=== PATIENT | female | born 1980 | race Caucasian/White ===

== ENCOUNTER 2017-08-28 19:51 | Inpatient (IN) | payer BC, OTHER ==
[~2017-08-28] VITALS: Ht 160 cm; Wt 122.5 kg
--- OUTSIDE RECORDS SUMMARY | 2017-08-28 19:59 | XMS REPORT ---
Author Author BRUNA PHAM Organization [facility] Address [address] [place] [address] Care Team Providers Care Wire Coater Name Role Phone BRUNA PHAM Unavailable PROBLEMS Type Condition ICD9-CM Code REV28-RL Code Onset Dates Condition Status SNOMED Code Problem Overweight E66.3 Active 166066569 Problem Pain in left shoulder M25.512 Active 64768407 Problem Essential hypertension I10 Active 70743091 Problem Mixed hyperlipidemia E78.2 Active 329539393 Problem Seasonal allergic rhinitis due to pollen J30.1 Active 94721607 Problem Type 2 diabetes mellitus without complication, without long-term current use of insulin E11.9 Active [id number] ALLERGIES No Known Allergies SOCIAL HISTORY Never Assessed PLAN OF CARE Activity Details Follow Up prn Reason: VITAL SIGNS Height 63 in 2016-10-01 Weight 266.8 lbs 2016-10-01 Temperature 98.6 degrees Fahrenheit 2016-10-01 Heart Rate 84 bpm 2016-10-01 Respiratory Rate 18 2016-10-01 BMI 47.26 kg/m2 2016-10-01 Blood pressure systolic 96 mmHg 2016-10-01 Blood pressure diastolic 62 mmHg 2016-10-01 MEDICATIONS Medication Instructions Dosage Frequency Start Date End Date Duration Status MetFORMIN HCl ER 500 MG Orally twice a day MUST KEEP APPT ON 06/22/16 FOR REFILL 1 tablet with meals Active Lisinopril-Hydrochlorothiazide 20-25 MG Orally Once a day 1 tablet 24h 30 day(s) Active Toprol XL 25 MG Orally Once a day 1 tablet 24h 30 day(s) Active Actos 30 MG Orally Once a day take 1 tablet by oral route once daily 24h 30 days Active RESULTS No Results PROCEDURES No Known procedures IMMUNIZATIONS No Known Immunizations MEDICAL (GENERAL) HISTORY Type Description Date Medical History type II diabetes 2014 Medical History hypertension Medical History hyperlipidemia Medical History seasonal allergies Medical History syncopal events as a child (resolved) Medical History Tobacco Abuse went to non smoking class Surgical History hymenectomy 1991-
--- OUTSIDE RECORDS SUMMARY | 2017-08-28 19:59 | XMS REPORT ---
Author RAMIREZ Carr [facility] eClinicalWorks Address Unknown Phone Unavailable Care Team Providers Care Prototype Machine Operator Name Role Phone RAMIREZ BARRERA CP Unavailable Allergies, Adverse Reactions, Alerts Substance Reaction Event Type N.K.D.A. Info Not Available Non Drug Allergy Problems Problem Type Condition Code Onset Dates Condition Status Problem Mixed hyperlipidemia E78.2 Active Problem Essential hypertension I10 Active Problem Type 2 diabetes mellitus without complication E11.9 Active Assessment Fluid level behind tympanic membrane of both ears H65.93 Active Assessment Cough R05 Active Medications Medication Code System Code Instructions Start Date End Date Status Dosage Actos [facility] [address]-64 30 MG Orally Once a day take 1 tablet (15 mg) by oral route once daily Flonase [facility] [address]-79 50 MCG/ACT Nasally Once a day Mar 26, 2016 1 spray in each nostril PredniSONE [facility] [address]-15 20 MG Orally 2 tablets x 2 days then 1 tablet x 2 days Apr 02, 2016 Apr 06, 2016 1 tablet GlyBURIDE [facility] [address]-29 5 mg Orally Once a day 1 tablet by Oral route 1 time per day Lisinopril-Hydrochlorothiazide [facility] [address]-47 20-25 MG Orally Once a day 1 tablet Zyrtec Allergy [facility] [address]-03 10 MG Orally Once a day Mar 26, 2016 Apr 25, 2016 1 tablet metformin [facility] 0 500 mg oral 2 times a day Apr 27, 2016 1 tablet ProAir HFA [facility] [address]-11 108 (90 Base) MCG/ACT Inhalation every 4 hrs Apr 02, 2016 2 puffs as needed Toprol XL [facility] [address]-62 25 MG Orally Once a day 1 tablet Procedures Procedure Coding System Code Date Office Visit, Est Pt., Level 3 CPT-4 25886 Apr 02, 2016 Vital Signs Date/Time: Apr 02, 2016 Cardiac Monitoring Heart Rate 102 bpm Weight 264.6 lbs Height 63 in BMI 46.87 Index Blood Pressure Diastolic 70 mmHg Blood Pressure Systolic 118 mmHg Results No Known Results Summary Purpose eClinicalWorks Submission
--- OUTSIDE RECORDS SUMMARY | 2017-08-28 19:59 | XMS REPORT ---
Author Author ISAIAH BATISTA [facility] eClinicalWorks Address Unknown Phone Unavailable Care Team Providers Care Boat Dispatcher Name Role Phone ISAIAH BATISTA CP Unavailable Allergies, Adverse Reactions, Alerts Substance Reaction Event Type N.K.D.A. Info Not Available Non Drug Allergy Problems Problem Type Condition Code Onset Dates Condition Status Problem Mixed hyperlipidemia E78.2 Active Problem Essential hypertension I10 Active Problem Type 2 diabetes mellitus without complication E11.9 Active Assessment Dental examination Z01.20 Active Medications Medication Code System Code Instructions Start Date End Date Status Dosage Lisinopril-Hydrochlorothiazide [facility] [address]-85 20-25 MG Orally Once a day Mar 19, 2015 1 tablet GlyBURIDE [facility] [address]-98 5 MG Orally Once a day 1 tablet by Oral route 1 time per day metformin [place] 0 500 mg oral 2 times a day January 18, 2016 take 1 tablet (500 mg) by oral route once daily with the evening meal Toprol XL [facility] [address]-36 25 MG Orally Once a day Jul 22, 2015 1 tablet Actos [facility] [address]-72 15 MG Orally Once a day take 1 tablet (15 mg) by oral route once daily Procedures Procedure Coding System Code Date RESIN COMPOS - 1 SURFACE POSTERIOR CPT-4 D2391 Jul 31, 2015 PERIODIC ORAL EXAMINATION CPT-4 D0120 Jul 31, 2015 Results No Known Results Summary Purpose eClinicalWorks Submission
--- OUTSIDE RECORDS SUMMARY | 2017-08-28 19:59 | XMS REPORT ---
Author Author LIONEL BRISCOE [facility] eClinicalWorks Address Unknown Phone Unavailable Care Team Providers Care Parquetry Floor Layer Name Role Phone LIONEL BRISCOE Unavailable Allergies No Known Allergies Problems Problem Type Condition ICD-9 Code Onset Dates Condition Status Assessment Tuberculosis screening V74.1 Active Assessment Screening for substance abuse V82.9 Active Problem Hyperlipidemia 272.4 Active Problem Diabetes mellitus without mention of complication, type II or unspecified type, uncontrolled 250.02 Active Problem Hypertension 401.9 Active Problem Proteinuria 791.0 Active Assessment Physical examination of employee V70.5 Active Problem Pure hyperglyceridemia 272.1 Active Problem Dermatophytosis of nail 110.1 Active Medications No Known Medications Procedures Procedure Coding System Code Date DRUG SCREEN NON TLC DEVICES CPT-4 81574 Mar 25, 2015 TB INTRADERMAL TEST CPT-4 77011 Mar 25, 2015 Office Visit, Est Pt., Level 2 CPT-4 38837 Mar 25, 2015 Vital Signs Date/Time: Mar 25, 2015 Cardiac Monitoring Heart Rate 122 bpm Temperature 98.4 F Height 63 in Blood Pressure Diastolic 84 mmHg Blood Pressure Systolic 138 mmHg Results Name Result Date Reference Range Unit Abnormality Flag URINE DRUG SCREEN (IN HOUSE) Summary Purpose eClinicalWorks Submission
--- OUTSIDE RECORDS SUMMARY | 2017-08-28 19:59 | XMS REPORT ---
Author Author DANG BLACKMAN Organization eClinicalWorks Address Unknown Phone Unavailable Care Team Providers Care Nuclear Technologist Name Role Phone DANG BLACKMAN CP Unavailable Allergies No Known Allergies Problems Problem Type Condition Code Onset Dates Condition Status Problem Mixed hyperlipidemia E78.2 Active Problem Essential hypertension I10 Active Problem Type 2 diabetes mellitus without complication E11.9 Active Medications Medication Code System Code Instructions Start Date End Date Status Dosage GlyBURIDE [facility] [address]-15 5 mg Orally Once a day MUST KEEP APPT ON FOR REFILL 1 tablet MetFORMIN HCl ER [facility] 81292858145 500 MG Orally twice a day MUST KEEP APPT ON 06/22/16 FOR REFILL 1 tablet with meals Actos [facility] [address]-54 30 MG Orally Once a day MUST KEEP APPT ON 06/22/16 FOR REFILL take 1 tablet (15 mg) by oral route once daily Results No Known Results Summary Purpose eClinicalWorks Submission
--- OUTSIDE RECORDS SUMMARY | 2017-08-28 19:59 | XMS REPORT ---
Author Author DANG BLACKMAN [facility] eClinicalWorks Address Unknown Phone Unavailable Care Team Providers Care Tank Inspector Name Role Phone DANG BLACKMAN CP Unavailable Allergies, Adverse Reactions, Alerts Substance Reaction Event Type N.K.D.A. Info Not Available Non Drug Allergy Problems Problem Type Condition Code Onset Dates Condition Status Problem Mixed hyperlipidemia E78.2 Active Problem Essential hypertension I10 Active Problem Type 2 diabetes mellitus without complication E11.9 Active Assessment Type 2 diabetes mellitus without complication E11.9 Active Assessment Essential hypertension I10 Active Assessment Mixed hyperlipidemia E78.2 Active Medications Medication Code System Code Instructions Start Date End Date Status Dosage Actos [facility] [address]-06 15 MG Orally Once a day take 1 tablet (15 mg) by oral route once daily Toprol XL [facility] [address]-38 25 MG Orally Once a day Jul 22, 2015 1 tablet metformin [facility] 0 500 mg oral 2 times a day January 18, 2016 take 1 tablet (500 mg) by oral route once daily with the evening meal Lisinopril-Hydrochlorothiazide [facility] [address]-32 20-25 MG Orally Once a day Mar 19, 2015 1 tablet GlyBURIDE [facility] [address]-21 5 MG Orally Once a day 1 tablet by Oral route 1 time per day Procedures Procedure Coding System Code Date LIPID PANEL CPT-4 04316 Jul 22, 2015 COMPREHEN METABOLIC PANEL CPT-4 11170 Jul 22, 2015 GLYCATED HEMOGLOBIN TEST CPT-4 94840 Jul 22, 2015 Office Visit, Est Pt., Level 4 CPT-4 70851 Jul 22, 2015 VENIPUNCT, ROUTINE* CPT-4 84236 Jul 22, 2015 Vital Signs Date/Time: Jul 22, 2015 Temperature 97.0 F Weight 257.0 lbs Height 63 in BMI 45.52 Index Blood Pressure Diastolic 92 mmHg Blood Pressure Systolic 138 mmHg Cardiac Monitoring Heart Rate 116 bpm Results Name Result Date Reference Range Unit Abnormality Flag A1C (IN HOUSE) ----A1C IN HOUSE 8.5% [id number] 4.30 - 5.6 % ----Previous A1c 9.6% [id number] ----Lot # [id number] ----Exp date [id number] ROUTINE VENIPUNCTURE Summary Purpose eClinicalWorks Submission
--- OUTSIDE RECORDS SUMMARY | 2017-08-28 19:59 | XMS REPORT ---
Author Author BETY ALEJANDRE [facility] eClinicalWorks Address Unknown Phone Unavailable Care Team Providers Care After School Driver Name Role Phone BETY ALEJANDRE CP Unavailable Allergies, Adverse Reactions, Alerts Substance Reaction Event Type N.K.D.A. Info Not Available Non Drug Allergy Problems Problem Type Condition Code Onset Dates Condition Status Problem Mixed hyperlipidemia E78.2 Active Problem Essential hypertension I10 Active Problem Type 2 diabetes mellitus without complication E11.9 Active Assessment Encounter for dental examination Z01.20 Active Medications No Known Medications Procedures Procedure Coding System Code Date INTRAORL-PERIAPICAL EA ADD FILM CPT-4 D0230 Jul 31, 2015 INTRAORL-PERIAPICAL EA ADD FILM CPT-4 D0230 Jul 31, 2015 INTRAORL-PERIAPICAL 1 FILM 68517 CPT-4 D0220 Jul 31, 2015 Periodontal maint procedures CPT-4 D4910 Jul 31, 2015 BITEWINGS - FOUR FILMS CPT-4 D0274 Jul 31, 2015 Vital Signs Date/Time: Jul 31, 2015 Blood Pressure Diastolic 75 mmHg Blood Pressure Systolic 110 mmHg Results No Known Results Summary Purpose eClinicalWorks Submission
--- OUTSIDE RECORDS SUMMARY | 2017-08-28 19:59 | XMS REPORT ---
Author Author DANG BLACKMAN Organization eClinicalWorks Address Unknown Phone Unavailable Care Team Providers Care Substitute Crossing Guard Name Role Phone DANG BLACKMAN CP Unavailable Allergies No Known Allergies Problems Problem Type Condition Code Onset Dates Condition Status Problem Mixed hyperlipidemia E78.2 Active Problem Essential hypertension I10 Active Problem Type 2 diabetes mellitus without complication E11.9 Active Medications No Known Medications Vital Signs Date/Time: Sep 04, 2015 Blood Pressure Systolic 130 mmHg Cardiac Monitoring Heart Rate 88 bpm Height 63 in Blood Pressure Diastolic 70 mmHg Results No Known Results Summary Purpose eClinicalWorks Submission
--- OUTSIDE RECORDS SUMMARY | 2017-08-28 19:59 | XMS REPORT ---
Author Author DANG BLACKMAN Organization eClinicalWorks Address Unknown Phone Unavailable Care Team Providers Care Welding Machine Operator Electron Beam Name Role Phone DANG BLACKMAN CP Unavailable Allergies No Known Allergies Problems Problem Type Condition Code Onset Dates Condition Status Problem Type 2 diabetes mellitus without complication E11.9 Active Problem Mixed hyperlipidemia E78.2 Active Problem Diabetes mellitus without mention of complication, type II or unspecified type, not stated as uncontrolled 250.00 Active Problem Essential hypertension I10 Active Medications Medication Code System Code Instructions Start Date End Date Status Dosage Actos [facility]NOTE 2] [address]-69 30 MG Orally Once a day take 1 tablet by oral route once daily Results No Known Results Summary Purpose eClinicalWorks Submission
--- OUTSIDE RECORDS SUMMARY | 2017-08-28 19:59 | XMS REPORT ---
Author Author DANG BLACKMAN [facility] eClinicalWorks Address Unknown Phone Unavailable Care Team Providers Care Mortgage Branch Manager Name Role Phone DANG BLACKMAN CP Unavailable Allergies, Adverse Reactions, Alerts Substance Reaction Event Type N.K.D.A. Info Not Available Non Drug Allergy Problems Problem Type Condition Code Onset Dates Condition Status Problem Type 2 diabetes mellitus without complication E11.9 Active Problem Mixed hyperlipidemia E78.2 Active Problem Diabetes mellitus without mention of complication, type II or unspecified type, not stated as uncontrolled 250.00 Active Assessment Type 2 diabetes mellitus without complication E11.9 Active Assessment Mixed hyperlipidemia E78.2 Active Problem Essential hypertension I10 Active Assessment Essential hypertension I10 Active Medications Medication Code System Code Instructions Start Date End Date Status Dosage Actos [facility] [address]-68 30 MG Orally Once a day take 1 tablet by oral route once daily MetFORMIN HCl ER [facility] 46434901245 500 MG Orally twice a day MUST KEEP APPT ON 06/22/16 FOR REFILL 1 tablet with meals Lisinopril-Hydrochlorothiazide [facility] [address]-67 20-25 MG Orally Once a day 1 tablet Toprol XL [facility] [address]-61 25 MG Orally Once a day 1 tablet Procedures Procedure Coding System Code Date COMPREHEN METABOLIC PANEL CPT-4 45965 Jun 22, 2016 Office Visit, Est Pt., Level 3 CPT-4 61744 Jun 22, 2016 GLYCATED HEMOGLOBIN TEST CPT-4 12663 Jun 22, 2016 VENIPUNCT, ROUTINE* CPT-4 41184 Jun 22, 2016 Vital Signs Date/Time: Jun 22, 2016 Cardiac Monitoring Heart Rate 90 bpm Weight 262 lbs Height 63 in BMI 46.41 Index Blood Pressure Diastolic 80 mmHg Blood Pressure Systolic 110 mmHg Results Name Result Date Reference Range Unit Abnormality Flag A1C (IN HOUSE) ----A1C IN HOUSE 7.8 [id number] 4.3 - 5.6 % ----Previous A1c 9.6 [id number] ----Lot [id number] ----Exp date 05/02 [id number] ROUTINE VENIPUNCTURE Summary Purpose eClinicalWorks Submission
--- OUTSIDE RECORDS SUMMARY | 2017-08-28 19:59 | XMS REPORT ---
Author VALERIE Michaels [facility] eClinicalWorks Address Unknown Phone Unavailable Care Team Providers Care Behavioral Health Consultant Name Role Phone VALERIE WILLS CP Unavailable Allergies, Adverse Reactions, Alerts Substance Reaction Event Type N.K.D.A. Info Not Available Non Drug Allergy Problems Problem Type Condition Code Onset Dates Condition Status Assessment Cough R05 Active Problem Hyperlipidemia 272.4 Active Problem Diabetes mellitus without mention of complication, type II or unspecified type, uncontrolled 250.02 Active Problem Hypertension 401.9 Active Problem Proteinuria 791.0 Active Assessment Sinusitis J32.9 Active Problem Pure hyperglyceridemia 272.1 Active Problem Dermatophytosis of nail 110.1 Active Medications Medication Code System Code Instructions Start Date End Date Status Dosage GlyBURIDE [facility] [address]-92 5 MG Orally Once a day 1 tablet by Oral route 1 time per day Diflucan [facility] [address]-07 150 MG Orally Once a day; may repeat in 4-5 days prn vaginal itching Jul 03, 2015 1 tablet Actos [facility] [address]-09 15 MG Orally Once a day take 1 tablet (15 mg) by oral route once daily Lisinopril-Hydrochlorothiazide [facility] [address]-76 20-25 MG Orally Once a day Mar 19, 2015 1 tablet metformin [facility] 0 500 mg oral Once a day Sep 15, 2015 take 1 tablet ( 500 mg) by oral route once daily with the evening meal Augmentin [facility] [address]-79 875-125 MG Orally every 12 hrs Jul 03, 2015 Jul 13, 2015 1 tablet Procedures Procedure Coding System Code Date Office Visit, Est Pt., Level 3 CPT-4 09842 Jul 03, 2015 MEASURE BLOOD OXYGEN LEVEL CPT-4 14257 Jul 03, 2015 Vital Signs Date/Time: Jul 03, 2015 Temperature 98.8 F Weight 257 lbs Height 63 in Oximetry 98 % Blood Pressure Diastolic 82 mmHg Blood Pressure Systolic 102 mmHg Cardiac Monitoring Heart Rate 117 bpm BMI 45.52 Index Results No Known Results Summary Purpose eClinicalWorks Submission
--- OUTSIDE RECORDS SUMMARY | 2017-08-28 20:00 | XMS REPORT | Continuity of Care Document ---
Author Author Formerly [facility] Address Unknown Phone Unavailable Allergies Active Description Code Type Severity Reaction Onset Reported/Identified Relationship to Patient Clinical Status Yes metformin 1,000 mg tablet,ER ina.retention 24 hr Drug Allergy N/A N/A Medications There is no data. Problems Date Dx Coded Attending Type Code Diagnosis Diagnosed By 12/30/2009 305.1 NICOTINE DEPENDENCE 12/30/2009 626.2 EXCESSIVE OR FREQUENT MENSTRUATION 12/30/2009 796.2 Elevated Blood Pressure Reading Without Diagnosis Of Hypertension 12/30/2009 KESHIA GONZALES DO K 305.1 NICOTINE DEPENDENCE 12/30/2009 KESHIA GONZALES DO K 626.2 EXCESSIVE OR FREQUENT MENSTRUATION 12/30/2009 RACHID GONZALES DOA K 796.2 Elevated Blood Pressure Reading Without Diagnosis Of Hypertension 12/30/2009 RACHID GONZALES DOA K 305.1 NICOTINE DEPENDENCE 12/30/2009 RACHID GONZALES DOA K 626.2 EXCESSIVE OR FREQUENT MENSTRUATION 12/30/2009 RACHID GONZALES DOA K 796.2 Elevated Blood Pressure Reading Without Diagnosis Of Hypertension 12/30/2009 RACHID GONZALES DOA K 305.1 NICOTINE DEPENDENCE 12/30/2009 RACHID GONZALES DOA K 626.2 EXCESSIVE OR FREQUENT MENSTRUATION 12/30/2009 RACHID GONZALES DOA K 796.2 Elevated Blood Pressure Reading Without Diagnosis Of Hypertension 12/30/2009 RACHID GONZALES DOA K 305.1 NICOTINE DEPENDENCE 12/30/2009 RACHID GONZALES DOA K 626.2 EXCESSIVE OR FREQUENT MENSTRUATION 12/30/2009 RACHID GONZALES DOA K 796.2 Elevated Blood Pressure Reading Without Diagnosis Of Hypertension 12/30/2009 RACHID GONZALES DOA K 305.1 NICOTINE DEPENDENCE 12/30/2009 RACHID GONZALES DOA K 626.2 EXCESSIVE OR FREQUENT MENSTRUATION 12/30/2009 RACHID GONZALES DOA K 796.2 Elevated Blood Pressure Reading Without Diagnosis Of Hypertension 12/30/2009 RACHID GONZALES DOA K 305.1 NICOTINE DEPENDENCE 12/30/2009 GONZALES DO, KESHIA K 626.2 EXCESSIVE OR FREQUENT MENSTRUATION 12/30/2009 GONZALES DO, KESHIA K 796.2 Elevated Blood Pressure Reading Without Diagnosis Of Hypertension 12/30/2009 MADL .NET PROGRAMMERLEANNDANG L 305.1 NICOTINE DEPENDENCE 12/30/2009 MADL .NET PROGRAMMER, DANG L 626.2 EXCESSIVE OR FREQUENT MENSTRUATION 12/30/2009 MADL .NET PROGRAMMER, DANG L 796.2 Elevated Blood Pressure Reading Without Diagnosis Of Hypertension 12/30/2009 GONZALES DO, KESHIA K 305.1 NICOTINE DEPENDENCE 12/30/2009 GONZALES DO, KESHIA K 626.2 EXCESSIVE OR FREQUENT MENSTRUATION 12/30/2009 GONZALES DO, KESHIA K 796.2 Elevated Blood Pressure Reading Without Diagnosis Of Hypertension 01/09/2010 382.9 Otitis Media 01/09/2010 GONZALES DO, KESHIA K 382.9 Otitis Media 01/09/2010 GONZALES DO, KESHIA K 382.9 Otitis Media 01/09/2010 GONZALES DO, KESHIA K 382.9 Otitis Media 01/09/2010 GONZALES DO, KESHIA K 382.9 Otitis Media 01/09/2010 GONZALES DO, KESHIA K 382.9 Otitis Media 01/09/2010 GONZALES DO, KESHIA K 382.9 Otitis Media 01/09/2010 MADL .NET PROGRAMMER, DANG L 382.9 Otitis Media 01/09/2010 GONZALES DO, KESHIA K 382.9 Otitis Media 01/20/2010 278.00 OBESITY 01/20/2010 401.1 ESSENTIAL HYPERTENSION BENIGN 01/20/2010 626.4 IRREGULAR MENSTRUAL CYCLE 01/20/2010 GONZALES DO, KESHIA K 278.00 OBESITY 01/20/2010 GONZALES DO, KESHIA K 401.1 ESSENTIAL HYPERTENSION BENIGN 01/20/2010 GONZALES DO, KESHIA K 626.4 IRREGULAR MENSTRUAL CYCLE 01/20/2010 GONZALES DO, KESHIA K 278.00 OBESITY 01/20/2010 GONZALES DO, KESHIA K 401.1 ESSENTIAL HYPERTENSION BENIGN 01/20/2010 GONZALES DO, KESHIA K 626.4 IRREGULAR MENSTRUAL CYCLE 01/20/2010 GONZALES DO, KESHIA K 278.00 OBESITY 01/20/2010 GONZALES DO, KESHIA K 401.1 ESSENTIAL HYPERTENSION BENIGN 01/20/2010 GONZALES DO, KESHIA K 626.4 IRREGULAR MENSTRUAL CYCLE 01/20/2010 GONZALES DO, KESHIA K 278.00 OBESITY 01/20/2010 GONZALES DO, KESHIA K 401.1 ESSENTIAL HYPERTENSION BENIGN 01/20/2010 GONZALES DO, KESHIA K 626.4 IRREGULAR MENSTRUAL CYCLE 01/20/2010 GONZALES DO, KESHIA K 278.00 OBESITY 01/20/2010 GONZALES DO, KESHIA K 401.1 ESSENTIAL HYPERTENSION BENIGN 01/20/2010 GONZALES DO, KESHIA K 626.4 IRREGULAR MENSTRUAL CYCLE 01/20/2010 GONZALES DO, KESHIA K 278.00 OBESITY 01/20/2010 GONZALES DO, KESHIA K 401.1 ESSENTIAL HYPERTENSION BENIGN 01/20/2010 GONZALES DO, KESHIA K 626.4 IRREGULAR MENSTRUAL CYCLE 01/20/2010 MADL .NET PROGRAMMER, DANG L 278.00 OBESITY 01/20/2010 MADL .NET PROGRAMMER, DANG L 401.1 ESSENTIAL HYPERTENSION BENIGN 01/20/2010 MADL .NET PROGRAMMER, DANG L 626.4 IRREGULAR MENSTRUAL CYCLE 01/20/2010 GONZALES DO, KESHIA K 278.00 OBESITY 01/20/2010 GONZALES DO, KESHIA K 401.1 ESSENTIAL HYPERTENSION BENIGN 01/20/2010 GONZALES DO, KESHIA K 626.4 IRREGULAR MENSTRUAL CYCLE 08/10/2010 466.0 BRONCHITIS, ACUTE 08/10/2010 GONZALES DO, KESHIA K 466.0 Bronchitis, Acute 08/10/2010 GONZALES DO, KESHIA K 466.0 Bronchitis, Acute 08/10/2010 GONZALES DO, KESHIA K 466.0 Bronchitis, Acute 08/10/2010 GONZALES DO, KESHIA K 466.0 Bronchitis, Acute 08/10/2010 GONZALES DO, KESHIA K 466.0 Bronchitis, Acute 08/10/2010 GONZALES DO, KESHIA K 466.0 Bronchitis, Acute 08/10/2010 MADL .NET PROGRAMMER, DANG L 466.0 Bronchitis, Acute 08/10/2010 GONZALES DO, KESHIA K 466.0 Bronchitis, Acute 08/25/2010 381.81 EUSTACHIAN TUBE DYSFUNCTION 08/25/2010 786.2 COUGH 08/25/2010 GONZALES DO, KESHIA K 381.81 Eustachian Tube Dysfunction 08/25/2010 GONZALES DO, KESHIA K 786.2 Cough 08/25/2010 GONZALES DO, KESHIA K 381.81 Eustachian Tube Dysfunction 08/25/2010 GONZALES DO, KESHIA K 786.2 Cough 08/25/2010 GONZALES DO, KESHIA K 381.81 Eustachian Tube Dysfunction 08/25/2010 GONZALES DO, KESHIA K 786.2 Cough 08/25/2010 GONZALES DO, KESHIA K 381.81 Eustachian Tube Dysfunction 08/25/2010 GONZALES DO, KESHIA K 786.2 Cough 08/25/2010 GONZALES DO, KESHIA K 381.81 Eustachian Tube Dysfunction 08/25/2010 GONZALES DO, KESHIA K 786.2 Cough 08/25/2010 GONZALES DO, KESHIA K 381.81 Eustachian Tube Dysfunction 08/25/2010 GONZALES DO, KESHIA K 786.2 Cough 08/25/2010 MADL .NET PROGRAMMER, DANG L 381.81 Eustachian Tube Dysfunction 08/25/2010 MADL .NET PROGRAMMER, DANG L 786.2 Cough 08/25/2010 GONZALES DO, KESHIA K 381.81 Eustachian Tube Dysfunction 08/25/2010 GONZALES DO, KESHIA K 786.2 Cough 01/20/2011 380.10 OTITIS EXTERNA 01/20/2011 388.70 OTALGIA 01/20/2011 GONZALES DO, KESHIA K 380.10 Otitis Externa 01/20/2011 GONZALES DO, KESHIA K 388.70 Otalgia 01/20/2011 GONZALES DO, KESHIA K 380.10 Otitis Externa 01/20/2011 GONZALES DO, KESHIA K 388.70 Otalgia 01/20/2011 GONZALES DO, KESHIA K 380.10 Otitis Externa 01/20/2011 GONZALES DO, KESHIA K 388.70 Otalgia 01/20/2011 GONZALES DO, KESHIA K 380.10 Otitis Externa 01/20/2011 GONZALES DO, KESHIA K 388.70 Otalgia 01/20/2011 GONZALES DO, KESHIA K 380.10 Otitis Externa 01/20/2011 GONZALES DO, KESHIA K 388.70 Otalgia 01/20/2011 GONZALES DO, KESHIA K 380.10 Otitis Externa 01/20/2011 GONZALES DO, KESHIA K 388.70 Otalgia 01/20/2011 MADL .NET PROGRAMMER, DANG L 380.10 Otitis Externa 01/20/2011 MADL .NET PROGRAMMER, DANG L 388.70 Otalgia 01/20/2011 GONZALES DO, KESHIA K 380.10 Otitis Externa 01/20/2011 GONZALES DO, KESHIA K 388.70 Otalgia 08/09/2011 719.46 PAIN IN JOINT INVOLVING LOWER LEG 08/09/2011 GONZALES DO, KESHIA K 719.46 Pain In Joint Involving Lower Leg 08/09/2011 GONZALES DO, KESHIA K 719.46 Pain In Joint Involving Lower Leg 08/09/2011 GONZALES DO, KESHIA K 719.46 Pain In Joint Involving Lower Leg 08/09/2011 GONZALES DO, KESHIA K 719.46 Pain In Joint Involving Lower Leg 08/09/2011 GONZALES DO, KESHIA K 719.46 Pain In Joint Involving Lower Leg 08/09/2011 GONZALES DO, KESHIA K 719.46 Pain In Joint Involving Lower Leg 08/09/2011 MARKL .NET PROGRAMMERLEANNDANG L 719.46 Pain In Joint Involving Lower Leg 08/09/2011 GONZALES DO KESHIA K 719.46 Pain In Joint Involving Lower Leg 02/10/2012 V65.42 COUNSELING - SMOKING CESSATION 02/10/2012 V70.0 ROUTINE GENERAL MEDICAL EXAMINATION AT A HEALTH CARE FACILITY 02/10/2012 CHRISTIAN DO KESHIA K V65.42 Patient Education - Alcohol 02/10/2012 GONZALES DO KESHIA K V70.0 Routine General Medical Examination At A Health Care Facility 02/10/2012 GONZALES DO KESHIA K V65.42 Patient Education - Alcohol 02/10/2012 GONZALES DO KESHIA K V70.0 Routine General Medical Examination At A Health Care Facility 02/10/2012 GONZALES DO KESHIA K V65.42 Patient Education - Alcohol 02/10/2012 GONZALES DO KESHIA K V70.0 Routine General Medical Examination At A Health Care Facility 02/10/2012 GONZALES DO KESHIA K V65.42 Patient Education - Alcohol 02/10/2012 GONZALES DO KESHIA K V70.0 Routine General Medical Examination At A Health Care Facility 02/10/2012 GONZALES DO KESHIA K V65.42 Patient Education - Alcohol 02/10/2012 GONZALES DO KESHIA K V70.0 Routine General Medical Examination At A Health Care Facility 02/10/2012 GONZALES DO KESHIA K V65.42 Patient Education - Alcohol 02/10/2012 GONZALES DO KESHIA K V70.0 Routine General Medical Examination At A Health Care Facility 02/10/2012 YEHUDA .NET PROGRAMMER, DANG L V65.42 Patient Education - Alcohol 02/10/2012 MARKL .NET PROGRAMMER, DANG L V70.0 Routine General Medical Examination At A Health Care Facility 02/10/2012 GONZALES DO, KESHIA K V65.42 Patient Education - Alcohol 02/10/2012 GONZALES DO, KESHIA K V70.0 Routine General Medical Examination At A Health Care Facility 02/22/2012 250.02 DIABETES II UNCONTROLLED (UNCOMPLICATED) 02/22/2012 GONZALES DO, KESHIA K 250.02 DIABETES MELLITUS TYPE 2 - UNCOMPLICATED, UNCONTROLLED 02/22/2012 GONZALES DO, KESHIA K 250.02 DIABETES MELLITUS TYPE 2 - UNCOMPLICATED, UNCONTROLLED 02/22/2012 GONZALES DO, KESHIA K 250.02 DIABETES MELLITUS TYPE 2 - UNCOMPLICATED, UNCONTROLLED 02/22/2012 GONZALES DO, KESHIA K 250.02 DIABETES MELLITUS TYPE 2 - UNCOMPLICATED, UNCONTROLLED 02/22/2012 GONZALES DO, KESHIA K 250.02 DIABETES MELLITUS TYPE 2 - UNCOMPLICATED, UNCONTROLLED 02/22/2012 GONZALES DO, KESHIA K 250.02 DIABETES MELLITUS TYPE 2 - UNCOMPLICATED, UNCONTROLLED 02/22/2012 YEHUDA GIORDANONMAYIA L 250.02 DIABETES MELLITUS TYPE 2 - UNCOMPLICATED, UNCONTROLLED 02/22/2012 GONZALES DO, KESHIA K 250.02 DIABETES MELLITUS TYPE 2 - UNCOMPLICATED, UNCONTROLLED 02/23/2012 272.1 HYPERTRIGLYCERIDEMIA 02/23/2012 GONZALES DO, KESHIA K 272.1 HYPERTRIGLYCERIDEMIA 02/23/2012 GONZALES DO, KESHIA K 272.1 HYPERTRIGLYCERIDEMIA 02/23/2012 GONZALES DO, KESHIA K 272.1 HYPERTRIGLYCERIDEMIA 02/23/2012 GONZALES DO, KESHIA K 272.1 HYPERTRIGLYCERIDEMIA 02/23/2012 GONZALES DO, KESHIA K 272.1 HYPERTRIGLYCERIDEMIA 02/23/2012 GONZALES DO, KESHIA K 272.1 HYPERTRIGLYCERIDEMIA 02/23/2012 MADL .NET PROGRAMMER, DANG L 272.1 HYPERTRIGLYCERIDEMIA 02/23/2012 GONZALES DO, KESHIA K 272.1 HYPERTRIGLYCERIDEMIA 09/25/2012 465.9 UPPER RESPIRATORY INFECTION 09/25/2012 GONZALES DO, KESHIA K 465.9 Upper Respiratory Infection 09/25/2012 GONZALES DO, KESHIA K 465.9 Upper Respiratory Infection 09/25/2012 GONZALES DO, KESHIA K 465.9 Upper Respiratory Infection 09/25/2012 GONZALES DO, KESHIA K 465.9 Upper Respiratory Infection 09/25/2012 GONZALES DO, KESHIA K 465.9 Upper Respiratory Infection 09/25/2012 GONZALES DO, KESHAI K 465.9 Upper Respiratory Infection 09/25/2012 MADL .NET PROGRAMMER, DANG L 465.9 Upper Respiratory Infection 09/25/2012 GONZALES DO, KESHIA K 465.9 Upper Respiratory Infection 11/02/2012 GONZALES DO, KESHIA K 791.0 MICROALBUMINURIA 11/02/2012 GONZALES DO, KESHIA K 791.0 MICROALBUMINURIA 11/02/2012 GONZALES DO, KESHIA K 791.0 MICROALBUMINURIA 11/02/2012 GONZALES DO, KESHIA K 791.0 MICROALBUMINURIA 11/02/2012 GONZALES DO, KESHIA K 791.0 MICROALBUMINURIA 11/02/2012 GONZALES DO, KESHIA K 791.0 MICROALBUMINURIA 11/02/2012 MADL .NET PROGRAMMER, DANG L 791.0 MICROALBUMINURIA 11/02/2012 GONZALES DO, KESHIA K 791.0 MICROALBUMINURIA 11/22/2012 OGNZALES DO, KESHIA K 250.00 DIABETES MELLITUS TYPE 2 11/22/2012 GONZALES DO, KESHIA K 250.00 DIABETES MELLITUS TYPE 2 11/22/2012 GONZALES DO, KESHIA K 250.00 DIABETES MELLITUS TYPE 2 11/22/2012 GONZALES DO, KESHIA K 250.00 DIABETES MELLITUS TYPE 2 11/22/2012 GONZALES DO, KESHIA K 250.00 DIABETES MELLITUS TYPE 2 11/22/2012 GONZALES DO, KESHIA K 250.00 DIABETES MELLITUS TYPE 2 11/22/2012 MADL .NET PROGRAMMER, DANG L 250.00 DIABETES MELLITUS TYPE 2 11/22/2012 GONZALES DO, KESHIA K 250.00 DIABETES MELLITUS TYPE 2 08/31/2013 GONZALES DO, KESHIA K 110.1 DERMATOPHYTOSIS OF NAIL 08/31/2013 GONZALES DO, KESHIA K 110.1 DERMATOPHYTOSIS OF NAIL 08/31/2013 GONZALES DO, KESHIA K 110.1 DERMATOPHYTOSIS OF NAIL 08/31/2013 GONZALES DO, KESHIA K 110.1 DERMATOPHYTOSIS OF NAIL 08/31/2013 MADL .NET PROGRAMMER, DANG L 110.1 DERMATOPHYTOSIS OF NAIL 08/31/2013 GONZALES DO, KESHIA K 110.1 DERMATOPHYTOSIS OF NAIL 10/19/2013 GONZALES DO, KESHIA K 782.1 RASH 10/19/2013 GONZALES DO, KESHIA K V41.0 PROBLEMS WITH SIGHT 10/19/2013 GONZALES DO, KESHIA K 782.1 RASH 10/19/2013 GONZALES DO, KESHIA K V41.0 PROBLEMS WITH SIGHT 10/19/2013 GONZALES DO, KESHIA K 782.1 RASH 10/19/2013 GONZALES DO, KESHIA K V41.0 PROBLEMS WITH SIGHT 10/19/2013 MADL .NET PROGRAMMER, DANG L 782.1 RASH 10/19/2013 MADL .NET PROGRAMMER, DANG L V41.0 PROBLEMS WITH SIGHT 10/19/2013 GONZALES DO, KESHIA K 782.1 RASH 10/19/2013 GONZALES DO, KESHIA K V41.0 PROBLEMS WITH SIGHT 03/21/2014 MADL .NET PROGRAMMER, DANG L 461.9 SINUSITIS ACUTE 03/21/2014 MADL .NET PROGRAMMER, DANG L 477.9 ALLERGIC RHINITIS CAUSE UNSPECIFIED 03/21/2014 GONZALES DO, KESHIA K 461.9 SINUSITIS ACUTE 03/21/2014 GONZALES DO, KESHIA K 477.9 ALLERGIC RHINITIS CAUSE UNSPECIFIED Procedures Code Description [place] [address] ROUTINE VENIPUNCTURE 11/02/2012 99202 MICROALBUMIN 11/02/2012 71189 A1C (IN-HOUSE) 11/02/2012 06969 MICRO ALBUMIN-IN HOUSE 11/02/2012 70901 CMP 11/02/2012 19212 LIPID PANEL 11/02/2012 9715984 GFR CALC (RESULT ONLY) 11/02/20122027F FOOT EXAM PERFORMED 08/31/2013 67981 A1C (IN-HOUSE) 08/31/2013 LYNDSAY SINGH 10/19/2013 95743 ROUTINE VENIPUNCTURE 10/29/2013 07896 MICRO ALBUMIN-IN HOUSE 10/29/2013 [id number] GFR CALC (RESULT ONLY) 10/29/2013 53307 CMP 10/29/2013 37810 LIPID PANEL 10/29/2013 35848 EYE EXAM PERFORMED 01/11/2014 29633 A1C (IN-HOUSE) 01/11/2014 FOOT EXAM PERFORMED 01/11/2014 74991 ROUTINE VENIPUNCTURE 06/04/2014 74042 A1C (IN-HOUSE) 06/04/20142027F FOOT EXAM PERFORMED 06/04/20146647383 GFR CALC (RESULT ONLY) 06/04/2014 89910 CMP 06/04/2014 Results There is no data. Encounters ACCT No. Visit Date/Time Discharge Status Pt. Type Provider Facility Loc./Unit Complaint [id number] 06/04/2014 13:57:00 06/04/2014 23:59:59 CLS Outpatient KESHIA GONZALES DO [id number] 03/21/2014 09:36:00 03/21/2014 23:59:59 CLS Outpatient MARKL DANG PRESSLEY [id number] 01/11/2014 09:34:00 01/11/2014 23:59:59 CLS Outpatient KESHIA GONZALES DO [id number] 10/29/2013 08:57:00 10/29/2013 23:59:59 CLS Outpatient KESHIA GONZALES DO [id number] 10/19/2013 16:30:00 10/19/2013 23:59:59 CLS Outpatient KESHIA GONZALES DO [id number] 08/31/2013 15:10:00 08/31/2013 23:59:59 CLS Outpatient KESHIA GONZALES DO [id number] 06/20/2013 14:24:00 06/20/2013 23:59:59 CLS Outpatient KESHIA GONZALES DO [id number] 11/02/2012 08:55:00 11/02/2012 23:59:59 CLS Outpatient KESHIA GONZALES DO [id number] 09/25/2012 14:51:00 09/25/2012 23:59:59 CLS Outpatient
[2017-08-28] MEDS ORDERED: RT-ALBUTEROL/IPRATROPIUM 3 ML (DUONEB) VIAL INH ONE ×2 (21:30→23:15)
[2017-08-28 22:14] LABS: BILIRUBIN,URINE NEGATIVE (NEGATIVE); CLARITY,URINE SLIGHTLY CLOUDY; COLOR,URINE YELLOW; GLUCOSE, URINE (UA) 1+ (NEGATIVE); KETONES,URINE NEGATIVE (NEGATIVE); LEUKOCYTE ESTERASE ,URINE 3+ (NEGATIVE); NITRITE,URINE NEGATIVE (NEGATIVE); PH,URINE 6 (5-9); PROTEIN,URINE 2+ (NEGATIVE); UROBILINOGEN,URINE NORMAL (NORMAL)
[2017-08-28 22:49] LABS: BACTERIA,URINE TRACE /HPF; RBC,URINE RARE /HPF; SQUAMOUS EPITHELIAL CELL,UR >50 /HPF
[2017-08-28 22:50] LABS: TRICHOMONAS,URINE FEW /HPF
[2017-08-28 23:07] LABS: BASOPHILS % (AUTO) 0 % (0-10); EOSINOPHILS # (AUTO) 0.1 10^3/uL (0.0-0.3); EOSINOPHILS % (AUTO) 1 % (0-10); HEMATOCRIT 39 % (35-52); HEMOGLOBIN 12.5 G/DL (11.5-16.0); LYMPHOCYTES # (AUTO) 1.9 X 10^3 (1.0-4.0); LYMPHOCYTES % (AUTO) 16 % (12-44); MEAN CORPUSCULAR HEMOGLOBIN 27 PG (25-34); MEAN CORPUSCULAR HGB CONC 32 G/DL (32-36); MEAN CORPUSCULAR VOLUME 83 FL (80-99); MEAN PLATELET VOLUME 10.3 FL (7.4-10.4); MONOCYTES # (AUTO) 0.9 X 10^3 (0.0-1.0); MONOCYTES % (AUTO) 8 % (0-12); NEUTROPHILS # (AUTO) 9.1 X 10^3 (1.8-7.8); NEUTROPHILS % (AUTO) 76 % (42-75); PLATELET COUNT 331 10^3/uL (130-400); RED BLOOD COUNT 4.64 10^6/uL (4.35-5.85); RED CELL DISTRIBUTION WIDTH 15.9 % (10.0-14.5)
[2017-08-28 23:21] LABS: INR 1.1 (0.8-1.4); PROTHROMBIN TIME PATIENT 13.8 SEC (12.2-14.7)
--- NOTE | 2017-08-28 23:26 | ED General ---
General Chief Complaint: Chest Wall/Rib Pain Stated Complaint: FLU SYM W SOA Nursing Triage Note: STATES BEING TREATED FOR BRONCHITIS. PT STATES COUGHING WORSE. SHORTNESS OF BREATH ON EXERTION Nursing Sepsis Screen: No Definite Risk Source of Information: Patient Exam Limitations: No Limitations History of Present Illness Time Seen by Provider: 22:50 Initial Comments Here with report of shortness of breath and chest tightness is worsened significantly today. Has had recent treatments for bronchitis and these are not improving her symptoms. Normally not on oxygen but was noted to be hypoxic on arrival. Does have fevers, runny nose and sore throat. Denies nausea or vomiting. Timing/Duration: 2-3 Days, Getting Worse Severity: Moderate Associated Systoms: Cough, Fever/Chills, No Nausea/Vomiting, Shortness of Air Allergies and Home Medications Allergies Coded Allergies: No Known Drug Allergies (Unverified , 08/28/17) Constitutional: see HPI, chills, fever EENTM: nose congestion, throat pain Respiratory: cough, short of breath, wheezing Cardiovascular: chest pain (Chest tightness with shortness of breath), No edema Gastrointestinal: No abdominal pain, No nausea, No vomiting Genitourinary: no symptoms reported Musculoskeletal: no symptoms reported All Other Systems Reviewed Negative Unless Noted: Yes Past Nuehljd-Dmoblz-Oxhruv Hx Patient Social History Alcohol Use: Denies Use Recreational Drug Use: No Smoking Status: Current Everyday Smoker Recent Foreign Travel: No Contact w/Someone Who Travel: No Recent Infectious Disease Expo: No Surgeries History of Surgeries: No Respiratory History of Respiratory Disorde: Yes Respiratory Disorders: Chronic Bronchitis Cardiovascular History of Cardiac Disorders: Yes Cardiac Disorders: Hypertension Neurological History of Neurological Disord: No Genitourinary History of Genitourinary Disor: No Gastrointestinal History of Gastrointestinal Di: No Musculoskeletal History of Musculoskeletal Dis: No Endocrine History of Endocrine Disorders: Yes Endocrine Disorders: Diabetes, Non-Insulin dep Reviewed Nursing Assessment Reviewed/Agree w Nursing PMH: Yes Family Medical History Significant Family History: No Pertinent Family Hx Physical Exam-Suspected Sepsis Physical Exam Vital Signs Vital Sign - Last 12Hours 08/28/17 08/28/17 20:29 23:42 Temp 98.2 Pulse 121 Resp 20 B/P (MAP) 106/67 (80) Pulse Ox 90 O2 Delivery Room Air O2 Flow Rate 2.00 Capillary Refill : Less Than 3 Seconds Blood Pressure Mean: 80 General Appearance: No Apparent Distress, WD/WN, Obese HEENT: PERRL/EOMI, Pharyngeal Erythema, Other (Moderate bilateral nasal congestion with clear rhinorrhea and moderate erythema) Neck: Non Tender, Supple Respiratory: No Respiratory Distress, Decreased Breath Sounds, Expiration, Wheezing Cardiovascular: No Murmur, Tachycardia Gastrointestinal: Non Tender, Soft Back: Normal Inspection, No CVA Tenderness, No Vertebral Tenderness Extremity: Normal Inspection, Normal Range of Motion, Non Tender, No Calf Tenderness, No Pedal Edema Neurologic/Psychiatric: Alert, Oriented x3, No Motor/Sensory Deficits Skin: normal color, warm/dry Focused Exam Evaluation Lactate Level Laboratory Tests 08/28/17 22:48: Lactic Acid Level 2.55*H 08/29/17 00:50: Lactic Acid Level 2.74*H Lactic Acid Level Laboratory Tests Test 08/29/17 00:50 Lactic Acid Level 2.74 MMOL/L (0.50-2.00) *H Progress/Results/Core Measures Suspected Sepsis Recent Fever Within 48 Hours: No Infection Criteria Present: None New/Unexplained Altered Menta: No Sepsis Screen: No Definite Risk Sepsis Diagnosis: SIRS Temperature:98.2 Pulse: 121 Respiratory Rate: 20 Laboratory Tests 08/28/17 22:48: White Blood Count 12.0H Blood Pressure 106 /67 Mean: 80 Laboratory Tests 08/28/17 22:48: Lactic Acid Level 2.55*H 08/29/17 00:50: Lactic Acid Level 2.74*H Laboratory Tests 08/28/17 22:48: Creatinine 1.14, INR Comment 1.1, Platelet Count 331, Total Bilirubin 0.4 Results/Orders Lab Results Laboratory Tests Test 08/28/17 22:06 08/28/17 22:48 08/29/17 00:50 Range/Units Urine Color YELLOW Urine Clarity SLIGHTLY CLOUDY Urine pH 6 5-9 Urine Specific [place] 1.015 L 1.016-1.022 Urine Protein 2+ H NEGATIVE Urine Glucose (UA) 1+ H NEGATIVE Urine Ketones NEGATIVE NEGATIVE Urine Nitrite NEGATIVE NEGATIVE Urine Bilirubin NEGATIVE NEGATIVE Urine Urobilinogen NORMAL NORMAL MG/DL Urine Leukocyte Esterase 3+ H NEGATIVE Urine RBC (Auto) NEGATIVE NEGATIVE Urine RBC RARE /HPF Urine WBC 10-25 H /HPF Urine Squamous Epithelial Cells >50 H /HPF Urine Renal Epithelial Cells NONE /HPF Urine Crystals NONE /LPF Urine Bacteria TRACE /HPF Urine Casts PRESENT /LPF Urine Hyaline Casts 10-25 H /LPF Urine Mucus SMALL H /LPF Urine Trichomonas FEW H /HPF Urine Culture Indicated YES White Blood Count 12.0 H 4.3-11.0 10^3/uL Red Blood Count 4.64 4.35-5.85 10^6/uL Hemoglobin 12.5 11.5-16.0 G/DL Hematocrit 39 35-52 % Mean Corpuscular Volume 83 80-99 FL Mean Corpuscular Hemoglobin 27 25-34 PG Mean Corpuscular Hemoglobin Concent 32 32-36 G/DL Red Cell Distribution Width 15.9 H 10.0-14.5 % Platelet Count 331 130-400 10^3/uL Mean Platelet Volume 10.3 7.4-10.4 FL Neutrophils (%) (Auto) 76 H 42-75 % Lymphocytes (%) (Auto) 16 12-44 % Monocytes (%) (Auto) 8 0-12 % Eosinophils (%) (Auto) 1 0-10 % Basophils (%) (Auto) 0 0-10 % Neutrophils # (Auto) 9.1 H 1.8-7.8 X 10^3 Lymphocytes # (Auto) 1.9 1.0-4.0 X 10^3 Monocytes # (Auto) 0.9 0.0-1.0 X 10^3 Eosinophils # (Auto) 0.1 0.0-0.3 10^3/uL Basophils # (Auto) 0.0 0.0-0.1 10^3/uL Prothrombin Time 13.8 12.2-14.7 SEC INR Comment 1.1 0.8-1.4 Activated Partial Thromboplast Time 30 24-35 SEC Sodium Level 133 L 135-145 MMOL/L Potassium Level 3.9 3.6-5.0 MMOL/L Chloride Level 92 L 98-107 MMOL/L Carbon Dioxide Level 27 21-32 MMOL/L Anion Gap 14 5-14 MMOL/L Blood Urea Nitrogen 19 H 7-18 MG/DL Creatinine 1.14 0.60-1.30 MG/DL Estimat Glomerular Filtration Rate 53 BUN/Creatinine Ratio 17 Glucose Level 176 H 70-105 MG/DL Lactic Acid Level 2.55 *H 2.74 *H 0.50-2.00 MMOL/L Calcium Level 9.0 8.5-10.1 MG/DL Total Bilirubin 0.4 0.1-1.0 MG/DL Aspartate Amino Transf (AST/SGOT) 17 5-34 U/L Alanine Aminotransferase (ALT/SGPT) 23 0-55 U/L Alkaline Phosphatase 115 40-136 U/L Total Protein 7.3 6.4-8.2 GM/DL Albumin 3.7 3.2-4.5 GM/DL Micro Results Microbiology 08/28/17 Influenza Types A,B Antigen ([facility]) - Final, Complete My Orders Orders - LAILA PRYOR MD Albuterol/Ipra Inhalation Soln (Duoneb I (08/28/17 21:30) Svn Sm Volume Nebulizer Rt-Rfs (08/28/17 21:22) Influenza A And B Antigens (08/28/17 21:22) Cbc With Automated Diff (08/28/17 22:02) Comprehensive Metabolic Panel (08/28/17 22:02) Lactic Acid Analyzer (08/28/17 22:02) Blood Culture (08/28/17 22:02) Sputum Culture (08/28/17 22:02) Ua Culture If Indicated (08/28/17 22:02) Protime With Inr (08/28/17 22:02) Partial Thromboplastin Time (08/28/17 22:02) Chest 1 View, Ap/Pa Only (08/28/17 22:02) O2 (08/28/17 22:02) Saline Lock/Iv-Start (08/28/17 22:02) Vital Signs Adult Sepsis Patie Q1H (08/28/17 22:02) Remove Rings In Anticipation O (08/28/17 22:02) Urine Culture (08/28/17 22:06) Albuterol/Ipra Inhalation Soln (Duoneb I (08/28/17 23:15) Svn Sm Volume Nebulizer Rt-Rfs (08/28/17 23:05) Ns Iv 1000 Ml (Sodium Chloride 0.9%) (08/28/17 23:28) Ns Iv 1000 Ml (Sodium Chloride 0.9%) (08/29/17 01:13) Ct Angio Chest W (08/29/17 01:22) Methylprednisolone Sod Succ (Solu-Medrol (08/29/17 02:16) Methylprednisolone Sod Succ (Solu-Medrol (08/29/17 02:17) Ceftriaxone Injection (Rocephin Injectio (08/29/17 02:45) Ceftriaxone Injection (Rocephin Injectio (08/29/17 02:40) Ns (Ivpb) (Sodium Chloride 0.9% Ivpb Bag (08/29/17 02:40) Medications Given in ED Current Medications Medications Dose Ordered Sig/Afua Route Start Time Stop Time Status Last Admin Dose Admin Albuterol/ Ipratropium 3 ml ONCE ONCE INH 08/28/17 21:30 08/28/17 21:31 DC 08/28/17 21:38 3 ML Albuterol/ Ipratropium 6 ml ONCE ONCE INH 08/28/17 23:15 08/28/17 23:16 DC 08/28/17 23:41 6 ML Ceftriaxone Sodium 1000 mg/ Sodium Chloride 50 ml @ 100 mls/hr ONCE ONCE IV 08/29/17 02:45 08/29/17 03:14 08/29/17 02:55 100 MLS/HR Sodium Chloride 1,000 ml @ 0 mls/hr Q0M ONCE IV 08/28/17 23:28 08/28/17 23:29 DC 08/28/17 23:45 1,000 MLS/HR Vital Signs/I&O Vital Sign - Last 12Hours 08/28/17 08/28/17 08/28/17 20:29 21:38 23:42 Temp 98.2 Pulse 121 Resp 20 B/P (MAP) 106/67 (80) Pulse Ox 90 93 96 O2 Delivery Room Air Room Air Nasal Cannula O2 Flow Rate 2.00 Capillary Refill : Less Than 3 Seconds Blood Pressure Mean: 80 Progress Note : Progress Note Seen and evaluated. Patient is requiring oxygen on arrival. O2 via nasal cannula for O2 sat of 88 percent on room air. DuoNeb and albuterol 2. IV, labs, blood cultures, lactic acid, chest x-ray ordered. Monitor patient. Patient wants improved after oxygen and albuterol treatments. Heart rate remains elevated. CT angiogram of the chest ordered due to concerns for pulmonary embolism. 0211: I did discuss the case with Dr. Davis. Does appear to have bilateral infiltrates. We will initiate treatment for pneumonia. Rocephin [address] Gault accepts patient for admission, inpatient status. Patient agrees to plan. Diagnostic Imaging Diagonstic Imaging: Xray Plain Films/CT/US/NM/MRI: chest Comments No acute finding on one view chest Reviewed: Reviewed by Me Diagonstic Imaging: CT Plain Films/CT/US/NM/MRI: chest Comments Multilobar atypical infection. No central PE. Reviewed: Reviewed by Me Departure Communication (Admissions) Time/Spoke to Admitting Phy: 02:11 Impression Impression: Primary Impression: Bilateral pneumonia Qualified Codes: J18.9 - Pneumonia, unspecified organism Additional Impressions: Hypoxia COPD (chronic obstructive pulmonary disease) Qualified Codes: J44.0 - Chronic obstructive pulmonary disease with acute lower respiratory infection Disposition: ADMITTED INPATIENT Condition: Stable Admissions Decision to Admit Reason: Admit from ER (General) Decision to Admit/Date: Aug 29, 2017 Time/Decision to Admit Time: 02:11 Departure-Patient Inst. Referrals: [facility] (PCP) Primary Care Physician LAILA PRYOR MD Aug 28, 2017 23:26
[2017-08-28] MEDS ORDERED: NS IV 1000 ML 1,000 ML IV ONE (23:28)
[2017-08-28 23:32] LABS: ALBUMIN 3.7 GM/DL (3.2-4.5); BILIRUBIN,TOTAL 0.4 MG/DL (0.1-1.0); CREATININE SERUM 1.14 MG/DL (0.60-1.30); POTASSIUM 3.9 MMOL/L (3.6-5.0); TOTAL PROTEIN 7.3 GM/DL (6.4-8.2)
[2017-08-29] MEDS ORDERED: NS IV 1000 ML 1,000 ML IV ONE (01:13)
[2017-08-29] MEDS ORDERED: methylPREDNISolone 125 MG (Solu-MEDROL) VIAL IV STA (02:16)
[2017-08-29] MEDS ORDERED: methylPREDNISolone 125 MG (Solu-MEDROL) VIAL ONE (02:17)
[2017-08-29] MEDS ORDERED: NS (IVPB) 50 ML ONE (02:40)
[2017-08-29] MEDS ORDERED: cefTRIAXone 1 GM (ROCEPHIN) VIAL ONE (02:40)
[2017-08-29] MEDS ORDERED: cefTRIAXone INJECTION 1,000 MG in NS (IVPB) 50 ML IV ONE (02:45)
--- OUTSIDE RECORDS SUMMARY | 2017-08-29 03:36 | XMS REPORT | Continuity of Care Document ---
Author Author [facility] Address Unknown Phone Unavailable Allergies Active [...] Reading Without Diagnosis Of Hypertension 12/30/2009 MADL VALUERLEANNDANG L 305.1 NICOTINE DEPENDENCE 12/30/2009 MADL VALUER, DANG L 626.2 EXCESSIVE OR FREQUENT MENSTRUATION 12/30/2009 MADL VALUER, DANG L 796.2 Elevated Blood Pressure Reading [...] DO, KESHIA K 382.9 Otitis Media 01/09/2010 GONZLAES DO, KESHIA K 382.9 Otitis Media 01/09/2010 GONZALES DO, KESHIA K 382.9 Otitis Media 01/09/2010 MADL VALUER, DANG L 382.9 Otitis Media 01/09/2010 GONZALES [...] K 626.4 IRREGULAR MENSTRUAL CYCLE 01/20/2010 MADL VALUER, DANG L 278.00 OBESITY 01/20/2010 MADL VALUER, DANG L 401.1 ESSENTIAL HYPERTENSION BENIGN 01/20/2010 MADL VALUER, DANG L 626.4 IRREGULAR MENSTRUAL CYCLE 01/20/2010 [...] KESHIA K 466.0 Bronchitis, Acute 08/10/2010 MADL VALUER, DANG L 466.0 Bronchitis, Acute 08/10/2010 GONZALES [...] DO, KESHIA K 786.2 Cough 08/25/2010 MADL VALUER, DANG L 381.81 Eustachian Tube Dysfunction 08/25/2010 MADL VALUER, DANG L 786.2 Cough 08/25/2010 GONZALES DO, [...] DO, KESHIA K 388.70 Otalgia 01/20/2011 MADL VALUER, DANG L 380.10 Otitis Externa 01/20/2011 MADL VALUER, DANG L 388.70 Otalgia 01/20/2011 GONZALES DO, [...] In Joint Involving Lower Leg 08/09/2011 MARKL VALUERLEANNDANG L 719.46 Pain In Joint Involving Lower [...] At A Health Care Facility 02/10/2012 YEHUDA VALUER, DANG L V65.42 Patient Education - Alcohol 02/10/2012 MARKL VALUER, DANG L V70.0 Routine General Medical Examination [...] DO, KESHIA K 272.1 HYPERTRIGLYCERIDEMIA 02/23/2012 MADL VALUER, DANG L 272.1 HYPERTRIGLYCERIDEMIA 02/23/2012 GONZALES DO, [...] KESHIA K 465.9 Upper Respiratory Infection 09/25/2012 MADL VALUER, DANG L 465.9 Upper Respiratory Infection 09/25/2012 GONZALES DO, KESHIA K 465.9 Upper Respiratory Infection 11/02/2012 GONZALES DO, KESHIA K 791.0 MICROALBUMINURIA 11/02/2012 GONZALES DO, KESHIA K 791.0 MICROALBUMINURIA 11/02/2012 GONZALES DO, KESHIA K 791.0 MICROALBUMINURIA 11/02/2012 GONZALES DO, KESHIA K 791.0 MICROALBUMINURIA 11/02/2012 GONZALES DO, KESHIA K 791.0 MICROALBUMINURIA 11/02/2012 GONZALES DO, KESHIA K 791.0 MICROALBUMINURIA 11/02/2012 MADL VALUER, DANG L 791.0 MICROALBUMINURIA 11/02/2012 GONZALES DO, KESHIA K 791.0 MICROALBUMINURIA 11/22/2012 GONZALES DO, KESHIA K 250.00 DIABETES MELLITUS TYPE 2 11/22/2012 GONZALES DO, KESHIA K 250.00 DIABETES MELLITUS TYPE 2 11/22/2012 GONZALES DO, KESHIA K 250.00 DIABETES MELLITUS TYPE 2 11/22/2012 GONZALES DO, KESHIA K 250.00 DIABETES MELLITUS TYPE 2 11/22/2012 GONZALES DO, KESHIA K 250.00 DIABETES MELLITUS TYPE 2 11/22/2012 GONZALES DO, KESHIA K 250.00 DIABETES MELLITUS TYPE 2 11/22/2012 MADL VALUER, DANG L 250.00 DIABETES MELLITUS TYPE 2 11/22/2012 GONZALES DO, KESHIA K 250.00 DIABETES MELLITUS TYPE 2 08/31/2013 GONZALES DO, KESHIA K 110.1 DERMATOPHYTOSIS OF NAIL 08/31/2013 GONZALES DO, KESHIA K 110.1 DERMATOPHYTOSIS OF NAIL 08/31/2013 GONZALES DO, KESIHA K 110.1 DERMATOPHYTOSIS OF NAIL 08/31/2013 GONZALES DO, KESHIA K 110.1 DERMATOPHYTOSIS OF NAIL 08/31/2013 MADL VALUER, DANG L 110.1 DERMATOPHYTOSIS OF NAIL 08/31/2013 [...] K V41.0 PROBLEMS WITH SIGHT 10/19/2013 MADL VALUER, DANG L 782.1 RASH 10/19/2013 MADL VALUER, DANG L V41.0 PROBLEMS WITH SIGHT 10/19/2013 GONZALES DO, KESHIA K 782.1 RASH 10/19/2013 GONZALES DO, KESHIA K V41.0 PROBLEMS WITH SIGHT 03/21/2014 MADL VALUER, DANG L 461.9 SINUSITIS ACUTE 03/21/2014 MADL VALUER, DANG L 477.9 ALLERGIC RHINITIS CAUSE UNSPECIFIED 03/21/2014 GONZALES DO, KESHIA K 461.9 SINUSITIS ACUTE 03/21/2014 GONZALES DO, KESHIA K 477.9 ALLERGIC RHINITIS CAUSE UNSPECIFIED Procedures Code [place] [address] ROUTINE VENIPUNCTURE 11/02/2012 26486 MICROALBUMIN 11/02/2012 29702 A1C (IN-HOUSE) 11/02/2012 86949 MICRO ALBUMIN-IN HOUSE 11/02/2012 87936 CMP 11/02/2012 42787 LIPID PANEL 11/02/2012 5065829 GFR CALC (RESULT ONLY) 11/02/20122027F FOOT EXAM PERFORMED 08/31/2013 16986 A1C (IN-HOUSE) 08/31/2013 LYNDSAY SINGH 10/19/2013 10646 ROUTINE VENIPUNCTURE 10/29/2013 57596 MICRO ALBUMIN-IN HOUSE 10/29/2013 [id number] GFR CALC (RESULT ONLY) 10/29/2013 81158 CMP 10/29/2013 10604 LIPID PANEL 10/29/2013 27881 EYE EXAM PERFORMED 01/11/2014 88284 A1C (IN-HOUSE) 01/11/2014 FOOT EXAM PERFORMED 01/11/2014 62640 ROUTINE VENIPUNCTURE 06/04/2014 02486 A1C (IN-HOUSE) 06/04/20142027F FOOT EXAM PERFORMED 06/04/20147291674 GFR CALC (RESULT ONLY) 06/04/2014 43831 CMP 06/04/2014 Results There is no data. Encounters ACCT No. Visit Date/Time Discharge Status Pt. Type Provider Facility Loc./Unit Complaint [id number] 06/04/2014 13:57:00 06/04/2014 23:59:59 CLS Outpatient KESHIA GONZALES DO [id number] 03/21/2014 09:36:00 03/21/2014 23:59:59 CLS Outpatient MARKL DANG PRESSLEY [id number] 01/11/2014 09:34:00 01/11/2014 23:59:59 CLS Outpatient KESHIA GONZALES DO [id number] 10/29/2013 08:57:00 10/29/2013 23:59:59 CLS Outpatient KESHIA GONZALES DO [id number] 10/19/2013 16:30:00 10/19/2013 23:59:59 CLS Outpatient KESHIA GONZALES DO [id number] 08/31/2013 15:10:00 08/31/2013 23:59:59 CLS Outpatient KESHIA GONZALES DO [id number] 06/20/2013 14:24:00 06/20/2013 23:59:59 CLS Outpatient KESHIA GONZALES DO [id number] 11/02/2012 08:55:00 11/02/2012 23:59:59 CLS Outpatient KESHIA GONZALES DO [id number] 09/25/2012 14:51:00 09/25/2012 23:59:59 CLS Outpatient
[2017-08-29] MEDS ORDERED: RT-ALBUTEROL/IPRATROPIUM 3 ML (DUONEB) VIAL INH PRN (04:45)
[2017-08-29 05:42] LABS: HEMATOCRIT 35 % (35-52); HEMOGLOBIN 11.3 G/DL (11.5-16.0); MEAN CORPUSCULAR HEMOGLOBIN 27 PG (25-34); MEAN CORPUSCULAR VOLUME 83 FL (80-99); RED BLOOD COUNT 4.18 10^6/uL (4.35-5.85); WHITE BLOOD COUNT 12.3 10^3/uL (4.3-11.0)
[2017-08-29 05:43] LABS: BASOPHILS % (AUTO) 0 % (0-10); EOSINOPHILS % (AUTO) 0 % (0-10); LYMPHOCYTES % (AUTO) 8 % (12-44); MEAN CORPUSCULAR HGB CONC 33 G/DL (32-36); MEAN PLATELET VOLUME 10.2 FL (7.4-10.4); MONOCYTES # (AUTO) 0.4 X 10^3 (0.0-1.0); MONOCYTES % (AUTO) 4 % (0-12); NEUTROPHILS # (AUTO) 10.8 X 10^3 (1.8-7.8); NEUTROPHILS % (AUTO) 88 % (42-75); PLATELET COUNT 287 10^3/uL (130-400)
[2017-08-29] MEDS ORDERED: ONDANSETRON 4 MG/2 ML (SDV) Z0FRAN IV PRN (05:45)
[2017-08-29] MEDS: NS IV 1000 ML 1,000 ML IV SCH ×3 (05:58→21:58)
[2017-08-29 06:01] LABS: ALBUMIN 3.3 GM/DL (3.2-4.5); BILIRUBIN,TOTAL 0.4 MG/DL (0.1-1.0); CREATININE SERUM 1.07 MG/DL (0.60-1.30); POTASSIUM 4.7 MMOL/L (3.6-5.0); TOTAL PROTEIN 6.6 GM/DL (6.4-8.2)
[2017-08-29] MEDS: inSUlin (REGULAR) HUMAN 1 UNIT/0.01 ML (CHARGE PER UNIT) SC SCH ×4 (06:23→21:59)
[2017-08-29] MEDS: RT-ALBUTEROL/IPRATROPIUM 3 ML (DUONEB) VIAL INH SCH ×5 (06:42→23:31)
--- NOTE | 2017-08-29 06:55 | Diagnostic Imaging Report ---
INDICATION: Cough. COMPARISON: None FINDINGS: Upright portable view of the chest is obtained. Heart size is normal. The pulmonary vessels appear unremarkable. There is no pneumothorax, mediastinal widening or pleural fluid. The lungs appear clear. IMPRESSION: No acute abnormalities demonstrated. Dictated by: Dictated on workstation # [id number]
--- NOTE | 2017-08-29 07:00 | Diagnostic Imaging Report ---
PROCEDURE: CT angiography of the chest with contrast. TECHNIQUE: Multiple contiguous axial images were obtained through the chest after uneventful bolus administration of intravenous contrast. Reconstructed CTA MIP acquisitions were also performed. INDICATION: Chest pain COMPARISON: None FINDINGS: Evaluation of pulmonary arteries is limited due to suboptimal contrast bolus. No large central emboli are demonstrated. No evidence of thoracic aortic aneurysm. There is prominent but nonenlarged mediastinal lymph nodes demonstrated. Prominent but nonenlarged hilar lymph nodes are also noted. There is no pneumothorax or pleural fluid. Heart size is normal. No pericardial effusion is demonstrated. There are diffuse patchy areas of nodular opacity and subtle groundglass opacity with moderate involvement of the left upper and left lower lobes and more patchy involvement of the right lung. There is mild thickening of the central airways and perhaps very minimal subtle bronchiectasis in the lower lobes bilaterally. The overall appearance is suggestive of a diffuse inflammatory or infectious process. No large area of focal consolidation is seen. No abnormalities in the visualized upper abdomen. IMPRESSION: 1. Evaluation is limited for pulmonary embolus due to suboptimal contrast bolus, however, no large central pulmonary emboli are seen. 2. Patchy multilobar nodular and groundglass opacities probably on the basis of an infectious or inflammatory process. Findings are most pronounced in the left upper and lower lobes. There may be some associated mild central airway soft tissue thickening and minimal bronchiectasis to the lower lobes. Agree with [facility] interpretation Dictated by: Dictated on workstation # [id number]
[2017-08-29] MEDS ORDERED: INFLUENZA TRIvalent 2017-2018 0.5 ML/45 MCG SYR IM ONE (07:30)
[2017-08-29 08:00] VITALS: BP 99/60
[2017-08-29] MEDS ORDERED: RT-ALBUINH INH (08:45)
[2017-08-29] MEDS ORDERED: GLYB5TAB6 PO (08:45)
[2017-08-29] MEDS ORDERED: LISI1TAB10 PO (08:45)
[2017-08-29] MEDS ORDERED: PIOG30TA26 PO (08:45)
[2017-08-29] MEDS ORDERED: METF500T8 PO (08:49)
[2017-08-29] MEDS ORDERED: METF-478 PO (08:49)
[2017-08-29] MEDS ORDERED: METO-387 PO (08:49)
[2017-08-29] MEDS ORDERED: DOXY100C2 PO (08:57)
[2017-08-29] MEDS ORDERED: AZITHROMYCIN INJECTION 500 MG in NS (IVPB) 250 ML IV SCH (09:00)
--- NOTE | 2017-08-29 11:18 | History & Physicial (CHS) ---
[facility] 1118: HPI History of Present Illness: 37yo female with PMH of COPD presents to ED on 08/28/17 for SOA and chest/rib pain. Pt states she went to PCP walk in clinic on Tuesday and was told she had bronchitis and was put on antibiotics and inhaler; pt states she did not feel better. Pt has had cough, SOA, sore throat and congestion for 2-3 days. Pt feels like she has a lot of mucous in her lungs and she can't get it out. Pt states she sometimes coughs up white mucous; denies blood in mucous. Pt states she has been feeling better since being hospitalized. She states she has never had to use oxygen. Pt has pain in her left side when she moves and coughs. 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 Pt denies chest pain, N/V/D/C, fever and chills. Source: patient Exam Limitations: no limitations Date seen by provider: Aug 29, 2017 Time Seen by Provider: 10:15 Attending Physician Edward Jacob MD PCP [place] [place] Consult Date of Admission Aug 29, 2017 at 02:55 Home Medications Home Medications Reviewed patient Home Medication Reconciliation Form Allergies Coded Allergies: No Known Drug Allergies (Unverified , 08/28/17) WFU-Yjljvi-Gueaca Hx Patient Social History Alcohol Use: Denies Use Recreational Drug Use: No Smoking Status: Current Everyday Smoker Type Used: Cigarettes Recent Foreign Travel: No Contact w/other who traveled: No Recent Hopitalizations: No Recent Infectious Disease Expo: No Physical Abuse Screen: No Sexual Abuse: No Past Medical History Diabetes Hypertension Family Medical History Significant Family History: No Pertinent Family Hx Review of Systems (CHC) Constitutional: no symptoms reported, No chills, No fever EENTM: no symptoms reported, No ear pain Respiratory: cough, phlegm, short of breath Cardiovascular: no symptoms reported, No chest pain, No edema, No palpitations Gastrointestinal: No RUQ, No LUQ, No RLQ, No LLQ, no symptoms reported, No abdominal pain, No constipation, No diarrhea, No loss of appetite, No nausea, No vomiting Genitourinary: no symptoms reported Musculoskeletal: no symptoms reported Skin: no symptoms reported, No lesions, No rash Psychiatric/Neurological: No Symptoms Reported, Denies Anxiety, Denies Depressed, Denies Headache, Denies Numbness, Denies Paresthesia, Denies Tingling Reviewed Test Results Reviewed Test Results Lab Laboratory Tests Test 08/28/17 22:06 08/28/17 22:48 08/29/17 00:50 08/29/17 05:35 Range/Units Urine Color YELLOW Urine Clarity SLIGHTLY CLOUDY Urine pH 6 5-9 Urine Specific [place] 1.015 L 1.016-1.022 Urine Protein 2+ H NEGATIVE Urine Glucose (UA) 1+ H NEGATIVE Urine Ketones NEGATIVE NEGATIVE Urine Nitrite NEGATIVE NEGATIVE Urine Bilirubin NEGATIVE NEGATIVE Urine Urobilinogen NORMAL NORMAL MG/DL Urine Leukocyte Esterase 3+ H NEGATIVE Urine RBC (Auto) NEGATIVE NEGATIVE Urine RBC RARE /HPF Urine WBC 10-25 H /HPF Urine Squamous Epithelial Cells >50 H /HPF Urine Renal Epithelial Cells NONE /HPF Urine Crystals NONE /LPF Urine Bacteria TRACE /HPF Urine Casts PRESENT /LPF Urine Hyaline Casts 10-25 H /LPF Urine Mucus SMALL H /LPF Urine Trichomonas FEW H /HPF Urine Culture Indicated YES White Blood Count 12.0 H 12.3 H 4.3-11.0 10^3/uL Red Blood Count 4.64 4.18 L 4.35-5.85 10^6/uL Hemoglobin 12.5 11.3 L 11.5-16.0 G/DL Hematocrit 39 35 35-52 % Mean Corpuscular Volume 83 83 80-99 FL Mean Corpuscular Hemoglobin 27 27 25-34 PG Mean Corpuscular Hemoglobin Concent 32 33 32-36 G/DL Red Cell Distribution Width 15.9 H 16.0 H 10.0-14.5 % Platelet Count 331 287 130-400 10^3/uL Mean Platelet Volume 10.3 10.2 7.4-10.4 FL Neutrophils (%) (Auto) 76 H 88 H 42-75 % Lymphocytes (%) (Auto) 16 8 L 12-44 % Monocytes (%) (Auto) 8 4 0-12 % Eosinophils (%) (Auto) 1 0 0-10 % Basophils (%) (Auto) 0 0 0-10 % Neutrophils # (Auto) 9.1 H 10.8 H 1.8-7.8 X 10^3 Lymphocytes # (Auto) 1.9 1.0 1.0-4.0 X 10^3 Monocytes # (Auto) 0.9 0.4 0.0-1.0 X 10^3 Eosinophils # (Auto) 0.1 0.0 0.0-0.3 10^3/uL Basophils # (Auto) 0.0 0.0 0.0-0.1 10^3/uL Prothrombin Time 13.8 12.2-14.7 SEC INR Comment 1.1 0.8-1.4 Activated Partial Thromboplast Time 30 24-35 SEC Sodium Level 133 L 132 L 135-145 MMOL/L Potassium Level 3.9 4.7 3.6-5.0 MMOL/L Chloride Level 92 L 97 L 98-107 MMOL/L Carbon Dioxide Level 27 22 21-32 MMOL/L Anion Gap 14 13 5-14 MMOL/L Blood Urea Nitrogen 19 H 20 H 7-18 MG/DL Creatinine 1.14 1.07 0.60-1.30 MG/DL Estimat Glomerular Filtration Rate 53 57 BUN/Creatinine Ratio 17 19 Glucose Level 176 H 341 H 70-105 MG/DL Lactic Acid Level 2.55 *H 2.74 *H 0.50-2.00 MMOL/L Calcium Level 9.0 8.0 L 8.5-10.1 MG/DL Total Bilirubin 0.4 0.4 0.1-1.0 MG/DL Aspartate Amino Transf (AST/SGOT) 17 18 5-34 U/L Alanine Aminotransferase (ALT/SGPT) 23 22 0-55 U/L Alkaline Phosphatase 115 103 40-136 U/L Total Protein 7.3 6.6 6.4-8.2 GM/DL Albumin 3.7 3.3 3.2-4.5 GM/DL Test 08/29/17 09:53 08/29/17 10:36 Range/Units Hemoglobin A1c 9.3 H 4.5-6.2 % Lactic Acid Level 2.85 *H 0.50-2.00 MMOL/L Glucometer 472 *H 70-110 MG/DL Radiology Date of Exam: 08/28/17 CHEST 1 VIEW, AP/PA ONLY INDICATION: Cough. COMPARISON: None FINDINGS: Upright portable view of the chest is obtained. Heart size is normal. The pulmonary vessels appear unremarkable. There is no pneumothorax, mediastinal widening or pleural fluid. The lungs appear clear. IMPRESSION: No acute abnormalities demonstrated. Date of Exam: 08/29/17 CT ANGIO CHEST W PROCEDURE: CT angiography of the chest with contrast. TECHNIQUE: Multiple contiguous axial images were obtained through the chest after uneventful bolus administration of intravenous contrast. Reconstructed CTA MIP acquisitions were also performed. INDICATION: Chest pain COMPARISON: None FINDINGS: Evaluation of pulmonary arteries is limited due to suboptimal contrast bolus. No large central emboli are demonstrated. No evidence of thoracic aortic aneurysm. There is prominent but nonenlarged mediastinal lymph nodes demonstrated. Prominent but nonenlarged hilar lymph nodes are also noted. There is no pneumothorax or pleural fluid. Heart size is normal. No pericardial effusion is demonstrated. There are diffuse patchy areas of nodular opacity and subtle groundglass opacity with moderate involvement of the left upper and left lower lobes and more patchy involvement of the right lung. There is mild thickening of the central airways and perhaps very minimal subtle bronchiectasis in the lower lobes bilaterally. The overall appearance is suggestive of a diffuse inflammatory or infectious process. No large area of focal consolidation is seen. No abnormalities in the visualized upper abdomen. IMPRESSION: 1. Evaluation is limited for pulmonary embolus due to suboptimal contrast bolus, however, no large central pulmonary emboli are seen. 2. Patchy multilobar nodular and groundglass opacities probably on the basis of an infectious or inflammatory process. Findings are most pronounced in the left upper and lower lobes. There may be some associated mild central airway soft tissue thickening and minimal bronchiectasis to the lower lobes. Physical Exam-(CHC) Physical Exam Vital Signs VS - Last 72 Hours, by Label 08/28/17 08/28/17 08/28/17 08/28/17 20:29 21:19 21:38 23:42 Temp 98.2 Pulse 121 Resp 20 B/P (MAP) 106/67 (80) Pulse Ox 90 95 93 96 O2 Delivery Room Air Nasal Cannula Room Air Nasal Cannula O2 Flow Rate 2.00 2.00 08/29/17 08/29/17 08/29/17 08/29/17 03:47 04:00 06:42 08:00 Pulse 112 Resp 20 Pulse Ox 93 93 92 93 O2 Delivery Nasal Cannula Nasal Cannula Nasal Cannula Nasal Cannula O2 Flow Rate 2.00 2.00 2.00 2.00 08/29/17 08/29/17 08:00 10:56 Temp 98.2 Pulse 113 Resp 22 B/P (MAP) 99/60 (73) Pulse Ox 93 91 O2 Delivery Nasal Cannula Nasal Cannula O2 Flow Rate 2.00 2.00 Capillary Refill : Less Than 3 Seconds General Appearance: WD/WN, no apparent distress HEENT: PERRL/EOMI, normal ENT inspection, TMs normal, pharynx normal Neck: non-tender, full range of motion, supple, normal inspection Respiratory: lungs clear (Tenderness to palpation on left side of ribs/chest), normal breath sounds, no respiratory distress, no accessory muscle use, No accessory muscle use, No crackles, No wheezing Cardiovascular: normal peripheral pulses, regular rate, rhythm, no edema, no murmur Gastrointestinal: normal bowel sounds, non tender, soft, no organomegaly, no pulsatile mass Extremities: normal range of motion, normal inspection, no pedal edema, no calf tenderness Neurologic/Psychiatric: wheel cleaner II-XII nml as tested, no motor/sensory deficits, alert, normal mood/affect, oriented x 3 Skin: normal color, warm/dry Lymphatic: no adenopathy Clinical Quality Measures DVT/VTE Risk/Contraindication: Risk Factor Score Per Nursin RFS Level Per Nursing on Admit: 4+=Very High Copy Copies To 1: Hallie YUEN Assessment/Plan Assessment/Plan Plan Sepsis likely 2/2 PNA -CXR: no acute abnormalities -CTA: likely infection or inflammatory process more pronounced in VIJAYA and LLL -WBC elevated 12.3; neutrophils elevated -Lactic acid: 2.74 ->2.85; continue to trend; repeat in 4-6 hours from last lab -Continue Azithromycin and Ceftriaxone -encourage pt to increase activity today UTI -UA: 3+ LE and elevated WBC -Continue Ceftriaxone -continue to monitor Dyspnea likely 2/2 PNA -continue oxygen as needed; wean when possible; pt currently on 2L with O2 sat 92% -Nebulizer use as needed -RT following -continue to monitor -encourage pt to increase activity today Non-insulin dependent diabetes -Blood glucose: 472 -HgbA1c: 9.3 -continue sliding scale insulin A -hold home medications -continue to monitor History of Hypertension -BP: 99/60 -hold home medications -continue to monitor EDWARD JACOB MD 08/29/17 1652: HPI History of Present Illness: Source: patient Exam Limitations: no limitations PCP Hallie Silver APRN Home Medications Allergies Coded Allergies: No Known Drug Allergies (Unverified , 08/28/17) PAG-Ofquoy-Bxllhu Hx Patient Social History Living Status: Lives home with Review of Systems ([facility]) Constitutional: no symptoms reported EENTM: nose congestion, throat pain Respiratory: cough, dyspnea on exertion, short of breath Cardiovascular: no symptoms reported Gastrointestinal: no symptoms reported Genitourinary: no symptoms reported, No dysuria, No frequency, No hematuria : No Musculoskeletal: no symptoms reported Skin: no symptoms reported Psychiatric/Neurological: No Symptoms Reported Physical Exam-([facility]) Physical Exam Vital Signs VS - Last 72 Hours, by Label 08/28/17 08/28/17 08/28/17 08/28/17 20:29 21:19 21:38 23:42 Temp 98.2 Pulse 121 Resp 20 B/P (MAP) 106/67 (80) Pulse Ox 90 95 93 96 O2 Delivery Room Air Nasal Cannula Room Air Nasal Cannula O2 Flow Rate 2.00 2.00 08/29/17 08/29/17 08/29/17 08/29/17 03:47 04:00 06:42 08:00 Pulse 112 Resp 20 Pulse Ox 93 93 92 93 O2 Delivery Nasal Cannula Nasal Cannula Nasal Cannula Nasal Cannula O2 Flow Rate 2.00 2.00 2.00 2.00 08/29/17 08/29/17 08/29/17 08/29/17 08:00 10:56 12:00 14:10 Temp 98.2 98.0 Pulse 113 113 Resp 22 20 B/P (MAP) 99/60 (73) 94/57 (69) Pulse Ox 93 91 93 92 O2 Delivery Nasal Cannula Nasal Cannula Nasal Cannula Nasal Cannula O2 Flow Rate 2.00 2.00 2.00 2.00 08/29/17 16:00 Temp 98.5 Pulse 116 Resp 20 B/P (MAP) 120/61 (80) Pulse Ox 98 O2 Delivery Nasal Cannula O2 Flow Rate 2.00 General Appearance: WD/WN, no apparent distress HEENT: PERRL/EOMI Neck: non-tender, full range of motion Respiratory: chest non-tender, lungs clear (Tenderness to palpation on left side of ribs/chest), normal breath sounds, no respiratory distress, no accessory muscle use Cardiovascular: normal peripheral pulses, regular rate, rhythm, no edema, no murmur Gastrointestinal: normal bowel sounds, non tender, soft, no organomegaly, no pulsatile mass Back: no CVA tenderness Extremities: normal range of motion, no pedal edema, no calf tenderness, normal capillary refill Neurologic/Psychiatric: wheel cleaner II-XII nml as tested, no motor/sensory deficits, alert, normal mood/affect, oriented x 3 Skin: normal color, warm/dry Lymphatic: no adenopathy Copy Copies To 1: Hallie YUEN Assessment/Plan Assessment/Plan Plan 37 yo F admitted with PNA and new oxygen requirement Sepsis 2/2 PNA vs UTI - Trending LA, Continue aggressive fluid resuscitation - Continue Rocephin and Azithromycin D2 Hypoxia - Titrate oxygen as tolerated, encourage ambulation - Will need outpatient PFT to look for Asthma vs COPD NIDDM II: Uncontrolled - A1c 9.2, start Levemir 10 unit qhs - SSI HTN: currently normotensive - Given Sepsis, holding blood pressure meds at this time Obesity Tobacco Use - Discussed the importance of cessation FEN: ADA diet DVT PPX: lovenox Dispo: Admit to Med/Surg for oxygen and IV antiboitics Seen and examined patient with Suzy Beard, MS4 [facility] Aug 29, 2017 11:18 EDWARD JACOB MD Aug 29, 2017 16:52
[2017-08-29 12:00] VITALS: BP 94/57
[2017-08-29] MEDS ORDERED: NS IV 1000 ML 1,000 ML IV SCH ×2 (12:45→16:45)
[2017-08-29] MEDS ORDERED: inSUlin DETERMIR 1 UNIT/0.01 ML (LEVEMIR) CHARGE PER UNIT SQ NR (14:15)
[2017-08-29 16:00] VITALS: BP 120/61
[2017-08-29] MEDS: ENOXAPARIN 40 MG/0.4 ML (LOVENOX) SYR SC SCH (17:17)
[2017-08-29 19:59] VITALS: BP 114/66
[2017-08-30] VITALS: BP 128/60
[2017-08-30] MEDS: cefTRIAXone INJECTION 1,000 MG in NS (IVPB) 50 ML IV SCH (01:33)
[2017-08-30 05:00] VITALS: BP 115/62
[2017-08-30] MEDS: NS IV 1000 ML 1,000 ML IV SCH (05:30)
[2017-08-30 06:09] LABS: BASOPHILS % (AUTO) 0 % (0-10); EOSINOPHILS % (AUTO) 0 % (0-10); HEMATOCRIT 36 % (35-52); HEMOGLOBIN 11.3 G/DL (11.5-16.0); LYMPHOCYTES # (AUTO) 2.8 X 10^3 (1.0-4.0); LYMPHOCYTES % (AUTO) 20 % (12-44); MEAN CORPUSCULAR HEMOGLOBIN 27 PG (25-34); MEAN CORPUSCULAR HGB CONC 32 G/DL (32-36); MEAN CORPUSCULAR VOLUME 86 FL (80-99); MEAN PLATELET VOLUME 10.1 FL (7.4-10.4); MONOCYTES # (AUTO) 0.9 X 10^3 (0.0-1.0); MONOCYTES % (AUTO) 7 % (0-12); NEUTROPHILS # (AUTO) 10.4 X 10^3 (1.8-7.8); NEUTROPHILS % (AUTO) 73 % (42-75); PLATELET COUNT 328 10^3/uL (130-400); RED BLOOD COUNT 4.19 10^6/uL (4.35-5.85); RED CELL DISTRIBUTION WIDTH 16.4 % (10.0-14.5); WHITE BLOOD COUNT 14.2 10^3/uL (4.3-11.0)
[2017-08-30 06:27] LABS: ALANINE AMINOTRANSFERASE 26 U/L (0-55); ALBUMIN 3.2 GM/DL (3.2-4.5); ALKALINE PHOSPHATASE 87 U/L (40-136); BILIRUBIN,TOTAL 0.2 MG/DL (0.1-1.0); BUN/CREATININE RATIO 23; CARBON DIOXIDE 25 MMOL/L (21-32); CHLORIDE 105 MMOL/L (98-107); CREATININE SERUM 0.71 MG/DL (0.60-1.30); GFR ESTIMATED > 60; GLUCOSE 216 MG/DL (70-105); POTASSIUM 4.2 MMOL/L (3.6-5.0); SODIUM 141 MMOL/L (135-145); TOTAL PROTEIN 6.4 GM/DL (6.4-8.2)
[2017-08-30] MEDS: RT-ALBUTEROL/IPRATROPIUM 3 ML (DUONEB) VIAL INH SCH ×5 (06:34→22:29)
[2017-08-30] MEDS: inSUlin (REGULAR) HUMAN 1 UNIT/0.01 ML (CHARGE PER UNIT) SC SCH ×4 (06:47→20:36)
[2017-08-30 08:00] VITALS: BP 117/72
[2017-08-30] MEDS: AZITHROMYCIN 250 MG TAB (ZITHROMAX) PO SCH (08:06)
--- NOTE | 2017-08-30 09:03 | Progress Note (SOAP) ---
[facility] 08/30/17 0903: Subjective Subjective/Events-last exam Pt states she is feeling worse this morning; more SOA. Pt states she feels like she is wheezing this morning. No mucous production. Pt still on 2L of O2; she felt like this helped yesterday. Pt slept well in chair overnight. Pt states she just had a breathing treatment and she is unsure if it helped. She stayed in bed/chair all yesterday; no activity. Pt states her last HgbA1c was 7.2 and she does not take her sugars at home. Pt denies urinary problems, dysuria, and changes in urine; pt has no hx of UTI. Review of Systems Date Seen by Provider: Aug 30, 2017 Time Seen by Provider: 10:00 General: No Chills, No Night Sweats, No Fatigue, No Malaise, No Appetite, No Other HEENT: No Head Aches, No Visual Changes, No Eye Pain, No Ear Pain, No Dysphasia , No Sinus Congestion, No Post Nasal Drip, No Sore Throat, No Other Pulmonary: Dyspnea, No Cough Cardiovascular: No: Chest Pain, Palpitations, Orthopnea, Paroxysmal Noc. Dyspnea, Edema, Lt Headedness, Other Gastrointestinal: No: Nausea, Vomiting, Abdominal Pain, Diarrhea, Constipation , Melena, Hematochezia, Other Genitourinary: No Dysuria, No Frequency, No Incontinence, No Hematuria, No Retention, No Other Musculoskeletal: No: other, neck pain, shoulder pain, arm pain, back pain, hand pain, leg pain, foot pain Neurological: No: Weakness, Numbness, Incoordination, Change in speech, Confusion, Seizures, Other Objective Exam Last Set of Vital Signs Vital Signs Date Time Temp Pulse Resp B/P (MAP) Pulse Ox O2 Delivery O2 Flow Rate FiO2 08/30/17 08:20 93 Nasal Cannula 2.00 08/30/17 08:00 98.3 113 24 117/72 (87) Capillary Refill : Less Than 3 Seconds I&O Intake and Output 08/30/17 00:00 Intake Total 9170 ml Output Total 4800 ml Balance 4370 ml Intake Oral 3870 ml IV Total 5300 ml Output Urine Total 4800 ml # Bowel Movements 1 Daily Weight Change No General: Alert, Oriented X3, Cooperative, No Acute Distress HEENT: Atraumatic, PERRLA, EOMI Neck: Supple Lungs: Normal Air Movement, Other (Wheezing present in bilateral lobes) Heart: Regular Rate, Normal S1, Normal S2, No Murmurs Abdomen: Normal Bowel Sounds, Soft, No Tenderness Extremities: No Edema Skin: No Rashes Neuro: Normal Gait, Normal Speech, Normal Tone, Sensation Intact, Cranial Nerves 3-12 NL Psych/Mental Status: Mental Status NL, Mood NL Results/Procedures Lab Laboratory Tests 08/29/17 09:53: Hemoglobin A1c 9.3H, Lactic Acid Level 2.85*H 08/29/17 10:36: Glucometer 472*H 08/29/17 12:02: Lactic Acid Level 3.14*H 08/29/17 13:44: Glucometer 448*H 08/29/17 16:10: Lactic Acid Level 3.57*H 08/29/17 18:10: Lactic Acid Level 2.48*H 08/29/17 20:30: Lactic Acid Level 2.11*H 08/29/17 21:06: Glucometer 347H 08/29/17 22:50: Lactic Acid Level 1.87 08/30/17 05:21: Glucometer 226H 08/30/17 05:55: White Blood Count 14.2H, Red Blood Count 4.19L, Hemoglobin 11.3L, Hematocrit 36 , Mean Corpuscular Volume 86, Mean Corpuscular Hemoglobin 27, Mean Corpuscular Hemoglobin Concent 32, Red Cell Distribution Width 16.4H, Platelet Count 328, Mean Platelet Volume 10.1, Neutrophils (%) (Auto) 73, Lymphocytes (%) (Auto) 20 , Monocytes (%) (Auto) 7, Eosinophils (%) (Auto) 0, Basophils (%) (Auto) 0, Neutrophils # (Auto) 10.4H, Lymphocytes # (Auto) 2.8, Monocytes # (Auto) 0.9, Eosinophils # (Auto) 0.0, Basophils # (Auto) 0.0, Sodium Level 141, Potassium Level 4.2, Chloride Level 105, Carbon Dioxide Level 25, Anion Gap 11, Blood Urea Nitrogen 16, Creatinine 0.71, Estimat Glomerular Filtration Rate > 60, BUN/ Creatinine Ratio 23, Glucose Level 216H, Calcium Level 8.0L, Total Bilirubin 0.2 , Aspartate Amino Transf (AST/SGOT) 22, Alanine Aminotransferase (ALT/SGPT) 26, Alkaline Phosphatase 87, Total Protein 6.4, Albumin 3.2 Microbiology 08/28/17 Blood Culture - Preliminary, Resulted No growth 08/28/17 Influenza Types A,B Antigen ([facility]) - Final, Complete 08/28/17 Urine Culture - Preliminary, Resulted Enterococcus Species Radiology Date of Exam: 08/28/17 CHEST 1 VIEW, AP/PA ONLY INDICATION: Cough. COMPARISON: None FINDINGS: Upright portable view of the chest is obtained. Heart size is normal. The pulmonary vessels appear unremarkable. There is no pneumothorax, mediastinal widening or pleural fluid. The lungs appear clear. IMPRESSION: No acute abnormalities demonstrated. Date of Exam: 08/29/17 CT ANGIO CHEST W PROCEDURE: CT angiography of the chest with contrast. TECHNIQUE: Multiple contiguous axial images were obtained through the chest after uneventful bolus administration of intravenous contrast. Reconstructed CTA MIP acquisitions were also performed. INDICATION: Chest pain COMPARISON: None FINDINGS: Evaluation of pulmonary arteries is limited due to suboptimal contrast bolus. No large central emboli are demonstrated. No evidence of thoracic aortic aneurysm. There is prominent but nonenlarged mediastinal lymph nodes demonstrated. Prominent but nonenlarged hilar lymph nodes are also noted. There is no pneumothorax or pleural fluid. Heart size is normal. No pericardial effusion is demonstrated. There are diffuse patchy areas of nodular opacity and subtle groundglass opacity with moderate involvement of the left upper and left lower lobes and more patchy involvement of the right lung. There is mild thickening of the central airways and perhaps very minimal subtle bronchiectasis in the lower lobes bilaterally. The overall appearance is suggestive of a diffuse inflammatory or infectious process. No large area of focal consolidation is seen. No abnormalities in the visualized upper abdomen. IMPRESSION: 1. Evaluation is limited for pulmonary embolus due to suboptimal contrast bolus, however, no large central pulmonary emboli are seen. 2. Patchy multilobar nodular and groundglass opacities probably on the basis of an infectious or inflammatory process. Findings are most pronounced in the left upper and lower lobes. There may be some associated mild central airway soft tissue thickening and minimal bronchiectasis to the lower lobes. Assessment/Plan Assessment/Plan Plan 37 yo F admitted with PNA and new oxygen requirement Sepsis 2/2 PNA vs UTI; unlikely UTI: sepsis resolved - LA trended down to 1.87: resolved - Continue Rocephin and Azithromycin D2 - Discontinue IV fluids today Hypoxia - Titrate oxygen as tolerated, encourage ambulation today - Will need outpatient PFT to look for Asthma vs COPD - Added Prednisone today NIDDM II: Uncontrolled - A1c 9.2, start Levemir 10 unit qhs - SSI - pt will need to follow up outpatient HTN: currently normotensive - Given Sepsis, holding blood pressure meds at this time Obesity Tobacco Use - Discussed the importance of cessation FEN: ADA diet DVT PPX: lovenox Dispo: Admit to Med/Surg for oxygen and IV antiboitics. Possible d/c tomorrow. Seen and examined patient with Suzy Cox MS4 Clinical Quality Measures DVT/VTE Risk/Contraindication: Risk Factor Score Per Nursin RFS Level Per Nursing on Admit: 4+=Very High EDWARD JACOB MD 08/30/172027: Subjective Subjective/Events-last exam States that she is feeling better. Has not been up ambulating around. Tolerating PO diet. Assessment/Plan Assessment/Plan Plan Agree with Above plan. - Continue to titrate oxygen as tolerated, Encourage OOB - Added Levemir, discussed A1c 9.2 with patient - Start PO prednisone SUZY [facility] STD[facility] Aug 30, 2017 09:03 EDWARD JACOB MD Aug 30, 2017 20:28
[2017-08-30] MEDS: predniSONE 20 MG TAB PO SCH (10:19)
[2017-08-30 12:00] VITALS: BP 116/58
[2017-08-30 16:23] VITALS: BP 119/69
[2017-08-30] MEDS: ENOXAPARIN 40 MG/0.4 ML (LOVENOX) SYR SC SCH (17:58)
[2017-08-30 19:40] VITALS: BP 121/65
[2017-08-30] MEDS ORDERED: inSUlin DETERMIR 1 UNIT/0.01 ML (LEVEMIR) CHARGE PER UNIT SQ SCH (21:00)
[2017-08-31 00:47] VITALS: BP 122/63
[2017-08-31] MEDS: RT-ALBUTEROL/IPRATROPIUM 3 ML (DUONEB) VIAL INH SCH ×6 (01:31→23:07)
[2017-08-31] MEDS: cefTRIAXone INJECTION 1,000 MG in NS (IVPB) 50 ML IV SCH (02:02)
[2017-08-31 04:15] VITALS: BP 138/61
[2017-08-31] MEDS: inSUlin (REGULAR) HUMAN 1 UNIT/0.01 ML (CHARGE PER UNIT) SC SCH ×4 (05:28→21:35)
[2017-08-31] MEDS: predniSONE 20 MG TAB PO SCH (06:22)
[2017-08-31 06:39] LABS: BASOPHILS % (AUTO) 0 % (0-10); EOSINOPHILS # (AUTO) 0.1 10^3/uL (0.0-0.3); EOSINOPHILS % (AUTO) 1 % (0-10); HEMATOCRIT 34 % (35-52); HEMOGLOBIN 10.8 G/DL (11.5-16.0); LYMPHOCYTES # (AUTO) 3.6 X 10^3 (1.0-4.0); LYMPHOCYTES % (AUTO) 26 % (12-44); MEAN CORPUSCULAR HEMOGLOBIN 27 PG (25-34); MEAN CORPUSCULAR HGB CONC 32 G/DL (32-36); MEAN CORPUSCULAR VOLUME 86 FL (80-99); MEAN PLATELET VOLUME 10.1 FL (7.4-10.4); MONOCYTES % (AUTO) 7 % (0-12); NEUTROPHILS # (AUTO) 9.4 X 10^3 (1.8-7.8); NEUTROPHILS % (AUTO) 66 % (42-75); PLATELET COUNT 308 10^3/uL (130-400); RED BLOOD COUNT 3.97 10^6/uL (4.35-5.85); RED CELL DISTRIBUTION WIDTH 16.3 % (10.0-14.5); WHITE BLOOD COUNT 14.1 10^3/uL (4.3-11.0)
[2017-08-31 06:56] LABS: BUN/CREATININE RATIO 21; CALCIUM 8.5 MG/DL (8.5-10.1); CARBON DIOXIDE 29 MMOL/L (21-32); CHLORIDE 102 MMOL/L (98-107); CREATININE SERUM 0.67 MG/DL (0.60-1.30); GFR ESTIMATED > 60; GLUCOSE 161 MG/DL (70-105); POTASSIUM 3.9 MMOL/L (3.6-5.0); SODIUM 142 MMOL/L (135-145)
[2017-08-31 07:41] VITALS: BP 114/62
[2017-08-31] MEDS: AZITHROMYCIN 250 MG TAB (ZITHROMAX) PO SCH (08:02)
--- NOTE | 2017-08-31 08:59 | Progress Note (SOAP) ---
[facility] 08/31/17 0858: Subjective Subjective/Events-last exam Pt states she feels better today. Pt states she has less SOA and wheezing. She is coughing more and producing more mucous. The mucous is white/yellow. Pt states she has some blood in her nose; they added humidifier to nasal canula yesterday. Pt slept well overnight. Pt states she has a mild headache this morning. Denies chest pain, abdominal pain, N/V/D/C, rashes. Review of Systems Date Seen by Provider: Aug 31, 2017 Time Seen by Provider: 09:15 General: No Chills, No Night Sweats, No Fatigue, No Malaise, No Appetite, No Other HEENT: No Head Aches, No Visual Changes, No Eye Pain, No Ear Pain, No Dysphasia , No Sinus Congestion, No Post Nasal Drip, No Sore Throat, No Other Pulmonary: Dyspnea, Cough Cardiovascular: No: Chest Pain, Palpitations, Orthopnea, Paroxysmal Noc. Dyspnea, Edema, Lt Headedness, Other Gastrointestinal: No: Nausea, Vomiting, Abdominal Pain, Diarrhea, Constipation , Melena, Hematochezia, Other Genitourinary: No Dysuria, No Frequency, No Incontinence, No Hematuria, No Retention, No Other Musculoskeletal: No: other, neck pain, shoulder pain, arm pain, back pain, hand pain, leg pain, foot pain Neurological: No: Weakness, Numbness, Incoordination, Change in speech, Confusion, Seizures, Other Objective Exam Last Set of Vital Signs Vital Signs Date Time Temp Pulse Resp B/P (MAP) Pulse Ox O2 Delivery O2 Flow Rate FiO2 08/31/17 07:41 97.0 111 20 114/62 (79) 91 Nasal Cannula 3.00 Capillary Refill : Less Than 3 Seconds I&O Intake and Output 08/31/17 00:00 Intake Total 4950 ml Output Total 7200 ml Balance -2250 ml Intake Oral 3300 ml IV Total 1650 ml Output Urine Total 7200 ml # Bowel Movements 1 General: Alert, Oriented X3, Cooperative, No Acute Distress HEENT: Atraumatic, PERRLA, EOMI Neck: Supple Lungs: Normal Air Movement, Other (Expiratory wheezes presents bilaterally; improving) Heart: Regular Rate, Normal S1, Normal S2, No Murmurs Abdomen: Normal Bowel Sounds, Soft, No Tenderness Extremities: No Edema, Normal Pulses Skin: No Rashes, No Significant Lesion Neuro: Normal Speech, Normal Tone, Sensation Intact, Cranial Nerves 3-12 NL Psych/Mental Status: Mental Status NL, Mood NL Results/Procedures Lab Laboratory Tests 08/30/17 10:08: Glucometer 283H 08/30/17 14:11: Glucometer 375H 08/30/17 19:35: Glucometer 380H 08/31/17 05:23: Glucometer 174H 08/31/17 06:25: White Blood Count 14.1H, Red Blood Count 3.97L, Hemoglobin 10.8L, Hematocrit 34L , Mean Corpuscular Volume 86, Mean Corpuscular Hemoglobin 27, Mean Corpuscular Hemoglobin Concent 32, Red Cell Distribution Width 16.3H, Platelet Count 308, Mean Platelet Volume 10.1, Neutrophils (%) (Auto) 66, Lymphocytes (%) (Auto) 26 , Monocytes (%) (Auto) 7, Eosinophils (%) (Auto) 1, Basophils (%) (Auto) 0, Neutrophils # (Auto) 9.4H, Lymphocytes # (Auto) 3.6, Monocytes # (Auto) 1.0, Eosinophils # (Auto) 0.1, Basophils # (Auto) 0.0, Sodium Level 142, Potassium Level 3.9, Chloride Level 102, Carbon Dioxide Level 29, Anion Gap 11, Blood Urea Nitrogen 14, Creatinine 0.67, Estimat Glomerular Filtration Rate > 60, BUN/ Creatinine Ratio 21, Glucose Level 161H, Calcium Level 8.5 Microbiology 08/28/17 Blood Culture - Preliminary, Resulted No growth 08/28/17 Influenza Types A,B Antigen ([facility]) - Final, Complete 08/28/17 Urine Culture - Final, Complete Enterococcus Faecalis Radiology Date of Exam: 08/28/17 CHEST 1 VIEW, AP/PA ONLY INDICATION: Cough. COMPARISON: None FINDINGS: Upright portable view of the chest is obtained. Heart size is normal. The pulmonary vessels appear unremarkable. There is no pneumothorax, mediastinal widening or pleural fluid. The lungs appear clear. IMPRESSION: No acute abnormalities demonstrated. Date of Exam: 08/29/17 CT ANGIO CHEST W PROCEDURE: CT angiography of the chest with contrast. TECHNIQUE: Multiple contiguous axial images were obtained through the chest after uneventful bolus administration of intravenous contrast. Reconstructed CTA MIP acquisitions were also performed. INDICATION: Chest pain COMPARISON: None FINDINGS: Evaluation of pulmonary arteries is limited due to suboptimal contrast bolus. No large central emboli are demonstrated. No evidence of thoracic aortic aneurysm. There is prominent but nonenlarged mediastinal lymph nodes demonstrated. Prominent but nonenlarged hilar lymph nodes are also noted. There is no pneumothorax or pleural fluid. Heart size is normal. No pericardial effusion is demonstrated. There are diffuse patchy areas of nodular opacity and subtle groundglass opacity with moderate involvement of the left upper and left lower lobes and more patchy involvement of the right lung. There is mild thickening of the central airways and perhaps very minimal subtle bronchiectasis in the lower lobes bilaterally. The overall appearance is suggestive of a diffuse inflammatory or infectious process. No large area of focal consolidation is seen. No abnormalities in the visualized upper abdomen. IMPRESSION: 1. Evaluation is limited for pulmonary embolus due to suboptimal contrast bolus, however, no large central pulmonary emboli are seen. 2. Patchy multilobar nodular and groundglass opacities probably on the basis of an infectious or inflammatory process. Findings are most pronounced in the left upper and lower lobes. There may be some associated mild central airway soft tissue thickening and minimal bronchiectasis to the lower lobes. Assessment/Plan Assessment/Plan Plan 37 yo F admitted with PNA and new oxygen requirement Sepsis 2/2 PNA vs UTI; unlikely UTI: sepsis resolved - LA wnl: resolved - Continue Rocephin and Azithromycin Hypoxia - Titrate oxygen as tolerated, encourage ambulation today - Will need outpatient PFT to look for Asthma vs COPD - Continue PO Prednisone today NIDDM II: Uncontrolled - A1c 9.2, continue Levemir 10 unit qhs - SSI - pt will need to follow up outpatient HTN: currently normotensive - holding blood pressure meds at this time Obesity Tobacco Use - Discussed the importance of cessation FEN: ADA diet DVT PPX: lovenox Dispo: Admit to Med/Surg for oxygen and antibiotics. Continue to wean O2 when possible. Possible d/c tomorrow. Seen and examined patient with Suzy Cox MS4 Clinical Quality Measures DVT/VTE Risk/Contraindication: Risk Factor Score Per Nursin RFS Level Per Nursing on Admit: 4+=Very High EDWARD JACOB MD 08/31/17 1058: Subjective Subjective/Events-last exam Patient states that she is feeling better. Still short of breath with ambulation. Objective Exam General: Alert, Oriented X3 Lungs: Other (Expiratory wheezes presents bilaterally; improving) Heart: Regular Rate, No Murmurs Assessment/Plan Assessment/Plan Plan Hypoxia likely 2/2 COPD - Continue daily steroids, increase ambulation - Patient may need to go home on oxygen during the acute healing process - Start Advair daily and continue breathing treatments Uncontrolled DM - Increase Levemir 15 units qhs, continue SSI, requirements will likely be increased due to steroids HTN: controlled Obesity Tobacco Use: Cessation Dispo: Possible home tomorrow if able to titrate oxygen further SUZY COX STDENT Aug 31, 2017 08:58 EDWARD JACOB MD Aug 31, 2017 10:58
[2017-08-31 12:00] VITALS: BP 108/65
[2017-08-31 15:32] VITALS: BP 133/74
[2017-08-31] MEDS: ENOXAPARIN 40 MG/0.4 ML (LOVENOX) SYR SC SCH (16:16)
[2017-08-31 20:00] VITALS: BP 110/71
[2017-08-31] MEDS ORDERED: metFORMIN XR 500 MG (GLUCOPHAGE XR) TAB PO SCH (21:00)
[2017-08-31] MEDS ORDERED: inSUlin DETERMIR 1 UNIT/0.01 ML (LEVEMIR) CHARGE PER UNIT SQ SCH (21:00)
[2017-08-31] MEDS ORDERED: NON-FORMULARY MEDICATION 1 EA EA (Metformin HCl (Metformin HCl ER) 1,000 MG) PO SCH (21:00)
[2017-09-01] VITALS: BP 120/64
[2017-09-01] MEDS: RT-ALBUTEROL/IPRATROPIUM 3 ML (DUONEB) VIAL INH SCH ×4 (02:26→14:25)
[2017-09-01] MEDS: cefTRIAXone INJECTION 1,000 MG in NS (IVPB) 50 ML IV SCH (02:29)
[2017-09-01 05:59] VITALS: BP 120/64
[2017-09-01] MEDS: inSUlin (REGULAR) HUMAN 1 UNIT/0.01 ML (CHARGE PER UNIT) SC SCH ×3 (06:35→14:39)
[2017-09-01] MEDS: predniSONE 20 MG TAB PO SCH (06:44)
[2017-09-01] MEDS ORDERED: metFORMIN XR 500 MG (GLUCOPHAGE XR) TAB PO SCH (07:00)
[2017-09-01] MEDS ORDERED: glyBURIDE 5 MG (MICRONASE) TAB PO SCH (07:00)
[2017-09-01] MEDS: AZITHROMYCIN 250 MG TAB (ZITHROMAX) PO SCH (07:58)
[2017-09-01 08:00] VITALS: BP 126/70
--- NOTE | 2017-09-01 14:37 | Discharge Summary ---
Diagnosis/Chief Complaint Date of Admission Aug 29, 2017 at 02:55 Date of Discharge Chief Complaint/HPI Chief Complaint/HPI Discharge Summary-Simple/Stand Consultations Discharge Physical Examination Allergies: Coded Allergies: No Known Drug Allergies (Unverified , 08/28/17) Vitals & I&Os Vital Sign - Last 12Hours Date Time Temp Pulse Resp B/P (MAP) Pulse Ox O2 Delivery O2 Flow Rate FiO2 09/01/17 14:27 97 Nasal Cannula 2.00 09/01/17 08:00 97.7 106 24 126/70 (88) 09/01/17 05:59 32 Intake and Output 09/01/17 00:00 Intake Total 2574 ml Output Total 2800 ml Balance -226 ml Hospital Course See final discharge diagnosis. Radiology Reviewed Date of Exam: 08/28/17 CHEST 1 VIEW, AP/PA ONLY INDICATION: Cough. COMPARISON: None FINDINGS: Upright portable view of the chest is obtained. Heart size is normal. The pulmonary vessels appear unremarkable. There is no pneumothorax, mediastinal widening or pleural fluid. The lungs appear clear. IMPRESSION: No acute abnormalities demonstrated. Date of Exam: 08/29/17 CT ANGIO CHEST W PROCEDURE: CT angiography of the chest with contrast. TECHNIQUE: Multiple contiguous axial images were obtained through the chest after uneventful bolus administration of intravenous contrast. Reconstructed CTA MIP acquisitions were also performed. INDICATION: Chest pain COMPARISON: None FINDINGS: Evaluation of pulmonary arteries is limited due to suboptimal contrast bolus. No large central emboli are demonstrated. No evidence of thoracic aortic aneurysm. There is prominent but nonenlarged mediastinal lymph nodes demonstrated. Prominent but nonenlarged hilar lymph nodes are also noted. There is no pneumothorax or pleural fluid. Heart size is normal. No pericardial effusion is demonstrated. There are diffuse patchy areas of nodular opacity and subtle groundglass opacity with moderate involvement of the left upper and left lower lobes and more patchy involvement of the right lung. There is mild thickening of the central airways and perhaps very minimal subtle bronchiectasis in the lower lobes bilaterally. The overall appearance is suggestive of a diffuse inflammatory or infectious process. No large area of focal consolidation is seen. No abnormalities in the visualized upper abdomen. IMPRESSION: 1. Evaluation is limited for pulmonary embolus due to suboptimal contrast bolus, however, no large central pulmonary emboli are seen. 2. Patchy multilobar nodular and groundglass opacities probably on the basis of an infectious or inflammatory process. Findings are most pronounced in the left upper and lower lobes. There may be some associated mild central airway soft tissue thickening and minimal bronchiectasis to the lower lobes. Discharge Instructions to patient/family Please see electronic discharge instructions given to patient. Discharge Medications Reviewed and agree with Discharge Medication list on patient's Discharge Instruction sheet Clinical Quality Measures DVT/VTE Risk/Contraindication: Risk Factor Score Per Nursin RFS Level Per Nursing on Admit: 4+=Very High EDWARD JACOB MD Sep 01, 2017 14:37
[2017-09-01] MEDS ORDERED: INSU100V5 SQ (14:41)
[2017-09-01] MEDS ORDERED: AZIT250T12 PO (14:41)
[2017-09-01] MEDS ORDERED: PRD20T PO (14:41)
--- NOTE | 2017-09-01 14:45 | Discharge Instructions ---
Discharge Inst-[facility] Discharge Medications New, Converted or Re-Newed RX: Call to Patients Pharmacy New Medications: Azithromycin (Azithromycin) 250 Mg Tablet 250 MG PO DAILY for 3 Days, #3 TAB Insulin Determir (Levemir) 1,000 Units/10 Ml Soln 15 UNIT SQ HS for 30 Days, EA Prednisone (Prednisone) 20 Mg Tab 40 MG PO DAILY@0700, #11 TAB 2 tabs x 3 days 1 tab x 3 days 1/2 tab x 4 days then Stop Continued Medications: Albuterol Sulfate (Proair Hfa) 1 Puff Puff 2 PUFF INH Q6H PRN for SHORTNESS OF BREATH, INHALER Glyburide (Glyburide) 5 Mg Tablet 5 MG PO DAILY, TAB Lisinopril/Hydrochlorothiazide (Lisinopril-Hctz 20-25 mg Tab) 1 Each Tablet 1 TAB PO DAILY, TAB Metformin HCl (Metformin HCl ER) 500 Mg Tab.er.24h 500 MG PO DAILY, TAB LAST FILLED 30 DAY SUPPLY 07-12-17 Metformin HCl (Metformin HCl ER) 500 Mg Tab.er.24 1000 MG PO HS, TAB FILLED 30 DAY SUPPLY 07-12-17 TAKES 2 (500MG) TABLETS Metoprolol Succinate (Metoprolol Succinate) 25 Mg Tab.er.24h 25 MG PO DAILY, TAB Pioglitazone HCl (Pioglitazone HCl) 30 Mg Tablet 30 MG PO DAILY, TAB Patient Instructions Goal/Follow Up Appt: You have a follow up appt with Hallie Silver on Sep 07 @ 2pm Patient Instructions: - Make sure you continue your breathing treatments - Stay active - Complete your steroids and antibiotics - Make sure you wear your oxygen all the time until cleared by PCP Return to The Hospital For: - Worsening shortness of breath - Chest pain Activity & Diet Discharge Diet: ADA Diet Activity as Tolerated: Yes Orders-Post D/C & Referrals Pneu Vac Indicated: Yes Copy [facility] MD Sep 01, 2017 14:45
[2017-09-01 15:59] VITALS: BP 133/68
[2017-09-01] MEDS ORDERED: [UNRECOGNIZED DRUG - CODE] MC (16:14)
[2017-09-01] MEDS ORDERED: IPRA3AMP IH (16:33)
[2017-09-01 18:00] VITALS: BP 132/78
== END 2017-09-01 18:00 | disposition home or self-care (01) | DRG 871 ==
LOC: EDUNIT# 19:51 → ER 19:55 → 4TH 08-29 02:55
PROVIDERS: ADMIT Family Medicine; ATTEND Family Medicine
DX: A41.9 Sepsis, unspecified organism (principal); J18.9 Pneumonia, unspecified organism; R09.02 Hypoxemia; E11.65 Type 2 diabetes mellitus with hyperglycemia; I10 Essential (primary) hypertension; E66.9 Obesity, unspecified; Z68.42 Body mass index [BMI] 45.0-49.9, adult; F17.210 Nicotine dependence, cigarettes, uncomplicated; Z79.84 Long term (current) use of oral hypoglycemic drugs
CPT/HCPCS: 36415; 71045; 71275; 80048; 80053; 81000; 82962; 83036; 83605; 85025; 85610; 85730; 87040; 87077; 87088; 87186; 87804; 94640; 94664; 94760; 94761; 96361; 96365; 96375

== ENCOUNTER 2017-11-22 19:00 | Outpatient (CLI) | payer BC ==
[~2017-11-22 19:00] MED LIST: AZIT250T12 PO; DOXY100C2 PO; GLYB5TAB6 PO; INSU100V5 SQ; IPRA3AMP IH; LISI1TAB10 PO; METF-478 PO; METF500T8 PO; METO-387 PO; PIOG30TA26 PO; PRD20T PO; RT-ALBUINH INH; [UNRECOGNIZED DRUG - CODE] MC
== END 2017-11-23 06:30 | disposition home or self-care (01) ==
LOC: SLEEP 19:00
PROVIDERS: ATTEND Nurse Practitioner Family
DX: G47.10 Hypersomnia, unspecified (principal); R06.83 Snoring
CPT/HCPCS: 95811

== ENCOUNTER 2020-01-25 08:29 | Day surgery (SDC) | payer BC ==
[~2020-01-25] VITALS: Ht 160 cm; Wt 122.3 kg
[2020-01-25] VITALS (19 sets, daily range): BP systolic 88–139; BP diastolic 43–90
[~2020-01-25 08:29] MED LIST changes: -ASPI-983 PO; -ATOR80TA76 PO; -LIRA0.6P SC; -LISI-556 PO; -METO-333 PO; -TICA90TA PO
[2020-01-25] MEDS ORDERED: ASPIRIN 81 MG CHEW (CHILDREN'S ASA) ONE (08:40)
[2020-01-25] MEDS ORDERED: NITROGLYCERIN 0.4 MG SL TABS BTL 25'S SL ONE (08:40)
[2020-01-25] MEDS ORDERED: TICAGRELOR 90 MG TABLET (BRILINTA) PO ONE (08:45)
[2020-01-25] MEDS ORDERED: HEParin 1000 UNIT/ML (10ML VIAL) FOR BOLUS ONE ×2 (08:45→09:33)
--- OUTSIDE RECORDS SUMMARY | 2020-01-25 08:46 | XMS REPORT ---
Author Author Ree Torres Doctor Organization [facility] Address Unknown Phone Unavailable Care Team Providers Care Physician Specialist Name Role Phone Migration, Doctor Unavailable Unavailable PROBLEMS Type Condition ICD9-CM Code BAE94-VC Code Onset Dates Condition S tatus SNOMED Code Problem EVANGELINA (obstructive sleep apnea) G47.33 Active 16332342 Problem shelter 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.4 Active 851787027 Problem Smoking F17.200 Active 44234773 Problem Essential hypertension I10 Active 78082045 Problem Mixed hyperlipidemia E78.2 Active 163332862 Problem Seasonal allergic rhinitis due to pollen J30.1 Active 52761688 Problem Type 2 diabetes mellitus with hyperglycemia E11.65 Active 86217403 ALLERGIES No Information ENCOUNTERS Encounter Location Date Diagnosis [place] [address] [address] December, [place] [address] [address] May, Encounter for immunization Z 23 [place] [address] [address] 14 Mar, 2019 Type 2 diabetes mellitus wit h hyperglycemia E11.65 [place] [address] [address] Mar, Type 2 diabetes mellitus wit h hyperglycemia E11.65 ; Morbid obesity E66.01 ; Essential hypertension I10 and Mixed hyperlipidemia E78.2 [place] [address] [address] Jan, [facility] [address] [address] 03 Jan, 2019 Viral upper respiratory trac t infection J06.9 ; Wheezing R06.2 and Morbid obesity E66.01 [place] [address] [address] December, Type 2 diabetes mellitus wit h hyperglycemia E11.65 ; Essential hypertension I10 ; Mixed hyperlipidemia E78.2 and Morbid obesity E66.01 [facility] [address] [facility] [id number] [address] [place] [address] Nov, [facility] [address] [place] [id number] [place] [address] Nov, Bronchitis J40 and Morbid ob esity E66.01 [place] [address] [place] [id number] [place] [address] Nov, [place] [address] [address] Sep, Essential hypertension I10 [facility] [address] [place] [id number] [place] [address] Sep, Acute non-recurrent maxillar y sinusitis J01.00 [place] [address] [address] Aug, Essential hypertension I10 [facility] [address] [address] Jun, BMI 45.0-49.9, adult Z68.42 and Acute sinusitis J01.90 [facility] [address] [address] Jun, Cough R05 ; Acute nasopharyn gitis J00 and BMI 45.0-49.9, adult Z68.42 [facility] [address] [place] [id number] [place] [address] May, [place] [address] [address] May, Encounter for immunization Z 23 [facility] [address] [place] [id number] [place] [address] May, Type 2 diabetes mellitus wit h hyperglycemia E11.65 [place] [id number] [address] 27 Apr, 2018 Type 2 diabetes mellitus wit h hyperglycemia E11.65 ; Essential hypertension I10 ; intermission coordinator 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.4 and BMI 50.0-59.9, adult Z68.43 [facility] [address] [address] Apr, [place] [address] [address] Nov, Sunburn of second degree L55 .1 and BMI 50.0-59.9, adult Z68.43 [facility] [address] [address] Nov, Sunburn of second degree L55 .1 and BMI 50.0-59.9, adult Z68.43 [place] [address] [address] Nov, [place] [address] [address] Oct, Smoking F17.200 ; Type 2 nellie betes mellitus with hyperglycemia E11.65 ; intermission coordinator 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.4 ; Motion sickness, initial encounter T75.3XXA ; Encounter for immunization Z23 and BMI 50.0-59.9, adult Z68.43 [place] [address] [address] 26 Sep, [address] [address] 15 Sep, 2017 Type 2 diabetes mellitus wit h hyperglycemia E11.[address] [address] 07 Sep, 2017 History of pneumonia Z87.01 ; Hypoxia R09.02 and BMI 50.0-59.9, adult Z68.43 [place] [address] [address] Aug, History of pneumonia Z87.01 ; Hypoxia R09.02 ; Daytime hypersomnia G47.19 ; BMI 50.0-59.9, adult Z68.43 ; Type 2 diabetes mellitus with hyperglycemia E11.65 ; intermission coordinator 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.4 and Nose irritation J34.89 [place] [address] [address] Aug, Right otitis media with effu cande H65.91 [place] [address] [address] Aug, History of pneumonia Z87.01 ; Nose irritation J34.89 ; Right otitis media with effusion H65.91 ; Hypoxia R09.02 ; Type 2 diabetes mellitus without complication, without long-term current use of insulin E11.9 and BMI 50.0-59.9, adult Z68.43 [facility] [address] [address] Aug, Cough R05 ; Bronchitis J40 a nd BMI 50.0-59.9, adult Z68.[address] [address] Jul, Impingement syndrome, should er, left M75.42 and Bankart lesion of left shoulder, subsequent encounter S43.492D [facility] [address] [address] Jul, Conjunctivitis, bacterial H1 0.9 [place] [address] [address] Jul, [facility] [address] [address] Jul, Acute non-recurrent maxillar y sinusitis J01.00 and BMI 45.0-49.9, adult Z68.42 [place] [address] [address] Jun, [place] [address] [address] May, Impingement syndrome, should er, left M75.42 and Degenerative tear of glenoid labrum of left shoulder M24.112 [facility] [address] [address] 05 Apr, 2017 Type 2 diabetes mellitus wit hout complication, without long-term current use of insulin E11.9 ; Essential hypertension I10 ; Mixed hyperlipidemia E78.2 ; Seasonal allergic rhinitis due to pollen J30.1 ; Pain in left shoulder M25.512 and Overweight E66.3 [place] [address] [address] Mar, Essential hypertension I10 a nd Mixed hyperlipidemia E78.2 [place] [address] [address] Feb, General medical examination Z00.00 and Screening for tuberculosis Z11.1 [place] [address] [address] Nov, Type 2 diabetes mellitus wit hout complication, without long-term current use of insulin E11.9 [place] [address] [address] Oct, Essential hypertension I10 ; Mixed hyperlipidemia E78.2 ; Type 2 diabetes mellitus without complication, without long-term current use of insulin E11.9 and Seasonal allergic rhinitis due to pollen J30.1 [facility] [address] [place] [id number] [place] [address] Sep, Other viral agents as the ca use of diseases classified elsewhere B97.89 and Acute upper respiratory infection, unspecified J06.9 [place] [address] [address] Jun, [place] [address] [address] Jun, Essential hypertension I10 ; Type 2 diabetes mellitus without complication E11.9 and Mixed hyperlipidemia E78.2 [facility] [address] [place] [id number] [place] [address] 14 May, 2016 [facility] [address] [address] Mar, Fluid level behind tympanic membrane of both ears H65.93 and Cough R05 [facility] [address] [address] Mar, Bronchitis J40 and Allergic rhinitis, unspecified allergic rhinitis trigger, unspecified rhinitis seasonality J30.9 [place] [address] [place] [id number] [place] [address] 15 Jan, 2016 Essential hypertension I10 ; Type 2 diabetes mellitus without complication E11.9 and Mixed hyperlipidemia E78.2 [place] [address] [address] Aug, [facility] [address] [id number] Jul, Dental examination Z01.20 [facility] [address] [id number] Jul, 2015 Encounter for dental examina tion Z01.20 [place] [address] [address] 08 Jul, 2015 Essential hypertension I10 ; Mixed hyperlipidemia E78.2 and Type 2 diabetes mellitus without complication E11.9 [facility] [address] [address] Jun, Sinusitis J32.9 and Cough R0 5 [place] [address] [address] 11 Mar, 2015 Physical examination of empl oyee V70.5 ; Tuberculosis screening V74.1 and Screening for substance abuse V82.9 [place] [address] [place] [id number] [place] [address] 05 Mar, 2015 Diabetes mellitus without me ntion of complication, type II or unspecified type, not stated as uncontrolled 250.00 ; Hypertension 401.9 and Hyperlipidemia 272.4 [facility] [address] [id number] [address] [place] [address] Feb, [facility] [address] [id number] [address] [place] [address] Jan, [facility] [address] [id number] [address] [place] [id number] December, Dental examination V72.2 [facility] [address] [id number] [address] [place] [id number] Nov, [facility] [address] [id number] [address] [place] [phone] Nov, [facility] [address] [id number] [address] [place] [address] Aug, [facility] [address] [id number] [address] [place] [address] Aug, [facility] [address] [id number] [address] [place] [phone] Jun, [facility] [address] [id number] [address] [place] [id number] Jun, [facility] [address] [id number] [address] [place] [phone] May, [facility] [address] [id number] [address] [place] [phone] May, [facility] [address] [id number] [address] [place] [phone] May, [facility] [address] [id number] [address] [place] [phone] May, [facility] [address] [id number] [address] [place] [phone] Mar, [facility] [address] [id number] [address] [place] [address] Mar, [facility] [address] [id number] [facility] [place] [address] Jan, [facility] [address] [id number] [address] [place] [address], [place] [address] Jan, [facility] [address] [id number] [address] [place] [address], [place] [address] December, [facility] [address] [id number] [address] [place] [address], [place] [address] December, [facility] [address] [id number] [address] [place] [address], [place] [address] Oct, [facility] [address] [id number] [address] [place] [address], [place] [address] Oct, [facility] [address] [id number] [address] [place] [address], [place] [address] Oct, [facility] [address] [id number] [address] [place] [address], [place] [address] Oct, [facility] [address] [id number] [address] [place] [address], [place] [address] Oct, [facility] [address] [id number] [address] [place] [address], [place] [address] Oct, [facility] [address] [id number] [address] [place] [address], [place] [address] Oct, [facility] [address] [id number] [address] [place] [address], [place] [address] Oct, [facility] [address] [id number] [address] [place] [address], [place] [address] Aug, [facility] [address] [id number] [address] [place] [address], [place] [address] Aug, [facility] [address] [id number] [address] [place] [address], [place] [address] Jun, [facility] [address] [id number] [address] [place] [address], [place] [address] Jun, [facility] [address] [id number] [address] [place] [address], [place] [address] Mar, [facility] [address] [id number] [address] [place] [address], [place] [address] Mar, [facility] [address] [id number] [address] [place] [address], [place] [address] Feb, [facility] [address] [id number] [address] [place] [address], [place] [address] Nov, [facility] [address] [id number] [address] [place] [address], [place] [address] Nov, [facility] [address] [id number] [address] [place] [address], [place] [address] Nov, [facility] [address] [id number] [address] [place] [address], [place] [address] Oct, [facility] [address] [id number] [address] [place] [address], [place] [address] Oct, [facility] [address] [id number] [address] [place] [address], [place] [address] Sep, [facility] [address] [id number] [address] [place] [address], [place] [address] Feb, [facility] [address] [id number] [address] [place] [address], [place] [address] Feb, [facility] [address] [id number] [address] [place] [address], [place] [address] Feb, [facility] [address] [id number] [address] [place] [address], [place] [address] Jan, [facility] [address] [id number] [address] [place] [address], [place] [address] Nov, [facility] [address] [id number] [address] [place] [address], [place] [address] Sep, [facility] [address] [facility] [id number] [address] [place] [phone] Jul, [facility] [address] [facility] [id number] [address] [place] [id number] Jul, [facility] [address] [facility] [id number] [address] [place] [address] Aug, [facility] [address] [facility] [id number] [address] [place] [address] Jul, [facility] [address] [facility] [id number] [address] [place] [address] December, IMMUNIZATIONS No Known Immunizations SOCIAL HISTORY Never Assessed REASON FOR VISIT PLAN OF CARE VITAL SIGNS MEDICATIONS Unknown Medications RESULTS No Results PROCEDURES No Known procedures INSTRUCTIONS MEDICATIONS ADMINISTERED No Known Medications MEDICAL (GENERAL) HISTORY Type Description Date Medical History type II diabetes 2013 Medical History hypertension Medical History hyperlipidemia Medical History seasonal allergies Medical History syncopal events as a child (resolved) Medical History Tobacco Abuse went to non smoking class Medical History Severe Sleep Apnea wi th [facility] 18cm H20 with heated humidity Medical History Sleep Apnea Medical History Hypoxia Medical History History of pneumonia Medical History Degenerative tear of glenoid labrum of l eft shoulder Surgical History hymenectomy 1991- Hospitalization History [facility]-Pneumonia 08/2017
--- OUTSIDE RECORDS SUMMARY | 2020-01-25 08:46 | XMS REPORT ---
Author Author Ree Torres Doctor Organization [facility] Address Unknown Phone Unavailable Care Team Providers Care Heel Sprayer Name Role Phone Migration, Doctor Unavailable Unavailable PROBLEMS Type Condition ICD9-CM Code LCR09-FG Code Onset Dates Condition S tatus SNOMED Code Problem EVANGELINA (obstructive sleep apnea) G47.33 Active 99884559 Problem jail 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.4 Active 755309310 Problem Smoking F17.200 Active 08006479 Problem Essential hypertension I10 Active 65422304 Problem Mixed hyperlipidemia E78.2 Active 225160886 Problem Seasonal allergic rhinitis due to pollen J30.1 Active 93003896 Problem Type 2 diabetes mellitus with hyperglycemia E11.65 Active 70531958 ALLERGIES No Information ENCOUNTERS Encounter Location Date Diagnosis [place] [address] [address] December, [place] [address] [address] May, Encounter for immunization Z 23 [place] [address] [address] 14 Mar, 2019 Type 2 diabetes mellitus wit h hyperglycemia E11.65 [place] [address] [address] Mar, Type 2 diabetes mellitus wit h hyperglycemia E11.65 ; Morbid obesity E66.01 ; Essential hypertension I10 and Mixed hyperlipidemia E78.2 [place] [address] [address] Jan, [facility] [address] [address] 03 Jan, 2019 Viral upper respiratory trac t infection J06.9 ; Wheezing R06.2 and Morbid obesity E66.01 [place] [address] [address] December, Type 2 diabetes mellitus wit h hyperglycemia E11.65 ; Essential hypertension I10 ; Mixed hyperlipidemia E78.2 and Morbid obesity E66.01 [facility] [address] [facility] [id number] [address] [place] [address] Nov, [facility] [address] [place] [id number] [place] [address] Nov, Bronchitis J40 and Morbid ob esity E66.01 [place] [address] [place] [id number] [place] [address] Nov, [place] [address] [address] Sep, Essential hypertension I10 [facility] [address] [place] [id number] [place] [address] Sep, Acute non-recurrent maxillar y sinusitis J01.00 [place] [address] [address] Aug, Essential hypertension I10 [facility] [address] [address] Jun, BMI 45.0-49.9, adult Z68.42 and Acute sinusitis J01.90 [facility] [address] [address] Jun, Cough R05 ; Acute nasopharyn gitis J00 and BMI 45.0-49.9, adult Z68.42 [facility] [address] [place] [id number] [address] [place] [address] May, [place] [address] [address] May, Encounter for immunization Z 23 [facility] [address] [place] [id number] [place] [address] May, Type 2 diabetes mellitus wit h hyperglycemia E11.65 [place] [address] [address] 27 Apr, 2018 Type 2 diabetes mellitus wit h hyperglycemia E11.65 ; Essential hypertension I10 ; 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 ; Motion sickness, initial encounter T75.3XXA ; Encounter for immunization Z23 and BMI 50.0-59.9, adult Z68.43 [place] [address] [address] 26 Sep, [address] [address] 15 Sep, 2017 Type 2 diabetes mellitus wit h hyperglycemia E11.[address] [address] 07 Sep, 2017 History of pneumonia Z87.01 ; Hypoxia R09.02 and BMI 50.0-59.9, adult Z68.43 [place] [address] [address] Aug, History of pneumonia Z87.01 ; Hypoxia R09.02 ; Daytime hypersomnia G47.19 ; BMI 50.0-59.9, adult Z68.43 ; Type 2 diabetes mellitus with hyperglycemia E11.65 ; 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 and Nose irritation J34.89 [place] [address] [address] Aug, Right otitis media with effu cande H65.91 [place] [address] [address] Aug, History of pneumonia Z87.01 ; Nose irritation J34.89 ; Right otitis media with effusion H65.91 ; Hypoxia R09.02 ; Type 2 diabetes mellitus without complication, without long-term current use of insulin E11.9 and BMI 50.0-59.9, adult Z68.43 [facility] [address] [address] Aug, Cough R05 ; Bronchitis J40 a nd BMI 50.0-59.9, adult Z68.[address] [address] Jul, Impingement syndrome, should er, left M75.42 and Bankart lesion of left shoulder, subsequent encounter S43.492D [facility] [address] [address] Jul, Conjunctivitis, bacterial H1 0.9 [place] [address] [address] Jul, [facility] [address] [address] Jul, Acute non-recurrent maxillar y sinusitis J01.00 and BMI 45.0-49.9, adult Z68.42 [place] [address] [address] Jun, [place] [address] [address] May, Impingement syndrome, should er, left M75.42 and Degenerative tear of glenoid labrum of left shoulder M24.112 [facility] [address] [address] 05 Apr, 2017 Type 2 diabetes mellitus wit hout complication, without long-term current use of insulin E11.9 ; Essential hypertension I10 ; Mixed hyperlipidemia E78.2 ; Seasonal allergic rhinitis due to pollen J30.1 ; Pain in left shoulder M25.512 and Overweight E66.3 [place] [address] [address] Mar, Essential hypertension I10 a nd Mixed hyperlipidemia E78.2 [place] [address] [address] Feb, General medical examination Z00.00 and Screening for tuberculosis Z11.1 [place] [address] [address] Nov, Type 2 diabetes mellitus wit hout complication, without long-term current use of insulin E11.9 [place] [address] [address] Oct, Essential hypertension I10 ; Mixed hyperlipidemia E78.2 ; Type 2 diabetes mellitus without complication, without long-term current use of insulin E11.9 and Seasonal allergic rhinitis due to pollen J30.1 [facility] [address] [place] [id number] [place] [address] Sep, Other viral agents as the ca use of diseases classified elsewhere B97.89 and Acute upper respiratory infection, unspecified J06.9 [place] [address] [address] Jun, [place] [address] [address] Jun, Essential hypertension I10 ; Type 2 diabetes mellitus without complication E11.9 and Mixed hyperlipidemia E78.2 [facility] [address] [place] [id number] [address] [place] [address] 14 May, 2016 [facility] [address] [address] Mar, Fluid level behind tympanic membrane of both ears H65.93 and Cough R05 [facility] [address] [address] Mar, Bronchitis J40 and Allergic rhinitis, unspecified allergic rhinitis trigger, unspecified rhinitis seasonality J30.9 [place] [address] [place] [id number] [place] [address] 15 Jan, 2016 Essential hypertension I10 ; Type 2 diabetes mellitus without complication E11.9 and Mixed hyperlipidemia E78.2 [place] [address] [address] Aug, [facility] [address] [id number] Jul, Dental examination Z01.20 [facility] [address] [id number] 17 Jul, 2015 Encounter for dental examina tion Z01.20 [place] [address] [address] 08 Jul, 2015 Essential hypertension I10 ; Mixed hyperlipidemia E78.2 and Type 2 diabetes mellitus without complication E11.9 [facility] [address] [address] Jun, Sinusitis J32.9 and Cough R0 5 [place] [address] [address] 11 Mar, 2015 Physical examination of empl oyee V70.5 ; Tuberculosis screening V74.1 and Screening for substance abuse V82.9 [place] [address] [address] [place] [id number] [place] [address] 05 Mar, 2015 Diabetes mellitus without me ntion of complication, type II or unspecified type, not stated as uncontrolled 250.00 ; Hypertension 401.9 and Hyperlipidemia 272.4 [facility] [address] [id number] [address] [place] [address] Feb, [facility] [address] [id number] [address] [place] [address] Jan, [facility] [address] [id number] [address] [place] [id number] December, Dental examination V72.2 [facility] [address] [id number] [address] [place] [address] Nov, [facility] [address] [id number] [address] [place] [address] Nov, [facility] [address] [id number] [address] [place] [address] Aug, [facility] [address] [id number] [address] [place] [address] Aug, [facility] [address] [id number] [address] [place] [address] Jun, [facility] [address] [id number] [address] [place] [address] Jun, [facility] [address] [id number] [address] [place] [address] May, [facility] [address] [id number] [address] [place] [address] May, [facility] [address] [id number] [address] [place] [address] May, [facility] [address] [id number] [address] [place] [address] May, [facility] [address] [id number] [address] [place] [address] Mar, [facility] [address] [id number] [address] [place] [address] Mar, [facility] [address] [id number] [facility] [place] [address] Jan, [facility] [address] [id number] [address] [place] [address], [place] [address] Jan, [facility] [address] [id number] [address] [place] [address], [place] [address] December, [facility] [address] [id number] [address] [place] [address], [place] [address] December, [facility] [address] [id number] [address] [place] [address], [place] [address] Oct, [facility] [address] [id number] [address] [place] [address], [place] [address] Oct, [facility] [address] [id number] [address] [place] [address], [place] [address] Oct, [facility] [address] [id number] [address] [place] [address], [place] [address] Oct, [facility] [address] [id number] [address] [place] [address], [place] [address] Oct, [facility] [address] [id number] [address] [place] [address], [place] [address] Oct, [facility] [address] [id number] [address] [place] [address], [place] [address] Oct, [facility] [address] [id number] [address] [place] [address], [place] [address] Oct, [facility] [address] [id number] [address] [place] [address], [place] [address] Aug, [facility] [address] [id number] [address] [place] [address], [place] [address] Aug, [facility] [address] [id number] [address] [place] [address], [place] [address] Jun, [facility] [address] [id number] [address] [place] [address], [place] [address] Jun, [facility] [address] [id number] [address] [place] [address], [place] [address] Mar, [facility] [address] [id number] [address] [place] [address], [place] [address] Mar, [facility] [address] [id number] [address] [place] [address], [place] [address] Feb, [facility] [address] [id number] [address] [place] [address], [place] [address] Nov, [facility] [address] [id number] [address] [place] [address], [place] [address] Nov, [facility] [address] [id number] [address] [place] [address], [place] [address] Nov, [facility] [address] [id number] [address] [place] [address], [place] [address] Oct, [facility] [address] [id number] [address] [place] [address], [place] [address] Oct, [facility] [address] [id number] [address] [place] [address], [place] [address] Sep, [facility] [address] [id number] [address] [place] [address], [place] [address] Feb, [facility] [address] [id number] [address] [place] [address], [place] [address] Feb, [facility] [address] [id number] [address] [place] [address], [place] [address] Feb, [facility] [address] [id number] [address] [place] [address], [place] [address] Jan, [facility] [address] [id number] [address] [place] [address], [place] [address] Nov, [facility] [address] [id number] [address] [place] [address], [place] [address] Sep, [facility] [address] [facility] [id number] [address] [place] [address] Jul, [facility] [address] [facility] [id number] [address] [place] [address] Jul, [facility] [address] [facility] [id number] [address] [place] [address] Aug, [facility] [address] [facility] [id number] [address] [place] [address] Jul, [facility] [address] [facility] [id number] [address] [place] [address] December, IMMUNIZATIONS No Known Immunizations SOCIAL HISTORY Never Assessed REASON FOR VISIT PLAN OF CARE VITAL SIGNS Height 63 in 2012-02-10 Weight 242.6 lbs 2012-02-10 Temperature 98.8 degrees Fahrenheit 2012-02-10 Heart Rate 98 bpm 2012-02-10 Respiratory Rate 18 2012-02-10 Blood pressure systolic 124 mmHg 2012-02-10 Blood pressure diastolic 80 mmHg 2012-02-10 MEDICATIONS Unknown Medications RESULTS No Results PROCEDURES Procedure Date Ordered Result Body Site COMPLETE CBC W/AUTO DIFF WBC February 10, 2012 ASSAY THYROID STIM HORMONE February 10, 2012 COMPREHEN METABOLIC PANEL February 10, 2012 VENIPUNCT, ROUTINE* February 10, 2012 INSTRUCTIONS MEDICATIONS ADMINISTERED No Known Medications MEDICAL [...] shoulder Surgical History hymenectomy 1991- Hospitalization History [facility]neumonia 08/2017
--- OUTSIDE RECORDS SUMMARY | 2020-01-25 08:46 | XMS REPORT ---
Author Author Ree Torres Doctor Organization [facility] Address Unknown Phone Unavailable Care Team Providers Care Printer Assistant Name Role Phone Migration, Doctor Unavailable Unavailable PROBLEMS Type Condition ICD9-CM Code YXR31-KR Code Onset Dates Condition S tatus SNOMED Code Problem EVANGELINA (obstructive sleep apnea) G47.33 Active 85776680 Problem nursing home 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.4 Active 713005628 Problem Smoking F17.200 Active 40271992 Problem Essential hypertension I10 Active 41344172 Problem Mixed hyperlipidemia E78.2 Active 016952525 Problem Seasonal allergic rhinitis due to pollen J30.1 Active 91540981 Problem Type 2 diabetes mellitus with hyperglycemia E11.65 Active 86034546 ALLERGIES No Information ENCOUNTERS Encounter Location Date Diagnosis [place] [address] [address] December, [place] [address] [address] May, Encounter for immunization Z 23 [place] [address] [address] 14 Mar, 2019 Type 2 diabetes mellitus wit h hyperglycemia E11.65 [place] [address] [address] Mar, Type 2 diabetes mellitus wit h hyperglycemia E11.65 ; Morbid obesity E66.01 ; Essential hypertension I10 and Mixed hyperlipidemia E78.2 [place] [address] [address] Jan, [facility] [address] [address] 03 Jan, 2019 Viral upper respiratory trac t infection J06.9 ; Wheezing R06.2 and Morbid obesity E66.01 [place] [address] [address] December, Type 2 diabetes mellitus wit h hyperglycemia E11.65 ; Essential hypertension I10 ; Mixed hyperlipidemia E78.2 and Morbid obesity E66.01 [facility] [address] [facility] [id number] [place] [address] Nov, [facility] [address] [place] [id number] [place] [address] Nov, Bronchitis J40 and Morbid ob esity E66.01 [place] [address] [place] [id number] [place] [address] Nov, [place] [address] [address] Sep, Essential hypertension I10 [facility] [address] [place] [id number] [place] [address] Sep, Acute non-recurrent maxillar y sinusitis J01.00 [place] [address] [address] Aug, Essential hypertension I10 [facility] [address] [address] Jun, BMI 45.0-49.9, adult Z68.42 and Acute sinusitis J01.90 [facility] [address] [address] Jun, Cough R05 ; Acute nasopharyn gitis J00 and BMI 45.0-49.9, adult Z68.42 [facility] [address] [place] [id number] [place] [phone] May, [place] [address] [address] May, Encounter for immunization Z 23 [facility] [address] [place] [id number] [place] [address] May, Type 2 diabetes mellitus wit h hyperglycemia E11.65 [place] [id number] [address] 27 Apr, 2018 Type 2 diabetes mellitus wit h hyperglycemia E11.65 ; Essential hypertension I10 ; 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 and BMI 50.0-59.9, adult Z68.43 [facility] [address] [address] Apr, [place] [address] [address] Nov, Sunburn of second degree L55 .1 and BMI 50.0-59.9, adult Z68.43 [facility] [address] [address] Nov, Sunburn of second degree L55 .1 and BMI 50.0-59.9, adult Z68.43 [place] [address] [address] Nov, [place] [address] [address] Oct, Smoking F17.200 ; Type 2 nellie betes mellitus with hyperglycemia E11.65 ; 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 ; Motion sickness, initial encounter T75.3XXA ; Encounter for immunization Z23 and BMI 50.0-59.9, adult Z68.43 [place] [address] [address] 26 Sep, [address] [address] 15 Sep, 2017 Type 2 diabetes mellitus wit h hyperglycemia E11.[address] [address] 07 Sep, 2017 History of pneumonia Z87.01 ; Hypoxia R09.02 and BMI 50.0-59.9, adult Z68.43 [place] [address] [address] Aug, History of pneumonia Z87.01 ; Hypoxia R09.02 ; Daytime hypersomnia G47.19 ; BMI 50.0-59.9, adult Z68.43 ; Type 2 diabetes mellitus with hyperglycemia E11.65 ; 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 and Nose irritation J34.89 [place] [address] [address] Aug, Right otitis media with effu cande H65.91 [place] [address] [address] Aug, History of pneumonia Z87.01 ; Nose irritation J34.89 ; Right otitis media with effusion H65.91 ; Hypoxia R09.02 ; Type 2 diabetes mellitus without complication, without long-term current use of insulin E11.9 and BMI 50.0-59.9, adult Z68.43 [facility] [address] [address] Aug, Cough R05 ; Bronchitis J40 a nd BMI 50.0-59.9, adult Z68.[address] [address] Jul, Impingement syndrome, should er, left M75.42 and Bankart lesion of left shoulder, subsequent encounter S43.492D [facility] [address] [address] Jul, Conjunctivitis, bacterial H1 0.9 [place] [address] [address] Jul, [facility] [address] [address] Jul, Acute non-recurrent maxillar y sinusitis J01.00 and BMI 45.0-49.9, adult Z68.42 [place] [address] [address] Jun, [place] [address] [address] May, Impingement syndrome, should er, left M75.42 and Degenerative tear of glenoid labrum of left shoulder M24.112 [facility] [address] [address] 05 Apr, 2017 Type 2 diabetes mellitus wit hout complication, without long-term current use of insulin E11.9 ; Essential hypertension I10 ; Mixed hyperlipidemia E78.2 ; Seasonal allergic rhinitis due to pollen J30.1 ; Pain in left shoulder M25.512 and Overweight E66.3 [place] [address] [address] Mar, Essential hypertension I10 a nd Mixed hyperlipidemia E78.2 [place] [address] [address] Feb, General medical examination Z00.00 and Screening for tuberculosis Z11.1 [place] [address] [address] Nov, Type 2 diabetes mellitus wit hout complication, without long-term current use of insulin E11.9 [place] [address] [address] Oct, Essential hypertension I10 ; Mixed hyperlipidemia E78.2 ; Type 2 diabetes mellitus without complication, without long-term current use of insulin E11.9 and Seasonal allergic rhinitis due to pollen J30.1 [facility] [address] [place] [id number] [place] [address] Sep, Other viral agents as the ca use of diseases classified elsewhere B97.89 and Acute upper respiratory infection, unspecified J06.9 [place] [address] [address] Jun, [place] [address] [address] Jun, Essential hypertension I10 ; Type 2 diabetes mellitus without complication E11.9 and Mixed hyperlipidemia E78.2 [facility] [address] [place] [id number] [place] [address] 14 May, 2016 [facility] [address] [address] Mar, Fluid level behind tympanic membrane of both ears H65.93 and Cough R05 [facility] [address] [address] Mar, Bronchitis J40 and Allergic rhinitis, unspecified allergic rhinitis trigger, unspecified rhinitis seasonality J30.9 [place] [address] [place] [id number] [place] [address] 15 Jan, 2016 Essential hypertension I10 ; Type 2 diabetes mellitus without complication E11.9 and Mixed hyperlipidemia E78.2 [place] [address] [address] Aug, [facility] [address] [id number] Jul, Dental examination Z01.20 [facility] [address] [id number] Jul, 2015 Encounter for dental examina tion Z01.20 [place] [address] [address] 08 Jul, 2015 Essential hypertension I10 ; Mixed hyperlipidemia E78.2 and Type 2 diabetes mellitus without complication E11.9 [facility] [address] [address] Jun, Sinusitis J32.9 and Cough R0 5 [place] [address] [address] 11 Mar, 2015 Physical examination of empl oyee V70.5 ; Tuberculosis screening V74.1 and Screening for substance abuse V82.9 [place] [address] [place] [id number] [place] [address] 05 Mar, 2015 Diabetes mellitus without me ntion of complication, type II or unspecified type, not stated as uncontrolled 250.00 ; Hypertension 401.9 and Hyperlipidemia 272.4 [facility] [address] [id number] [address] [place] [address] Feb, [facility] [address] [id number] [address] [place] [phone] Jan, [facility] [address] [id number] [address] [place] [id number] December, Dental examination V72.2 [facility] [address] [id number] [address] [place] [phone] Nov, [facility] [address] [id number] [address] [place] [id number] Nov, [facility] [address] [id number] [address] [place] [phone] Aug, [facility] [address] [id number] [address] [place] [id number] Aug, [facility] [address] [id number] [address] [place] [phone] Jun, [facility] [address] [id number] [address] [place] [phone] Jun, [facility] [address] [id number] [address] [place] [phone] May, [facility] [address] [id number] [address] [place] [phone] May, [facility] [address] [id number] [address] [place] [phone] May, [facility] [address] [id number] [address] [place] [address] May, [facility] [address] [id number] [address] [place] [phone] Mar, [facility] [address] [id number] [address] [place] [phone] Mar, [facility] [address] [id number] [facility] [place] [address] Jan, [facility] [address] [id number] [address] [place] [address], [place] [address] Jan, [facility] [address] [id number] [address] [place] [address], [place] [address] December, [facility] [address] [id number] [address] [place] [address], [place] [address] December, [facility] [address] [id number] [address] [place] [address], [place] [address] Oct, [facility] [address] [id number] [address] [place] [address], [place] [address] Oct, [facility] [address] [id number] [address] [place] [address], [place] [address] Oct, [facility] [address] [id number] [address] [place] [address], [place] [address] Oct, [facility] [address] [id number] [address] [place] [address], [place] [address] Oct, [facility] [address] [id number] [address] [place] [address], [place] [address] Oct, [facility] [address] [id number] [address] [place] [address], [place] [address] Oct, [facility] [address] [id number] [address] [place] [address], [place] [address] Oct, [facility] [address] [id number] [address] [place] [address], [place] [address] Aug, [facility] [address] [id number] [address] [place] [address], [place] [address] Aug, [facility] [address] [id number] [address] [place] [address], [place] [address] Jun, [facility] [address] [id number] [address] [place] [address], [place] [address] Jun, [facility] [address] [id number] [address] [place] [address], [place] [address] Mar, [facility] [address] [id number] [address] [place] [address], [place] [address] Mar, [facility] [address] [id number] [address] [place] [address], [place] [address] Feb, [facility] [address] [id number] [address] [place] [address], [place] [address] Nov, [facility] [address] [id number] [address] [place] [address], [place] [address] Nov, [facility] [address] [id number] [address] [place] [address], [place] [address] Nov, [facility] [address] [id number] [address] [place] [address], [place] [address] Oct, [facility] [address] [id number] [address] [place] [address], [place] [address] Oct, [facility] [address] [id number] [address] [place] [address], [place] [address] Sep, [facility] [address] [id number] [address] [place] [address], [place] [address] Feb, [facility] [address] [id number] [address] [place] [address], [place] [address] Feb, [facility] [address] [id number] [address] [place] [address], [place] [address] Feb, [facility] [address] [id number] [address] [place] [address], [place] [address] Jan, [facility] [address] [id number] [address] [place] [address], [place] [address] Nov, [facility] [address] [id number] [address] [place] [address], [place] [address] Sep, [facility] [address] [facility] [id number] [address] [place] [phone] Jul, [facility] [address] [facility] [id number] [address] [place] [phone] Jul, [facility] [address] [facility] [id number] [address] [place] [phone] Aug, [facility] [address] [facility] [id number] [address] [place] [phone] Jul, [facility] [address] [facility] [id number] [address] [place] [id number] December, IMMUNIZATIONS No Known Immunizations SOCIAL HISTORY [...] shoulder Surgical History hymenectomy 1991- Hospitalization History [facility]-Pneumonia 08/2017
--- OUTSIDE RECORDS SUMMARY | 2020-01-25 08:46 | XMS REPORT ---
Author Author Ree Torres Doctor Organization [facility] Address Unknown Phone Unavailable Care Team Providers Care Prom Burn Off Operator Name Role Phone Migration, Doctor Unavailable Unavailable PROBLEMS Type Condition ICD9-CM Code JAB91-ME Code Onset Dates Condition S tatus SNOMED Code Problem EVANGELINA (obstructive sleep apnea) G47.33 Active 86390914 Problem correction 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.4 Active 691137329 Problem Smoking F17.200 Active 86937330 Problem Essential hypertension I10 Active 44794394 Problem Mixed hyperlipidemia E78.2 Active 434778760 Problem Seasonal allergic rhinitis due to pollen J30.1 Active 91761161 Problem Type 2 diabetes mellitus with hyperglycemia E11.65 Active 70599272 ALLERGIES No Information ENCOUNTERS Encounter Location Date Diagnosis [place] [address] [address] May, Encounter for immunization Z 23 [place] [address] [address] 14 Mar, 2019 Type 2 diabetes mellitus wit h hyperglycemia E11.65 [place] [address] [address] Mar, Type 2 diabetes mellitus wit h hyperglycemia E11.65 ; Morbid obesity E66.01 ; Essential hypertension I10 and Mixed hyperlipidemia E78.2 [place] [address] [address] [place] [id number] [place] [address] Jan, [facility] [address] [address] Jan, Viral upper respiratory trac t infection J06.9 ; Wheezing R06.2 and Morbid obesity E66.01 [place] [address] [address] [place] [id number] [place] [address] December, Type 2 diabetes mellitus wit h hyperglycemia E11.65 ; Essential hypertension I10 ; Mixed hyperlipidemia E78.2 and Morbid obesity E66.01 [facility] [address] [address] Nov, [facility] [address] [address] Nov, Bronchitis J40 and Morbid ob esity E66.01 [place] [address] [address] Nov, [facility] [address] [address] Sep, Essential hypertension I10 [facility] [address] [address] Sep, Acute non-recurrent maxillar y sinusitis J01.00 [place] [address] [address] Aug, Essential hypertension I10 [facility] [address] [address] Jun, BMI 45.0-49.9, adult Z68.42 and Acute sinusitis J01.90 [facility] [place] [address] [address] Jun, Cough R05 ; Acute nasopharyn gitis J00 and BMI 45.0-49.9, adult Z68.42 [place] [address] [address] May, [place] [address] [address] May, Encounter for immunization Z 23 [place] [address] [address] May, Type 2 diabetes mellitus wit h hyperglycemia E11.65 [place] [address] [address] Apr, Type 2 diabetes mellitus wit h hyperglycemia E11.65 ; Essential hypertension I10 ; correction 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.4 and BMI 50.0-59.9, adult Z68.43 [facility] [address] [address] Apr, [place] [address] [address] Nov, Sunburn of second degree L55 .1 and BMI 50.0-59.9, adult Z68.43 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 ; Motion sickness, initial encounter T75.3XXA ; Encounter for immunization Z23 and BMI 50.0-59.9, adult Z68.43 [facility] [address] [place] [id number] [place] [address] Sep, [place] [address] [address] Sep, Type 2 diabetes mellitus wit h hyperglycemia E11.65 [place] [address] [address] 07 Sep, 2017 History of pneumonia Z87.01 ; Hypoxia R09.02 and BMI 50.0-59.9, adult Z68.43 [facility] [address] [place] [id number] [place] [address] Aug, History of pneumonia Z87.01 ; Hypoxia R09.02 ; Daytime hypersomnia G47.19 ; BMI 50.0-59.9, adult Z68.43 ; Type 2 diabetes mellitus with hyperglycemia E11.65 ; 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 and Nose irritation J34.[address] [address] Aug, Right otitis media with effu cande H65.[address] [address] Aug, History of pneumonia Z87.01 ; Nose irritation J34.89 ; Right otitis media with effusion H65.91 ; Hypoxia R09.02 ; Type 2 diabetes mellitus without complication, without long-term current use of insulin E11.9 and BMI 50.0-59.9, adult Z68.43 [facility] [address] [address] Aug, Cough R05 ; Bronchitis J40 a nd BMI 50.0-59.9, adult Z68.[address] [address] Jul, Impingement syndrome, should er, left M75.42 and Bankart lesion of left shoulder, subsequent encounter S43.492D [facility] [address] [address] Jul, Conjunctivitis, bacterial H1 0.[address] [address] Jul, [facility] [address] [address] Jul, Acute non-recurrent maxillar y sinusitis J01.00 and BMI 45.0-49.9, adult Z68.[address] [address] Jun, [address] [address] May, Impingement syndrome, should er, left M75.42 and Degenerative tear of glenoid labrum of left shoulder M24.112 [facility] [address] [address] 05 Apr, 2017 Type 2 diabetes mellitus wit hout complication, without long-term current use of insulin E11.9 ; Essential hypertension I10 ; Mixed hyperlipidemia E78.2 ; Seasonal allergic rhinitis due to pollen J30.1 ; Pain in left shoulder M25.512 and Overweight E66.3 [facility] [address] [address] 17 Mar, 2017 Essential hypertension I10 a nd Mixed hyperlipidemia E78.2 [place] [address] [address] Feb, General medical examination Z00.00 and Screening for tuberculosis Z11.[address] [address] Nov, Type 2 diabetes mellitus wit hout complication, without long-term current use of insulin E11.9 [place] [address] [address] Oct, Essential hypertension I10 ; Mixed hyperlipidemia E78.2 ; Type 2 diabetes mellitus without complication, without long-term current use of insulin E11.9 and Seasonal allergic rhinitis due to pollen J30.1 [facility] [address] [address] Sep, Other viral agents as the ca use of diseases classified elsewhere B97.89 and Acute upper respiratory infection, unspecified J06.9 [place] [address] [address] Jun, [address] [address] Jun, Essential hypertension I10 ; Type 2 diabetes mellitus without complication E11.9 and Mixed hyperlipidemia E78.2 [place] [address] [address] May, [facility] [address] [address] Mar, Fluid level behind tympanic membrane of both ears H65.93 and Cough R05 [facility] [address] [address] 12 Mar, 2016 Bronchitis J40 and Allergic rhinitis, unspecified allergic rhinitis trigger, unspecified rhinitis seasonality J30.9 [place] [address] [address] 15 Jan, 2016 Essential hypertension I10 ; Type 2 diabetes mellitus without complication E11.9 and Mixed hyperlipidemia E78.[address] [address] Aug, [facility] [address] [id number] Jul, Dental examination Z01.20 [facility] [address] [id number] Jul, Encounter for dental examina tion Z01.[address] [address] 08 Jul, 2015 Essential hypertension I10 ; Mixed hyperlipidemia E78.2 and Type 2 diabetes mellitus without complication E11.9 [facility] [place] [address] [address] Jun, Sinusitis J32.9 and Cough R0 5 [place] [address] [address] 11 Mar, 2015 Physical examination of empl oyee V70.5 ; Tuberculosis screening V74.1 and Screening for substance abuse V82.9 [place] [address] [address] 05 Mar, 2015 Diabetes mellitus without me ntion of complication, type II or unspecified type, not stated as uncontrolled 250.00 ; Hypertension 401.9 and Hyperlipidemia 272.4 [place] [id number] [place] [address], [place] [address] Feb, [facility] [address] [id number] [address] [place] [address] Jan, [facility] [address] [id number] [address] [place] [id number] December, Dental examination V72.2 [facility] [address] [id number] [address] [place] [address], [place] [address] Nov, [facility] [address] [id number] [address] [place] [address], [place] [address] Nov, [facility] [address] [id number] [address] [place] [address], [place] [address] Aug, [facility] [address] [id number] [address] [place] [address], [place] [address] Aug, [facility] [address] [id number] [address] [place] [address] Jun, [facility] [address] [id number] [address] [place] [address], [place] [address] Jun, [facility] [address] [id number] [address] [place] [address] May, [facility] [address] [id number] [address] [place] [address] May, [facility] [address] [id number] [address] [place] [address] May, [facility] [address] [id number] [address] [place] [address], [place] [address] May, [facility] [address] [id number] [address] [place] [address] Mar, [facility] [address] [id number] [address] [place] [address] Mar, [facility] [address] [id number] [address] [place] [address] Jan, [facility] [address] [id number] [address] [place] [address], [place] [address] Jan, [facility] [address] [id number] [address] [place] [address], [place] [address] December, [facility] [address] [id number] [address] [place] [address], [place] [address] December, [facility] [address] [id number] [address] [place] [address], [place] [address] Oct, [facility] [address] [id number] [address] [place] [address], [place] [address] Oct, [facility] [address] [id number] [address] [place] [address], [place] [address] Oct, [facility] [address] [id number] [address] [place] [address], [place] [address] Oct, [facility] [address] [id number] [address] [place] [address], [place] [address] Oct, [facility] [address] [id number] [address] [place] [address], [place] [address] Oct, [facility] [address] [id number] [address] [place] [address], [place] [address] Oct, [facility] [address] [id number] [address] [place] [address], [place] [address] Oct, [facility] [address] [id number] [address] [place] [address], [place] [address] Aug, [facility] [address] [id number] [address] [place] [address], [place] [address] Aug, [facility] [address] [id number] [address] [place] [address], [place] [address] Jun, [facility] [address] [id number] [address] [place] [address], [place] [address] Jun, [facility] [address] [id number] [address] [place] [address], [place] [address] Mar, [facility] [address] [id number] [address] [place] [address], [place] [address] Mar, [facility] [address] [id number] [address] [place] [address], [place] [address] Feb, [facility] [address] [id number] [address] [place] [address], [place] [address] Nov, [facility] [address] [id number] [address] [place] [address], [place] [address] Nov, [facility] [address] [id number] [address] [place] [address], [place] [address] Nov, [facility] [address] [id number] [address] [place] [address], [place] [address] Oct, [facility] [address] [id number] [address] [place] [address], [place] [address] Oct, [facility] [address] [id number] [address] [place] [address], [place] [address] Sep, [facility] [address] [id number] [address] [place] [address], [place] [address] Feb, [facility] [address] [id number] [address] [place] [address], [place] [address] Feb, [facility] [address] [id number] [address] [place] [address], [place] [address] Feb, [facility] [address] [id number] [address] [place] [address], [place] [address] Jan, [facility] [address] [id number] [address] [place] [address], [place] [address] Nov, [facility] [address] [id number] [address] [place] [address], [place] [address] Sep, [facility] [address] [id number] [address] [place] [address], [place] [address] Jul, [facility] [address] [facility] [id number] [address] [place] [address] Jul, [facility] [address] [facility] [id number] [address] [place] [address] Aug, [facility] [address] [facility] [id number] [address] [place] [address] Jul, [facility] [address] [facility] [id number] [address] [place] [address] December, IMMUNIZATIONS No Known Immunizations SOCIAL HISTORY Never Assessed REASON FOR VISIT PLAN OF CARE VITAL SIGNS MEDICATIONS Unknown Medications RESULTS No Results PROCEDURES Procedure Date Ordered Result Body Site COMPLETE CBC W/AUTO DIFF WBC February 23, 2012 LIPID PANEL February 23, 2012 VENIPUNCT, ROUTINE* February 23, 2012 INSTRUCTIONS MEDICATIONS ADMINISTERED No Known Medications [...] shoulder Surgical History hymenectomy 1991- Hospitalization History [facility]-Pneumonia 08/2017
--- OUTSIDE RECORDS SUMMARY | 2020-01-25 08:47 | XMS REPORT ---
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 Name Role Phone Migration, Doctor Unavailable Unavailable PROBLEMS Type Condition ICD9-CM Code BHE70-MQ Code Onset Dates Condition S tatus SNOMED Code Problem EVANGELINA (obstructive sleep apnea) G47.33 Active 04229326 Problem residential 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.4 Active 209780584 Problem Smoking F17.200 Active 31436388 Problem Essential hypertension I10 Active 66762933 Problem Mixed hyperlipidemia E78.2 Active 886408599 Problem Seasonal allergic rhinitis due to pollen J30.1 Active 74826897 Problem Type 2 diabetes mellitus with hyperglycemia E11.65 Active 70650081 ALLERGIES No Information ENCOUNTERS Encounter Location Date Diagnosis [place] [address] [address] Oct, [facility] [address] [address] May, Encounter for immunization Z23 [place] [address] [address] Mar, Type 2 diabetes mellitus with hyperglyce moustapha E11.65 [facility] [address] [place] [id number] [place] [address] Mar, Type 2 diabetes mellitus with hyperglyce moustapha E11.65 ; Morbid obesity E66.01 ; Essential hypertension I10 and Mixed hyperlipidemia E78.2 [facility] [address] [id number] [place] [address] Jan, [facility] [address] [facility] [id number] [place] [address] Jan, Viral upper respiratory trac t infection J06.9 ; Wheezing R06.2 and Morbid obesity E66.01 [facility] [address] [address] December, Type 2 diabetes mellitus with hyperglyce moustapha E11.65 ; Essential hypertension I10 ; Mixed hyperlipidemia E78.2 and Morbid obesity E66.01 [place] [address] [address] Nov, [facility] [address] [place] [id number] [place] [address] Nov, Bronchitis J40 and Morbid ob esity E66.01 [place] [address] [address] Nov, [place] [address] [address] Sep, Essential hypertension I10 [facility] [place] [address] [address] Sep, Acute non-recurrent maxillar y sinusitis J01.00 [place] [address] [address] Aug, Essential hypertension I10 [facility] [place] [address] [address] Jun, BMI 45.0-49.9, adult Z68.42 and Acute sinusitis J01.90 [facility] [place] [address] [address] Jun, Cough R05 ; Acute nasopharyn gitis J00 and BMI 45.0-49.9, adult Z68.42 [place] [address] [address] May, [place] [address] [address] May, Encounter for immunization Z23 [place] [address] [address] May, Type 2 diabetes mellitus with hyperglyce moustapha E11.65 [place] [address] [address] Apr, Type 2 diabetes mellitus with hyperglyce moustapha E11.65 ; Essential hypertension I10 ; residential 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.4 and BMI 50.0-59.9, adult Z68.43 [facility] [address] [address] Apr, [facility] [address] [address] Nov, Sunburn of second degree L55.1 and BMI 5 0.0-59.9, adult Z68.43 [facility] [address] [facility] [id number] [address] [place] [address] Nov, Sunburn of second degree L55 .1 and BMI 50.0-59.9, adult Z68.43 [place] [address] [address] Nov, [address] [address] Oct, Smoking F17.200 ; Type 2 diabetes mellit us with hyperglycemia E11.65 ; residential 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.4 ; Motion sickness, initial encounter T75.3XXA ; Encounter for immunization Z23 and BMI 50.0-59.9, adult Z68.43 [place] [address] [address] Sep, [address] [address] 15 Sep, 2017 Type 2 diabetes mellitus with hyperglyce moustapha E11.65 [place] [address] [address] 07 Sep, 2017 History of pneumonia Z87.01 ; Hypoxia R0 9.02 and BMI 50.0-59.9, adult Z68.43 [place] [address] [address] Aug, History of pneumonia Z87.01 ; Hypoxia R0 9.02 ; Daytime hypersomnia G47.19 ; BMI 50.0-59.9, adult Z68.43 ; Type 2 diabetes mellitus with hyperglycemia E11.65 ; residential 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.4 and Nose irritation J34.[address] [address] Aug, Right otitis media with effusion H65.[address] [address] Aug, History of pneumonia Z87.01 ; Nose irrit ation J34.89 ; Right otitis media with effusion H65.91 ; Hypoxia R09.02 ; Type 2 diabetes mellitus without complication, without long-term current use of insulin E11.9 and BMI 50.0-59.9, adult Z68.43 [facility] [place] [address] [address] Aug, Cough R05 ; Bronchitis J40 a nd BMI 50.0-59.9, adult Z68.[address] [address] Jul, Impingement syndrome, shoulder, left M75 .42 and Bankart lesion of left shoulder, subsequent encounter S43.492D [address] [address] Jul, Conjunctivitis, bacterial H1 0.[address] [address] Jul, [facility] [place] [address] [address] Jul, Acute non-recurrent maxillar y sinusitis J01.00 and BMI 45.0-49.9, adult Z68.[address] [address] Jun, [address] [address] May, Impingement syndrome, shoulder, left M75 .42 and Degenerative tear of glenoid labrum of left shoulder M24.112 [place] [address] [address] 05 Apr, 2017 Type 2 diabetes mellitus without complic ation, without long-term current use of insulin E11.9 ; Essential hypertension I10 ; Mixed hyperlipidemia E78.2 ; Seasonal allergic rhinitis due to pollen J30.1 ; Pain in left shoulder M25.512 and Overweight E66.[address] [address] Mar, Essential hypertension I10 and Mixed hyp erlipidemia E78.[address] [address] Feb, General medical examination Z00.00 and S creening for tuberculosis Z11.[address] [address] Nov, Type 2 diabetes mellitus without complic ation, without long-term current use of insulin E11.[address] [address] Oct, Essential hypertension I10 ; Mixed hyper lipidemia E78.2 ; Type 2 diabetes mellitus without complication, without long-term current use of insulin E11.9 and Seasonal allergic rhinitis due to pollen J30.1 [facility] [place] [id number] [address] [place] [address] Sep, Other viral agents as the ca use of diseases classified elsewhere B97.89 and Acute upper respiratory infection, unspecified J06.[address] [address] Jun, [address] [address] Jun, Essential hypertension I10 ; Type 2 diab etes mellitus without complication E11.9 and Mixed hyperlipidemia E78.[address] [address] May, [facility] [place] [id number] [address] [place] [address] Mar, Fluid level behind tympanic membrane of both ears H65.93 and Cough R05 [facility] [address] [place] [id number] [address] [place] [address] Mar, Bronchitis J40 and Allergic rhinitis, unspecified allergic rhinitis trigger, unspecified rhinitis seasonality J30.9 [facility] [address] [address] Jan, Essential hypertension I10 ; Type 2 diab etes mellitus without complication E11.9 and Mixed hyperlipidemia E78.[address] [address] Aug, [facility] [address] [id number] Jul, Dental examination Z01.20 [facility] [address] [id number] 17 Jul, 2015 Encounter for dental examination Z01.20 [place] [address] [address] 08 Jul, 2015 Essential hypertension I10 ; Mixed hyper lipidemia E78.2 and Type 2 diabetes mellitus without complication E11.9 [facility] [address] [place] [id number] [address] [place] [address] Jun, Sinusitis J32.9 and Cough R0 [address] [address] Mar, Physical examination of employee V70.5 ; Tuberculosis screening V74.1 and Screening for substance abuse V82.[address] [address] Mar, Diabetes mellitus without mention of com plication, type II or unspecified type, not stated as uncontrolled 250.00 ; Hypertension 401.9 and Hyperlipidemia 272.[address] [address] Feb, [address] [address] Jan, [facility] [address] [facility] [id number] [place] [id number] December, Dental examination V72.2 [facility] [address] [id number] [place] [address] Nov, [facility] [address] [id number] [place] [address] Nov, [facility] [address] [id number] [place] [address] Aug, [facility] [address] [id number] [place] [address] Aug, [facility] [address] [id number] [place] [address] Jun, [facility] [address] [id number] [place] [address] Jun, [facility] [address] [id number] [place] [address] May, [facility] [address] [id number] [place] [address] May, [facility] [address] [id number] [place] [address] May, [facility] [address] [id number] [place] [address] May, [facility] [address] [id number] [place] [address] Mar, [facility] [address] [id number] [place] [address] Mar, [facility] [address] [id number] [place] [address] Jan, [facility] [address] [id number] [place] [address] Jan, [facility] [address] [id number] [place] [address] December, [facility] [address] [id number] [place] [address] December, [facility] [address] [facility] [id number] [place] [address] Oct, [facility] [address] [facility] [id number] [place] [address] Oct, [facility] [address] [id number] [place] [address] Oct, [facility] [address] [facility] [id number] [place] [address] Oct, [facility] [address] [facility] [id number] [place] [address] Oct, [facility] [address] [id number] [place] [address] Oct, [facility] [address] [id number] [place] [address] Oct, [facility] [address] [id number] [place] [address] Oct, [facility] [address] [id number] [place] [address] Aug, [facility] [address] [id number] [place] [address] Aug, [facility] [address] [id number] [place] [address] Jun, [facility] [address] [id number] [place] [address] Jun, [facility] [address] [facility] [id number] [place] [address] Mar, [facility] [address] [id number] [place] [address] Mar, [facility] [address] [id number] [place] [address] Feb, [facility] [address] [id number] [place] [address] Nov, [facility] [address] [id number] [place] [address] Nov, [facility] [address] [place] [id number] [place] [address] Nov, [facility] [address] [id number] [place] [address] Oct, [facility] [address] [place] [id number] [place] [address] Oct, [facility] [address] [place] [id number] [place] [address] Sep, [facility] [address] [place] [id number] [place] [address] Feb, [facility] [address] [place] [id number] [place] [address] Feb, [facility] [address] [place] [id number] [place] [address] Feb, [facility] [address] [place] [id number] [place] [address] Jan, [facility] [address] [place] [id number] [place] [address] Nov, [facility] [address] [place] [id number] [place] [address] Sep, [facility] [address] [place] [id number] [place] [address] Jul, [facility] [address] [place] [id number] [place] [address] Jul, [facility] [address] [place] [id number] [place] [address] Aug, [facility] [address] [place] [id number] [place] [address] Jul, [facility] [address] [place] [id number] [place] [address] December, IMMUNIZATIONS No Known Immunizations SOCIAL HISTORY Never Assessed REASON FOR VISIT PLAN OF CARE VITAL SIGNS MEDICATIONS Unknown Medications RESULTS No Results PROCEDURES Procedure Date Ordered Result Body Site MICROALBUMIN, SEMIQUANT October 29, 2013 LIPID PANEL October 29, 2013 COMPREHEN METABOLIC PANEL October 29, 2013 VENIPUNCT, ROUTINE* October 29, 2013 INSTRUCTIONS MEDICATIONS ADMINISTERED No Known Medications MEDICAL [...] shoulder Surgical History hymenectomy 1991- Hospitalization History [facility]-Pneumonia 08/2017
--- OUTSIDE RECORDS SUMMARY | 2020-01-25 08:47 | XMS REPORT ---
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 Name Role Phone Migration, Doctor Unavailable Unavailable PROBLEMS Type Condition ICD9-CM Code PQI52-KN Code Onset Dates Condition S tatus SNOMED Code Problem EVANGELINA (obstructive sleep apnea) G47.33 Active 27392151 Problem FDC 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.4 Active 107775898 Problem Smoking F17.200 Active 89121688 Problem Essential hypertension I10 Active 00796074 Problem Mixed hyperlipidemia E78.2 Active 663762008 Problem Seasonal allergic rhinitis due to pollen J30.1 Active 83154407 Problem Type 2 diabetes mellitus with hyperglycemia E11.65 Active 46169030 ALLERGIES No Information ENCOUNTERS Encounter Location Date Diagnosis [place] [address] [address] May, Encounter for immunization Z23 [place] [address] [address] Mar, Type 2 diabetes mellitus with hyperglyce moustapha E11.65 [place] [address] [address] Mar, Type 2 diabetes mellitus with hyperglyce moustapha E11.65 ; Morbid obesity E66.01 ; Essential hypertension I10 and Mixed hyperlipidemia E78.2 [place] [address] [address] Jan, [facility] [address] [facility] [id number] [place] [address] Jan, Viral upper respiratory trac t infection J06.9 ; Wheezing R06.2 and Morbid obesity E66.01 [place] [address] [address] December, Type 2 diabetes mellitus with hyperglyce moustapha E11.65 ; Essential hypertension I10 ; Mixed hyperlipidemia E78.2 and Morbid obesity E66.01 [place] [address] [address] Nov, [facility] [place] [address] [address] Nov, Bronchitis J40 and Morbid ob esity E66.01 [place] [address] [address] Nov, [place] [address] [address] Sep, Essential hypertension I10 [facility] IN [place] [address] [address] Sep, Acute non-recurrent maxillar y sinusitis J01.00 [place] [address] [address] Aug, Essential hypertension I10 [facility] [place] [address] [address] Jun, BMI 45.0-49.9, adult Z68.42 and Acute sinusitis J01.90 [facility] [place] [address] [address] Jun, Cough R05 ; Acute nasopharyn gitis J00 and BMI 45.0-49.9, adult Z68.42 [place] [address] [address] May, [place] [address] [address] May, Encounter for immunization Z23 [place] [address] [address] May, Type 2 diabetes mellitus with hyperglyce moustapha E11.65 [place] [address] [address] Apr, Type 2 diabetes mellitus with hyperglyce moustapha E11.65 ; Essential hypertension I10 ; FDC 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.4 and BMI 50.0-59.9, adult Z68.43 [facility] [address] [address] Apr, [place] [address] [address] [place] [id number] Nov, Sunburn of second degree L55.1 and BMI 5 0.0-59.9, adult Z68.43 [facility] [address] [facility] [id number] [address] [place] [address] Nov, Sunburn of second degree L55 .1 and BMI 50.0-59.9, adult Z68.43 [place] [address] [address] Nov, [place] [address] [address] Oct, Smoking F17.200 ; Type 2 diabetes mellit us with hyperglycemia E11.65 ; FDC 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.4 ; Motion sickness, initial encounter T75.3XXA ; Encounter for immunization Z23 and BMI 50.0-59.9, adult Z68.43 [place] [address] [address] 26 Sep, 2017 [place] [address] [address] 15 Sep, 2017 Type 2 diabetes mellitus with hyperglyce moustapha E11.65 [place] [address] [address] 07 Sep, 2017 History of pneumonia Z87.01 ; Hypoxia R0 9.02 and BMI 50.0-59.9, adult Z68.43 [place] [address] [address] Aug, History of pneumonia Z87.01 ; Hypoxia R0 9.02 ; Daytime hypersomnia G47.19 ; BMI 50.0-59.9, adult Z68.43 ; Type 2 diabetes mellitus with hyperglycemia E11.65 ; 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 [place] [address] [address] Aug, Cough R05 ; Bronchitis J40 a nd BMI 50.0-59.9, adult Z68.[address] [address] Jul, Impingement syndrome, shoulder, left M75 .42 and Bankart lesion of left shoulder, subsequent encounter S43.492D [facility] [place] [address] [address] Jul, Conjunctivitis, bacterial H1 0.[address] [address] Jul, [facility] [place] [address] [address] Jul, Acute non-recurrent maxillar y sinusitis J01.00 and BMI 45.0-49.9, adult Z68.42 [place] [address] [address] Jun, [address] [address] May, Impingement syndrome, shoulder, left M75 .42 and Degenerative tear of glenoid labrum of left shoulder M24.[address] [address] Apr, Type 2 diabetes mellitus without complic ation, without long-term current use of insulin E11.9 ; Essential hypertension I10 ; Mixed hyperlipidemia E78.2 ; Seasonal allergic rhinitis due to pollen J30.1 ; Pain in left shoulder M25.512 and Overweight E66.3 [place] [address] [address] Mar, Essential hypertension I10 and Mixed hyp erlipidemia E78.[address] [address] Feb, General medical examination Z00.00 and S creening for tuberculosis Z11.[address] [address] Nov, Type 2 diabetes mellitus without complic ation, without long-term current use of insulin E11.[address] [address] Oct, Essential hypertension I10 ; Mixed hyper lipidemia E78.2 ; Type 2 diabetes mellitus without complication, without long-term current use of insulin E11.9 and Seasonal allergic rhinitis due to pollen J30.1 [facility] [place] [id number] [place] [address] Sep, Other viral agents as the ca use of diseases classified elsewhere B97.89 and Acute upper respiratory infection, unspecified J06.[address] [address] Jun, [address] [address] Jun, Essential hypertension I10 ; Type 2 diab etes mellitus without complication E11.9 and Mixed hyperlipidemia E78.[address] [address] May, [facility] [address] [place], [place] [id number] [address] [place] [address] Mar, Fluid level behind tympanic membrane of both ears H65.93 and Cough R05 [facility] [address] [facility] [id number] [place] [address] Mar, Bronchitis J40 and Allergic rhinitis, unspecified allergic rhinitis trigger, unspecified rhinitis seasonality J30.9 [facility] [address] [address] Jan, Essential hypertension I10 ; Type 2 diab etes mellitus without complication E11.9 and Mixed hyperlipidemia E78.2 [facility] [address] [address] Aug, [facility] [address] [id number] Jul, Dental examination Z01.20 [facility] [address] [place] [id number] 17 Jul, 2015 Encounter for dental examination Z01.20 [place] [address] [address] 08 Jul, 2015 Essential hypertension I10 ; Mixed hyper lipidemia E78.2 and Type 2 diabetes mellitus without complication E11.9 [facility] [address] [facility] [id number] [address] [place] [address] Jun, Sinusitis J32.9 and Cough R0 [address] [address] 11 Mar, 2015 Physical examination of employee V70.5 ; Tuberculosis screening V74.1 and Screening for substance abuse V82.[address] [address] Mar, Diabetes mellitus without mention of com plication, type II or unspecified type, not stated as uncontrolled 250.00 ; Hypertension 401.9 and Hyperlipidemia 272.[address] [address] Feb, [address] [address] Jan, [facility] [address] [id number] December, Dental examination V72.2 [facility] [address] [id number] [place] [address] Nov, [facility] [address] [id number] [place] [address] Nov, [facility] [address] [id number] [place] [address] Aug, [facility] [address] [id number] [place] [address] Aug, [facility] [address] [id number] [place] [address] Jun, [facility] [address] [id number] [place] [address] Jun, [facility] [address] [id number] [place] [address] May, [facility] [address] [id number] [place] [address] May, [facility] [address] [id number] [place] [address] May, [facility] [address] [place] [id number] [place] [address] May, [facility] [address] [id number] [place] [address] Mar, [facility] [address] [id number] [place] [address] Mar, [facility] [address] [id number] [place] [address] Jan, [facility] [address] [id number] [place] [address] Jan, [facility] [address] [id number] [place] [address] December, [facility] [address] [id number] [place] [address] December, [facility] [address] [id number] [place] [address] 17 Oct, 2013 [facility] [address] [facility] [id number] [place] [address] 17 Oct, 2013 [facility] [address] [facility] [id number] [place] [address] 17 Oct, 2013 [facility] [address] [id number] [place] [address] 17 Oct, 2013 [facility] [address] [id number] [place] [address] Oct, [facility] [address] [facility] [id number] [place] [address] Oct, [facility] [address] [id number] [place] [address] Oct, [facility] [address] [id number] [place] [address] Oct, [facility] [address] [id number] [place] [address] Aug, [facility] [address] [id number] [place] [address] Aug, [facility] [address] [id number] [place] [address] Jun, [facility] [address] [id number] [place] [address] Jun, [facility] [address] [id number] [place] [address] Mar, [facility] [address] [facility] [id number] [place] [address] Mar, [facility] [address] [id number] [place] [address] Feb, [facility] [address] [id number] [place] [address] Nov, [facility] [address] [id number] [place] [address] Nov, [facility] [address] [id number] [place] [address] Nov, [facility] [address] [place] [id number] [place] [address] Oct, [facility] [address] [id number] [place] [address] Oct, [facility] [address] [place] [id number] [place] [address] Sep, [facility] [address] [place] [id number] [place] [address] Feb, [facility] [address] [place] [id number] [place] [address] Feb, [facility] [address] [place] [id number] [place] [address] Feb, [facility] [address] [place] [id number] [place] [address] Jan, [facility] [address] [place] [id number] [place] [address] Nov, [facility] [address] [place] [id number] [place] [address] Sep, [facility] [address] [place] [id number] [place] [address] Jul, [facility] [address] [place] [id number] [place] [address] Jul, [facility] [address] [place] [id number] [place] [address] Aug, [facility] [address] [place] [id number] [place] [address] Jul, [facility] [address] [place] [id number] [place] [address] December, IMMUNIZATIONS No Known Immunizations SOCIAL HISTORY Never Assessed REASON FOR VISIT PLAN OF CARE VITAL SIGNS Height 63 in 2013-10-19 Weight 243.4 lbs 2013-10-19 Temperature 97.6 degrees Fahrenheit 2013-10-19 Heart Rate 82 bpm 2013-10-19 Respiratory Rate 18 2013-10-19 Blood pressure systolic 120 mmHg 2013-10-19 Blood pressure diastolic 78 mmHg 2013-10-19 MEDICATIONS Unknown Medications RESULTS No Results PROCEDURES [...] shoulder Surgical History hymenectomy 1991- Hospitalization History [facility] 08/2017
--- OUTSIDE RECORDS SUMMARY | 2020-01-25 08:47 | XMS REPORT ---
Author Author Ree Torres Doctor Organization [facility] Address Unknown Phone Unavailable Care Team Providers Care Primary Education Professor Name Role Phone Migration, Doctor Unavailable Unavailable PROBLEMS Type Condition ICD9-CM Code ZMV75-EI Code Onset Dates Condition S tatus SNOMED Code Problem EVANGELINA (obstructive sleep apnea) G47.33 Active 88645138 Problem alf 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.4 Active 883310285 Problem Smoking F17.200 Active 24974137 Problem Essential hypertension I10 Active 94284955 Problem Mixed hyperlipidemia E78.2 Active 243972953 Problem Seasonal allergic rhinitis due to pollen J30.1 Active 71649263 Problem Type 2 diabetes mellitus with hyperglycemia E11.65 Active 63881205 ALLERGIES No Information ENCOUNTERS Encounter Location Date Diagnosis [place] [address] [address] May, Encounter for immunization Z 23 [place] [address] [address] 14 Mar, 2019 Type 2 diabetes mellitus wit h hyperglycemia E11.65 [place] [address] [address] Mar, Type 2 diabetes mellitus wit h hyperglycemia E11.65 ; Morbid obesity E66.01 ; Essential hypertension I10 and Mixed hyperlipidemia E78.2 [place] [address] [address] [place] [id number] [place] [address] Jan, [facility] [address] [address] Jan, Viral upper respiratory trac t infection J06.9 ; Wheezing R06.2 and Morbid obesity E66.01 [place] [address] [place] [id number] [place] [address] December, Type 2 diabetes mellitus wit h hyperglycemia E11.65 ; Essential hypertension I10 ; Mixed hyperlipidemia E78.2 and Morbid obesity E66.01 [facility] [address] [address] Nov, [facility] [address] [address] Nov, Bronchitis J40 and Morbid ob esity E66.01 [place] [address] [address] Nov, [facility] [address] [address] Sep, Essential hypertension I10 [facility] [address] [address] Sep, Acute non-recurrent maxillar y sinusitis J01.00 [place] [address] [address] Aug, Essential hypertension I10 [facility] [address] [address] Jun, BMI 45.0-49.9, adult Z68.42 and Acute sinusitis J01.90 [facility] [place] [address] [address] Jun, Cough R05 ; Acute nasopharyn gitis J00 and BMI 45.0-49.9, adult Z68.42 [place] [address] [address] May, [place] [address] [address] May, Encounter for immunization Z 23 [place] [address] [address] May, Type 2 diabetes mellitus wit h hyperglycemia E11.65 [place] [address] [address] Apr, Type 2 diabetes mellitus wit h hyperglycemia E11.65 ; Essential hypertension I10 ; alf 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.4 and BMI 50.0-59.9, adult Z68.43 [facility] [address] [address] Apr, [place] [address] [address] Nov, Sunburn of second degree L55 .1 and BMI 50.0-59.9, adult Z68.43 [facility] [address] [address] Nov, Sunburn of second degree L55 .1 and BMI 50.0-59.9, adult Z68.43 [place] [address] [address] Nov, [place] [address] [address] Oct, Smoking F17.200 ; Type 2 nellie betes mellitus with hyperglycemia E11.65 ; long term 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.4 ; Motion sickness, initial encounter T75.3XXA ; Encounter for immunization Z23 and BMI 50.0-59.9, adult Z68.43 [facility] [address] [place] [id number] [place] [address] Sep, [place] [address] [address] Sep, Type 2 diabetes mellitus wit h hyperglycemia E11.65 [place] [address] [address] 07 Sep, 2017 History of pneumonia Z87.01 ; Hypoxia R09.02 and BMI 50.0-59.9, adult Z68.43 [facility] [address] [place] [id number] [place] [address] Aug, History of pneumonia Z87.01 ; Hypoxia R09.02 ; Daytime hypersomnia G47.19 ; BMI 50.0-59.9, adult Z68.43 ; Type 2 diabetes mellitus with hyperglycemia E11.65 ; long term 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.4 and Nose irritation J34.[address] [address] Aug, Right otitis media with effu cande H65.[address] [address] Aug, History of pneumonia Z87.01 ; Nose irritation J34.89 ; Right otitis media with effusion H65.91 ; Hypoxia R09.02 ; Type 2 diabetes mellitus without complication, without long-term current use of insulin E11.9 and BMI 50.0-59.9, adult Z68.43 [facility] [address] [address] Aug, Cough R05 ; Bronchitis J40 a nd BMI 50.0-59.9, adult Z68.[address] [address] Jul, Impingement syndrome, should er, left M75.42 and Bankart lesion of left shoulder, subsequent encounter S43.492D [facility] [address] [address] Jul, Conjunctivitis, bacterial H1 0.[address] [address] Jul, [facility] [address] [address] Jul, Acute non-recurrent maxillar y sinusitis J01.00 and BMI 45.0-49.9, adult Z68.[address] [address] Jun, [address] [address] May, Impingement syndrome, should er, left M75.42 and Degenerative tear of glenoid labrum of left shoulder M24.112 [facility] [address] [address] 05 Apr, 2017 Type 2 diabetes mellitus wit hout complication, without long-term current use of insulin E11.9 ; Essential hypertension I10 ; Mixed hyperlipidemia E78.2 ; Seasonal allergic rhinitis due to pollen J30.1 ; Pain in left shoulder M25.512 and Overweight E66.3 [facility] [address] [address] 17 Mar, 2017 Essential hypertension I10 a nd Mixed hyperlipidemia E78.2 [place] [address] [address] Feb, General medical examination Z00.00 and Screening for tuberculosis Z11.[address] [address] Nov, Type 2 diabetes mellitus wit hout complication, without long-term current use of insulin E11.9 [place] [address] [address] Oct, Essential hypertension I10 ; Mixed hyperlipidemia E78.2 ; Type 2 diabetes mellitus without complication, without long-term current use of insulin E11.9 and Seasonal allergic rhinitis due to pollen J30.1 [facility] [address] [address] Sep, Other viral agents as the ca use of diseases classified elsewhere B97.89 and Acute upper respiratory infection, unspecified J06.9 [place] [address] [address] Jun, [address] [address] Jun, Essential hypertension I10 ; Type 2 diabetes mellitus without complication E11.9 and Mixed hyperlipidemia E78.2 [place] [address] [address] May, [facility] [address] [address] Mar, Fluid level behind tympanic membrane of both ears H65.93 and Cough R05 [facility] [address] [address] 12 Mar, 2016 Bronchitis J40 and Allergic rhinitis, unspecified allergic rhinitis trigger, unspecified rhinitis seasonality J30.9 [place] [address] [address] 15 Jan, 2016 Essential hypertension I10 ; Type 2 diabetes mellitus without complication E11.9 and Mixed hyperlipidemia E78.[address] [address] Aug, [facility] [address] [id number] Jul, Dental examination Z01.20 [facility] [address] [id number] Jul, Encounter for dental examina tion Z01.[address] [address] 08 Jul, 2015 Essential hypertension I10 ; Mixed hyperlipidemia E78.2 and Type 2 diabetes mellitus without complication E11.9 [facility] [place] [address] [address] Jun, Sinusitis J32.9 and Cough R0 5 [place] [address] [address] 11 Mar, 2015 Physical examination of empl oyee V70.5 ; Tuberculosis screening V74.1 and Screening for substance abuse V82.9 [place] [address] [address] 05 Mar, 2015 Diabetes mellitus without me ntion of complication, type II or unspecified type, not stated as uncontrolled 250.00 ; Hypertension 401.9 and Hyperlipidemia 272.4 [place] [id number] [address] [place] [address], [place] [address] Feb, [facility] [address] [id number] [address] [place] [address] Jan, [facility] [address] [id number] [address] [place] [id number] December, Dental examination V72.2 [facility] [address] [id number] [address] [place] [address], [place] [address] Nov, [facility] [address] [id number] [address] [place] [address], [place] [address] Nov, [facility] [address] [id number] [address] [place] [address], [place] [address] Aug, [facility] [address] [id number] [address] [place] [address], [place] [address] Aug, [facility] [address] [id number] [address] [place] [address] Jun, [facility] [address] [id number] [address] [place] [address], [place] [address] Jun, [facility] [address] [id number] [address] [place] [address] May, [facility] [address] [id number] [address] [place] [address] May, [facility] [address] [id number] [address] [place] [address] May, [facility] [address] [id number] [address] [place] [address], [place] [address] May, [facility] [address] [id number] [address] [place] [address] Mar, [facility] [address] [id number] [address] [place] [address] Mar, [facility] [address] [id number] [address] [place] [address] Jan, [facility] [address] [id number] [address] [place] [address], [place] [address] Jan, [facility] [address] [id number] [address] [place] [address], [place] [address] December, [facility] [address] [id number] [address] [place] [address], [place] [address] December, [facility] [address] [id number] [address] [place] [address], [place] [address] Oct, [facility] [address] [id number] [address] [place] [address], [place] [address] Oct, [facility] [address] [id number] [address] [place] [address], [place] [address] Oct, [facility] [address] [id number] [address] [place] [address], [place] [address] Oct, [facility] [address] [id number] [address] [place] [address], [place] [address] Oct, [facility] [address] [id number] [address] [place] [address], [place] [address] Oct, [facility] [address] [id number] [address] [place] [address], [place] [address] Oct, [facility] [address] [id number] [address] [place] [address], [place] [address] Oct, [facility] [address] [id number] [address] [place] [address], [place] [address] Aug, [facility] [address] [id number] [address] [place] [address], [place] [address] Aug, [facility] [address] [id number] [address] [place] [address], [place] [address] Jun, [facility] [address] [id number] [address] [place] [address], [place] [address] Jun, [facility] [address] [id number] [address] [place] [address], [place] [address] Mar, [facility] [address] [id number] [address] [place] [address], [place] [address] Mar, [facility] [address] [id number] [address] [place] [address], [place] [address] Feb, [facility] [address] [id number] [address] [place] [address], [place] [address] Nov, [facility] [address] [id number] [address] [place] [address], [place] [address] Nov, [facility] [address] [id number] [address] [place] [address], [place] [address] Nov, [facility] [address] [id number] [address] [place] [address], [place] [address] Oct, [facility] [address] [id number] [address] [place] [address], [place] [address] Oct, [facility] [address] [id number] [address] [place] [address], [place] [address] Sep, [facility] [address] [id number] [address] [place] [address], [place] [address] Feb, [facility] [address] [id number] [address] [place] [address], [place] [address] Feb, [facility] [address] [id number] [address] [place] [address], [place] [address] Feb, [facility] [address] [id number] [address] [place] [address], [place] [address] Jan, [facility] [address] [id number] [address] [place] [address], [place] [address] Nov, [facility] [address] [id number] [address] [place] [address], [place] [address] Sep, [facility] [address] [id number] [address] [place] [address], [place] [address] Jul, [facility] [address] [facility] [id number] [address] [place] [address] Jul, [facility] [address] [facility] [id number] [address] [place] [address] Aug, [facility] [address] [facility] [id number] [address] [place] [address] Jul, [facility] [address] [facility] [id number] [address] [place] [address] December, IMMUNIZATIONS No Known Immunizations SOCIAL HISTORY Never Assessed REASON FOR VISIT PLAN OF CARE VITAL SIGNS Height 63 in 2013-08-31 Weight 236.1 lbs 2013-08-31 Temperature 99.2 degrees Fahrenheit 2013-08-31 Heart Rate 100 bpm 2013-08-31 Respiratory Rate 20 2013-08-31 Blood pressure systolic 118 mmHg 2013-08-31 Blood pressure diastolic 64 mmHg 2013-08-31 MEDICATIONS Unknown Medications RESULTS No Results PROCEDURES Procedure Date Ordered Result Body Site FOOT EXAM PERFORMED Aug 31, 2013 GLYCATED HEMOGLOBIN TEST Aug 31, 2013 INSTRUCTIONS MEDICATIONS ADMINISTERED No Known Medications [...] shoulder Surgical History hymenectomy 1991- Hospitalization History [facility]Pneumonia 08/2017
--- OUTSIDE RECORDS SUMMARY | 2020-01-25 08:47 | XMS REPORT ---
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 Name Role Phone Migration, Doctor Unavailable Unavailable PROBLEMS Type Condition ICD9-CM Code [id number] Code Onset Dates Condition S tatus SNOMED Code Problem EVANGELINA (obstructive sleep apnea) G47.33 Active 14025026 Problem detention 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.4 Active 482772082 Problem Smoking F17.200 Active 72834550 Problem Essential hypertension I10 Active 32057181 Problem Mixed hyperlipidemia E78.2 Active 567909137 Problem Seasonal allergic rhinitis due to pollen J30.1 Active 27471911 Problem Type 2 diabetes mellitus with hyperglycemia E11.65 Active 43797442 ALLERGIES No Information ENCOUNTERS Encounter Location Date Diagnosis [place] [address] [address] May, Encounter for immunization Z23 [place] [address] [address] Mar, Type 2 diabetes mellitus with hyperglyce moustapha E11.65 [place] [address] [address] Mar, Type 2 diabetes mellitus with hyperglyce moustapha E11.65 ; Morbid obesity E66.01 ; Essential hypertension I10 and Mixed hyperlipidemia E78.2 [place] [address] [address] Jan, [facility] [address] [facility] [id number] [address] [address] Jan, Viral upper respiratory trac t infection J06.9 ; Wheezing R06.2 and Morbid obesity E66.01 [place] [address] [address] December, Type 2 diabetes mellitus with hyperglyce moustapha E11.65 ; Essential hypertension I10 ; Mixed hyperlipidemia E78.2 and Morbid obesity E66.01 [place] [address] [address] Nov, [facility] [place] [address] [address] Nov, Bronchitis J40 and Morbid ob esity E66.01 [place] [address] [address] Nov, [place] [address] [address] Sep, Essential hypertension I10 [facility] [place] [address] [address] Sep, Acute non-recurrent maxillar y sinusitis J01.00 [place] [address] [address] Aug, Essential hypertension I10 [facility] [place] [address] [address] Jun, BMI 45.0-49.9, adult Z68.42 and Acute sinusitis J01.90 [facility] [place] [address] [address] Jun, Cough R05 ; Acute nasopharyn gitis J00 and BMI 45.0-49.9, adult Z68.42 [place] [address] [address] May, [place] [address] [address] May, Encounter for immunization Z23 [place] [address] [address] May, Type 2 diabetes mellitus with hyperglyce moustapha E11.65 [place] [address] [address] Apr, Type 2 diabetes mellitus with hyperglyce moustapha E11.65 ; Essential hypertension I10 ; detention 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.4 and BMI 50.0-59.9, [address]68[address]43 [facility] [address] [address] Apr, [place] [address] [address] [place] [id number] Nov, Sunburn of second degree L55.1 and BMI 5 0.0-59.9, adult Z68.43 [facility] [address] [facility] [id number] [address] [place] [address] Nov, Sunburn of second degree L55 .1 and BMI 50.0-59.9, adult Z68.43 [place] [address] [address] Nov, [place] [address] [address] Oct, Smoking F17.200 ; Type 2 diabetes mellit us with hyperglycemia E11.65 ; detention 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.4 ; Motion sickness, initial encounter T75.3XXA ; Encounter for immunization Z23 and BMI 50.0-59.9, adult Z68.43 [place] [address] [address] 26 Sep, 2017 [place] [address] [address] 15 Sep, 2017 Type 2 diabetes mellitus with hyperglyce moustapha E11.65 [place] [address] [address] 07 Sep, 2017 History of pneumonia Z87.01 ; Hypoxia R0 9.02 and BMI 50.0-59.9, adult Z68.43 [place] [address] [address] Aug, History of pneumonia Z87.01 ; Hypoxia R0 9.02 ; Daytime hypersomnia G47.19 ; BMI 50.0-59.9, adult Z68.43 ; Type 2 diabetes mellitus with hyperglycemia E11.65 ; 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 and Nose irritation J34.89 [place] [address] [address] Aug, Right otitis media with effusion H65.[address] [address] Aug, History of pneumonia Z87.01 ; Nose irrit ation J34.89 ; Right otitis media with effusion H65.91 ; Hypoxia R09.02 ; Type 2 diabetes mellitus without complication, without long-term current use of insulin E11.9 and BMI 50.0-59.9, adult Z68.43 [facility] [place] [address] [address] Aug, Cough R05 ; Bronchitis J40 a nd BMI 50.0-59.9, adult Z68.[address] [address] Jul, Impingement syndrome, shoulder, left M75 .42 and Bankart lesion of left shoulder, subsequent encounter S43.492D [facility] [place] [address] [address] Jul, Conjunctivitis, bacterial H1 0.[address] [address] Jul, [facility] [place] [address] [address] Jul, Acute non-recurrent maxillar y sinusitis J01.00 and BMI 45.0-49.9, adult Z68.42 [place] [address] [address] Jun, [address] [address] May, Impingement syndrome, shoulder, left M75 .42 and Degenerative tear of glenoid labrum of left shoulder M24.[address] [address] Apr, Type 2 diabetes mellitus without complic ation, without long-term current use of insulin E11.9 ; Essential hypertension I10 ; Mixed hyperlipidemia E78.2 ; Seasonal allergic rhinitis due to pollen J30.1 ; Pain in left shoulder M25.512 and Overweight E66.3 [place] [address] [address] Mar, Essential hypertension I10 and Mixed hyp erlipidemia E78.[address] [address] Feb, General medical examination Z00.00 and S creening for tuberculosis Z11.[address] [address] Nov, Type 2 diabetes mellitus without complic ation, without long-term current use of insulin E11.[address] [address] Oct, Essential hypertension I10 ; Mixed hyper lipidemia E78.2 ; Type 2 diabetes mellitus without complication, without long-term current use of insulin E11.9 and Seasonal allergic rhinitis due to pollen J30.1 [facility] [place] [id number] [place] [address] Sep, Other viral agents as the ca use of diseases classified elsewhere B97.89 and Acute upper respiratory infection, unspecified J06.[address] [address] Jun, [address] [address] Jun, Essential hypertension I10 ; Type 2 diab etes mellitus without complication E11.9 and Mixed hyperlipidemia E78.[address] [address] May, [facility] [address] [place] [id number] [address] [place] [address] Mar, Fluid level behind tympanic membrane of both ears H65.93 and Cough R05 [facility] [address] [facility] [id number] [address] [address] Mar, Bronchitis J40 and Allergic rhinitis, unspecified allergic rhinitis trigger, unspecified rhinitis seasonality J30.9 [facility] [address] [address] Jan, Essential hypertension I10 ; Type 2 diab etes mellitus without complication E11.9 and Mixed hyperlipidemia E78.2 [facility] [address] [address] Aug, [facility] [address] [id number] Jul, Dental examination Z01.20 [facility] [address] [place] [id number] Jul, 2015 Encounter for dental examination Z01.20 [place] [address] [address] 08 Jul, 2015 Essential hypertension I10 ; Mixed hyper lipidemia E78.2 and Type 2 diabetes mellitus without complication E11.9 [facility] [address] [facility] [id number] [address] [place] [address] Jun, Sinusitis J32.9 and Cough R0 [address] [address] 11 Mar, 2015 Physical examination of employee V70.5 ; Tuberculosis screening V74.1 and Screening for substance abuse V82.[address] [address] Mar, Diabetes mellitus without mention of com plication, type II or unspecified type, not stated as uncontrolled 250.00 ; Hypertension 401.9 and Hyperlipidemia 272.[address] [address] Feb, [address] [address] Jan, [facility] [address] [id number] December, Dental examination V72.2 [facility] [address] [id number] [place] [address] Nov, [facility] [address] [id number] [place] [address] Nov, [facility] [address] [id number] [place] [address] Aug, [facility] [address] [id number] [place] [address] Aug, [facility] [address] [id number] [place] [address] Jun, [facility] [address] [id number] [place] [address] Jun, [facility] [address] [id number] [place] [address] May, [facility] [address] [id number] [place] [address] May, [facility] [address] [id number] [place] [address] May, [facility] [address] [place] [id number] [place] [address] May, [facility] [address] [id number] [place] [address] Mar, [facility] [address] [id number] [place] [address] Mar, [facility] [address] [id number] [place] [address] Jan, [facility] [address] [id number] [place] [address] Jan, [facility] [address] [id number] [place] [address] December, [facility] [address] [id number] [place] [address] December, [facility] [address] [id number] [place] [address] 17 Oct, 2013 [facility] [address] [facility] [id number] [place] [address] 17 Oct, 2013 [facility] [address] [facility] [id number] [place] [address] 17 Oct, 2013 [facility] [address] [id number] [place] [address] 17 Oct, 2013 [facility] [address] [id number] [place] [address] Oct, [facility] [address] [facility] [id number] [place] [address] Oct, [facility] [address] [id number] [place] [address] Oct, [facility] [address] [id number] [place] [address] Oct, [facility] [address] [id number] [place] [address] Aug, [facility] [address] [id number] [place] [address] Aug, [facility] [address] [id number] [place] [address] Jun, [facility] [address] [id number] [place] [address] Jun, [facility] [address] [id number] [place] [address] Mar, [facility] [address] [facility] [id number] [place] [address] Mar, [facility] [address] [id number] [place] [address] Feb, [facility] [address] [id number] [place] [address] Nov, [facility] [address] [id number] [place] [address] Nov, [facility] [address] [place] [id number] [place] [address] Nov, [facility] [address] [place] [id number] [place] [address] Oct, [facility] [address] [place] [id number] [place] [address] Oct, [facility] [address] [place] [id number] [place] [address] Sep, [facility] [address] [place] [id number] [place] [address] Feb, [facility] [address] [place] [id number] [place] [address] Feb, [facility] [address] [place] [id number] [place] [address] Feb, [facility] [address] [place] [id number] [place] [address] Jan, [facility] [address] [place] [id number] [place] [address] Nov, [facility] [address] [place] [id number] [place] [address] Sep, [facility] [address] [place] [id number] [place] [address] Jul, [facility] [address] [place] [id number] [place] [address] Jul, [facility] [address] [place] [id number] [place] [address] Aug, [facility] [address] [place] [id number] [place] [address] Jul, [facility] [address] [place] [id number] [place] [address] December, IMMUNIZATIONS No Known Immunizations SOCIAL HISTORY [...]
--- OUTSIDE RECORDS SUMMARY | 2020-01-25 08:47 | XMS REPORT ---
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 Name Role Phone Migration, Doctor Unavailable Unavailable PROBLEMS Type Condition ICD9-CM Code CZU44-FC Code Onset Dates Condition S tatus SNOMED Code Problem EVANGELINA (obstructive sleep apnea) G47.33 Active 66470198 Problem halfway 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.4 Active 391949501 Problem Smoking F17.200 Active 16856612 Problem Essential hypertension I10 Active 07357187 Problem Mixed hyperlipidemia E78.2 Active 284961188 Problem Seasonal allergic rhinitis due to pollen J30.1 Active 49155044 Problem Type 2 diabetes mellitus with hyperglycemia E11.65 Active 03342781 ALLERGIES No Information ENCOUNTERS Encounter Location Date Diagnosis [place] [address] [address] May, Encounter for immunization Z23 [place] [address] [address] Mar, Type 2 diabetes mellitus with hyperglyce moustapha E11.65 [place] [address] [address] Mar, Type 2 diabetes mellitus with hyperglyce moustapha E11.65 ; Morbid obesity E66.01 ; Essential hypertension I10 and Mixed hyperlipidemia E78.2 [facility] [address] [address] Jan, [facility] [address] [facility] [id number] [place] [address] Jan, Viral upper respiratory trac t infection J06.9 ; Wheezing R06.2 and Morbid obesity E66.01 [place] [address] [address] December, Type 2 diabetes mellitus with hyperglyce moustapha E11.65 ; Essential hypertension I10 ; Mixed hyperlipidemia E78.2 and Morbid obesity E66.01 [place] [address] [address] Nov, [facility] IN [place] [address] [address] Nov, Bronchitis J40 and Morbid ob esity E66.01 [place] [address] [address] Nov, [place] [address] [address] Sep, Essential hypertension I10 [facility] IN [place] [address] [address] Sep, Acute non-recurrent maxillar y sinusitis J01.00 [place] [address] [address] Aug, Essential hypertension I10 [facility] IN [place] [address] [address] Jun, BMI 45.0-49.9, adult Z68.42 and Acute sinusitis J01.90 [facility] IN [place] [address] [address] Jun, Cough R05 ; Acute nasopharyn gitis J00 and BMI 45.0-49.9, adult Z68.42 [place] [address] [address] May, [place] [address] [address] May, Encounter for immunization Z23 [place] [address] [address] May, Type 2 diabetes mellitus with hyperglyce moustapha E11.65 [place] [address] [address] Apr, Type 2 diabetes mellitus with hyperglyce moustapha E11.65 ; Essential hypertension I10 ; halfway 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.4 and BMI 50.0-59.9, adult Z68.43 [facility] [address] [address] Apr, [place] [address] [place] [id number] Nov, Sunburn of second degree L55.1 and BMI 5 0.0-59.9, adult Z68.43 [facility] [address] [facility] [id number] [address] [place] [address] Nov, Sunburn of second degree L55 .1 and BMI 50.0-59.9, adult Z68.43 [place] [address] [address] Nov, [place] [address] [address] Oct, Smoking F17.200 ; Type 2 diabetes mellit us with hyperglycemia E11.65 ; halfway 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.4 ; Motion sickness, initial encounter T75.3XXA ; Encounter for immunization Z23 and BMI 50.0-59.9, adult Z68.43 [place] [address] [address] 26 Sep, 2017 [place] [address] [address] 15 Sep, 2017 Type 2 diabetes mellitus with hyperglyce moustapha E11.65 [place] [address] [address] 07 Sep, 2017 History of pneumonia Z87.01 ; Hypoxia R0 9.02 and BMI 50.0-59.9, adult Z68.43 [place] [address] [address] Aug, History of pneumonia Z87.01 ; Hypoxia R0 9.02 ; Daytime hypersomnia G47.19 ; BMI 50.0-59.9, adult Z68.43 ; Type 2 diabetes mellitus 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 hyperglycemia E11.65 ; 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42 and Bankart lesion of left shoulder, subsequent encounter S43.492D [facility] [place] [address] [address] Jul, Conjunctivitis, bacterial H1 0.[address] [address] Jul, [facility] IN [address] [address] Jul, Acute non-recurrent maxillar y sinusitis J01.00 and BMI 45.0-49.9, adult Z68.42 [place] [address] [address] Jun, [address] [address] May, Impingement syndrome, shoulder, left M75 .42 and Degenerative tear of glenoid labrum of left shoulder M24.[address] [address] Apr, Type 2 diabetes mellitus without complic ation, without long-term current use of insulin E11.9 ; Essential hypertension I10 ; Mixed hyperlipidemia E78.2 ; Seasonal allergic rhinitis due to pollen J30.1 ; Pain in left shoulder M25.512 and Overweight E66.3 [place] [address] [address] Mar, Essential hypertension I10 and Mixed hyp erlipidemia E78.[address] [address] Feb, General medical examination Z00.00 and S creening for tuberculosis Z11.[address] [address] Nov, Type 2 diabetes mellitus without complic ation, without long-term current use of insulin E11.[address] [address] Oct, Essential hypertension I10 ; Mixed hyper lipidemia E78.2 ; Type 2 diabetes mellitus without complication, without long-term current use of insulin E11.9 and Seasonal allergic rhinitis due to pollen J30.1 [facility] [place] [id number] [place] [address] Sep, Other viral agents as the ca use of diseases classified elsewhere B97.89 and Acute upper respiratory infection, unspecified J06.[address] [address] Jun, [address] [address] Jun, Essential hypertension I10 ; Type 2 diab etes mellitus without complication E11.9 and Mixed hyperlipidemia E78.[address] [address] May, [facility] [address] [place] [id number] [address] [place] [address] Mar, Fluid level behind tympanic membrane of both ears H65.93 and Cough R05 [facility] [address] [facility] [id number] [place] [address] Mar, Bronchitis J40 and Allergic rhinitis, unspecified allergic rhinitis trigger, unspecified rhinitis seasonality J30.9 [facility] [address] [address] Jan, Essential hypertension I10 ; Type 2 diab etes mellitus without complication E11.9 and Mixed hyperlipidemia E78.2 [facility] [address] [address] Aug, [facility] [address] [id number] Jul, Dental examination Z01.20 [facility] [address] [place] [id number] Jul, 2015 Encounter for dental examination Z01.20 [place] [address] [address] 08 Jul, 2015 Essential hypertension I10 ; Mixed hyper lipidemia E78.2 and Type 2 diabetes mellitus without complication E11.9 [facility] [address] [facility] [id number] [address] [place] [address] Jun, Sinusitis J32.9 and Cough R0 [address] [address] 11 Mar, 2015 Physical examination of employee V70.5 ; Tuberculosis screening V74.1 and Screening for substance abuse V82.[address] [address] Mar, Diabetes mellitus without mention of com plication, type II or unspecified type, not stated as uncontrolled 250.00 ; Hypertension 401.9 and Hyperlipidemia 272.[address] [address] Feb, [address] [address] Jan, [facility] [address] [id number] December, Dental examination V72.2 [facility] [address] [id number] [place] [address] Nov, [facility] [address] [id number] [place] [address] Nov, [facility] [address] [id number] [place] [address] Aug, [facility] [address] [id number] [place] [address] Aug, [facility] [address] [id number] [place] [address] Jun, [facility] [address] [id number] [place] [address] Jun, [facility] [address] [id number] [place] [address] May, [facility] [address] [id number] [place] [address] May, [facility] [address] [id number] [place] [address] May, [facility] [address] [place] [id number] [place] [address] May, [facility] [address] [id number] [place] [address] Mar, [facility] [address] [id number] [place] [address] Mar, [facility] [address] [id number] [place] [address] Jan, [facility] [address] [id number] [place] [address] Jan, [facility] [address] [id number] [place] [address] December, [facility] [address] [id number] [place] [address] December, [facility] [address] [id number] [place] [address] 17 Oct, 2013 [facility] [address] [facility] [id number] [place] [address] 17 Oct, 2013 [facility] [address] [facility] [id number] [place] [address] 17 Oct, 2013 [facility] [address] [id number] [place] [address] 17 Oct, 2013 [facility] [address] [id number] [place] [address] Oct, [facility] [address] [facility] [id number] [place] [address] Oct, [facility] [address] [id number] [place] [address] Oct, [facility] [address] [id number] [place] [address] Oct, [facility] [address] [id number] [place] [address] Aug, [facility] [address] [id number] [place] [address] Aug, [facility] [address] [id number] [place] [address] Jun, [facility] [address] [id number] [place] [address] Jun, [facility] [address] [id number] [place] [address] Mar, [facility] [address] [facility] [id number] [place] [address] Mar, [facility] [address] [id number] [place] [address] Feb, [facility] [address] [id number] [place] [address] Nov, [facility] [address] [id number] [place] [address] Nov, [facility] [address] [place] [id number] [place] [address] Nov, [facility] [address] [place] [id number] [place] [address] Oct, [facility] [address] [place] [id number] [place] [address] Oct, [facility] [address] [place] [id number] [place] [address] Sep, [facility] [address] [place] [id number] [place] [address] Feb, [facility] [address] [place] [id number] [place] [address] Feb, [facility] [address] [place] [id number] [place] [address] Feb, [facility] [address] [place] [id number] [place] [address] Jan, [facility] [address] [place] [id number] [place] [address] Nov, [facility] [address] [place] [id number] [place] [address] Sep, [facility] [address] [place] [id number] [place] [address] Jul, [facility] [address] [place] [id number] [place] [address] Jul, [facility] [address] [place] [id number] [place] [address] Aug, [facility] [address] [place] [id number] [place] [address] Jul, [facility] [address] [place] [id number] [place] [address] December, IMMUNIZATIONS No Known Immunizations SOCIAL HISTORY [...]
--- OUTSIDE RECORDS SUMMARY | 2020-01-25 08:47 | XMS REPORT ---
Author Author Ree Torres Doctor Organization [facility] Address Unknown Phone Unavailable Care Team Providers Care Informatics Educator Name Role Phone Migration, Doctor Unavailable Unavailable PROBLEMS Type Condition ICD9-CM Code DKL94-HC Code Onset Dates Condition S tatus SNOMED Code Problem EVANGELINA (obstructive sleep apnea) G47.33 Active 37490724 Problem jail 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.4 Active 972016908 Problem Smoking F17.200 Active 68612983 Problem Essential hypertension I10 Active 77516596 Problem Mixed hyperlipidemia E78.2 Active 701191368 Problem Seasonal allergic rhinitis due to pollen J30.1 Active 56530238 Problem Type 2 diabetes mellitus with hyperglycemia E11.65 Active 87374187 ALLERGIES No Information ENCOUNTERS Encounter Location Date Diagnosis [place] [address] [address] May, Encounter for immunization Z23 [place] [address] [address] Mar, Type 2 diabetes mellitus with hyperglyce moustapha E11.65 [place] [address] [address] Mar, Type 2 diabetes mellitus with hyperglyce moustapha E11.65 ; Morbid obesity E66.01 ; Essential hypertension I10 and Mixed hyperlipidemia E78.2 [place] [address] [address] Jan, [facility] [address] [facility] [id number] [address] [address] Jan, Viral upper respiratory trac t infection J06.9 ; Wheezing R06.2 and Morbid obesity E66.01 [place] [address] [address] December, Type 2 diabetes mellitus with hyperglyce moustapha E11.65 ; Essential hypertension I10 ; Mixed hyperlipidemia E78.2 and Morbid obesity E66.01 [place] [address] [address] Nov, [facility] [place] [address] [address] Nov, Bronchitis J40 and Morbid ob esity E66.01 [place] [address] [address] Nov, [place] [address] [address] Sep, Essential hypertension I10 [facility] [place] [address] [address] Sep, Acute non-recurrent maxillar y sinusitis J01.00 [place] [address] [address] Aug, Essential hypertension I10 [facility] [place] [address] [address] Jun, BMI 45.0-49.9, adult Z68.42 and Acute sinusitis J01.90 [facility] [place] [address] [address] Jun, Cough R05 ; Acute nasopharyn gitis J00 and BMI 45.0-49.9, adult Z68.42 [place] [address] [address] May, [place] [address] [address] May, Encounter for immunization Z23 [place] [address] [address] May, Type 2 diabetes mellitus with hyperglyce moustapha E11.65 [place] [address] [address] Apr, Type 2 diabetes mellitus with hyperglyce moustapha E11.65 ; Essential hypertension I10 ; jail 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.4 and BMI 50.0-59.9, adult Z68.43 [facility] [address] [address] Apr, [place] [address] [address] [place] [id number] Nov, Sunburn of second degree L55.1 and BMI 5 0.0-59.9, adult Z68.43 [facility] [address] [facility] [id number] [address] [place] [address] Nov, Sunburn of second degree L55 .1 and BMI 50.0-59.9, adult Z68.43 [place] [address] [address] Nov, [place] [address] [address] Oct, Smoking F17.200 ; Type 2 diabetes mellit us with hyperglycemia E11.65 ; jail 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.4 ; Motion sickness, initial encounter T75.3XXA ; Encounter for immunization Z23 and BMI 50.0-59.9, adult Z68.43 [place] [address] [address] 26 Sep, 2017 [place] [address] [address] 15 Sep, 2017 Type 2 diabetes mellitus with hyperglyce moustapha E11.65 [place] [address] [address] 07 Sep, 2017 History of pneumonia Z87.01 ; Hypoxia R0 9.02 and BMI 50.0-59.9, adult Z68.43 [place] [address] [address] Aug, History of pneumonia Z87.01 ; Hypoxia R0 9.02 ; Daytime hypersomnia G47.19 ; BMI 50.0-59.9, adult Z68.43 ; Type 2 diabetes mellitus with hyperglycemia E11.65 ; 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 and Nose irritation J34.89 [place] [address] [address] Aug, Right otitis media with effusion H65.[address] [address] Aug, History of pneumonia Z87.01 ; Nose irrit ation J34.89 ; Right otitis media with effusion H65.91 ; Hypoxia R09.02 ; Type 2 diabetes mellitus without complication, without long-term current use of insulin E11.9 and BMI 50.0-59.9, adult Z68.43 [facility] [place] [address] [address] Aug, Cough R05 ; Bronchitis J40 a nd BMI 50.0-59.9, adult Z68.[address] [address] Jul, Impingement syndrome, shoulder, left M75 .42 and Bankart lesion of left shoulder, subsequent encounter S43.492D [facility] [place] [address] [address] Jul, Conjunctivitis, bacterial H1 0.[address] [address] Jul, [facility] [place] [address] [address] Jul, Acute non-recurrent maxillar y sinusitis J01.00 and BMI 45.0-49.9, adult Z68.42 [place] [address] [address] Jun, [address] [address] May, Impingement syndrome, shoulder, left M75 .42 and Degenerative tear of glenoid labrum of left shoulder M24.[address] [address] Apr, Type 2 diabetes mellitus without complic ation, without long-term current use of insulin E11.9 ; Essential hypertension I10 ; Mixed hyperlipidemia E78.2 ; Seasonal allergic rhinitis due to pollen J30.1 ; Pain in left shoulder M25.512 and Overweight E66.3 [place] [address] [address] Mar, Essential hypertension I10 and Mixed hyp erlipidemia E78.[address] [address] Feb, General medical examination Z00.00 and S creening for tuberculosis Z11.[address] [address] Nov, Type 2 diabetes mellitus without complic ation, without long-term current use of insulin E11.[address] [address] Oct, Essential hypertension I10 ; Mixed hyper lipidemia E78.2 ; Type 2 diabetes mellitus without complication, without long-term current use of insulin E11.9 and Seasonal allergic rhinitis due to pollen J30.1 [facility] [place] [id number] [place] [address] Sep, Other viral agents as the ca use of diseases classified elsewhere B97.89 and Acute upper respiratory infection, unspecified J06.[address] [address] Jun, [address] [address] Jun, Essential hypertension I10 ; Type 2 diab etes mellitus without complication E11.9 and Mixed hyperlipidemia E78.[address] [address] May, [facility] [address] [place] [id number] [address] [place] [address] Mar, Fluid level behind tympanic membrane of both ears H65.93 and Cough R05 [facility] [address] [facility] [id number] [address] [address] Mar, Bronchitis J40 and Allergic rhinitis, unspecified allergic rhinitis trigger, unspecified rhinitis seasonality J30.9 [facility] [address] [address] Jan, Essential hypertension I10 ; Type 2 diab etes mellitus without complication E11.9 and Mixed hyperlipidemia E78.2 [facility] [address] [address] Aug, [facility] [address] [id number] Jul, Dental examination Z01.20 [facility] [address] [place] [id number] Jul, 2015 Encounter for dental examination Z01.20 [place] [address] [address] 08 Jul, 2015 Essential hypertension I10 ; Mixed hyper lipidemia E78.2 and Type 2 diabetes mellitus without complication E11.9 [facility] [address] [facility] [id number] [address] [place] [address] Jun, Sinusitis J32.9 and Cough R0 [address] [address] 11 Mar, 2015 Physical examination of employee V70.5 ; Tuberculosis screening V74.1 and Screening for substance abuse V82.[address] [address] Mar, Diabetes mellitus without mention of com plication, type II or unspecified type, not stated as uncontrolled 250.00 ; Hypertension 401.9 and Hyperlipidemia 272.[address] [address] Feb, [address] [address] Jan, [facility] [address] [id number] December, Dental examination V72.2 [facility] [address] [id number] [place] [address] Nov, [facility] [address] [id number] [place] [address] Nov, [facility] [address] [id number] [place] [address] Aug, [facility] [address] [id number] [place] [address] Aug, [facility] [address] [id number] [place] [address] Jun, [facility] [address] [id number] [place] [address] Jun, [facility] [address] [id number] [place] [address] May, [facility] [address] [id number] [place] [address] May, [facility] [address] [id number] [place] [address] May, [facility] [address] [place] [id number] [place] [address] May, [facility] [address] [id number] [place] [address] Mar, [facility] [address] [id number] [place] [address] Mar, [facility] [address] [id number] [place] [address] Jan, [facility] [address] [id number] [place] [address] Jan, [facility] [address] [id number] [place] [address] December, [facility] [address] [id number] [place] [address] December, [facility] [address] [id number] [place] [address] 17 Oct, 2013 [facility] [address] [facility] [id number] [place] [address] 17 Oct, 2013 [facility] [address] [facility] [id number] [place] [address] 17 Oct, 2013 [facility] [address] [id number] [place] [address] 17 Oct, 2013 [facility] [address] [id number] [place] [address] Oct, [facility] [address] [facility] [id number] [place] [address] Oct, [facility] [address] [id number] [place] [address] Oct, [facility] [address] [id number] [place] [address] Oct, [facility] [address] [id number] [place] [address] Aug, [facility] [address] [id number] [place] [address] Aug, [facility] [address] [id number] [place] [address] Jun, [facility] [address] [id number] [place] [address] Jun, [facility] [address] [id number] [place] [address] Mar, [facility] [address] [facility] [id number] [place] [address] Mar, [facility] [address] [id number] [place] [address] Feb, [facility] [address] [id number] [place] [address] Nov, [facility] [address] [id number] [place] [address] Nov, [facility] [address] [place] [id number] [place] [address] Nov, [facility] [address] [place] [id number] [place] [address] Oct, [facility] [address] [place] [id number] [place] [address] Oct, [facility] [address] [place] [id number] [place] [address] Sep, [facility] [address] [place] [id number] [place] [address] Feb, [facility] [address] [place] [id number] [place] [address] Feb, [facility] [address] [place] [id number] [place] [address] Feb, [facility] [address] [place] [id number] [place] [address] Jan, [facility] [address] [place] [id number] [place] [address] Nov, [facility] [address] [place] [id number] [place] [address] Sep, [facility] [address] [place] [id number] [place] [address] Jul, [facility] [address] [place] [id number] [place] [address] Jul, [facility] [address] [place] [id number] [place] [address] Aug, [facility] [address] [place] [id number] [place] [address] Jul, [facility] [address] [place] [id number] [place] [address] December, IMMUNIZATIONS No Known Immunizations SOCIAL HISTORY [...]
--- OUTSIDE RECORDS SUMMARY | 2020-01-25 08:47 | XMS REPORT ---
Author Author Ree Torres Doctor Organization [facility] Address Unknown Phone Unavailable Care Team Providers Care Assistant Director Of Residence Life Name Role Phone Migration, Doctor Unavailable Unavailable PROBLEMS Type Condition ICD9-CM Code LFS43-JU Code Onset Dates Condition S tatus SNOMED Code Problem EVANGELINA (obstructive sleep apnea) G47.33 Active 34984302 Problem group home 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.4 Active 730674096 Problem Smoking F17.200 Active 79903303 Problem Essential hypertension I10 Active 58933520 Problem Mixed hyperlipidemia E78.2 Active 049774655 Problem Seasonal allergic rhinitis due to pollen J30.1 Active 31475899 Problem Type 2 diabetes mellitus with hyperglycemia E11.65 Active 83947887 ALLERGIES No Information ENCOUNTERS Encounter Location Date Diagnosis [facility] [address] [address] Mar, Type 2 diabetes mellitus wit h hyperglycemia E11.65 [facility] [address] [address] Mar, Type 2 diabetes mellitus wit h hyperglycemia E11.65 ; Morbid obesity E66.01 ; Essential hypertension I10 and Mixed hyperlipidemia E78.2 [facility] [address] [address] Jan, [facility] [address] [address] Jan, Viral upper respiratory trac t infection J06.9 ; Wheezing R06.2 and Morbid obesity E66.01 [facility] [address] [address] December, Type 2 diabetes mellitus wit h hyperglycemia E11.65 ; Essential hypertension I10 ; Mixed hyperlipidemia E78.2 and Morbid obesity E66.01 [facility] [address] [address] Nov, [facility] [address] [address] Nov, Bronchitis J40 and Morbid ob esity E66.01 [place] [address] [place] [id number] [place] [address] Nov, [place] [address] [address] Sep, Essential hypertension I10 [facility] [address] [address] Sep, Acute non-recurrent maxillar y sinusitis J01.00 [place] [address] [address] Aug, Essential hypertension I10 [facility] [place] [address] [address] Jun, BMI 45.0-49.9, adult Z68.42 and Acute sinusitis J01.90 [facility] [place] [address] [address] Jun, Cough R05 ; Acute nasopharyn gitis J00 and BMI 45.0-49.9, adult Z68.42 [place] [address] [address] May, [place] [address] [address] May, Encounter for immunization Z 23 [place] [address] [address] May, Type 2 diabetes mellitus wit h hyperglycemia E11.65 [place] [address] [place] [id number] [place] [address] Apr, Type 2 diabetes mellitus wit h hyperglycemia E11.65 ; Essential hypertension I10 ; group home 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.4 and BMI 50.0-59.9, adult Z68.43 [facility] [address] [place] [id number] [place] [address] Apr, [facility] [address] [address] Nov, Sunburn of second degree L55 .1 and BMI 50.0-59.9, adult Z68.43 [facility] [address] [address] Nov, Sunburn of second degree L55 .1 and BMI 50.0-59.9, adult Z68.43 [place] [address] [address] Nov, [place] [address] [address] Oct, Smoking F17.200 ; Type 2 nellie betes mellitus with hyperglycemia E11.65 ; group home 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.4 ; Motion sickness, initial encounter T75.3XXA ; Encounter for immunization Z23 and BMI 50.0-59.9, adult Z68.43 [place] [address] [address] Sep, [place] [address] [address] 15 Sep, 2017 Type 2 diabetes mellitus wit h hyperglycemia E11.65 [place] [address] [address] 07 Sep, 2017 History of pneumonia Z87.01 ; Hypoxia R09.02 and BMI 50.0-59.9, adult Z68.43 [place] [address] [address] Aug, History of pneumonia Z87.01 ; Hypoxia R09.02 ; Daytime hypersomnia G47.19 ; BMI 50.0-59.9, adult Z68.43 ; Type 2 diabetes mellitus with hyperglycemia E11.65 ; 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 and Nose irritation J34.89 [place] [address] [place] [id number] [place] [address] Aug, Right otitis media with effu cande H65.91 [place] [address] [address] Aug, History of pneumonia Z87.01 ; Nose irritation J34.89 ; Right otitis media with effusion H65.91 ; Hypoxia R09.02 ; Type 2 diabetes mellitus without complication, without long-term current use of insulin E11.9 and BMI 50.0-59.9, adult Z68.43 [facility] [place] [address] [address] 12 Aug, 2017 Cough R05 ; Bronchitis J40 a nd BMI 50.0-59.9, adult Z68.43 [place] [address] [address] Jul, Impingement syndrome, should er, left M75.42 and Bankart lesion of left shoulder, subsequent encounter S43.492D [place] [address] [address] Jul, Conjunctivitis, bacterial H1 0.9 [place] [address] [address] Jul, [facility] [place] [address] [address] Jul, Acute non-recurrent maxillar y sinusitis J01.00 and BMI 45.0-49.9, adult Z68.42 [place] [address] [address] Jun, [place] [address] [address] May, Impingement syndrome, should er, left M75.42 and Degenerative tear of glenoid labrum of left shoulder M24.112 [place] [address] [address] Apr, Type 2 diabetes mellitus wit hout complication, without long-term current use of insulin E11.9 ; Essential hypertension I10 ; Mixed hyperlipidemia E78.2 ; Seasonal allergic rhinitis due to pollen J30.1 ; Pain in left shoulder M25.512 and Overweight E66.3 [place] [address] [address] Mar, Essential hypertension I10 a nd Mixed hyperlipidemia E78.2 [place] [address] [address] Feb, General medical examination Z00.00 and Screening for tuberculosis Z11.1 [place] [address] [address] Nov, Type 2 diabetes mellitus wit hout complication, without long-term current use of insulin E11.9 [place] [address] [address] Oct, Essential hypertension I10 ; Mixed hyperlipidemia E78.2 ; Type 2 diabetes mellitus without complication, without long-term current use of insulin E11.9 and Seasonal allergic rhinitis due to pollen J30.1 [facility] [address] [address] Sep, Other viral agents as the ca use of diseases classified elsewhere B97.89 and Acute upper respiratory infection, unspecified J06.9 [place] [address] [place] [id number] [place] [address] Jun, [place] [address] [address] Jun, Essential hypertension I10 ; Type 2 diabetes mellitus without complication E11.9 and Mixed hyperlipidemia E78.2 [place] [address] [place] [id number] [place] [address] May, [facility] [address] [address] Mar, Fluid level behind tympanic membrane of both ears H65.93 and Cough R05 [facility] [address] [place] [id number] [place] [address] Mar, Bronchitis J40 and Allergic rhinitis, unspecified allergic rhinitis trigger, unspecified rhinitis seasonality J30.9 [facility] [address] [address] Jan, Essential hypertension I10 ; Type 2 diabetes mellitus without complication E11.9 and Mixed hyperlipidemia E78.2 [facility] [address] [address] Aug, [facility] [address] [id number] Jul, Dental examination Z01.[address] [facility] [address] [id number] Jul, Encounter for dental examina tion Z01.20 [facility] [address] [address] Jul, Essential hypertension I10 ; Mixed hyperlipidemia E78.2 and Type 2 diabetes mellitus without complication E11.9 [facility] [address] [address] Jun, Sinusitis J32.9 and Cough R0 5 [place] [address] [address] Mar, Physical examination of empl oyee V70.5 ; Tuberculosis screening V74.1 and Screening for substance abuse V82.9 [place] [address] [address] Mar, Diabetes mellitus without me ntion of complication, type II or unspecified type, not stated as uncontrolled 250.00 ; Hypertension 401.9 and Hyperlipidemia 272.4 [facility] [address] [address] Feb, [place] [address] [place] [address] Jan, [facility] [address] [id number] [address] [place] [id number] December, Dental examination V72.[address] [facility] [address] [id number] [address] [place] [address], [place] [address] 14 Nov, 2014 [facility] [address] [id number] [address] [place] [address], [place] [address] Nov, [facility] [address] [id number] [address] [place] [address], [place] [address] Aug, [facility] [address] [id number] [address] [place] [address], [place] [address] Aug, [facility] [address] [id number] [address] [place] [address], [place] [address] Jun, [facility] [address] [id number] [address] [place] [address], [place] [address] Jun, [facility] [address] [id number] [address] [place] [address] May, [facility] [address] [id number] [address] [place] [address], [place] [address] May, [facility] [address] [id number] [address] [place] [address] May, [facility] [address] [id number] [address] [place] [address], [place] [address] May, [facility] [address] [id number] [address] [place] [address] Mar, [facility] [address] [id number] [address] [place] [address] Mar, [facility] [address] [id number] [address] [place] [address] Jan, [facility] [address] [id number] [address] [place] [address] Jan, [facility] [address] [id number] [facility] [place] [address] December, [facility] [place] [facility] [address] [id number] [address] [place] [address], [place] [address] December, [facility] [address] [id number] [address] [place] [address], [place] [address] Oct, [facility] [place] [facility] [address] [id number] [address] [place] [address], [place] [address] Oct, [facility] [address] [id number] [address] [place] [address], [place] [address] Oct, [facility] [place] [facility] [address] [id number] [address] [place] [address], [place] [address] Oct, [facility] [address] [id number] [address] [place] [address], [place] [address] Oct, [facility] [place] [facility] [address] [id number] [address] [place] [address], [place] [address] Oct, [facility] [place] [facility] [address] [id number] [address] [place] [address], [place] [address] Oct, [facility] [place] [facility] [address] [id number] [address] [place] [address], [place] [address] Oct, [facility] [place] [facility] [address] [id number] [address] [place] [address], [place] [address] Aug, [facility] [place] [facility] [address] [id number] [address] [place] [address], [place] [address] Aug, [facility] [place] [facility] [address] [id number] [address] [place] [address], [place] [address] Jun, [facility] [place] [facility] [address] [id number] [address] [place] [address], [place] [address] Jun, [facility] [place] [facility] [address] [id number] [address] [place] [address], [place] [address] Mar, [facility] [place] [facility] [address] [id number] [address] [place] [address], [place] [address] Mar, [facility] [address] [id number] [address] [place] [address], [place] [address] Feb, [facility] [address] [id number] [address] [place] [address], [place] [address] Nov, [facility] [address] [id number] [address] [place] [address], [place] [address] Nov, [facility] [address] [id number] [address] [place] [address], [place] [address] Nov, [facility] [address] [id number] [address] [place] [address], [place] [address] Oct, [facility] [address] [id number] [address] [place] [address], [place] [address] Oct, [facility] [address] [id number] [address] [place] [address], [place] [address] Sep, [facility] [address] [id number] [address] [place] [address], [place] [address] Feb, [facility] [address] [id number] [address] [place] [address], [place] [address] Feb, [facility] [address] [id number] [address] [place] [address], [place] [address] Feb, [facility] [address] [id number] [address] [place] [address], [place] [address] Jan, [facility] [address] [id number] [address] [place] [address], [place] [address] Nov, [facility] [address] [id number] [address] [place] [address], [place] [address] Sep, [facility] [address] [id number] [address] [place] [address], [place] [address] Jul, [facility] [address] [id number] [address] [place] [address], [place] [address] Jul, [facility] [address] [facility] [id number] [address] [place] [address] Aug, [facility] [address] [facility] [id number] [address] [place] [address] Jul, [facility] [address] [facility] [id number] [address] [place] [address] December, IMMUNIZATIONS No Known Immunizations SOCIAL HISTORY Never Assessed REASON FOR VISIT PLAN OF CARE VITAL SIGNS Height 63 in 2014-01-11 Weight 248.3 lbs 2014-01-11 Temperature 98 degrees Fahrenheit 2014-01-11 Heart Rate 82 bpm 2014-01-11 Respiratory Rate 22 2014-01-11 Blood pressure systolic 126 mmHg 2014-01-11 Blood pressure diastolic 78 mmHg 2014-01-11 MEDICATIONS Unknown Medications RESULTS No Results PROCEDURES Procedure Date Ordered Result Body Site FOOT EXAM PERFORMED January 11, 2014 GLYCATED HEMOGLOBIN TEST January 11, 2014 INSTRUCTIONS MEDICATIONS ADMINISTERED No Known Medications MEDICAL [...] shoulder Surgical History hymenectomy 1991- Hospitalization History [facility]-Pneumonia 08/2017
--- OUTSIDE RECORDS SUMMARY | 2020-01-25 08:48 | XMS REPORT ---
Author Author Ree BLACKMAN Organization [facility] Address [address] [place] [address] Care Team Providers Care Configuration Release Manager Name Role Phone YEHUDA DANG Unavailable PROBLEMS Type Condition ICD9-CM Code [id number] Code Onset Dates Condition S tatus SNOMED Code Problem EVANGELINA (obstructive sleep apnea) G47.33 Active 76165051 Problem penitentiary 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.4 Active 196662641 Problem Smoking F17.200 Active 92184217 Problem Essential hypertension I10 Active 88649535 Problem Mixed hyperlipidemia E78.2 Active 712893561 Problem Seasonal allergic rhinitis due to pollen J30.1 Active 67277943 Problem Type 2 diabetes mellitus with hyperglycemia E11.65 Active 21045914 ALLERGIES No Information ENCOUNTERS Encounter Location Date Diagnosis [facility] [address] [address] Mar, Type 2 diabetes mellitus wit h hyperglycemia E11.65 [facility] [address] [address] Mar, Type 2 diabetes mellitus wit h hyperglycemia E11.65 ; Morbid obesity E66.01 ; Essential hypertension I10 and Mixed hyperlipidemia E78.2 [facility] [address] [place] [id number] [place] [address] Jan, [facility] [address] [place] [id number] [place] [address] Jan, Viral upper respiratory trac t infection J06.9 ; Wheezing R06.2 [address] Mor[address] obesity E66.01 [facility] [address] [place] [id number] [place] [address] December, Type 2 diabetes mellitus wit h hyperglycemia E11.65 ; Essential hypertension I10 ; Mixed hyperlipidemia E78.2 and Mor[address] obesity E66.01 [facility] [address] [address] Nov, [facility] [address] [address] Nov, Bronchitis J40 and Morbid ob esity E66.01 [facility] [address] [address] Nov, [facility] [address] [address] Sep, Essential hypertension I10 [facility] [address] [address] Sep, Acute non-recurrent maxillar y sinusitis J01.00 [place] [address] [address] Aug, Essential hypertension I10 [facility] [address] [address] Jun, BMI 45.0-49.9, adult Z68.42 and Acute sinusitis J01.90 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 and BMI 50.0-59.9, adult Z68.43 [place] [address] [address] Apr, [place] [address] [address] Nov, Sunburn of second degree L55 .1 and BMI 50.0-59.9, adult Z68.43 [facility] [address] [address] Nov, Sunburn of second degree L55 .1 and BMI 50.0-59.9, adult Z68.43 [place] [address] [address] Nov, [address] [address] Oct, Smoking F17.200 ; Type 2 nellie betes mellitus with hyperglycemia E11.65 ; terminal gauger 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.4 ; Motion sickness, initial encounter T75.3XXA ; Encounter for immunization Z23 and BMI 50.0-59.9, adult Z68.43 [place] [address] [address] Sep, [place] [address] [address] Sep, Type 2 diabetes mellitus wit h hyperglycemia E11.65 [place] [address] [address] 07 Sep, 2017 History of pneumonia Z87.01 ; Hypoxia R09.02 and BMI 50.0-59.9, adult Z68.43 [facility] [address] [place] [id number] [place] [address] Aug, History of pneumonia Z87.01 ; Hypoxia R09.02 ; Daytime hypersomnia G47.19 ; BMI 50.0-59.9, adult Z68.43 ; Type 2 diabetes mellitus with hyperglycemia E11.65 ; penitentiary 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.4 and Nose irritation J34.[address] [address] Aug, Right otitis media with effu cande H65.[address] [address] Aug, History of pneumonia Z87.01 ; Nose irritation J34.89 ; Right otitis media with effusion H65.91 ; Hypoxia R09.02 ; Type 2 diabetes mellitus without complication, without long-term current use of insulin E11.9 and BMI 50.0-59.9, adult Z68.43 [facility] [address] [address] Aug, Cough R05 ; Bronchitis J40 a nd BMI 50.0-59.9, adult Z68.[address] [address] Jul, Impingement syndrome, should er, left M75.42 and Bankart lesion of left shoulder, subsequent encounter S43.492D [facility] [address] [address] Jul, Conjunctivitis, bacterial H1 0.[address] [address] Jul, [facility] [address] [address] Jul, Acute non-recurrent maxillar y sinusitis J01.00 and BMI 45.0-49.9, adult Z68.[address] [address] Jun, [address] [address] May, Impingement syndrome, should er, left M75.42 and Degenerative tear of glenoid labrum of left shoulder M24.112 [facility] [address] [place] [id number] [place] [address] 05 Apr, 2017 Type 2 diabetes mellitus wit hout complication, without long-term current use of insulin E11.9 ; Essential hypertension I10 ; Mixed hyperlipidemia E78.2 ; Seasonal allergic rhinitis due to pollen J30.1 ; Pain in left shoulder M25.512 and Overweight E66.3 [place] [address] [address] 17 Mar, 2017 Essential hypertension I10 a nd Mixed hyperlipidemia E78.2 [place] [address] [address] Feb, General medical examination Z00.00 and Screening for tuberculosis Z11.1 [place] [address] [address] 17 Nov, 2016 Type 2 diabetes mellitus wit hout complication, without long-term current use of insulin E11.9 [place] [address] [place] [id number] [place] [address] Oct, Essential hypertension I10 ; Mixed hyperlipidemia E78.2 ; Type 2 diabetes mellitus without complication, without long-term current use of insulin E11.9 and Seasonal allergic rhinitis due to pollen J30.1 [facility] [address] [place] [id number] [place] [address] Sep, Other viral agents as the ca use of diseases classified elsewhere B97.89 and Acute upper respiratory infection, unspecified J06.9 [place] [address] [place] [id number] [place] [address] Jun, [place] [address] [place] [id number] [place] [address] Jun, Essential hypertension I10 ; Type 2 diabetes mellitus without complication E11.9 and Mixed hyperlipidemia E78.2 [place] [address] [place] [id number] [place] [address] May, [facility] [address] [address] Mar, Fluid level behind tympanic membrane of both ears H65.93 and Cough R05 [facility] [address] [address] 12 Mar, 2016 Bronchitis J40 and Allergic rhinitis, unspecified allergic rhinitis trigger, unspecified rhinitis seasonality J30.9 [place] [address] [address] Jan, Essential hypertension I10 ; Type 2 diabetes mellitus without complication E11.9 and Mixed hyperlipidemia E78.2 [place] [id number] Aug, [facility] [address] [id number] Jul, Dental examination Z01.20 [facility] [address] [id number] Jul, Encounter for dental examina tion Z01.[address] [address] 08 Jul, 2015 Essential hypertension I10 ; Mixed hyperlipidemia E78.2 and Type 2 diabetes mellitus without complication E11.9 [facility] [place] [address] [address] Jun, Sinusitis J32.9 and Cough R0 5 [place] [address] [address] Mar, Physical examination of empl oyee V70.5 ; Tuberculosis screening V74.1 and Screening for substance abuse V82.[address] [address] 05 Mar, 2015 Diabetes mellitus without me ntion of complication, type II or unspecified type, not stated as uncontrolled 250.00 ; Hypertension 401.9 and Hyperlipidemia 272.[address] [place] [address] Feb, [facility] [address] [id number] [address] [place] [address] Jan, [facility] [address] [id number] [address] [place] [id number] December, Dental examination V72.2 [facility] [address] [id number] [address] [place] [address] Nov, [facility] [address] [id number] [address] [place] [address], [place] [address] Nov, [facility] [address] [id number] [address] [place] [address], [place] [address] Aug, [facility] [address] [id number] [address] [place] [address] Aug, [facility] [address] [id number] [address] [place] [address] Jun, [facility] [address] [id number] [address] [place] [address] Jun, [facility] [address] [id number] [address] [place] [address], [place] [address] May, [facility] [address] [id number] [address] [place] [address] May, [facility] [address] [id number] [address] [place] [address], [place] [address] May, [facility] [address] [id number] [address] [place] [address] May, [facility] [address] [id number] [address] [place] [address] Mar, [facility] [address] [id number] [address] [place] [address] Mar, [facility] [address] [id number] [address] [place] [address] Jan, [facility] [address] [id number] [address] [place] [address], [place] [address] Jan, [facility] [address] [id number] [address] [place] [address], [place] [address] December, [facility] [address] [id number] [address] [place] [address], [place] [address] December, [facility] [address] [id number] [address] [place] [address], [place] [address] Oct, [facility] [address] [id number] [address] [place] [address], [place] [address] Oct, [facility] [address] [id number] [address] [place] [address], [place] [address] Oct, [facility] [address] [id number] [address] [place] [address], [place] [address] Oct, [facility] [address] [id number] [address] [place] [address], [place] [address] Oct, [facility] [address] [id number] [address] [place] [address], [place] [address] Oct, [facility] [address] [id number] [address] [place] [address], [place] [address] Oct, [facility] [address] [id number] [address] [place] [address], [place] [address] Oct, [facility] [address] [id number] [address] [place] [address], [place] [address] Aug, [facility] [address] [id number] [address] [place] [address], [place] [address] Aug, [facility] [address] [id number] [address] [place] [address], [place] [address] Jun, [facility] [address] [id number] [address] [place] [address], [place] [address] Jun, [facility] [address] [id number] [address] [place] [address], [place] [address] Mar, [facility] [address] [id number] [address] [place] [address], [place] [address] Mar, [facility] [address] [id number] [address] [place] [address], [place] [address] Feb, [facility] [address] [id number] [address] [place] [address], [place] [address] Nov, [facility] [address] [id number] [address] [place] [address], [place] [address] Nov, [facility] [address] [id number] [address] [place] [address], [place] [address] Nov, [facility] [address] [id number] [address] [place] [address], [place] [address] Oct, [facility] [address] [id number] [address] [place] [address], [place] [address] Oct, [facility] [address] [id number] [address] [place] [address], [place] [address] Sep, [facility] [address] [id number] [address] [place] [address], [place] [address] Feb, [facility] [address] [id number] [address] [place] [address], [place] [address] Feb, [facility] [address] [id number] [address] [place] [address], [place] [address] Feb, [facility] [address] [id number] [address] [place] [address], [place] [address] Jan, [facility] [address] [id number] [address] [place] [address], [place] [address] Nov, [facility] [address] [id number] [address] [place] [address], [place] [address] 10 Sep, 2011 [facility] [address] [id number] [address] [place] [address], [place] [address] Jul, [facility] [address] [facility] [id number] [address] [place] [id number] Jul, [facility] [address] [facility] [id number] [address] [place] [address] Aug, [facility] [address] [facility] [id number] [address] [place] [address] Jul, [facility] [address] [facility] [id number] [address] [place] [address] December, IMMUNIZATIONS No Known Immunizations SOCIAL HISTORY Never Assessed REASON FOR VISIT PLAN OF CARE VITAL SIGNS Height 63 in 2014-03-21 Weight 257.4 lbs 2014-03-21 Temperature 97.9 degrees Fahrenheit 2014-03-21 Heart Rate 96 bpm 2014-03-21 Respiratory Rate 16 2014-03-21 Blood pressure systolic 112 mmHg 2014-03-21 Blood pressure diastolic 82 mmHg 2014-03-21 MEDICATIONS Unknown Medications RESULTS No Results PROCEDURES [...]
--- OUTSIDE RECORDS SUMMARY | 2020-01-25 08:48 | XMS REPORT ---
Author Author Ree JACOBSEN Organization [facility] Address [address] [place] [address] Care Team Providers Care Stapler Machine Name Role Phone ANN-MARIERADHASARAI Unavailable PROBLEMS Type Condition ICD9-CM Code PAN65-TV Code Onset Dates Condition S tatus SNOMED Code Problem EVANGELINA (obstructive sleep apnea) G47.33 Active 04554880 Problem FPC 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.4 Active 580570760 Problem Smoking F17.200 Active 10388193 Problem Essential hypertension I10 Active 80265874 Problem Mixed hyperlipidemia E78.2 Active 357673179 Problem Seasonal allergic rhinitis due to pollen J30.1 Active 52775259 Problem Type 2 diabetes mellitus with hyperglycemia E11.65 Active 66284035 ALLERGIES No Information ENCOUNTERS Encounter Location Date Diagnosis [facility] [address] [address] Mar, Type 2 diabetes mellitus wit h hyperglycemia E11.65 [facility] [address] [address] Mar, Type 2 diabetes mellitus wit h hyperglycemia E11.65 ; Morbid obesity E66.01 ; Essential hypertension I10 and Mixed hyperlipidemia E78.2 [facility] [address] [place] [id number] [place] [address] Jan, [facility] WALK IN [facility] [address] [place] [id number] [place] [id number] 03 Jan, 2019 Viral upper respiratory trac t infection J06.9 ; Wheezing R06.2 and Morbid obesity E66.01 [facility] [address] [place] [id number] [place] [address] December, Type 2 diabetes mellitus wit h hyperglycemia E11.65 ; Essential hypertension I10 ; Mixed hyperlipidemia E78.2 and Morbid obesity E66.01 [facility] [address] [address] Nov, [facility] WALK IN [facility] [address] [address] Nov, Bronchitis J40 and Morbid ob esity E66.01 [facility] [address] [address] Nov, [place] [address] [address] Sep, Essential hypertension I10 [facility] WALK IN [facility] [address] [address] Sep, Acute non-recurrent maxillar y sinusitis J01.00 [place] [address] [address] Aug, Essential hypertension I10 [facility] WALK IN [facility] [address] [address] Jun, BMI 45.0-49.9, adult Z68.42 and Acute sinusitis J01.90 [facility] [place] [address] [address] Jun, Cough R05 ; Acute nasopharyn gitis J00 and BMI 45.0-49.9, adult Z68.42 [place] [address] [address] May, [place] [address] [address] May, Encounter for immunization Z 23 [place] [address] [address] May, Type 2 diabetes mellitus wit h hyperglycemia E11.65 [place] [address] [address] Apr, Type 2 diabetes mellitus wit h hyperglycemia E11.65 ; Essential hypertension I10 ; 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 ; Motion sickness, initial encounter T75.3XXA ; Encounter for immunization Z23 and BMI 50.0-59.9, adult Z68.43 [facility] [address] [address] Sep, [place] [address] [address] Sep, Type 2 diabetes mellitus wit h hyperglycemia E11.65 [place] [address] [address] 07 Sep, 2017 History of pneumonia Z87.01 ; Hypoxia R09.02 and BMI 50.0-59.9, adult Z68.43 [facility] [address] [place] [id number] [place] [address] Aug, History of pneumonia Z87.01 ; Hypoxia R09.02 ; Daytime hypersomnia G47.19 ; BMI 50.0-59.9, adult Z68.43 ; Type 2 diabetes mellitus with hyperglycemia E11.65 ; 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 WALK IN [address] [address] Aug, Cough R05 ; Bronchitis J40 a nd BMI 50.0-59.9, adult Z68.[address] [address] Jul, Impingement syndrome, should er, left M75.42 and Bankart lesion of left shoulder, subsequent encounter S43.492D [facility] [place] [address] [address] Jul, Conjunctivitis, bacterial H1 0.[address] [address] Jul, [facility] [place] [address] [address] Jul, Acute non-recurrent maxillar y sinusitis J01.00 and BMI 45.0-49.9, adult Z68.[address] [address] Jun, [address] [address] May, Impingement syndrome, should er, left M75.42 and Degenerative tear of glenoid labrum of left shoulder M24.112 [place] [address] [address] [place] [id number] [place] [address] 05 Apr, 2017 Type 2 diabetes mellitus wit hout complication, without long-term current use of insulin E11.9 ; Essential hypertension I10 ; Mixed hyperlipidemia E78.2 ; Seasonal allergic rhinitis due to pollen J30.1 ; Pain in left shoulder M25.512 and Overweight E66.3 [place] [address] [place] [id number] [place] [id number] 17 Mar, 2017 Essential hypertension I10 a nd Mixed hyperlipidemia E78.2 [place] [address] [place] [id number] [place] [address] Feb, General medical examination Z00.00 and Screening for tuberculosis Z11.1 [place] [address] [address] 17 Nov, 2016 Type 2 diabetes mellitus wit hout complication, without long-term current use of insulin E11.9 [place] [address] [place] [id number] [place] [address] Oct, Essential hypertension I10 ; Mixed hyperlipidemia E78.2 ; Type 2 diabetes mellitus without complication, without long-term current use of insulin E11.9 and Seasonal allergic rhinitis due to pollen J30.1 [facility] WALK IN [place] [address] [address] [place] [id number] [place] [address] Sep, Other viral agents as the ca use of diseases classified elsewhere B97.89 and Acute upper respiratory infection, unspecified J06.9 [place] [address] [facility] [id number] [address] [place] [address] Jun, [place] [address] [place] [id number] [place] [address] Jun, Essential hypertension I10 ; Type 2 diabetes mellitus without complication E11.9 and Mixed hyperlipidemia E78.2 [place] [address] [place] [id number] [place] [address] May, [facility] WALK IN [facility] [address] [address] Mar, Fluid level behind tympanic membrane of both ears H65.93 and Cough R05 [facility] WALK IN [facility] [address] [address] 12 Mar, 2016 Bronchitis J40 and Allergic rhinitis, unspecified allergic rhinitis trigger, unspecified rhinitis seasonality J30.9 [place] [address] [address] 15 Jan, 2016 Essential hypertension I10 ; Type 2 diabetes mellitus without complication E11.9 and Mixed hyperlipidemia E78.[address] [address] Aug, [facility] [address] [id number] Jul, Dental examination Z01.20 [facility] [address] [id number] Jul, Encounter for dental examina tion Z01.20 [place] [address] [address] 08 Jul, 2015 Essential hypertension I10 ; Mixed hyperlipidemia E78.2 and Type 2 diabetes mellitus without complication E11.9 [facility] [address] [address] Jun, Sinusitis J32.9 and Cough R0 5 [place] [address] [address] Mar, Physical examination of empl oyee V70.5 ; Tuberculosis screening V74.1 and Screening for substance abuse V82.[address] [address] 05 Mar, 2015 Diabetes mellitus without me ntion of complication, type II or unspecified type, not stated as uncontrolled 250.00 ; Hypertension 401.9 and Hyperlipidemia 272.[address] [address] Feb, [facility] [address] [id number] [address] [place] [address] Jan, [facility] [address] [id number] [address] [place] [id number] December, Dental examination V72.2 [facility] [address] [id number] [address] [place] [address] Nov, [facility] [address] [id number] [address] [place] [address] Nov, [facility] [address] [id number] [address] [place] [address] Aug, [facility] [address] [id number] [address] [place] [id number] Aug, [facility] [address] [id number] [address] [place] [address] Jun, [facility] [address] [id number] [address] [place] [id number] Jun, [facility] [address] [id number] [address] [place] [address], [place] [address] May, [facility] [address] [id number] [address] [place] [address] May, [facility] [address] [id number] [address] [place] [address] May, [facility] [address] [id number] [address] [place] [id number] May, [facility] [address] [id number] [address] [place] [id number] Mar, [facility] [address] [id number] [address] [place] [id number] Mar, [facility] [address] [id number] [address] [place] [address] Jan, [facility] [address] [id number] [address] [place] [address], [place] [address] Jan, [facility] [address] [id number] [address] [place] [address], [place] [address] December, [facility] [address] [id number] [address] [place] [address], [place] [address] December, [facility] [address] [id number] [address] [place] [address], [place] [address] Oct, [facility] [address] [id number] [address] [place] [address], [place] [address] Oct, [facility] [address] [id number] [address] [place] [address], [place] [address] Oct, [facility] [address] [id number] [address] [place] [address], [place] [address] Oct, [facility] [address] [id number] [address] [place] [address], [place] [address] Oct, [facility] [address] [id number] [address] [place] [address], [place] [address] Oct, [facility] [address] [id number] [address] [place] [address], [place] [address] Oct, [facility] [address] [id number] [address] [place] [address], [place] [address] Oct, [facility] [address] [id number] [address] [place] [address], [place] [address] Aug, [facility] [address] [id number] [address] [place] [address], [place] [address] Aug, [facility] [address] [id number] [address] [place] [address], [place] [address] Jun, [facility] [address] [id number] [address] [place] [address], [place] [address] Jun, [facility] [address] [id number] [address] [place] [address], [place] [address] Mar, [facility] [address] [id number] [address] [place] [address], [place] [address] Mar, [facility] [address] [id number] [address] [place] [address], [place] [address] Feb, [facility] [address] [id number] [address] [place] [address], [place] [address] Nov, [facility] [address] [id number] [address] [place] [address], [place] [address] Nov, [facility] [address] [id number] [address] [place] [address], [place] [address] Nov, [facility] [address] [id number] [address] [place] [address], [place] [address] Oct, [facility] [address] [id number] [address] [place] [address], [place] [address] Oct, [facility] [address] [id number] [address] [place] [address], [place] [address] Sep, [facility] [address] [id number] [address] [place] [address], [place] [address] Feb, [facility] [address] [id number] [address] [place] [address], [place] [address] Feb, [facility] [address] [id number] [address] [place] [address], [place] [address] Feb, [facility] [address] [id number] [address] [place] [address], [place] [address] Jan, [facility] [address] [id number] [address] [place] [address], [place] [address] Nov, [facility] [address] [id number] [address] [place] [address], [place] [address] 10 Sep, 2011 [facility] [address] [id number] [address] [place] [address], [place] [address] Jul, [facility] [address] [id number] [address] [place] [id number] Jul, [facility] [address] [facility] [id number] [address] [place] [id number] Aug, [facility] [address] [facility] [id number] [address] [place] [id number] Jul, [facility] [address] [facility] [id number] [address] [place] [id number] December, IMMUNIZATIONS No Known Immunizations SOCIAL HISTORY [...]
--- OUTSIDE RECORDS SUMMARY | 2020-01-25 08:48 | XMS REPORT ---
Author Author Ree Torres Doctor Organization [facility] Address Unknown Phone Unavailable Care Team Providers Care Community Health Educator Name Role Phone Migration, Doctor Unavailable Unavailable PROBLEMS Type Condition ICD9-CM Code XCK92-IO Code Onset Dates Condition S tatus SNOMED Code Problem EVANGELINA (obstructive sleep apnea) G47.33 Active 51724409 Problem shelter 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.4 Active 495873012 Problem Smoking F17.200 Active 12449074 Problem Essential hypertension I10 Active 10837888 Problem Mixed hyperlipidemia E78.2 Active 671382168 Problem Seasonal allergic rhinitis due to pollen J30.1 Active 46162864 Problem Type 2 diabetes mellitus with hyperglycemia E11.65 Active 49163246 ALLERGIES No Information ENCOUNTERS Encounter Location Date Diagnosis [facility] [address] [address] Mar, Type 2 diabetes mellitus wit h hyperglycemia E11.65 ; Morbid obesity E66.01 ; Essential hypertension I10 and Mixed hyperlipidemia E78.2 [facility] [address] [address] Jan, [facility] [address] [address] Jan, Viral upper respiratory trac t infection J06.9 ; Wheezing R06.2 and Morbid obesity E66.01 [facility] [address] [address] December, Type 2 diabetes mellitus wit h hyperglycemia E11.65 ; Essential hypertension I10 ; Mixed hyperlipidemia E78.2 and Morbid obesity E66.01 [facility] [address] [address] Nov, [facility] [address] [address] Nov, Bronchitis J40 and Morbid ob esity E66.01 [facility] [address] [place] [id number] [place] [address] Nov, [facility] [address] [address] Sep, Essential hypertension I10 [facility] [address] [place] [id number] [place] [address] Sep, Acute non-recurrent maxillar y sinusitis J01.00 [facility] [address] [facility] [id number] [address] Aug, Essential hypertension I10 [facility] [place] [address] [address] Jun, BMI 45.0-49.9, adult Z68.42 and Acute sinusitis J01.90 [facility] [place] [address] [address] Jun, Cough R05 ; Acute nasopharyn gitis J00 and BMI 45.0-49.9, adult Z68.42 [place] [address] [address] May, [place] [address] [address] May, Encounter for immunization Z 23 [place] [address] [address] May, Type 2 diabetes mellitus wit h hyperglycemia E11.65 [place] [address] [place] [id number] [place] [address] Apr, Type 2 diabetes mellitus wit h hyperglycemia E11.65 ; Essential hypertension I10 ; shelter 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.4 and BMI 50.0-59.9, adult Z68.43 [place] [address] [place] [id number] [place] [address] Apr, [place] [address] [address] Nov, Sunburn of second degree L55 .1 and BMI 50.0-59.9, adult Z68.43 [facility] [address] [address] Nov, Sunburn of second degree L55 .1 and BMI 50.0-59.9, adult Z68.43 [facility] [address] [address] Nov, [place] [address] [address] Oct, Smoking F17.200 ; Type 2 nellie betes mellitus with hyperglycemia E11.65 ; 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 ; Motion sickness, initial encounter T75.3XXA ; Encounter for immunization Z23 and BMI 50.0-59.9, adult Z68.43 [place] [address] [address] Sep, [address] [address] 15 Sep, 2017 Type 2 diabetes mellitus wit h hyperglycemia E11.[address] [address] Sep, History of pneumonia Z87.01 ; Hypoxia R09.02 and BMI 50.0-59.9, adult Z68.43 [place] [address] [address] Aug, History of pneumonia Z87.01 ; Hypoxia R09.02 ; Daytime hypersomnia G47.19 ; BMI 50.0-59.9, adult Z68.43 ; Type 2 diabetes mellitus with hyperglycemia E11.65 ; shelter 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.4 and Nose irritation J34.[address] [address] Aug, Right otitis media with effu cande H65.[address] [address] Aug, History of pneumonia Z87.01 ; Nose irritation J34.89 ; Right otitis media with effusion H65.91 ; Hypoxia R09.02 ; Type 2 diabetes mellitus without complication, without long-term current use of insulin E11.9 and BMI 50.0-59.9, adult Z68.43 [facility] [place] [address] [address] Aug, Cough R05 ; Bronchitis J40 a nd BMI 50.0-59.9, adult Z68.[address] [address] Jul, Impingement syndrome, should er, left M75.42 and Bankart lesion of left shoulder, subsequent encounter S43.492D [address] [address] Jul, Conjunctivitis, bacterial H1 0.[address] [address] Jul, [facility] [place] [address] [address] Jul, Acute non-recurrent maxillar y sinusitis J01.00 and BMI 45.0-49.9, adult Z68.[address] [address] Jun, [address] [address] May, Impingement syndrome, should er, left M75.42 and Degenerative tear of glenoid labrum of left shoulder M24.[address] [address] 05 Apr, 2017 Type 2 diabetes mellitus wit hout complication, without long-term current use of insulin E11.9 ; Essential hypertension I10 ; Mixed hyperlipidemia E78.2 ; Seasonal allergic rhinitis due to pollen J30.1 ; Pain in left shoulder M25.512 and Overweight E66.3 [place] [address] [address] Mar, Essential hypertension I10 a nd Mixed hyperlipidemia E78.2 [place] [address] [address] 11 Feb, 2017 General medical examination Z00.00 and Screening for tuberculosis Z11.1 [place] [address] [address] 17 Nov, 2016 Type 2 diabetes mellitus wit hout complication, without long-term current use of insulin E11.9 [place] [address] [address] Oct, Essential hypertension I10 ; Mixed hyperlipidemia E78.2 ; Type 2 diabetes mellitus without complication, without long-term current use of insulin E11.9 and Seasonal allergic rhinitis due to pollen J30.1 [facility] [place] [address] [address] Sep, Other viral agents as the ca use of diseases classified elsewhere B97.89 and Acute upper respiratory infection, unspecified J06.9 [place] [address] [address] 08 Jun, 2016 [place] [address] [address] Jun, Essential hypertension I10 ; Type 2 diabetes mellitus without complication E11.9 and Mixed hyperlipidemia E78.2 [place] [address] [address] May, [facility] [place] [address] [address] Mar, Fluid level behind tympanic membrane of both ears H65.93 and Cough R05 [facility] [place] [address] [address] Mar, Bronchitis J40 and Allergic rhinitis, unspecified allergic rhinitis trigger, unspecified rhinitis seasonality J30.9 [facility] [address] [address] Jan, Essential hypertension I10 ; Type 2 diabetes mellitus without complication E11.9 and Mixed hyperlipidemia E78.2 [facility] [address] [address] Aug, [facility] [address] [id number] Jul, Dental examination Z01.20 [facility] [address] [id number] Jul, Encounter for dental examina tion Z01.20 [facility] [address] [address] Jul, Essential hypertension I10 ; Mixed hyperlipidemia E78.2 and Type 2 diabetes mellitus without complication E11.9 [facility] [address] [address] Jun, Sinusitis J32.9 and Cough R0 5 [facility] [address] [address] Mar, Physical examination of empl oyee V70.5 ; Tuberculosis screening V74.1 and Screening for substance abuse V82.9 [facility] [address] [address] Mar, Diabetes mellitus without me ntion of complication, type II or unspecified type, not stated as uncontrolled 250.00 ; Hypertension 401.9 and Hyperlipidemia 272.4 [facility] [address] [address] Feb, [facility] [address] [address] Jan, [facility] [address] [id number] December, Dental examination V72.2 [facility] [address] [id number] [address] [place] [address], [place] [address] Nov, [facility] [address] [id number] [address] [place] [address] Nov, [facility] [address] [id number] [address] [place] [address] Aug, [facility] [address] [id number] [address] [place] [address] Aug, [facility] [address] [id number] [address] [place] [address], [place] [address] Jun, [facility] [address] [id number] [address] [place] [address] Jun, [facility] [address] [id number] [address] [place] [address] May, [facility] [address] [id number] [address] [place] [address] May, [facility] [address] [id number] [address] [place] [address] May, [facility] [address] [id number] [address] [place] [address] May, [facility] [address] [id number] [address] [place] [address] Mar, [facility] [address] [id number] [address] [place] [address] Mar, [facility] [address] [id number] [address] [place] [address] Jan, [facility] [address] [id number] [address] [place] [address] Jan, [facility] [address] [id number] [address] [place] [address] December, [facility] [address] [id number] [facility] [place] [address] December, [facility] [address] [id number] [facility] [place] [address] 17 Oct, 2013 [facility] [address] [id number] [facility] [place] [address] 17 Oct, 2013 [facility] [address] [id number] [address] [place] [address], [place] [address] 17 Oct, 2013 [facility] [address] [id number] [facility] [place] [address] 17 Oct, 2013 [facility] [address] [id number] [address] [place] [address], [place] [address] Oct, [facility] [address] [id number] [address] [place] [address], [place] [address] Oct, [facility] [address] [id number] [address] [place] [address], [place] [address] Oct, [facility] [address] [id number] [address] [place] [address], [place] [address] Oct, [facility] [address] [id number] [address] [place] [address], [place] [address] Aug, [facility] [address] [id number] [address] [place] [address], [place] [address] Aug, [facility] [address] [id number] [address] [place] [address], [place] [address] Jun, [facility] [address] [id number] [address] [place] [address], [place] [address] Jun, [facility] [address] [id number] [address] [place] [address], [place] [address] Mar, [facility] [address] [id number] [address] [place] [address], [place] [address] Mar, [facility] [address] [id number] [address] [place] [address], [place] [address] Feb, [facility] [address] [id number] [facility] [place] [address] Nov, [facility] [address] [id number] [address] [place] [address], [place] [address] Nov, [facility] [address] [id number] [address] [place] [address], [place] [address] Nov, [facility] [address] [id number] [address] [place] [address], [place] [address] Oct, [facility] [address] [id number] [address] [place] [address], [place] [address] Oct, [facility] [address] [id number] [address] [place] [address], [place] [address] Sep, [facility] [address] [id number] [address] [place] [address], [place] [address] Feb, [facility] [address] [id number] [address] [place] [address], [place] [address] Feb, [facility] [address] [id number] [address] [place] [address], [place] [address] Feb, [facility] [address] [id number] [address] [place] [address], [place] [address] Jan, [facility] [address] [id number] [address] [place] [address], [place] [address] Nov, [facility] [address] [id number] [address] [place] [address], [place] [address] Sep, [facility] [address] [id number] [address] [place] [address], [place] [address] Jul, [facility] [address] [id number] [address] [place] [address], [place] [address] Jul, [facility] [address] [id number] [address] [place] [address], [place] [address] Aug, [facility] [address] [id number] [facility] [place] [address] Jul, [facility] [address] [facility] [id number] [address] [address] December, IMMUNIZATIONS No Known Immunizations SOCIAL HISTORY Never Assessed REASON FOR VISIT PLAN OF CARE VITAL SIGNS Height 63 in 2014-06-04 Weight 256 lbs 2014-06-04 Temperature 99.1 degrees Fahrenheit 2014-06-04 Heart Rate 118 bpm 2014-06-04 Respiratory Rate 20 2014-06-04 Blood pressure systolic 102 mmHg 2014-06-04 Blood pressure diastolic 70 mmHg 2014-06-04 MEDICATIONS No Known Medications RESULTS No Results PROCEDURES Procedure Date Ordered Result Body Site FOOT EXAM PERFORMED Jun 04, 2014 GLYCATED HEMOGLOBIN TEST Jun 04, 2014 COMPREHEN METABOLIC PANEL Jun 04, 2014 VENIPUNCT, ROUTINE* Jun 04, 2014 INSTRUCTIONS MEDICATIONS ADMINISTERED No Known Medications [...] shoulder Surgical History hymenectomy 1991- Hospitalization History [facility]-Pneumonia 08/2017
--- OUTSIDE RECORDS SUMMARY | 2020-01-25 08:48 | XMS REPORT ---
Author Author Ree Torres Doctor Organization [facility] Address Unknown Phone Unavailable Care Team Providers Care Supervisor Coffee Name Role Phone Migration, Doctor Unavailable Unavailable PROBLEMS Type Condition ICD9-CM Code PHQ01-IA Code Onset Dates Condition S tatus SNOMED Code Problem EVANGELINA (obstructive sleep apnea) G47.33 Active 45980448 Problem half-way 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.4 Active 087892898 Problem Smoking F17.200 Active 09796564 Problem Essential hypertension I10 Active 59785959 Problem Mixed hyperlipidemia E78.2 Active 916740352 Problem Seasonal allergic rhinitis due to pollen J30.1 Active 31425809 Problem Type 2 diabetes mellitus with hyperglycemia E11.65 Active 07176336 ALLERGIES No Information ENCOUNTERS Encounter Location Date Diagnosis [facility] [address] [address] Jan, [facility] [address] [address] December, Type 2 diabetes mellitus wit h hyperglycemia E11.65 ; Essential hypertension I10 and Mixed hyperlipidemia E78.2 [facility] [address] [address] Nov, [facility] [address] [address] Nov, Bronchitis J40 and Morbid ob esity E66.01 [facility] [address] [place] [id number] [address] [place] [address] Nov, [facility] [address] [address] Sep, Essential hypertension I10 [facility] [address] [place] [id number] [address] [place] [address] Sep, Acute non-recurrent maxillar y sinusitis J01.00 [place] [address] [address] Aug, Essential hypertension I10 [facility] [place] [address] [address] Jun, BMI 45.0-49.9, adult Z68.42 and Acute sinusitis J01.90 [facility] [place] [address] [address] Jun, Cough R05 ; Acute nasopharyn gitis J00 and BMI 45.0-49.9, adult Z68.42 [place] [address] [address] May, [place] [address] [address] May, Encounter for immunization Z 23 [place] [address] [address] May, Type 2 diabetes mellitus wit h hyperglycemia E11.65 [place] [address] [address] Apr, Type 2 diabetes mellitus wit h hyperglycemia E11.65 ; Essential hypertension I10 ; half-way 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.4 and BMI 50.0-59.9, adult Z68.43 [place] [address] [address] Apr, [place] [address] [address] Nov, Sunburn of second degree L55 .1 and BMI 50.0-59.9, adult Z68.43 [facility] [place] [address] [address] Nov, Sunburn of second degree L55 .1 and BMI 50.0-59.9, adult Z68.43 [place] [address] [address] Nov, [facility] [address] [address] Oct, Smoking F17.200 ; Type 2 nellie betes mellitus with hyperglycemia E11.65 ; half-way 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.4 ; Motion sickness, initial encounter T75.3XXA ; Encounter for immunization Z23 and BMI 50.0-59.9, adult Z68.43 [place] [address] [address] Sep, [place] [address] [address] Sep, Type 2 diabetes mellitus wit h hyperglycemia E11.65 [place] [address] [address] 07 Sep, 2017 History of pneumonia Z87.01 ; Hypoxia R09.02 and BMI 50.0-59.9, adult Z68.43 [facility] [address] [address] Aug, History of pneumonia Z87.01 ; Hypoxia R09.02 ; Daytime hypersomnia G47.19 ; BMI 50.0-59.9, adult Z68.43 ; Type 2 diabetes mellitus with hyperglycemia E11.65 ; half-way 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.4 and Nose irritation J34.89 [place] [address] [address] Aug, Right otitis media with effu cande H65.91 [place] [address] [place] [id number] [address] [place] [address] Aug, History of pneumonia Z87.01 ; Nose irritation J34.89 ; Right otitis media with effusion H65.91 ; Hypoxia R09.02 ; Type 2 diabetes mellitus without complication, without long-term current use of insulin E11.9 and BMI 50.0-59.9, adult Z68.43 [facility] [address] [address] Aug, Cough R05 ; Bronchitis J40 a nd BMI 50.0-59.9, adult Z68.43 [place] [address] [address] Jul, Impingement syndrome, should er, left M75.42 and Bankart lesion of left shoulder, subsequent encounter S43.492D [facility] [address] [address] Jul, Conjunctivitis, bacterial H1 0.9 [place] [address] [address] Jul, [facility] [address] [address] Jul, Acute non-recurrent maxillar y sinusitis J01.00 and BMI 45.0-49.9, adult Z68.[address] [address] Jun, [place] [address] [address] May, Impingement syndrome, should er, left M75.42 and Degenerative tear of glenoid labrum of left shoulder M24.[address] [address] Apr, Type 2 diabetes mellitus wit hout complication, without long-term current use of insulin E11.9 ; Essential hypertension I10 ; Mixed hyperlipidemia E78.2 ; Seasonal allergic rhinitis due to pollen J30.1 ; Pain in left shoulder M25.512 and Overweight E66.[address] [address] Mar, Essential hypertension I10 a nd Mixed hyperlipidemia E78.[address] [address] Feb, General medical examination Z00.00 and Screening for tuberculosis Z11.1 [place] [address] [address] 17 Nov, 2016 Type 2 diabetes mellitus wit hout complication, without long-term current use of insulin E11.9 [place] [address] [address] Oct, Essential hypertension I10 ; Mixed hyperlipidemia E78.2 ; Type 2 diabetes mellitus without complication, without long-term current use of insulin E11.9 and Seasonal allergic rhinitis due to pollen J30.1 [facility] [address] [address] 17 Sep, 2016 Other viral agents as the ca use of diseases classified elsewhere B97.89 and Acute upper respiratory infection, unspecified J06.[address] [address] 08 Jun, [address] [address] 08 Jun, 2016 Essential hypertension I10 ; Type 2 diabetes mellitus without complication E11.9 and Mixed hyperlipidemia E78.[address] [address] 14 May, 2016 [facility] [address] [address] Mar, Fluid level behind tympanic membrane of both ears H65.93 and Cough R05 [facility] [place] [address] [address] Mar, Bronchitis J40 and Allergic rhinitis, unspecified allergic rhinitis trigger, unspecified rhinitis seasonality J30.[address] [address] 15 Jan, 2016 Essential hypertension I10 ; Type 2 diabetes mellitus without complication E11.9 and Mixed hyperlipidemia E78.[address] [address] Aug, [facility] [address] [place] [id number] [place] [id number] Jul, Dental examination Z01.20 [facility] [address] [id number] [address] [place] [id number] Jul, Encounter for dental examina tion Z01.20 [facility] [address] [facility] [id number] [address] [place] [address] Jul, Essential hypertension I10 ; Mixed hyperlipidemia E78.2 and Type 2 diabetes mellitus without complication E11.9 [facility] [address] [facility] [id number] [address] [place] [address] Jun, Sinusitis J32.9 and Cough R0 5 [facility] [address] [place] [id number] [place] [address] Mar, Physical examination of empl oyee V70.5 ; Tuberculosis screening V74.1 and Screening for substance abuse V82.9 [facility] [address] [address] Mar, Diabetes mellitus without me ntion of complication, type II or unspecified type, not stated as uncontrolled 250.00 ; Hypertension 401.9 and Hyperlipidemia 272.4 [facility] [address] [place] [id number] [address] [place] [address] Feb, [facility] [address] [place] [id number] [address] [place] [address] Jan, [facility] [address] [id number] [place] [id number] December, Dental examination V72.2 [facility] [address] [place] [id number] [address] [place] [address] Nov, [facility] [address] [place] [id number] [place] [address] Nov, [facility] [address] [place] [id number] [address] [place] [address] Aug, [facility] [address] [place] [address] Aug, [facility] [address] [id number] [address] [place] [address], [place] [address] Jun, [facility] [address] [id number] [address] [place] [address], [place] [address] Jun, [facility] [address] [id number] [address] [place] [address], [place] [address] May, [facility] [address] [id number] [address] [place] [address], [place] [address] May, [facility] [address] [id number] [address] [place] [address], [place] [address] May, [facility] [address] [id number] [address] [place] [address], [place] [address] May, [facility] [address] [id number] [address] [place] [address], [place] [address] Mar, [facility] [address] [id number] [address] [place] [address], [place] [address] Mar, [facility] [address] [id number] [address] [place] [address], [place] [address] Jan, [facility] [address] [id number] [address] [place] [address], [place] [address] Jan, [facility] [address] [id number] [address] [place] [address], [place] [address] December, [facility] [address] [id number] [address] [place] [address], [place] [address] December, [facility] [address] [id number] [address] [place] [address], [place] [address] Oct, [facility] [address] [id number] [address] [place] [address], [place] [address] Oct, [facility] [address] [id number] [address] [place] [address], [place] [address] Oct, [facility] [address] [id number] [address] [place] [address], [place] [address] 17 Oct, 2013 [facility] [address] [id number] [address] [place] [address], [place] [address] Oct, [facility] [address] [id number] [address] [place] [address], [place] [address] 13 Oct, 2013 [facility] [address] [id number] [address] [place] [address], [place] [address] 07 Oct, 2013 [facility] [address] [id number] [address] [place] [address], [place] [address] 07 Oct, 2013 [facility] [address] [id number] [address] [place] [address], [place] [address] Aug, [facility] [address] [id number] [address] [place] [address], [place] [address] Aug, [facility] [address] [id number] [address] [place] [address], [place] [address] Jun, [facility] [address] [id number] [address] [place] [address], [place] [address] Jun, [facility] [address] [id number] [address] [place] [address], [place] [address] Mar, [facility] [address] [id number] [address] [place] [address], [place] [address] Mar, [facility] [address] [id number] [address] [place] [address], [place] [address] Feb, [facility] [address] [id number] [address] [place] [address], [place] [address] Nov, [facility] [address] [id number] [address] [place] [address], [place] [address] Nov, [facility] [address] [id number] [address] [place] [address], [place] [address] Nov, [facility] [address] [id number] [address] [place] [address], [place] [address] Oct, [facility] [address] [id number] [address] [place] [address] Oct, [facility] [address] [id number] [address] [place] [address] Sep, [facility] [address] [id number] [address] [place] [address] Feb, [facility] [address] [id number] [address] [place] [address] Feb, [facility] [address] [id number] [address] [place] [id number] Feb, [facility] [address] [id number] [address] [place] [phone] Jan, [facility] [address] [id number] [address] [place] [phone] Nov, [facility] [address] [id number] [address] [place] [address] Sep, [facility] [address] [id number] [address] [place] [address] Jul, [facility] [address] [id number] [address] [place] [address] Jul, [facility] [address] [id number] [address] [place] [phone] Aug, [facility] [address] [id number] [address] [place] [address] Jul, [facility] [address] [id number] [address] [place] [phone] December, IMMUNIZATIONS No Known Immunizations SOCIAL HISTORY Never Assessed REASON FOR VISIT [facility] [place] C[place] VITAL SIGNS MEDICATIONS Unknown [...]
--- OUTSIDE RECORDS SUMMARY | 2020-01-25 08:48 | XMS REPORT ---
Author Author Ree Torres Doctor Organization [facility] Address Unknown Phone Unavailable Care Team Providers Care Computer Equipment Repairer Name Role Phone Migration, Doctor Unavailable Unavailable PROBLEMS Type Condition ICD9-CM Code BDT47-HZ Code Onset Dates Condition S tatus SNOMED Code Problem EVANGELINA (obstructive sleep apnea) G47.33 Active 01383676 Problem retirement 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.4 Active 930235371 Problem Smoking F17.200 Active 58683486 Problem Essential hypertension I10 Active 71502033 Problem Mixed hyperlipidemia E78.2 Active 343078014 Problem Seasonal allergic rhinitis due to pollen J30.1 Active 85150820 Problem Type 2 diabetes mellitus with hyperglycemia E11.65 Active 50740313 ALLERGIES No Information ENCOUNTERS Encounter Location Date Diagnosis [facility] [address] [address] Mar, [facility] [address] [address] Jan, [facility] [address] [address] Jan, Viral upper respiratory trac t infection J06.9 ; Wheezing R06.2 and Morbid obesity E66.01 [facility] [address] [address] December, Type 2 diabetes mellitus wit h hyperglycemia E11.65 ; Essential hypertension I10 ; Mixed hyperlipidemia E78.2 and Morbid obesity E66.01 [facility] [address] [address] Nov, [facility] [address] [address] Nov, Bronchitis J40 and Morbid ob esity E66.01 [facility] [address] [address] Nov, [facility] [address] [place] [id number] [address] [place] [address] Sep, Essential hypertension I10 [facility] [address] [place] [id number] [address] [place] [address] Sep, Acute non-recurrent maxillar y sinusitis J01.00 [facility] [address] [address] Aug, Essential hypertension I10 [facility] [address] [address] Jun, BMI 45.0-49.9, adult Z68.42 and Acute sinusitis J01.90 [facility] [address] [place] [id number] [place] [address] Jun, Cough R05 ; Acute nasopharyn gitis J00 and BMI 45.0-49.9, adult Z68.42 [place] [address] [address] May, [place] [address] [address] May, Encounter for immunization Z 23 [place] [address] [address] May, Type 2 diabetes mellitus wit h hyperglycemia E11.65 [place] [address] [address] Apr, Type 2 diabetes mellitus wit h hyperglycemia E11.65 ; Essential hypertension I10 ; retirement 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.4 and BMI 50.0-59.9, adult Z68.43 [place] [address] [place] [id number] [place] [address] Apr, [place] [address] [address] Nov, Sunburn of second degree L55 .1 and BMI 50.0-59.9, adult Z68.43 [facility] [address] [address] Nov, Sunburn of second degree L55 .1 and BMI 50.0-59.9, adult Z68.43 [facility] [address] [address] Nov, [place] [address] [address] Oct, Smoking F17.200 ; Type 2 nellie betes mellitus with hyperglycemia E11.65 ; retirement 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.4 ; Motion sickness, initial encounter T75.3XXA ; Encounter for immunization Z23 and BMI 50.0-59.9, adult Z68.43 [place] [address] [address] 26 Sep, 2017 [place] [address] [address] 15 Sep, 2017 Type 2 diabetes mellitus wit h hyperglycemia E11.[address] [address] 07 Sep, 2017 History of pneumonia Z87.01 ; Hypoxia R09.02 and BMI 50.0-59.9, adult Z68.43 [place] [address] [address] Aug, History of pneumonia Z87.01 ; Hypoxia R09.02 ; Daytime hypersomnia G47.19 ; BMI 50.0-59.9, adult Z68.43 ; Type 2 diabetes mellitus with hyperglycemia E11.65 ; retirement 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.4 and Nose irritation J34.89 [place] [address] [address] Aug, Right otitis media with effu cande H65.91 [place] [address] [address] Aug, History of pneumonia Z87.01 ; Nose irritation J34.89 ; Right otitis media with effusion H65.91 ; Hypoxia R09.02 ; Type 2 diabetes mellitus without complication, without long-term current use of insulin E11.9 and BMI 50.0-59.9, adult Z68.43 [facility] [place] [address] [address] Aug, Cough R05 ; Bronchitis J40 a nd BMI 50.0-59.9, adult Z68.43 [place] [address] [address] Jul, Impingement syndrome, should er, left M75.42 and Bankart lesion of left shoulder, subsequent encounter S43.492D [place] [address] [address] Jul, Conjunctivitis, bacterial H1 0.9 [place] [address] [address] Jul, [place] [address] [address] Jul, Acute non-recurrent maxillar y sinusitis J01.00 and BMI 45.0-49.9, adult Z68.42 [place] [address] [address] Jun, [place] [address] [address] May, Impingement syndrome, should er, left M75.42 and Degenerative tear of glenoid labrum of left shoulder M24.[address] [address] 05 Apr, 2017 Type 2 diabetes mellitus wit hout complication, without long-term current use of insulin E11.9 ; Essential hypertension I10 ; Mixed hyperlipidemia E78.2 ; Seasonal allergic rhinitis due to pollen J30.1 ; Pain in left shoulder M25.512 and Overweight E66.3 [place] [address] [address] 17 Mar, 2017 Essential hypertension I10 a nd Mixed hyperlipidemia E78.2 [place] [address] [address] Feb, General medical examination Z00.00 and Screening for tuberculosis Z11.1 [place] [address] [address] 17 Nov, 2016 Type 2 diabetes mellitus wit hout complication, without long-term current use of insulin E11.9 [place] [address] [address] Oct, Essential hypertension I10 ; Mixed hyperlipidemia E78.2 ; Type 2 diabetes mellitus without complication, without long-term current use of insulin E11.9 and Seasonal allergic rhinitis due to pollen J30.1 [facility] [place] [address] [address] 17 Sep, 2016 Other viral agents as the ca use of diseases classified elsewhere B97.89 and Acute upper respiratory infection, unspecified J06.9 [place] [address] [address] Jun, [place] [address] [address] Jun, Essential hypertension I10 ; Type 2 diabetes mellitus without complication E11.9 and Mixed hyperlipidemia E78.2 [place] [address] [address] May, [facility] [place] [address] [address] Mar, Fluid level behind tympanic membrane of both ears H65.93 and Cough R05 [facility] [place] [address] [address] Mar, Bronchitis J40 and Allergic rhinitis, unspecified allergic rhinitis trigger, unspecified rhinitis seasonality J30.9 [facility] [address] [facility] [id number] [address] [place] [address] 15 Jan, 2016 Essential hypertension I10 ; Type 2 diabetes mellitus without complication E11.9 and Mixed hyperlipidemia E78.2 [facility] [address] [facility] [id number] [address] [place] [address] Aug, [facility] [id number] [place] [id number] Jul, Dental examination Z01.20 [facility] [address] [facility] [id number] [place] [id number] Jul, Encounter for dental examina tion Z01.20 [facility] [address] [facility] [id number] [address] [place] [address] 08 Jul, 2015 Essential hypertension I10 ; Mixed hyperlipidemia E78.2 and Type 2 diabetes mellitus without complication E11.9 [facility] [address] [facility] [id number] [address] [place] [address] Jun, Sinusitis J32.9 and Cough R0 5 [facility] [address] [place] [id number] [address] [place] [address] Mar, Physical examination of empl oyee V70.5 ; Tuberculosis screening V74.1 and Screening for substance abuse V82.9 [facility] [address] [place] [id number] [place] [address] Mar, Diabetes mellitus without me ntion of complication, type II or unspecified type, not stated as uncontrolled 250.00 ; Hypertension 401.9 and Hyperlipidemia 272.4 [facility] [address] [facility] [id number] [address] [place] [address] Feb, [facility] [address] [facility] [id number] [address] [place] [address] Jan, [facility] [address] [facility] [id number] [address] [place] [id number] December, Dental examination V72.2 [facility] [address] [id number] [address] [place] [address], [place] [address] 14 Nov, 2014 [facility] [address] [id number] [address] [place] [address], [place] [address] Nov, [facility] [address] [id number] [address] [place] [address], [place] [address] Aug, [facility] [address] [id number] [address] [place] [address], [place] [address] Aug, [facility] [address] [id number] [address] [place] [address], [place] [address] Jun, [facility] [address] [id number] [address] [place] [address], [place] [address] Jun, [facility] [address] [id number] [address] [place] [address], [place] [address] May, [facility] [address] [id number] [address] [place] [address], [place] [address] May, [facility] [address] [id number] [address] [place] [address], [place] [address] May, [facility] [address] [id number] [address] [place] [address], [place] [address] May, [facility] [address] [id number] [address] [place] [address], [place] [address] Mar, [facility] [address] [id number] [address] [place] [address], [place] [address] Mar, [facility] [address] [id number] [address] [place] [address], [place] [address] Jan, [facility] [address] [id number] [address] [place] [address], [place] [address] Jan, [facility] [address] [id number] [address] [place] [address], [place] [address] December, [facility] [address] [id number] [address] [place] [address], [place] [address] December, [facility] [address] [id number] [facility] [place] [address] 17 Oct, 2013 [facility] [address] [id number] [facility] [place] [address] 17 Oct, 2013 [facility] [address] [id number] [facility] [place] [address] 17 Oct, 2013 [facility] [address] [id number] [address] [place] [address], [place] [address] 17 Oct, 2013 [facility] [address] [id number] [address] [place] [address], [place] [address] Oct, [facility] [address] [id number] [address] [place] [address], [place] [address] Oct, [facility] [address] [id number] [address] [place] [address], [place] [address] Oct, [facility] [address] [id number] [address] [place] [address], [place] [address] Oct, [facility] [address] [id number] [address] [place] [address], [place] [address] Aug, [facility] [address] [id number] [address] [place] [address], [place] [address] Aug, [facility] [address] [id number] [address] [place] [address], [place] [address] Jun, [facility] [address] [id number] [address] [place] [address], [place] [address] Jun, [facility] [address] [id number] [address] [place] [address], [place] [address] Mar, [facility] [address] [id number] [address] [place] [address], [place] [address] Mar, [facility] [address] [id number] [address] [place] [address], [place] [address] Feb, [facility] [address] [id number] [address] [place] [address], [place] [address] Nov, [facility] [address] [id number] [address] [place] [address], [place] [address] Nov, [facility] [address] [id number] [address] [place] [address], [place] [address] Nov, [facility] [address] [id number] [address] [place] [address], [place] [address] Oct, [facility] [address] [id number] [address] [place] [address], [place] [address] Oct, [facility] [address] [id number] [address] [place] [address], [place] [address] Sep, [facility] [address] [id number] [address] [place] [address], [place] [address] Feb, [facility] [address] [id number] [address] [place] [address], [place] [address] Feb, [facility] [address] [id number] [address] [place] [address], [place] [address] Feb, [facility] [address] [id number] [address] [place] [address], [place] [address] Jan, [facility] [address] [id number] [address] [place] [address], [place] [address] Nov, [facility] [address] [id number] [address] [place] [address], [place] [address] Sep, [facility] [address] [id number] [address] [place] [address], [place] [address] Jul, [facility] [address] [id number] [address] [place] [address], [place] [address] Jul, [facility] [address] [id number] [address] [place] [address], [place] [address] Aug, [facility] [address] [id number] [address] [place] [address], [place] [address] Jul, [facility] [address] [id number] [address] [place] [address] December, IMMUNIZATIONS No Known Immunizations SOCIAL HISTORY [...] shoulder Surgical History hymenectomy 1991- Hospitalization History [facility]-Pneumonia 08/2017
--- OUTSIDE RECORDS SUMMARY | 2020-01-25 08:48 | XMS REPORT ---
Author Author Ree Torres Doctor Organization [facility] Address Unknown Phone Unavailable Care Team Providers Care Sas Clinical Programmer Name Role Phone Migration, Doctor Unavailable Unavailable PROBLEMS Type Condition ICD9-CM Code DYM66-XV Code Onset Dates Condition S tatus SNOMED Code Problem EVANGELINA (obstructive sleep apnea) G47.33 Active 99331618 Problem halfway 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.4 Active 953047504 Problem Smoking F17.200 Active 26896171 Problem Essential hypertension I10 Active 82475515 Problem Mixed hyperlipidemia E78.2 Active 141527280 Problem Seasonal allergic rhinitis due to pollen J30.1 Active 86002196 Problem Type 2 diabetes mellitus with hyperglycemia E11.65 Active 16789847 ALLERGIES Substance Reaction Event Type Date Status Metformin 1,000 Mg Tablet,er Adrian.retention 24 Hr Unknown Non Drug Allergy Nov, Active ENCOUNTERS Encounter Location Date Diagnosis [facility] [address] [address] Mar, [facility] [address] [address] Jan, [facility] [address] [address] Jan, Viral upper respiratory trac t infection J06.9 ; Wheezing R06.2 and Morbid obesity E66.01 [facility] [address] [address] December, Type 2 diabetes mellitus wit h hyperglycemia E11.65 ; Essential hypertension I10 ; Mixed hyperlipidemia E78.2 and Morbid obesity E66.01 [facility] [address] [address] Nov, [facility] [address] [address] Nov, Bronchitis J40 and Morbid ob esity E66.01 [facility] [address] [facility] [id number] [address] [place] [address] Nov, [facility] [address] [address] Sep, Essential hypertension I10 [facility] [address] [place] [id number] [address] [place] [address] Sep, Acute non-recurrent maxillar y sinusitis J01.00 [facility] [address] [facility] [id number] [address] [place] [address] Aug, Essential hypertension I10 [facility] [address] [place] [id number] [place] [address] Jun, BMI 45.0-49.9, adult Z68.42 and Acute sinusitis J01.90 [facility] [address] [address] Jun, Cough R05 ; Acute nasopharyn gitis J00 and BMI 45.0-49.9, adult Z68.42 [place] [address] [address] May, [place] [address] [address] 11 May, 2018 Encounter for immunization Z 23 [place] [address] [address] [place] [id number] [address] [place] [address] May, Type 2 diabetes mellitus wit h hyperglycemia E11.65 [place] [address] [place] [id number] [address] [place] [address] Apr, Type 2 diabetes mellitus wit h hyperglycemia E11.65 ; Essential hypertension I10 ; halfway 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.4 and BMI 50.0-59.9, adult Z68.43 [place] [address] [place] [id number] [address] [place] [address] Apr, [place] [address] [address] Nov, Sunburn of second degree L55 .1 and BMI 50.0-59.9, adult Z68.43 [facility] [address] [address] Nov, Sunburn of second degree L55 .1 and BMI 50.0-59.9, adult Z68.43 [place] [address] [address] Nov, [place] [address] [address] Oct, Smoking F17.200 ; Type 2 nellie betes mellitus with hyperglycemia E11.65 ; 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 ; Motion sickness, initial encounter T75.3XXA ; Encounter for immunization Z23 and BMI 50.0-59.9, adult Z68.43 [place] [address] [address] Sep, [place] [address] [address] Sep, Type 2 diabetes mellitus wit h hyperglycemia E11.[address] [address] 07 Sep, 2017 History of pneumonia Z87.01 ; Hypoxia R09.02 and BMI 50.0-59.9, adult Z68.43 [place] [address] [address] Aug, History of pneumonia Z87.01 ; Hypoxia R09.02 ; Daytime hypersomnia G47.19 ; BMI 50.0-59.9, adult Z68.43 ; Type 2 diabetes mellitus with hyperglycemia E11.65 ; halfway 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.4 and Nose irritation J34.89 [place] [address] [address] Aug, Right otitis media with effu cande H65.91 [place] [address] [address] Aug, History of pneumonia Z87.01 ; Nose irritation J34.89 ; Right otitis media with effusion H65.91 ; Hypoxia R09.02 ; Type 2 diabetes mellitus without complication, without long-term current use of insulin E11.9 and BMI 50.0-59.9, adult Z68.43 [facility] [address] [address] Aug, Cough R05 ; Bronchitis J40 a nd BMI 50.0-59.9, adult Z68.[address] [address] Jul, Impingement syndrome, should er, left M75.42 and Bankart lesion of left shoulder, subsequent encounter S43.492D [address] [address] Jul, Conjunctivitis, bacterial H1 0.[address] [address] Jul, [address] [address] Jul, Acute non-recurrent maxillar y sinusitis J01.00 and BMI 45.0-49.9, adult Z68.[address] [address] Jun, [address] [address] May, Impingement syndrome, should er, left M75.42 and Degenerative tear of glenoid labrum of left shoulder M24.[address] [address] 05 Apr, 2017 Type 2 diabetes mellitus wit hout complication, without long-term current use of insulin E11.9 ; Essential hypertension I10 ; Mixed hyperlipidemia E78.2 ; Seasonal allergic rhinitis due to pollen J30.1 ; Pain in left shoulder M25.512 and Overweight E66.3 [place] [address] [address] Mar, Essential hypertension I10 a nd Mixed hyperlipidemia E78.2 [place] [address] [address] Feb, General medical examination Z00.00 and Screening for tuberculosis Z11.1 [place] [address] [address] 17 Nov, 2016 Type 2 diabetes mellitus wit hout complication, without long-term current use of insulin E11.9 [place] [address] [address] Oct, Essential hypertension I10 ; Mixed hyperlipidemia E78.2 ; Type 2 diabetes mellitus without complication, without long-term current use of insulin E11.9 and Seasonal allergic rhinitis due to pollen J30.1 [facility] [place] [address] [address] Sep, Other viral agents as the ca use of diseases classified elsewhere B97.89 and Acute upper respiratory infection, unspecified J06.9 [place] [address] [address] Jun, [place] [address] [address] Jun, Essential hypertension I10 ; Type 2 diabetes mellitus without complication E11.9 and Mixed hyperlipidemia E78.2 [place] [address] [address] May, [facility] [address] [address] Mar, Fluid level behind tympanic membrane of both ears H65.93 and Cough R05 [facility] [address] [address] Mar, Bronchitis J40 and Allergic rhinitis, unspecified allergic rhinitis trigger, unspecified rhinitis seasonality J30.9 [facility] [address] [address] Jan, Essential hypertension I10 ; Type 2 diabetes mellitus without complication E11.9 and Mixed hyperlipidemia E78.2 [facility] [address] [address] Aug, [facility] [address] [id number] Jul, Dental examination Z01.20 [facility] [address] [id number] Jul, Encounter for dental examina tion Z01.20 [facility] [address] [address] Jul, Essential hypertension I10 ; Mixed hyperlipidemia E78.2 and Type 2 diabetes mellitus without complication E11.9 [facility] [address] [address] Jun, Sinusitis J32.9 and Cough R0 5 [facility] [address] [place] [address] Mar, Physical examination of empl oyee V70.5 ; Tuberculosis screening V74.1 and Screening for substance abuse V82.9 [facility] [address] [address] Mar, Diabetes mellitus without me ntion of complication, type II or unspecified type, not stated as uncontrolled 250.00 ; Hypertension 401.9 and Hyperlipidemia 272.4 [facility] [address] [address] Feb, [facility] [address] [address] Jan, [facility] [address] [id number] December, Dental examination V72.2 [facility] [address] [id number] [address] [place] [address], [place] [address] Nov, [facility] [address] [id number] [address] [place] [address] Nov, [facility] [address] [id number] [address] [place] [address] Aug, [facility] [address] [id number] [address] [place] [address] Aug, [facility] [address] [id number] [address] [place] [address], [place] [address] Jun, [facility] [address] [id number] [address] [place] [address] Jun, [facility] [address] [id number] [address] [place] [address], [place] [address] May, [facility] [address] [id number] [address] [place] [address] May, [facility] [address] [id number] [address] [place] [address] May, [facility] [address] [id number] [address] [place] [address] May, [facility] [address] [id number] [address] [place] [address] Mar, [facility] [address] [id number] [address] [place] [address] Mar, [facility] [address] [id number] [address] [place] [address] Jan, [facility] [address] [id number] [address] [place] [address] Jan, [facility] [address] [id number] [address] [place] [address] December, [facility] [address] [id number] [facility] [place] [address] December, [facility] [address] [id number] [address] [place] [address], [place] [address] Oct, [facility] [address] [id number] [address] [place] [address], [place] [address] 17 Oct, 2013 [facility] [address] [id number] [address] [place] [address], [place] [address] 17 Oct, 2013 [facility] [address] [id number] [address] [place] [address], [place] [address] 17 Oct, 2013 [facility] [address] [id number] [address] [place] [address], [place] [address] Oct, [facility] [address] [id number] [address] [place] [address], [place] [address] Oct, [facility] [address] [id number] [address] [place] [address], [place] [address] Oct, [facility] [address] [id number] [address] [place] [address], [place] [address] Oct, [facility] [address] [id number] [address] [place] [address], [place] [address] Aug, [facility] [address] [id number] [address] [place] [address], [place] [address] Aug, [facility] [address] [id number] [address] [place] [address], [place] [address] Jun, [facility] [address] [id number] [address] [place] [address], [place] [address] Jun, [facility] [address] [id number] [address] [place] [address], [place] [address] Mar, [facility] [address] [id number] [address] [place] [address], [place] [address] Mar, [facility] [address] [id number] [address] [place] [address], [place] [address] Feb, [facility] [address] [id number] [address] [place] [address], [place] [address] Nov, [facility] [address] [id number] [address] [place] [address], [place] [address] Nov, [facility] [address] [id number] [address] [place] [address], [place] [address] Nov, [facility] [address] [id number] [address] [place] [address], [place] [address] Oct, [facility] [address] [id number] [address] [place] [address], [place] [address] Oct, [facility] [address] [id number] [address] [place] [address], [place] [address] Sep, [facility] [address] [id number] [address] [place] [address], [place] [address] Feb, [facility] [address] [id number] [address] [place] [address], [place] [address] Feb, [facility] [address] [id number] [address] [place] [address], [place] [address] Feb, [facility] [address] [id number] [address] [place] [address], [place] [address] Jan, [facility] [address] [id number] [address] [place] [address], [place] [address] Nov, [facility] [address] [id number] [address] [place] [address], [place] [address] Sep, [facility] [address] [id number] [address] [place] [address], [place] [address] Jul, [facility] [address] [id number] [address] [place] [address], [place] [address] Jul, [facility] [address] [id number] [address] [place] [address], [place] [address] Aug, [facility] [address] [id number] [address] [place] [address] Jul, [facility] [address] [facility] [id number] [address] [place] [address] December, IMMUNIZATIONS No Known Immunizations SOCIAL HISTORY Never Assessed REASON FOR VISIT EMR-[facility] PLAN OF CARE VITAL SIGNS MEDICATIONS Medication Instructions Dosage Frequency Start Date End Date Duration S tatus Lisinopril 10 mg 1 tablet by Oral route 1 time per day 3 0 Dec, 2013 Active metformin 500 mg take 1 tablet (500 m g) by oral route once daily with the evening meal May, Active Augmentin 875-125 mg 1 tablet by Oral route 2 times pe r day for 10 day(s) Sep, Active Nystatin-Triamcinolone 100,000-0.1 unit/g-% 1 jeffrey by Topical route 2 times per day for 14 day(s) PRN apply to rash Oct, Active Actos 15 mg take 1 tablet (15 mg) by oral route once daily Jun, Active Niacin 1,000 mg 1 Tablet 1 time per day December, Active GlyBURIDE 5 mg 1 tablet by Oral route 1 time per day Aug, Active PredniSONE 10 mg 1 Tablet 2 times per day for 5 days Take at 8 am and noon. Do not take after 3 pm Mar, Active Hydrochlorothiazide 25 mg 1 tablet by Oral route 1 johnie e per day December, Active Azithromycin 250 mg 2 Tablet by Oral rou te on day 1 then take 1 daily for 4 days Jun, Active RESULTS No Results PROCEDURES No Known [...]
--- OUTSIDE RECORDS SUMMARY | 2020-01-25 08:49 | XMS REPORT ---
Author Author Ree ALDANA [facility] Address [address] [place] [address] Care Team Providers Care Rn Psych Name Role Phone ISRRAEL ALDANA Unavailable PROBLEMS Type Condition ICD9-CM Code JUR11-CV Code Onset Dates Condition S tatus SNOMED Code Problem EVANGELINA (obstructive sleep apnea) G47.33 Active 33690290 Problem Smoking F17.200 Active 60342707 Problem [employer] 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.4 Active 871533510 Problem Mixed hyperlipidemia E78.2 Active 723640003 Problem Essential hypertension I10 Active 54084590 Problem Type 2 diabetes mellitus with hyperglycemia E11.65 Active 29175261 Problem Seasonal allergic rhinitis due to pollen J30.1 Active 61957961 ALLERGIES No Information ENCOUNTERS Encounter Location Date Diagnosis [facility] [address] [address] May, Type 2 diabetes mellitus wit h hyperglycemia E11.65 [facility] [address] [address] Apr, Type 2 diabetes mellitus wit h hyperglycemia E11.65 ; Essential hypertension I10 ; [facility] 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.4 and BMI 50.0-59.9, adult Z68.43 [facility] [address] [place] [id number] [place] [address] Apr, [facility] [address] [address] Nov, Sunburn of second degree L55 .1 and BMI 50.0-59.9, adult Z68.43 [facility] [address] [place] [id number] [place] [address] Nov, Sunburn of second degree L55 .1 and BMI 50.0-59.9, adult Z68.43 [place] [address] [address] Nov, [address] [address] Oct, Smoking F17.200 ; Type 2 nellie betes mellitus with hyperglycemia E11.65 ; [employer] 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.4 ; Motion sickness, initial encounter T75.3XXA ; Encounter for immunization Z23 and BMI 50.0-59.9, adult Z68.43 [place] [address] [address] 26 Sep, [address] [address] 15 Sep, 2017 Type 2 diabetes mellitus wit h hyperglycemia E11.[address] [address] 07 Sep, 2017 History of pneumonia Z87.01 ; Hypoxia R09.02 and BMI 50.0-59.9, adult Z68.43 [place] [address] [address] Aug, History of pneumonia Z87.01 ; Hypoxia R09.02 ; Daytime hypersomnia G47.19 ; BMI 50.0-59.9, adult Z68.43 ; Type 2 diabetes mellitus with hyperglycemia E11.65 ; [facility] 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.4 and Nose irritation J34.89 [place] [address] [address] Aug, Right otitis media with effu cande H65.[address] [address] Aug, History of pneumonia Z87.01 ; Nose irritation J34.89 ; Right otitis media with effusion H65.91 ; Hypoxia R09.02 ; Type 2 diabetes mellitus without complication, without long-term current use of insulin E11.9 and BMI 50.0-59.9, adult Z68.43 [facility] [address] [address] Aug, Cough R05 ; Bronchitis J40 a nd BMI 50.0-59.9, adult Z68.43 [place] [address] [place] [id number] [place] [address] Jul, Impingement syndrome, should er, left M75.42 and Bankart lesion of left shoulder, subsequent encounter S43.492D [facility] [place] [address] [address] Jul, Conjunctivitis, bacterial H1 0.9 [place] [address] [address] Jul, [facility] [place] [address] [address] Jul, Acute non-recurrent maxillar y sinusitis J01.00 and BMI 45.0-49.9, adult Z68.42 [place] [address] [address] Jun, [place] [address] [address] May, Impingement syndrome, should er, left M75.42 and Degenerative tear of glenoid labrum of left shoulder M24.[address] [address] Apr, Type 2 diabetes mellitus wit hout complication, without long-term current use of insulin E11.9 ; Essential hypertension I10 ; Mixed hyperlipidemia E78.2 ; Seasonal allergic rhinitis due to pollen J30.1 ; Pain in left shoulder M25.512 and Overweight E66.3 [place] [address] [place] [id number] [place] [address] Mar, Essential hypertension I10 a nd Mixed hyperlipidemia E78.[address] [address] Feb, General medical examination Z00.00 and Screening for tuberculosis Z11.1 [place] [address] [address] 17 Nov, 2016 Type 2 diabetes mellitus wit hout complication, without long-term current use of insulin E11.9 [place] [address] [place] [id number] [place] [address] Oct, Essential hypertension I10 ; Mixed hyperlipidemia E78.2 ; Type 2 diabetes mellitus without complication, without long-term current use of insulin E11.9 and Seasonal allergic rhinitis due to pollen J30.1 [facility] [place] [address] [address] 17 Sep, 2016 Other viral agents as the ca use of diseases classified elsewhere B97.89 and Acute upper respiratory infection, unspecified J06.9 [place] [address] [address] Jun, [place] [address] [address] Jun, Essential hypertension I10 ; Type 2 diabetes mellitus without complication E11.9 and Mixed hyperlipidemia E78.2 [place] [address] [place] [id number] [place] [address] May, [facility] [place] [address] [place] [id number] [place] [address] Mar, Fluid level behind tympanic membrane of both ears H65.93 and Cough R05 [facility] [place] [address] [place] [id number] [place] [address] 12 Mar, 2016 Bronchitis J40 and Allergic rhinitis, unspecified allergic rhinitis trigger, unspecified rhinitis seasonality J30.9 [place] [address] [place] [id number] [place] [address] 15 Jan, 2016 Essential hypertension I10 ; Type 2 diabetes mellitus without complication E11.9 and Mixed hyperlipidemia E78.2 [place] [address] [place] [address] [place] [address] Aug, [facility] [address] [id number] [address] [place] [id number] Jul, Dental examination Z01.20 [facility] [address] [id number] [address] [place] [id number] Jul, Encounter for dental examina tion Z01.20 [facility] [address] [facility] [id number] [address] [place] [address] 08 Jul, 2015 Essential hypertension I10 ; Mixed hyperlipidemia E78.2 and Type 2 diabetes mellitus without complication E11.9 [facility] [address] [place] [id number] [place] [address] Jun, Sinusitis J32.9 and Cough R0 5 [facility] [address] [address] Mar, Physical examination of empl oyee V70.5 ; Tuberculosis screening V74.1 and Screening for substance abuse V82.9 [facility] [address] [place] [id number] [place] [address] Mar, Diabetes mellitus without me ntion of complication, type II or unspecified type, not stated as uncontrolled 250.00 ; Hypertension 401.9 and Hyperlipidemia 272.4 [facility] [address] [place] [id number] [place] [address] Feb, [facility] [address] [facility] [id number] [address] [place] [address] Jan, [facility] [address] [id number] [address] [place] [id number] December, Dental examination V72.2 [facility] [address] [facility] [id number] [address] [place] [address] Nov, [facility] [address] [place] [id number] [place] [address] Nov, [facility] [address] [place] [id number] [place] [address] [place] [address] Aug, [facility] [address] [id number] [address] [place] [address], [place] [address] Aug, [facility] [address] [id number] [address] [place] [address], [place] [address] Jun, [facility] [address] [id number] [address] [place] [address], [place] [address] Jun, [facility] [place] [facility] [address] [id number] [address] [place] [address], [place] [address] May, [facility] [address] [id number] [address] [place] [address], [place] [address] May, [facility] [address] [id number] [address] [place] [address], [place] [address] May, [facility] [address] [id number] [address] [place] [address], [place] [address] May, [facility] [address] [id number] [address] [place] [address], [place] [address] Mar, [facility] [address] [id number] [address] [place] [address], [place] [address] Mar, [facility] [address] [id number] [address] [place] [address], [place] [address] Jan, [facility] [place] [facility] [address] [id number] [address] [place] [address], [place] [address] Jan, [facility] [place] [facility] [address] [id number] [address] [place] [address], [place] [address] December, [facility] [place] [facility] [address] [id number] [address] [place] [address], [place] [address] December, [facility] [place] [facility] [address] [id number] [address] [place] [address], [place] [address] Oct, [facility] [place] [facility] [address] [id number] [address] [place] [address], [place] [address] Oct, [facility] [place] [facility] [address] [id number] [facility] [place] [address] 17 Oct, 2013 [facility] [address] [id number] [address] [place] [address], [place] [address] 17 Oct, 2013 [facility] [place] [facility] [address] [id number] [address] [place] [address], [place] [address] 13 Oct, 2013 [facility] [address] [id number] [address] [place] [address], [place] [address] 13 Oct, 2013 [facility] [address] [id number] [address] [place] [address], [place] [address] 07 Oct, 2013 [facility] [address] [id number] [address] [place] [address], [place] [address] 07 Oct, 2013 [facility] [address] [id number] [address] [place] [address], [place] [address] 17 Aug, 2013 [facility] [address] [id number] [address] [place] [address], [place] [address] Aug, [facility] [address] [id number] [address] [place] [address], [place] [address] Jun, [facility] [address] [id number] [address] [place] [address], [place] [address] Jun, [facility] [address] [id number] [address] [place] [address], [place] [address] Mar, [facility] [address] [id number] [address] [place] [address], [place] [address] Mar, [facility] [address] [id number] [address] [place] [address], [place] [address] Feb, [facility] [place] [facility] [address] [id number] [address] [place] [address], [place] [address] Nov, [facility] [place] [facility] [address] [id number] [address] [place] [address], [place] [address] Nov, [facility] [place] [facility] [address] [id number] [address] [place] [address], [place] [address] Nov, [facility] [address] [id number] [address] [place] [address] Oct, [facility] [address] [id number] [address] [place] [address] Oct, [facility] [address] [id number] [address] [place] [address] Sep, [facility] [address] [id number] [address] [place] [address] Feb, [facility] [address] [id number] [address] [place] [address] Feb, [facility] [address] [id number] [address] [place] [address] Feb, [facility] [address] [id number] [address] [place] [address] Jan, [facility] [address] [id number] [address] [place] [address] Nov, [facility] [address] [id number] [address] [place] [address] Sep, [facility] [address] [id number] [address] [place] [address] Jul, [facility] [address] [id number] [address] [place] [address] Jul, [facility] [address] [id number] [address] [place] [address] Aug, [facility] [address] [id number] [address] [place] [address] Jul, [facility] [address] [id number] [address] [place] [address] December, IMMUNIZATIONS No Known Immunizations SOCIAL HISTORY Never Assessed REASON FOR VISIT microalbumin results PLAN OF CARE VITAL SIGNS MEDICATIONS Unknown [...] shoulder Surgical History hymenectomy 1991- Hospitalization History [facility] 08/2017
--- OUTSIDE RECORDS SUMMARY | 2020-01-25 08:49 | XMS REPORT ---
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 Active 192399160 Problem Mixed hyperlipidemia E78.2 Active 384740678 Problem Essential hypertension I10 Active 89367074 Problem Type 2 diabetes mellitus with hyperglycemia E11.65 Active 30600285 Problem Seasonal allergic rhinitis due to pollen J30.1 Active 17393822 ALLERGIES No Known Allergies ENCOUNTERS Encounter Location Date Diagnosis [facility] [address] [address] May, Type 2 diabetes mellitus wit h hyperglycemia E11.65 [facility] [address] [address] Apr, Type 2 diabetes mellitus wit h hyperglycemia E11.65 ; Essential hypertension I10 ; group home 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.4 and BMI 50.0-59.9, adult Z68.43 [facility] [address] [place] [id number] [place] [address] Apr, [facility] [address] [address] Nov, Sunburn of second degree L55 .1 and BMI 50.0-59.9, adult Z68.43 [facility] [address] [place] [id number] [place] [address] Nov, Sunburn of second degree L55 .1 and BMI 50.0-59.9, adult Z68.43 [place] [address] [address] Nov, [address] [address] Oct, Smoking F17.200 ; Type 2 nellie betes mellitus with hyperglycemia E11.65 ; 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 ; Motion sickness, initial encounter T75.3XXA ; Encounter for immunization Z23 and BMI 50.0-59.9, adult Z68.43 [place] [address] [address] 26 Sep, [address] [address] 15 Sep, 2017 Type 2 diabetes mellitus wit h hyperglycemia E11.[address] [address] 07 Sep, 2017 History of pneumonia Z87.01 ; Hypoxia R09.02 and BMI 50.0-59.9, adult Z68.43 [place] [address] [address] Aug, History of pneumonia Z87.01 ; Hypoxia R09.02 ; Daytime hypersomnia G47.19 ; BMI 50.0-59.9, adult Z68.43 ; Type 2 diabetes mellitus with hyperglycemia E11.65 ; group home 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.4 and Nose irritation J34.89 [place] [address] [address] Aug, Right otitis media with effu cande H65.[address] [address] Aug, History of pneumonia Z87.01 ; Nose irritation J34.89 ; Right otitis media with effusion H65.91 ; Hypoxia R09.02 ; Type 2 diabetes mellitus without complication, without long-term current use of insulin E11.9 and BMI 50.0-59.9, adult Z68.43 [facility] [address] [place] [id number] [place] [address] Aug, Cough R05 ; Bronchitis J40 a nd BMI 50.0-59.9, adult Z68.43 [place] [address] [place] [id number] [place] [address] Jul, Impingement syndrome, should er, left M75.42 and Bankart lesion of left shoulder, subsequent encounter S43.492D [facility] [place] [address] [place] [id number] [place] [address] Jul, Conjunctivitis, bacterial H1 0.9 [place] [address] [address] Jul, [facility] [place] [address] [address] Jul, Acute non-recurrent maxillar y sinusitis J01.00 and BMI 45.0-49.9, adult Z68.42 [place] [address] [address] Jun, [place] [address] [address] May, Impingement syndrome, should er, left M75.42 and Degenerative tear of glenoid labrum of left shoulder M24.[address] [address] 05 Apr, 2017 Type 2 diabetes mellitus wit hout complication, without long-term current use of insulin E11.9 ; Essential hypertension I10 ; Mixed hyperlipidemia E78.2 ; Seasonal allergic rhinitis due to pollen J30.1 ; Pain in left shoulder M25.512 and Overweight E66.3 [place] [address] [place] [id number] [place] [address] Mar, Essential hypertension I10 a nd Mixed hyperlipidemia E78.2 [place] [address] [address] Feb, General medical examination Z00.00 and Screening for tuberculosis Z11.1 [place] [address] [address] 17 Nov, 2016 Type 2 diabetes mellitus wit hout complication, without long-term current use of insulin E11.9 [place] [address] [place] [id number] [place] [address] Oct, Essential hypertension I10 ; Mixed hyperlipidemia E78.2 ; Type 2 diabetes mellitus without complication, without long-term current use of insulin E11.9 and Seasonal allergic rhinitis due to pollen J30.1 [facility] [address] [address] 17 Sep, 2016 Other viral agents as the ca use of diseases classified elsewhere B97.89 and Acute upper respiratory infection, unspecified J06.9 [place] [address] [address] Jun, [place] [address] [address] Jun, Essential hypertension I10 ; Type 2 diabetes mellitus without complication E11.9 and Mixed hyperlipidemia E78.2 [place] [address] [place] [id number] [place] [phone] 14 May, 2016 [facility] [place] [address] [place] [id number] [place] [phone] Mar, Fluid level behind tympanic membrane of both ears H65.93 and Cough R05 [facility] [place] [address] [place] [id number] [place] [address] 12 Mar, 2016 Bronchitis J40 and Allergic rhinitis, unspecified allergic rhinitis trigger, unspecified rhinitis seasonality J30.9 [place] [address] [place] [id number] [place] [id number] 15 Jan, 2016 Essential hypertension I10 ; Type 2 diabetes mellitus without complication E11.9 and Mixed hyperlipidemia E78.2 [place] [address] [place] [address] [place] [phone] Aug, [facility] [address] [id number] [address] [place] [id number] Jul, Dental examination Z01.20 [facility] [address] [id number] [address] [place] [id number] Jul, Encounter for dental examina tion Z01.20 [facility] [address] [facility] [id number] [address] [place] [phone] 08 Jul, 2015 Essential hypertension I10 ; Mixed hyperlipidemia E78.2 and Type 2 diabetes mellitus without complication E11.9 [facility] [address] [facility] [id number] [place] [address] Jun, Sinusitis J32.9 and Cough R0 5 [facility] [address] [place] [id number] [place] [address] Mar, Physical examination of empl oyee V70.5 ; Tuberculosis screening V74.1 and Screening for substance abuse V82.9 [facility] [address] [place] [id number] [place] [address] Mar, Diabetes mellitus without me ntion of complication, type II or unspecified type, not stated as uncontrolled 250.00 ; Hypertension 401.9 and Hyperlipidemia 272.4 [facility] [address] [place] [id number] [place] [address] Feb, [facility] [address] [facility] [id number] [address] [place] [id number] Jan, [facility] [address] [id number] [address] [place] [id number] December, Dental examination V72.2 [facility] [address] [facility] [id number] [address] [place] [phone] Nov, [facility] [address] [place] [id number] [place] [phone] Nov, [facility] [address] [id number] [address] [place] [address], [place] [address] Aug, [facility] [address] [id number] [address] [place] [address], [place] [address] Aug, [facility] [address] [id number] [address] [place] [address], [place] [address] Jun, [facility] [address] [id number] [address] [place] [address], [place] [address] Jun, [facility] [address] [id number] [address] [place] [address], [place] [address] May, [facility] [address] [id number] [address] [place] [address], [place] [address] May, [facility] [address] [id number] [address] [place] [address], [place] [address] May, [facility] [address] [id number] [address] [place] [address], [place] [address] May, [facility] [address] [id number] [address] [place] [address], [place] [address] Mar, [facility] [address] [id number] [address] [place] [address], [place] [address] Mar, [facility] [address] [id number] [address] [place] [address], [place] [address] Jan, [facility] [address] [id number] [address] [place] [address], [place] [address] Jan, [facility] [address] [id number] [address] [place] [address], [place] [address] December, [facility] [address] [id number] [address] [place] [address], [place] [address] December, [facility] [address] [id number] [address] [place] [address], [place] [address] Oct, [facility] [address] [id number] [address] [place] [address], [place] [address] Oct, [facility] [address] [id number] [facility] [place] [address] 17 Oct, 2013 [facility] [address] [id number] [address] [place] [address], [place] [address] 17 Oct, 2013 [facility] [address] [id number] [address] [place] [address], [place] [address] Oct, [facility] [address] [id number] [address] [place] [address], [place] [address] 13 Oct, 2013 [facility] [address] [id number] [address] [place] [address], [place] [address] 07 Oct, 2013 [facility] [address] [id number] [address] [place] [address], [place] [address] Oct, [facility] [address] [id number] [address] [place] [address], [place] [address] Aug, [facility] [address] [id number] [address] [place] [address], [place] [address] Aug, [facility] [address] [id number] [address] [place] [address], [place] [address] Jun, [facility] [address] [id number] [address] [place] [address], [place] [address] Jun, [facility] [address] [id number] [address] [place] [address], [place] [address] Mar, [facility] [address] [id number] [address] [place] [address], [place] [address] Mar, [facility] [address] [id number] [address] [place] [address], [place] [address] Feb, [facility] [address] [id number] [address] [place] [address], [place] [address] Nov, [facility] [address] [id number] [address] [place] [address], [place] [address] Nov, [facility] [address] [id number] [address] [place] [address], [place] [address] Nov, [facility] [address] [id number] [address] [place] [phone] Oct, [facility] [address] [id number] [address] [place] [phone] Oct, [facility] [address] [id number] [address] [place] [phone] Sep, [facility] [address] [id number] [address] [place] [phone] Feb, [facility] [address] [id number] [address] [place] [phone] Feb, [facility] [address] [id number] [address] [place] [phone] Feb, [facility] [address] [id number] [address] [place] [phone] Jan, [facility] [address] [id number] [address] [place] [phone] Nov, [facility] [address] [id number] [address] [place] [phone] Sep, [facility] [address] [id number] [address] [place] [phone] Jul, [facility] [address] [id number] [address] [place] [phone] Jul, [facility] [address] [id number] [address] [place] [phone] Aug, [facility] [address] [id number] [address] [place] [phone] Jul, [facility] [address] [id number] [address] [place] [phone] December, IMMUNIZATIONS No Known Immunizations SOCIAL HISTORY Never Assessed REASON FOR VISIT New provider visit Jermain Warner MA PLAN OF CARE Activity Details Follow Up 1 mos Reason:DM VITAL SIGNS Height 63 in 2018-05-11 Weight 289.9 lbs 2018-05-11 Temperature 97.0 degrees Fahrenheit 2018-05-11 Heart Rate 105 bpm 2018-05-11 Respiratory Rate 20 2018-05-11 BMI 51.35 kg/m2 2018-05-11 Blood pressure systolic 130 mmHg 2018-05-11 Blood pressure diastolic 74 mmHg 2018-05-11 MEDICATIONS Medication Instructions Dosage Frequency Start Date End Date Duration S tatus Test strips Test Strips subcutaneously Once a day Use one to uch verio test strips 24h Sep, Active MetFORMIN HCl ER 500 mg Orally 3 times a day TAKE ONE TABLET BY MOUTH IN THE MORNING AND TWO TABLETS IN THE EVENING. 8h 3 0 days Active GlyBURIDE 5 mg Orally Once a day TAKE ONE TABLET BY MOUTH ONCE DAILY 2 4h 30 days Active Toprol XL 25 mg Orally Once a day 1 tablet 24h 30 da y(s) Active Levemir 100 UNIT/ML Subcutaneous Once a day Inject 20 units 24h 30 days Active Actos 30 MG Orally Once a day TAKE ONE TABLET BY MOUTH ONCE DAILY 24h 30 days Active One Touch/One Touch II Starter Active Lisinopril-Hydrochlorothiazide 20-25 MG TAKE ONE TABLE T BY MOUTH ONCE DAILY 30 Active RESULTS No Results PROCEDURES Procedure Date Ordered Result Body Site GLYCATED HEMOGLOBIN TEST May 11, 2018 MICROALBUMIN, QUANTITATIVE May 11, 2018 ASSAY OF URINE CREATININE May 11, 2018 COMPREHEN METABOLIC PANEL May 11, 2018 LIPID PANEL May 11, 2018 VENIPUNCT, ROUTINE* May 11, 2018 MICROALBUMIN, SEMIQUANT May 11, 2018 INSTRUCTIONS MEDICATIONS ADMINISTERED No Known Medications MEDICAL [...] shoulder Surgical History hymenectomy 1991- Hospitalization History [facility]-Pneumonia 08/2017
--- OUTSIDE RECORDS SUMMARY | 2020-01-25 08:49 | XMS REPORT ---
Author Author Ree BLACKMAN Organization [facility] Address [address] [place] [address] Care Team Providers Care Patrol Man Name Role Phone DANG BLACKMAN Unavailable PROBLEMS Type Condition ICD9-CM Code QNJ87-ME Code Onset Dates Condition S tatus SNOMED Code Problem EVANGELINA (obstructive sleep apnea) G47.33 Active 39689388 Problem Smoking F17.200 Active 33696814 Problem halfway 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.4 Active 022260151 Problem Mixed hyperlipidemia E78.2 Active 152920546 Problem Essential hypertension I10 Active 25318490 Problem Type 2 diabetes mellitus with hyperglycemia E11.65 Active 77506595 Problem Seasonal allergic rhinitis due to pollen J30.1 Active 16846075 ALLERGIES No Known Allergies ENCOUNTERS Encounter Location Date Diagnosis [place] [id number] [place] [id number] [place] [address] May, [facility] [address] [address] May, Type 2 diabetes mellitus wit h hyperglycemia E11.65 [facility] [address] [place] [id number] [place] [address] Apr, Type 2 diabetes mellitus wit h hyperglycemia E11.65 ; Essential hypertension I10 ; halfway 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.4 and BMI 50.0-59.9, adult Z68.43 [facility] [address] [place] [id number] [place] [address] Apr, [place] [address] [place] [id number] [place] [address] Nov, Sunburn of second degree L55 .1 and BMI 50.0-59.9, adult Z68.43 [facility] [address] [address] Nov, Sunburn of second degree L55 .1 and BMI 50.0-59.9, adult Z68.43 [place] [address] [address] Nov, [place] [address] [address] Oct, Smoking F17.200 ; Type 2 nellie betes mellitus with hyperglycemia E11.65 ; 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 ; Motion sickness, initial encounter T75.3XXA ; Encounter for immunization Z23 and BMI 50.0-59.9, adult Z68.43 [place] [address] [address] 26 Sep, 2017 [place] [address] [address] 15 Sep, 2017 Type 2 diabetes mellitus wit h hyperglycemia E11.65 [place] [address] [address] 07 Sep, 2017 History of pneumonia Z87.01 ; Hypoxia R09.02 and BMI 50.0-59.9, adult Z68.43 [place] [address] [address] Aug, History of pneumonia Z87.01 ; Hypoxia R09.02 ; Daytime hypersomnia G47.19 ; BMI 50.0-59.9, adult Z68.43 ; Type 2 diabetes mellitus with hyperglycemia E11.65 ; 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 and Nose irritation J34.89 [place] [address] [address] Aug, Right otitis media with effu cande H65.91 [place] [address] [address] Aug, History of pneumonia Z87.01 ; Nose irritation J34.89 ; Right otitis media with effusion H65.91 ; Hypoxia R09.02 ; Type 2 diabetes mellitus without complication, without long-term current use of insulin E11.9 and BMI 50.0-59.9, adult Z68.43 [facility] [place] [address] [address] 12 Aug, 2017 Cough R05 ; Bronchitis J40 a nd BMI 50.0-59.9, adult Z68.43 [place] [address] [address] Jul, Impingement syndrome, should er, left M75.42 and Bankart lesion of left shoulder, subsequent encounter S43.492D [facility] [address] [address] Jul, Conjunctivitis, bacterial H1 0.[address] [address] Jul, [facility] [place] [address] [address] Jul, Acute non-recurrent maxillar y sinusitis J01.00 and BMI 45.0-49.9, adult Z68.42 [place] [address] [address] Jun, [place] [address] [address] May, Impingement syndrome, should er, left M75.42 and Degenerative tear of glenoid labrum of left shoulder M24.112 [place] [address] [address] Apr, Type 2 diabetes mellitus wit hout complication, without long-term current use of insulin E11.9 ; Essential hypertension I10 ; Mixed hyperlipidemia E78.2 ; Seasonal allergic rhinitis due to pollen J30.1 ; Pain in left shoulder M25.512 and Overweight E66.3 [place] [address] [address] Mar, Essential hypertension I10 a nd Mixed hyperlipidemia E78.2 [place] [address] [address] 11 Feb, 2017 General medical examination Z00.00 and Screening for tuberculosis Z11.[address] [address] 17 Nov, 2016 Type 2 diabetes mellitus wit hout complication, without long-term current use of insulin E11.9 [place] [address] [address] Oct, Essential hypertension I10 ; Mixed hyperlipidemia E78.2 ; Type 2 diabetes mellitus without complication, without long-term current use of insulin E11.9 and Seasonal allergic rhinitis due to pollen J30.1 [facility] [address] [address] 17 Sep, 2016 Other viral agents as the ca use of diseases classified elsewhere B97.89 and Acute upper respiratory infection, unspecified J06.[address] [address] Jun, [address] [address] Jun, Essential hypertension I10 ; Type 2 diabetes mellitus without complication E11.9 and Mixed hyperlipidemia E78.[address] [address] May, [facility] [address] [address] Mar, Fluid level behind tympanic membrane of both ears H65.93 and Cough R05 [facility] [address] [address] Mar, Bronchitis J40 and Allergic rhinitis, unspecified allergic rhinitis trigger, unspecified rhinitis seasonality J30.[address] [address] Jan, Essential hypertension I10 ; Type 2 diabetes mellitus without complication E11.9 and Mixed hyperlipidemia E78.2 [facility] [address] [id number] [address] [place] [address] Aug, [facility] [address] [facility] [id number] [address] [place] [id number] Jul, Dental examination Z01.20 [facility] [id number] [place] [id number] Jul, Encounter for dental examina tion Z01.20 [facility] [address] [facility] [id number] [address] [place] [address] Jul, Essential hypertension I10 ; Mixed hyperlipidemia E78.2 and Type 2 diabetes mellitus without complication E11.9 [facility] [address] [facility] [id number] [address] [place] [address] Jun, Sinusitis J32.9 and Cough R0 5 [facility] [address] [address] Mar, Physical examination of empl oyee V70.5 ; Tuberculosis screening V74.1 and Screening for substance abuse V82.9 [facility] [address] [address] Mar, Diabetes mellitus without me ntion of complication, type II or unspecified type, not stated as uncontrolled 250.00 ; Hypertension 401.9 and Hyperlipidemia 272.4 [facility] [address] [facility] [id number] [address] [place] [address] Feb, [facility] [address] [facility] [id number] [address] [place] [address] Jan, [facility] [address] [id number] [place] [id number] December, Dental examination V72.2 [facility] [address] [facility] [id number] [address] [place] [address] Nov, [facility] [address] [place] [address] Nov, [facility] [address] [id number] [address] [place] [address], [place] [address] Aug, [facility] [address] [id number] [address] [place] [address], [place] [address] Aug, [facility] [address] [id number] [address] [place] [address], [place] [address] Jun, [facility] [address] [id number] [address] [place] [address], [place] [address] Jun, [facility] [address] [id number] [address] [place] [address], [place] [address] May, [facility] [address] [id number] [address] [place] [address], [place] [address] May, [facility] [address] [id number] [address] [place] [address], [place] [address] May, [facility] [address] [id number] [address] [place] [address], [place] [address] May, [facility] [address] [id number] [address] [place] [address], [place] [address] Mar, [facility] [address] [id number] [address] [place] [address], [place] [address] Mar, [facility] [address] [id number] [address] [place] [address], [place] [address] Jan, [facility] [address] [id number] [address] [place] [address], [place] [address] Jan, [facility] [address] [id number] [address] [place] [address], [place] [address] December, [facility] [address] [id number] [address] [place] [address], [place] [address] December, [facility] [address] [id number] [address] [place] [address], [place] [address] Oct, [facility] [address] [id number] [facility] [place] [address] 17 Oct, 2013 [facility] [address] [id number] [facility] [place] [address] 17 Oct, 2013 [facility] [address] [id number] [address] [place] [address], [place] [address] 17 Oct, 2013 [facility] [address] [id number] [address] [place] [address], [place] [address] 13 Oct, 2013 [facility] [address] [id number] [address] [place] [address], [place] [address] 13 Oct, 2013 [facility] [address] [id number] [address] [place] [address], [place] [address] 07 Oct, 2013 [facility] [address] [id number] [address] [place] [address], [place] [address] 07 Oct, 2013 [facility] [address] [id number] [address] [place] [address], [place] [address] Aug, [facility] [address] [id number] [address] [place] [address], [place] [address] Aug, [facility] [address] [id number] [address] [place] [address], [place] [address] Jun, [facility] [address] [id number] [address] [place] [address], [place] [address] Jun, [facility] [address] [id number] [address] [place] [address], [place] [address] Mar, [facility] [address] [id number] [address] [place] [address], [place] [address] Mar, [facility] [address] [id number] [address] [place] [address], [place] [address] Feb, [facility] [address] [id number] [address] [place] [address], [place] [address] Nov, [facility] [address] [id number] [address] [place] [address], [place] [address] Nov, [facility] [address] [id number] [address] [place] [address], [place] [address] Nov, [facility] [address] [id number] [address] [place] [address] Oct, [facility] [address] [id number] [address] [place] [address] Oct, [facility] [address] [id number] [address] [place] [address] Sep, [facility] [address] [id number] [address] [place] [address] Feb, [facility] [address] [id number] [address] [place] [address] Feb, [facility] [address] [id number] [address] [place] [address] Feb, [facility] [address] [id number] [address] [place] [address] Jan, [facility] [address] [id number] [address] [place] [address] Nov, [facility] [address] [id number] [address] [place] [address] Sep, [facility] [address] [id number] [address] [place] [address] Jul, [facility] [address] [id number] [address] [place] [address] Jul, [facility] [address] [id number] [address] [place] [address] Aug, [facility] [address] [id number] [address] [place] [address] Jul, [facility] [address] [id number] [address] [place] [id number] December, IMMUNIZATIONS Vaccine Route Administration Date Status FLULAVAL QUAD (6 MO AND UP) 2017 IM Intramuscular November 02, 2017 Administered PPSV23 (PNEUMOVAX) IM Intramuscular November 02, 2017 Administered SOCIAL HISTORY Never Assessed REASON FOR VISIT Pneumonia F/U--Aditya, --wants to know when she should get flu shot and pneu monia injection. , --she has noticed that she has not been digesting the metfor min as she sees it in her stool. , --she is back to smoking almost everyday but cut down alot. PLAN OF CARE Activity Details Follow Up 3 Months Reason:dm VITAL SIGNS Height 63 in 2017-11-02 Weight 294.9 lbs 2017-11-02 Temperature 97.0 degrees Fahrenheit 2017-11-02 Heart Rate 84 bpm 2017-11-02 Respiratory Rate 20 2017-11-02 BMI 52.23 kg/m2 2017-11-02 Blood pressure systolic 110 mmHg 2017-11-02 Blood pressure diastolic 74 mmHg 2017-11-02 MEDICATIONS Medication Instructions Dosage Frequency Start Date End Date Duration S tatus Actos 30 MG TAKE ONE TABLET BY MOUTH ONCE DAILY Active Toprol XL 25 MG Orally Once a day 1 tablet 24h 30 da y(s) Active Lisinopril-Hydrochlorothiazide 20-25 MG Orally Once a day 1 tablet 24 h 30 day(s) Active Scopolamine 1 MG/3DAYS Transdermal every 3 days 1 patch to skin as needed Oct, Jan, 30 day(s) Active MetFORMIN HCl ER 500 mg Orally 2 times a day 1 tablet am 2 pm 12h Active GlyBURIDE 5 MG TAKE ONE TABLET BY MOUTH ONCE DAILY Active Chantix 1 MG Orally Twice a day start 1/2 tablet po daily for 3 days then 1/2 tablet bid for 3 daysa nd then 1 bid 12h Oct, December, 28 d ays Active One Touch/One Touch II Starter Active Levemir 100 UNIT/ML Subcutaneous Once a day Inject 10 units 24h Active DuoNeb 0.5-2.5 (3) MG/3ML Inhalation every 6 hrs 3 ml 6h Not-Taking Test strips Test Strips subcutaneously Once a day Use one to uch verio test strips 24h Sep, Active RESULTS Name Result Date Reference Range A1C (IN HOUSE) 2017-11-02 A1C IN HOUSE 9.0 4.3 - 5.6 % Previous A1c 7.5 Lot [id number] Exp date 06/2019 PROCEDURES Procedure Date Ordered Result Body Site GLYCATED HEMOGLOBIN TEST November 02, 2017 FLULAVAL QUAD (6 MO AND UP) 2017 November 02, 2017 SINGLE IMMUNIZATION ADMIN November 02, 2017 INSTRUCTIONS MEDICATIONS ADMINISTERED No Known Medications MEDICAL [...]
--- OUTSIDE RECORDS SUMMARY | 2020-01-25 08:49 | XMS REPORT ---
Author Author Ree ROSAS [facility] [place] Address 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 899891450 Problem Mixed hyperlipidemia E78.2 Active 284335016 Problem Essential hypertension I10 Active 75337969 Problem Type 2 diabetes mellitus with hyperglycemia E11.65 Active 42760385 Problem Seasonal allergic rhinitis due to pollen J30.1 Active 98167815 ALLERGIES No Known Allergies ENCOUNTERS Encounter Location Date Diagnosis [facility] IN [facility] [address] [address] Jun, BMI 45.0-49.9, adult Z68.42 and Acute sinusitis J01.90 [facility] [address] [address] Jun, Cough R05 ; Acute nasopharyn gitis J00 and BMI 45.0-49.9, adult Z68.42 [facility] [address] [place] [id number] [address] [place] [address] May, [facility] [address] [address] May, Encounter for immunization Z 23 [facility] [address] [place] [id number] [address] [place] [address] May, Type 2 diabetes mellitus wit h hyperglycemia E11.65 [facility] [address] [address] Apr, Type 2 diabetes mellitus wit h hyperglycemia E11.65 ; Essential hypertension I10 ; 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 and BMI 50.0-59.9, adult Z68.43 [facility] [address] [address] Apr, [facility] [address] [address] Nov, Sunburn of second degree L55 .1 and BMI 50.0-59.9, adult Z68.43 [facility] [address] [address] Nov, Sunburn of second degree L55 .1 and BMI 50.0-59.9, adult Z68.43 [place] [address] [address] Nov, [place] [address] [address] Oct, Smoking F17.200 ; Type 2 nellie betes mellitus with hyperglycemia E11.65 ; 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 ; Motion sickness, initial encounter T75.3XXA ; Encounter for immunization Z23 and BMI 50.0-59.9, adult Z68.43 [facility] [address] [place] [id number] [place] [address] Sep, [place] [address] [address] 15 Sep, 2017 Type 2 diabetes mellitus wit h hyperglycemia E11.65 [place] [address] [address] 07 Sep, 2017 History of pneumonia Z87.01 ; Hypoxia R09.02 and BMI 50.0-59.9, adult Z68.43 [facility] [address] [place] [id number] [place] [address] Aug, History of pneumonia Z87.01 ; Hypoxia R09.02 ; Daytime hypersomnia G47.19 ; BMI 50.0-59.9, adult Z68.43 ; Type 2 diabetes mellitus with hyperglycemia E11.65 ; retirement 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.4 and Nose irritation J34.89 [place] [address] [address] Aug, Right otitis media with effu cande H65.91 [place] [address] [address] Aug, History of pneumonia Z87.01 ; Nose irritation J34.89 ; Right otitis media with effusion H65.91 ; Hypoxia R09.02 ; Type 2 diabetes mellitus without complication, without long-term current use of insulin E11.9 and BMI 50.0-59.9, adult Z68.43 [facility] [place] [address] [address] Aug, Cough R05 ; Bronchitis J40 a nd BMI 50.0-59.9, adult Z68.43 [place] [address] [address] Jul, Impingement syndrome, should er, left M75.42 and Bankart lesion of left shoulder, subsequent encounter S43.492D [facility] [place] [address] [address] Jul, Conjunctivitis, bacterial H1 0.9 [place] [address] [address] Jul, [facility] [address] [address] Jul, Acute non-recurrent maxillar y sinusitis J01.00 and BMI 45.0-49.9, adult Z68.42 [place] [address] [address] Jun, [place] [address] [address] May, Impingement syndrome, should er, left M75.42 and Degenerative tear of glenoid labrum of left shoulder M24.112 [place] [address] [address] Apr, Type 2 diabetes mellitus wit hout complication, without long-term current use of insulin E11.9 ; Essential hypertension I10 ; Mixed hyperlipidemia E78.2 ; Seasonal allergic rhinitis due to pollen J30.1 ; Pain in left shoulder M25.512 and Overweight E66.3 [place] [address] [address] Mar, Essential hypertension I10 a nd Mixed hyperlipidemia E78.[address] [address] Feb, General medical examination Z00.00 and Screening for tuberculosis Z11.[address] [address] Nov, Type 2 diabetes mellitus wit hout complication, without long-term current use of insulin E11.9 [place] [address] [address] Oct, Essential hypertension I10 ; Mixed hyperlipidemia E78.2 ; Type 2 diabetes mellitus without complication, without long-term current use of insulin E11.9 and Seasonal allergic rhinitis due to pollen J30.1 [facility] [address] [place] [id number] [place] [address] Sep, Other viral agents as the ca use of diseases classified elsewhere B97.89 and Acute upper respiratory infection, unspecified J06.9 [place] [address] [address] Jun, [address] [address] Jun, Essential hypertension I10 ; Type 2 diabetes mellitus without complication E11.9 and Mixed hyperlipidemia E78.[address] [place] [address] 14 May, 2016 [facility] [address] [address] 19 Mar, 2016 Fluid level behind tympanic membrane of both ears H65.93 and Cough R05 [facility] [address] [address] 12 Mar, 2016 Bronchitis J40 and Allergic rhinitis, unspecified allergic rhinitis trigger, unspecified rhinitis seasonality J30.9 [place] [address] [address] 15 Jan, 2016 Essential hypertension I10 ; Type 2 diabetes mellitus without complication E11.9 and Mixed hyperlipidemia E78.2 [place] [address] [address] Aug, [facility] [address] [id number] Jul, Dental examination Z01.20 [facility] [address] [id number] Jul, 2015 Encounter for dental examina tion Z01.20 [place] [address] [address] 08 Jul, 2015 Essential hypertension I10 ; Mixed hyperlipidemia E78.2 and Type 2 diabetes mellitus without complication E11.9 [facility] IN [facility] [address] [address] Jun, Sinusitis J32.9 and Cough R0 5 [place] [address] [address] 11 Mar, 2015 Physical examination of empl oyee V70.5 ; Tuberculosis screening V74.1 and Screening for substance abuse V82.9 [place] [address] [address] 05 Mar, 2015 Diabetes mellitus without me ntion of complication, type II or unspecified type, not stated as uncontrolled 250.00 ; Hypertension 401.9 and Hyperlipidemia 272.4 [facility] [address] [id number] [address] [place] [address], [place] [address] Feb, [facility] [address] [id number] [address] [place] [address] Jan, [facility] [address] [id number] [address] [place] [id number] December, Dental examination V72.2 [facility] [address] [id number] [address] [place] [address] Nov, [facility] [address] [id number] [address] [place] [address], [place] [address] Nov, [facility] [address] [id number] [address] [place] [address] Aug, [facility] [address] [id number] [address] [place] [address] Aug, [facility] [address] [id number] [address] [place] [address] Jun, [facility] [address] [id number] [address] [place] [address] Jun, [facility] [address] [id number] [address] [place] [id number] May, [facility] [address] [id number] [address] [place] [address] May, [facility] [address] [id number] [address] [place] [id number] May, [facility] [address] [id number] [address] [place] [address] May, [facility] [address] [id number] [address] [place] [address] Mar, [facility] [address] [id number] [address] [place] [phone] Mar, [facility] [address] [id number] [address] [place] [address], [place] [address] Jan, [facility] [address] [id number] [address] [place] [address], [place] [address] Jan, [facility] [address] [id number] [address] [place] [address], [place] [address] December, [facility] [address] [id number] [address] [place] [address], [place] [address] December, [facility] [address] [id number] [address] [place] [address], [place] [address] Oct, [facility] [address] [id number] [address] [place] [address], [place] [address] Oct, [facility] [address] [id number] [address] [place] [address], [place] [address] Oct, [facility] [address] [id number] [address] [place] [address], [place] [address] Oct, [facility] [address] [id number] [address] [place] [address], [place] [address] Oct, [facility] [address] [id number] [address] [place] [address], [place] [address] Oct, [facility] [address] [id number] [address] [place] [address], [place] [address] Oct, [facility] [address] [id number] [address] [place] [address], [place] [address] Oct, [facility] [address] [id number] [address] [place] [address], [place] [address] Aug, [facility] [address] [id number] [address] [place] [address], [place] [address] Aug, [facility] [address] [id number] [address] [place] [address], [place] [address] Jun, [facility] [address] [id number] [address] [place] [address], [place] [address] Jun, [facility] [address] [id number] [address] [place] [address], [place] [address] Mar, [facility] [address] [id number] [address] [place] [address], [place] [address] Mar, [facility] [address] [id number] [address] [place] [address], [place] [address] Feb, [facility] [address] [id number] [address] [place] [address], [place] [address] Nov, [facility] [address] [id number] [address] [place] [address], [place] [address] Nov, [facility] [address] [id number] [address] [place] [address], [place] [address] Nov, [facility] [address] [id number] [address] [place] [address], [place] [address] Oct, [facility] [address] [id number] [address] [place] [address], [place] [address] Oct, [facility] [address] [id number] [address] [place] [address], [place] [address] Sep, [facility] [address] [id number] [address] [place] [address], [place] [address] Feb, [facility] [address] [id number] [address] [place] [address], [place] [address] Feb, [facility] [address] [id number] [address] [place] [address], [place] [address] Feb, [facility] [address] [id number] [address] [place] [address], [place] [address] Jan, [facility] [address] [id number] [address] [place] [address], [place] [address] Nov, [facility] [address] [id number] [address] [place] [address], [place] [address] Sep, [facility] [address] [id number] [address] [place] [id number] Jul, [facility] [address] [facility] [id number] [address] [place] [address] Jul, [facility] [address] [facility] [id number] [address] [place] [id number] Aug, [facility] [address] [facility] [id number] [address] [place] [phone] Jul, [facility] [address] [facility] [id number] [address] [place] [id number] December, IMMUNIZATIONS No Known Immunizations SOCIAL HISTORY Never Assessed REASON FOR VISIT Sinus Infection- here 2 weeks ago with cold symptoms JStrasserRLeón PLAN OF CARE Activity Details Follow Up if not improving with PCP or reg follow up Reason: VITAL SIGNS Height 63 in 2018-07-03 Weight 277.4 lbs 2018-07-03 Temperature 98.5 degrees Fahrenheit 2018-07-03 Heart Rate 110 bpm 2018-07-03 Respiratory Rate 22 2018-07-03 BMI 49.13 kg/m2 2018-07-03 Blood pressure systolic 122 mmHg 2018-07-03 Blood pressure diastolic 74 mmHg 2018-07-03 MEDICATIONS Medication Instructions Dosage Frequency Start Date End Date Duration S tatus One Touch/One Touch II Starter Active Test strips Test Strips subcutaneously Once a day Use one to uch verio test strips 24h Sep, Active Levemir 100 UNIT/ML Subcutaneous Once a day Inject 20 units 24h 30 days Active Lisinopril-Hydrochlorothiazide 20-25 MG TAKE ONE TABLE T BY MOUTH ONCE DAILY 30 Active Augmentin 875-125 MG Orally every 12 hrs 1 tablet 12h Jun, 10 day(s) Active MetFORMIN HCl ER 500 mg Orally 3 times a day TAKE ONE TABLET BY MOUTH IN THE MORNING AND TWO TABLETS IN THE EVENING. 8h 3 0 days Active GlyBURIDE 5 mg Orally Once a day TAKE ONE TABLET BY MOUTH ONCE DAILY 2 4h 30 days Active Actos 30 MG Orally Once a day TAKE ONE TABLET BY MOUTH ONCE DAILY 24h 30 days Active Toprol XL 25 mg Orally Once a day 1 tablet 24h 30 da y(s) Active RESULTS No Results PROCEDURES No Known [...]
--- OUTSIDE RECORDS SUMMARY | 2020-01-25 08:49 | XMS REPORT ---
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 Active 628021970 Problem Mixed hyperlipidemia E78.2 Active 019814373 Problem Essential hypertension I10 Active 40985841 Problem Type 2 diabetes mellitus with hyperglycemia E11.65 Active 96377300 Problem Seasonal allergic rhinitis due to pollen J30.1 Active 52692379 ALLERGIES No Information ENCOUNTERS Encounter Location Date Diagnosis [place] [address] [address] May, [place] [address] [address] May, Encounter for immunization Z 23 [place] [address] [address] May, Type 2 diabetes mellitus wit h hyperglycemia E11.65 [place] [id number] [place] [id number] [place] [address] Apr, Type 2 diabetes mellitus wit h hyperglycemia E11.65 ; Essential hypertension I10 ; prison 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.4 and BMI 50.0-59.9, adult Z68.43 [place] [address] [address] Apr, [place] [address] [address] Nov, Sunburn of second degree L55 .1 and BMI 50.0-59.9, adult Z68.[address] [facility] [address] [address] Nov, Sunburn of second degree L55 .1 and BMI 50.0-59.9, adult Z68.43 [facility] [address] [address] Nov, [facility] [address] [address] Oct, Smoking F17.200 ; Type 2 nellie betes mellitus with hyperglycemia E11.65 ; prison 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.4 ; Motion sickness, initial encounter T75.3XXA ; Encounter for immunization Z23 and BMI 50.0-59.9, adult Z68.43 [place] [address] [address] 26 Sep, 2017 [place] [address] [address] 15 Sep, 2017 Type 2 diabetes mellitus wit h hyperglycemia E11.[address] [address] 07 Sep, 2017 History of pneumonia Z87.01 ; Hypoxia R09.02 and BMI 50.0-59.9, adult Z68.43 [place] [address] [address] Aug, History of pneumonia Z87.01 ; Hypoxia R09.02 ; Daytime hypersomnia G47.19 ; BMI 50.0-59.9, adult Z68.43 ; Type 2 diabetes mellitus with hyperglycemia E11.65 ; rn long term care 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.4 and Nose irritation J34.[address] [address] Aug, Right otitis media with effu cande H65.[address] [address] Aug, History of pneumonia Z87.01 ; Nose irritation J34.89 ; Right otitis media with effusion H65.91 ; Hypoxia R09.02 ; Type 2 diabetes mellitus without complication, without long-term current use of insulin E11.9 and BMI 50.0-59.9, adult Z68.43 [facility] [place] [address] [address] Aug, Cough R05 ; Bronchitis J40 a nd BMI 50.0-59.9, adult Z68.43 [place] [address] [address] Jul, Impingement syndrome, should er, left M75.42 and Bankart lesion of left shoulder, subsequent encounter S43.492D [place] [address] [address] Jul, Conjunctivitis, bacterial H1 0.9 [place] [address] [address] Jul, [facility] [place] [address] [address] Jul, Acute non-recurrent maxillar y sinusitis J01.00 and BMI 45.0-49.9, adult Z68.42 [place] [address] [address] Jun, [place] [address] [address] May, Impingement syndrome, should er, left M75.42 and Degenerative tear of glenoid labrum of left shoulder M24.112 [place] [address] [address] 05 Apr, 2017 Type 2 diabetes mellitus wit hout complication, without long-term current use of insulin E11.9 ; Essential hypertension I10 ; Mixed hyperlipidemia E78.2 ; Seasonal allergic rhinitis due to pollen J30.1 ; Pain in left shoulder M25.512 and Overweight E66.3 [place] [address] [address] 17 Mar, 2017 Essential hypertension I10 a nd Mixed hyperlipidemia E78.2 [place] [address] [address] Feb, General medical examination Z00.00 and Screening for tuberculosis Z11.1 [place] [address] [address] 17 Nov, 2016 Type 2 diabetes mellitus wit hout complication, without long-term current use of insulin E11.9 [place] [address] [address] Oct, Essential hypertension I10 ; Mixed hyperlipidemia E78.2 ; Type 2 diabetes mellitus without complication, without long-term current use of insulin E11.9 and Seasonal allergic rhinitis due to pollen J30.[address] [facility] [place] [address] [address] Sep, Other viral agents as the ca use of diseases classified elsewhere B97.89 and Acute upper respiratory infection, unspecified J06.9 [place] [address] [address] Jun, [place] [address] [address] Jun, Essential hypertension I10 ; Type 2 diabetes mellitus without complication E11.9 and Mixed hyperlipidemia E78.2 [place] [address] [address] May, [facility] [place] [address] [address] Mar, Fluid level behind tympanic membrane of both ears H65.93 and Cough R[address] [facility] [place] [address] [address] Mar, Bronchitis J40 and Allergic rhinitis, unspecified allergic rhinitis trigger, unspecified rhinitis seasonality J30.9 [facility] [address] [facility] [id number] [address] [place] [address] Jan, Essential hypertension I10 ; Type 2 diabetes mellitus without complication E11.9 and Mixed hyperlipidemia E78.2 [facility] [address] [facility] [id number] [address] [place] [address] Aug, [facility] [address] [facility] [id number] [place] [id number] Jul, Dental examination Z01.20 [facility] [address] [facility] [id number] [place] [id number] 17 Jul, 2015 Encounter for dental examina tion Z01.20 [facility] [address] [place] [id number] [place] [address] 08 Jul, 2015 Essential hypertension I10 ; Mixed hyperlipidemia E78.2 and Type 2 diabetes mellitus without complication E11.[address] [facility] [address] [place] [id number] [address] [place] [address] Jun, Sinusitis J32.9 and Cough R0 5 [facility] [address] [place] [id number] [place] [address] Mar, Physical examination of empl oyee V70.5 ; Tuberculosis screening V74.1 and Screening for substance abuse V82.9 [facility] [address] [place] [id number] [address] [place] [address] Mar, Diabetes mellitus without me ntion of complication, type II or unspecified type, not stated as uncontrolled 250.00 ; Hypertension 401.9 and Hyperlipidemia 272.4 [facility] [address] [facility] [id number] [address] [place] [address] Feb, [facility] [address] [place] [id number] [place] [address] Jan, [facility] [address] [place] [id number] [address] [place] [id number] December, Dental examination V72.2 [facility] [address] [id number] [address] [place] [address], [place] [address] 14 Nov, 2014 [facility] [address] [id number] [address] [place] [address], [place] [address] Nov, [facility] [address] [id number] [address] [place] [address], [place] [address] Aug, [facility] [address] [id number] [address] [place] [address], [place] [address] Aug, [facility] [address] [id number] [address] [place] [address], [place] [address] Jun, [facility] [address] [id number] [address] [place] [address], [place] [address] Jun, [facility] [address] [id number] [address] [place] [address], [place] [address] May, [facility] [address] [id number] [address] [place] [address], [place] [address] May, [facility] [address] [id number] [address] [place] [address], [place] [address] May, [facility] [address] [id number] [address] [place] [address], [place] [address] May, [facility] [address] [id number] [address] [place] [address], [place] [address] Mar, [facility] [address] [id number] [address] [place] [address], [place] [address] Mar, [facility] [address] [id number] [address] [place] [address], [place] [address] Jan, [facility] [address] [id number] [address] [place] [address], [place] [address] Jan, [facility] [address] [id number] [address] [place] [address], [place] [address] December, [facility] [address] [id number] [address] [place] [address], [place] [address] December, [facility] [address] [id number] [address] [place] [address], [place] [address] 17 Oct, 2013 [facility] [address] [id number] [address] [place] [address], [place] [address] Oct, [facility] [address] [id number] [address] [place] [address], [place] [address] 17 Oct, 2013 [facility] [address] [id number] [address] [place] [address], [place] [address] Oct, [facility] [address] [id number] [address] [place] [address], [place] [address] Oct, [facility] [address] [id number] [address] [place] [address], [place] [address] Oct, [facility] [address] [id number] [address] [place] [address], [place] [address] Oct, [facility] [address] [id number] [address] [place] [address], [place] [address] Oct, [facility] [address] [id number] [address] [place] [address], [place] [address] Aug, [facility] [address] [id number] [address] [place] [address], [place] [address] Aug, [facility] [address] [id number] [address] [place] [address], [place] [address] Jun, [facility] [address] [id number] [address] [place] [address], [place] [address] Jun, [facility] [address] [id number] [address] [place] [address], [place] [address] Mar, [facility] [address] [id number] [address] [place] [address], [place] [address] Mar, [facility] [address] [id number] [address] [place] [address], [place] [address] Feb, [facility] [address] [id number] [address] [place] [address], [place] [address] Nov, [facility] [address] [id number] [address] [place] [address], [place] [address] Nov, [facility] [address] [id number] [address] [place] [address], [place] [address] Nov, [facility] [address] [id number] [address] [place] [address], [place] [address] Oct, [facility] [address] [id number] [address] [place] [address], [place] [address] Oct, [facility] [address] [id number] [address] [place] [address], [place] [address] Sep, [facility] [address] [id number] [address] [place] [address], [place] [address] Feb, [facility] [address] [id number] [address] [place] [address], [place] [address] Feb, [facility] [address] [id number] [address] [place] [address], [place] [address] Feb, [facility] [address] [id number] [address] [place] [address], [place] [address] Jan, [facility] [address] [id number] [address] [place] [address], [place] [address] Nov, [facility] [address] [id number] [address] [place] [address], [place] [address] Sep, [facility] [address] [id number] [address] [place] [address], [place] [address] Jul, [facility] [address] [id number] [address] [place] [address], [place] [address] Jul, [facility] [address] [id number] [address] [place] [address], [place] [address] Aug, [facility] [address] [id number] [address] [place] [address], [place] [address] Jul, [facility] [address] [facility] [id number] [address] [place] [address] December, IMMUNIZATIONS No Known Immunizations SOCIAL HISTORY Never Assessed REASON FOR VISIT Pneumoncoccal Vaccine Request PLAN OF CARE VITAL SIGNS MEDICATIONS Unknown [...] shoulder Surgical History hymenectomy 1991- Hospitalization History [facility]-Pneumonia 08/2017
--- OUTSIDE RECORDS SUMMARY | 2020-01-25 08:49 | XMS REPORT ---
Author Author Ree BLACKMAN Organization [facility] Address [address] [place] [address] Care Team Providers Care Call Box Wirer Name Role Phone YEHUDA DANG Unavailable PROBLEMS Type Condition ICD9-CM Code YJS01-RV Code Onset Dates Condition S tatus SNOMED Code Problem EVANGELINA (obstructive sleep apnea) G47.33 Active 93374479 Problem Smoking F17.200 Active 70600264 Problem custodial 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.4 Active 273512452 Problem Mixed hyperlipidemia E78.2 Active 729251668 Problem Essential hypertension I10 Active 17822853 Problem Type 2 diabetes mellitus with hyperglycemia E11.65 Active 15203693 Problem Seasonal allergic rhinitis due to pollen J30.1 Active 95591259 ALLERGIES No Known Allergies ENCOUNTERS Encounter Location Date Diagnosis [facility] [id number] [place] [address] Jun, Cough R05 ; Acute nasopharyn gitis J00 and BMI 45.0-49.9, adult Z68.42 [facility] [id number] [place] [address] May, [facility] [id number] [place] [address] May, Encounter for immunization Z 23 [facility] [id number] [place] [address] May, Type 2 diabetes mellitus wit h hyperglycemia E11.65 [facility] [id number] [place] [address] Apr, Type 2 diabetes mellitus wit h hyperglycemia E11.65 ; Essential hypertension I10 ; 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 ; Motion sickness, initial encounter T75.3XXA ; Encounter for immunization Z23 and BMI 50.0-59.9, adult Z68.43 [place] [address] [address] 26 Sep, 2017 [place] [address] [address] 15 Sep, 2017 Type 2 diabetes mellitus wit h hyperglycemia E11.65 [place] [address] [address] 07 Sep, 2017 History of pneumonia Z87.01 ; Hypoxia R09.02 and BMI 50.0-59.9, adult Z68.43 [place] [address] [address] Aug, History of pneumonia Z87.01 ; Hypoxia R09.02 ; Daytime hypersomnia G47.19 ; BMI 50.0-59.9, adult Z68.43 ; Type 2 diabetes mellitus with hyperglycemia E11.65 ; custodial 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.4 and Nose irritation J34.89 [place] [address] [place] [id number] [place] [address] Aug, Right otitis media with effu cande H65.91 [place] [address] [address] Aug, History of pneumonia Z87.01 ; Nose irritation J34.89 ; Right otitis media with effusion H65.91 ; Hypoxia R09.02 ; Type 2 diabetes mellitus without complication, without long-term current use of insulin E11.9 and BMI 50.0-59.9, adult Z68.43 [facility] [place] [address] [address] 12 Aug, 2017 Cough R05 ; Bronchitis J40 a nd BMI 50.0-59.9, adult Z68.43 [place] [address] [address] Jul, Impingement syndrome, should er, left M75.42 and Bankart lesion of left shoulder, subsequent encounter S43.492D [facility] [place] [address] [address] Jul, Conjunctivitis, bacterial H1 0.9 [place] [address] [address] Jul, [facility] [place] [address] [address] Jul, Acute non-recurrent maxillar y sinusitis J01.00 and BMI 45.0-49.9, adult Z68.42 [place] [address] [address] Jun, [place] [address] [address] May, Impingement syndrome, should er, left M75.42 and Degenerative tear of glenoid labrum of left shoulder M24.112 [place] [address] [address] Apr, Type 2 diabetes mellitus wit hout complication, without long-term current use of insulin E11.9 ; Essential hypertension I10 ; Mixed hyperlipidemia E78.2 ; Seasonal allergic rhinitis due to pollen J30.1 ; Pain in left shoulder M25.512 and Overweight E66.3 [place] [address] [address] Mar, Essential hypertension I10 a nd Mixed hyperlipidemia E78.2 [place] [address] [address] Feb, General medical examination Z00.00 and Screening for tuberculosis Z11.1 [place] [address] [address] Nov, Type 2 diabetes mellitus wit hout complication, without long-term current use of insulin E11.9 [place] [address] [address] Oct, Essential hypertension I10 ; Mixed hyperlipidemia E78.2 ; Type 2 diabetes mellitus without complication, without long-term current use of insulin E11.9 and Seasonal allergic rhinitis due to pollen J30.1 [facility] [place] [address] [address] Sep, Other viral agents as the ca use of diseases classified elsewhere B97.89 and Acute upper respiratory infection, unspecified J06.9 [place] [address] [address] Jun, [place] [address] [address] Jun, Essential hypertension I10 ; Type 2 diabetes mellitus without complication E11.9 and Mixed hyperlipidemia E78.2 [place] [address] [place] [id number] [place] [address] May, [facility] [address] [id number] [address] [place] [address] Mar, Fluid level behind tympanic membrane of both ears H65.93 and Cough R05 [facility] [id number] [place] [address] Mar, Bronchitis J40 and Allergic rhinitis, unspecified allergic rhinitis trigger, unspecified rhinitis seasonality J30.9 [facility] [address] [address] 15 Jan, 2016 Essential hypertension I10 ; Type 2 diabetes mellitus without complication E11.9 and Mixed hyperlipidemia E78.2 [facility] [address] [address] Aug, [facility] [address] [id number] Jul, Dental examination Z01.20 [facility] [address] [id number] Jul, Encounter for dental examina tion Z01.20 [place] [address] [address] Jul, Essential hypertension I10 ; Mixed hyperlipidemia E78.2 and Type 2 diabetes mellitus without complication E11.9 [facility] [address] [address] Jun, Sinusitis J32.9 and Cough R0 5 [place] [address] [address] Mar, Physical examination of empl oyee V70.5 ; Tuberculosis screening V74.1 and Screening for substance abuse V82.9 [place] [address] [address] Mar, Diabetes mellitus without me ntion of complication, type II or unspecified type, not stated as uncontrolled 250.00 ; Hypertension 401.9 and Hyperlipidemia 272.4 [place] [address] [address] Feb, [place] [address] [address] Jan, [facility] [address] [id number] [address] [place] [id number] December, Dental examination V72.2 [facility] [address] [id number] [address] [place] [address] Nov, [facility] [address] [id number] [address] [place] [address] Nov, [facility] [address] [id number] [address] [place] [address] Aug, [facility] [address] [id number] [address] [place] [address] Aug, [facility] [address] [id number] [address] [place] [address] Jun, [facility] [address] [id number] [address] [place] [address] Jun, [facility] [address] [id number] [address] [place] [address] May, [facility] [address] [id number] [address] [place] [address] May, [facility] [address] [id number] [address] [place] [address] May, [facility] [address] [id number] [address] [place] [phone] May, [facility] [address] [id number] [address] [place] [address] Mar, [facility] [address] [id number] [address] [place] [address] Mar, [facility] [address] [id number] [address] [place] [id number] Jan, [facility] [address] [id number] [address] [place] [address] Jan, [facility] [address] [id number] [facility] [place] [address] December, [facility] [address] [id number] [address] [place] [address], [place] [address] December, [facility] [address] [id number] [address] [place] [address], [place] [address] Oct, [facility] [address] [id number] [address] [place] [address], [place] [address] Oct, [facility] [address] [id number] [address] [place] [address], [place] [address] 17 Oct, 2013 [facility] [address] [id number] [address] [place] [address], [place] [address] Oct, [facility] [address] [id number] [address] [place] [address], [place] [address] Oct, [facility] [address] [id number] [address] [place] [address], [place] [address] Oct, [facility] [address] [id number] [address] [place] [address], [place] [address] Oct, [facility] [address] [id number] [address] [place] [address], [place] [address] Oct, [facility] [address] [id number] [address] [place] [address], [place] [address] Aug, [facility] [address] [id number] [address] [place] [address], [place] [address] Aug, [facility] [address] [id number] [address] [place] [address], [place] [address] Jun, [facility] [address] [id number] [address] [place] [address], [place] [address] Jun, [facility] [address] [id number] [address] [place] [address], [place] [address] Mar, [facility] [address] [id number] [address] [place] [address], [place] [address] Mar, [facility] [address] [id number] [address] [place] [address], [place] [address] Feb, [facility] [address] [id number] [address] [place] [address], [place] [address] Nov, [facility] [address] [id number] [address] [place] [address], [place] [address] Nov, [facility] [address] [id number] [address] [place] [address], [place] [address] Nov, [facility] [address] [id number] [address] [place] [address], [place] [address] Oct, [facility] [address] [id number] [address] [place] [address], [place] [address] Oct, [facility] [address] [id number] [address] [place] [address], [place] [address] Sep, [facility] [address] [id number] [address] [place] [address], [place] [address] Feb, [facility] [address] [id number] [address] [place] [address], [place] [address] Feb, [facility] [address] [id number] [address] [place] [address], [place] [address] Feb, [facility] [address] [id number] [address] [place] [address], [place] [address] Jan, [facility] [address] [id number] [address] [place] [address], [place] [address] Nov, [facility] [address] [id number] [address] [place] [address], [place] [address] Sep, [facility] [address] [id number] [address] [place] [address], [place] [address] Jul, [facility] [address] [id number] [address] [place] [address], [place] [address] Jul, [facility] [address] [id number] [address] [place] [id number] Aug, [facility] [address] [facility] [id number] [address] [place] [address] Jul, [facility] [address] [facility] [id number] [address] [place] [phone] December, IMMUNIZATIONS No Known Immunizations SOCIAL HISTORY Never Assessed REASON FOR VISIT Cough since 06/14/18, has worsened; previous dx of pneumonia in 08/2017 - SEBASTIAN Infante PLAN OF CARE Activity Details Follow Up prn Reason: VITAL SIGNS Height 63 in 2018-06-19 Weight 278.0 lbs 2018-06-19 Temperature 100.3 degrees Fahrenheit 2018-06-19 Heart Rate 112 bpm 2018-06-19 Respiratory Rate 18 2018-06-19 BMI 49.24 kg/m2 2018-06-19 Blood pressure systolic 120 mmHg 2018-06-19 Blood pressure diastolic 76 mmHg 2018-06-19 MEDICATIONS Medication Instructions Dosage Frequency Start Date End Date Duration S tatus Toprol XL 25 mg Orally Once a day 1 tablet 24h 30 da y(s) Active Lisinopril-Hydrochlorothiazide 20-25 MG TAKE ONE TABLE T BY MOUTH ONCE DAILY 30 Active One Touch/One Touch II Starter Active GlyBURIDE 5 mg Orally Once a day TAKE ONE TABLET BY MOUTH ONCE DAILY 2 4h 30 days Active Levemir 100 UNIT/ML Subcutaneous Once a day Inject 20 units 24h 30 days Active MetFORMIN HCl ER 500 mg Orally 3 times a day TAKE ONE TABLET BY MOUTH IN THE MORNING AND TWO TABLETS IN THE EVENING. 8h 3 0 days Active Test strips Test Strips subcutaneously Once a day Use one to uch verio test strips 24h Sep, Active Actos 30 MG Orally Once a day TAKE ONE TABLET BY MOUTH ONCE DAILY 24h 30 days Active RESULTS No Results [...]
[2020-01-25] MEDS ORDERED: fentaNYL INJECTION 100 MCG/2 ML AMP ONE (08:50)
[2020-01-25] MEDS ORDERED: LIDOCAINE 1% INJ 20 ML 20 ML VIAL ONE (08:50)
[2020-01-25] MEDS ORDERED: NS IV 1000 ML 1,000 ML ONE ×2 (08:50→10:49)
[2020-01-25] MEDS ORDERED: MIDAZOLAM 5 MG/5 ML (VERSED) VIAL ONE (08:50)
--- OUTSIDE RECORDS SUMMARY | 2020-01-25 08:50 | XMS REPORT ---
Author Author Ree BLACKMAN Organization 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 Role Phone YEHUDA DANG Unavailable PROBLEMS Type Condition ICD9-CM Code AXP97-ET Code Onset Dates Condition S tatus SNOMED Code Problem EVANGELINA (obstructive sleep apnea) G47.33 Active 20229766 Problem Smoking F17.200 Active 67989917 Problem [facility] 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.4 Active 943793634 Problem Mixed hyperlipidemia E78.2 Active 193930549 Problem Essential hypertension I10 Active 34705043 Problem Type 2 diabetes mellitus with hyperglycemia E11.65 Active 00229134 Problem Seasonal allergic rhinitis due to pollen J30.1 Active 19179337 ALLERGIES No Known Allergies ENCOUNTERS Encounter Location Date Diagnosis [facility] [address] [address] Nov, Sunburn of second degree L55 .1 and BMI 50.0-59.9, adult Z68.43 [facility] [address] [address] Nov, Sunburn of second degree L55 .1 and BMI 50.0-59.9, adult Z68.43 [facility] [address] [place] [id number] [place] [address] Nov, 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 [address] [address] 26 Sep, 2017 [place] [address] [address] 15 Sep, 2017 Type 2 diabetes mellitus wit h hyperglycemia E11.65 [place] [address] [address] 07 Sep, 2017 History of pneumonia Z87.01 ; Hypoxia R09.02 and BMI 50.0-59.9, adult Z68.43 [place] [address] [address] 31 Aug, 2017 History of pneumonia Z87.01 ; Hypoxia R09.02 ; Daytime hypersomnia G47.19 ; BMI 50.0-59.9, adult Z68.43 ; Type 2 diabetes mellitus with hyperglycemia E11.65 ; [facility] 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.4 and Nose irritation J34.89 [place] [address] [address] Aug, Right otitis media with effu cande H65.91 [place] [address] [address] Aug, History of pneumonia Z87.01 ; Nose irritation J34.89 ; Right otitis media with effusion H65.91 ; Hypoxia R09.02 ; Type 2 diabetes mellitus without complication, without long-term current use of insulin E11.9 and BMI 50.0-59.9, adult Z68.43 [facility] [address] [address] Aug, Cough R05 ; Bronchitis J40 a nd BMI 50.0-59.9, adult Z68.43 [place] [address] [address] Jul, Impingement syndrome, should er, left M75.42 and Bankart lesion of left shoulder, subsequent encounter S43.492D [facility] [address] [address] Jul, Conjunctivitis, bacterial H1 0.9 [facility] [address] [address] Jul, [facility] [address] [address] Jul, Acute non-recurrent maxillar y sinusitis J01.00 and BMI 45.0-49.9, adult Z68.42 [place] [address] [address] Jun, [place] [address] [address] May, Impingement syndrome, should er, left M75.42 and Degenerative tear of glenoid labrum of left shoulder M24.112 [place] [address] [address] Apr, Type 2 diabetes mellitus wit hout complication, without long-term current use of insulin E11.9 ; Essential hypertension I10 ; Mixed hyperlipidemia E78.2 ; Seasonal allergic rhinitis due to pollen J30.1 ; Pain in left shoulder M25.512 and Overweight E66.3 [place] [address] [address] Mar, Essential hypertension I10 a nd Mixed hyperlipidemia E78.2 [place] [address] [address] Feb, General medical examination Z00.00 and Screening for tuberculosis Z11.1 [place] [address] [address] Nov, Type 2 diabetes mellitus wit hout complication, without long-term current use of insulin E11.9 [place] [address] [address] Oct, Essential hypertension I10 ; Mixed hyperlipidemia E78.2 ; Type 2 diabetes mellitus without complication, without long-term current use of insulin E11.9 and Seasonal allergic rhinitis due to pollen J30.1 [facility] [address] [address] 17 Sep, 2016 Other viral agents as the ca use of diseases classified elsewhere B97.89 and Acute upper respiratory infection, unspecified J06.9 [place] [address] [address] 08 Jun, 2016 [place] [address] [address] Jun, Essential hypertension I10 ; Type 2 diabetes mellitus without complication E11.9 and Mixed hyperlipidemia E78.[address] [address] 14 May, 2016 [facility] [address] [address] Mar, Fluid level behind tympanic membrane of both ears H65.93 and Cough R05 [facility] [address] [address] 12 Mar, 2016 Bronchitis J40 and Allergic rhinitis, unspecified allergic rhinitis trigger, unspecified rhinitis seasonality J30.9 [place] [address] [address] 15 Jan, 2016 Essential hypertension I10 ; Type 2 diabetes mellitus without complication E11.9 and Mixed hyperlipidemia E78.[address] [address] Aug, [facility] [address] [facility] [id number] [address] [place] [id number] Jul, Dental examination Z01.20 [facility] [id number] [place] [id number] Jul, Encounter for dental examina tion Z01.20 [facility] [address] [place] [id number] [place] [address] 08 Jul, 2015 Essential hypertension I10 ; Mixed hyperlipidemia E78.2 and Type 2 diabetes mellitus without complication E11.9 [facility] [address] [facility] [id number] [address] [place] [address] Jun, Sinusitis J32.[address]0 [address] [facility] [address] [facility] [id number] [address] [place] [address] Mar, Physical examination of empl oyee V70.5 ; Tuberculosis screening V74.1 and Screening for substance abuse V82.9 [facility] [address] [facility] [id number] [place] [address] Mar, Diabetes mellitus without me ntion of complication, type II or unspecified type, not stated as uncontrolled 250.00 ; Hypertension 401.[address] [facility] [address] [facility] [id number] [address] [place] [address] Feb, [facility] [address] [place] [id number] [place] [address] Jan, [facility] [id number] [place] [id number] December, Dental examination V72.2 [facility] [address] [address] Nov, [facility] [address] [place] [id number] [place] [address] Nov, [facility] [address] [place] [id number] [address] [place] [address] Aug, [facility] [address] [place] [id number] [address] [place] [address] Aug, [facility] [address] [address] Jun, [facility] [address] [place] [id number] [address] [place] [address] Jun, [facility] [address] [place] [id number] [address] [place] [address] May, [facility] [address] [id number] [address] [place] [address], [place] [address] May, [facility] [address] [id number] [address] [place] [address], [place] [address] May, [facility] [address] [id number] [address] [place] [address], [place] [address] May, [facility] [address] [id number] [address] [place] [address], [place] [address] Mar, [facility] [address] [id number] [address] [place] [address], [place] [address] Mar, [facility] [address] [id number] [address] [place] [address], [place] [address] Jan, [facility] [address] [id number] [address] [place] [address], [place] [address] Jan, [facility] [address] [id number] [address] [place] [address], [place] [address] December, [facility] [address] [id number] [address] [place] [address], [place] [address] December, [facility] [address] [id number] [address] [place] [address], [place] [address] Oct, [facility] [address] [id number] [address] [place] [address], [place] [address] Oct, [facility] [address] [id number] [address] [place] [address], [place] [address] Oct, [facility] [address] [id number] [address] [place] [address], [place] [id number] 17 Oct, 2013 [facility] [address] [id number] [address] [place] [address], [place] [address] Oct, [facility] [address] [id number] [address] [place] [address], [place] [address] Oct, [facility] [address] [id number] [address] [place] [address], [place] [address] Oct, [facility] [address] [id number] [address] [place] [address], [place] [address] Oct, [facility] [address] [id number] [address] [place] [address], [place] [id number] Aug, [facility] [address] [id number] [address] [place] [address], [place] [address] Aug, [facility] [address] [id number] [address] [place] [address], [place] [address] Jun, [facility] [address] [id number] [address] [place] [address], [place] [id number] Jun, [facility] [address] [id number] [address] [place] [address], [place] [id number] Mar, [facility] [address] [id number] [address] [place] [address], [place] [address] Mar, [facility] [address] [id number] [address] [place] [address], [place] [address] Feb, [facility] [address] [id number] [address] [place] [address], [place] [address] Nov, [facility] [address] [id number] [address] [place] [address], [place] [id number] Nov, [facility] [address] [id number] [address] [place] [address], [place] [id number] Nov, [facility] [address] [id number] [address] [place] [address], [place] [address] Oct, [facility] [address] [id number] [address] [place] [address], [place] [address] Oct, [facility] [address] [id number] [address] [place] [address], [place] [address] Sep, [facility] [address] [id number] [address] [place] [address], [place] [address] Feb, [facility] [address] [id number] [address] [place] [id number] Feb, [facility] [address] [id number] [address] [place] [id number] Feb, [facility] [address] [id number] [address] [place] [id number] Jan, [facility] [address] [id number] [address] [place] [id number] Nov, [facility] [address] [id number] [address] [place] [id number] Sep, [facility] [address] [facility] [id number] [address] [place] [id number] Jul, [facility] [address] [id number] [address] [place] [id number] Jul, [facility] [address] [facility] [id number] [address] [place] [id number] Aug, [facility] [address] [id number] [address] [place] [id number] Jul, [facility] [address] [facility] [id number] [address] [place] [id number] December, IMMUNIZATIONS Vaccine Route Administration Date Status FLULAVAL QUAD (6 MO AND UP) 2016 IM Intramuscular November 02, 2017 Administered SOCIAL [...] went to non smoking class Medical History -2017 Severe Sleep Apnea wi th [facility] 18cm H20 with heated humidity Medical History Sleep Apnea Medical History Hypoxia Medical History History of pneumonia Medical History Degenerative tear of glenoid labrum of l eft shoulder Surgical History hymenectomy 1991- Hospitalization History [facility]-Pneumonia 08/2017
--- OUTSIDE RECORDS SUMMARY | 2020-01-25 08:50 | XMS REPORT ---
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 YEHUDA DANG Unavailable PROBLEMS Type Condition ICD9-CM Code [id number] Code Onset Dates Condition S tatus SNOMED Code Problem EVANGELINA (obstructive sleep apnea) G47.33 Active 29894208 Problem Smoking F17.200 Active 68567491 Problem group home 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.4 Active 313683244 Problem Mixed hyperlipidemia E78.2 Active 720804832 Problem Essential hypertension I10 Active 02666753 Problem Type 2 diabetes mellitus with hyperglycemia E11.65 Active 23149446 Problem Seasonal allergic rhinitis due to pollen J30.1 Active 57908586 ALLERGIES No Information ENCOUNTERS Encounter Location Date Diagnosis [facility] [address] [address] Nov, Sunburn of second degree L55 .1 and BMI 50.0-59.9, adult Z68.43 [facility] [address] [address] Nov, Sunburn of second degree L55 .1 and BMI 50.0-59.9, adult Z68.43 [facility] [address] [address] Nov, [facility] [address] [address] Oct, Smoking F17.200 ; Type 2 nellie betes mellitus with hyperglycemia E11.65 ; 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 ; Motion sickness, initial encounter T75.3XXA ; Encounter for immunization Z23 and BMI 50.0-59.9, adult Z68.43 [facility] [address] [address] 26 Sep, 2017 [place] [address] [address] 15 Sep, 2017 Type 2 diabetes mellitus wit h hyperglycemia E11.65 [place] [address] [address] 07 Sep, 2017 History of pneumonia Z87.01 ; Hypoxia R09.02 and BMI 50.0-59.9, adult Z68.43 [place] [address] [address] Aug, History of pneumonia Z87.01 ; Hypoxia R09.02 ; Daytime hypersomnia G47.19 ; BMI 50.0-59.9, adult Z68.43 ; Type 2 diabetes mellitus with hyperglycemia E11.65 ; 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 and Nose irritation J34.89 [place] [address] [address] Aug, Right otitis media with effu cande H65.91 [place] [address] [address] Aug, History of pneumonia Z87.01 ; Nose irritation J34.89 ; Right otitis media with effusion H65.91 ; Hypoxia R09.02 ; Type 2 diabetes mellitus without complication, without long-term current use of insulin E11.9 and BMI 50.0-59.9, adult Z68.43 [facility] [address] [address] Aug, Cough R05 ; Bronchitis J40 a nd BMI 50.0-59.9, adult Z68.43 [place] [address] [address] Jul, Impingement syndrome, should er, left M75.42 and Bankart lesion of left shoulder, subsequent encounter S43.492D [facility] [address] [address] Jul, Conjunctivitis, bacterial H1 0.9 [facility] [address] [address] Jul, [facility] [address] [address] Jul, Acute non-recurrent maxillar y sinusitis J01.00 and BMI 45.0-49.9, adult Z68.42 [place] [address] [address] Jun, [place] [address] [address] May, Impingement syndrome, should er, left M75.42 and Degenerative tear of glenoid labrum of left shoulder M24.[address] [address] Apr, Type 2 diabetes mellitus wit hout complication, without long-term current use of insulin E11.9 ; Essential hypertension I10 ; Mixed hyperlipidemia E78.2 ; Seasonal allergic rhinitis due to pollen J30.1 ; Pain in left shoulder M25.512 and Overweight E66.3 [place] [address] [address] Mar, Essential hypertension I10 a nd Mixed hyperlipidemia E78.2 [place] [address] [address] Feb, General medical examination Z00.00 and Screening for tuberculosis Z11.1 [place] [address] [address] Nov, Type 2 diabetes mellitus wit hout complication, without long-term current use of insulin E11.9 [place] [address] [address] Oct, Essential hypertension I10 ; Mixed hyperlipidemia E78.2 ; Type 2 diabetes mellitus without complication, without long-term current use of insulin E11.9 and Seasonal allergic rhinitis due to pollen J30.1 [facility] [address] [address] 17 Sep, 2016 Other viral agents as the ca use of diseases classified elsewhere B97.89 and Acute upper respiratory infection, unspecified J06.9 [place] [address] [address] 08 Jun, 2016 [place] [address] [address] Jun, Essential hypertension I10 ; Type 2 diabetes mellitus without complication E11.9 and Mixed hyperlipidemia E78.[address] [address] 14 May, 2016 [facility] [address] [address] Mar, Fluid level behind tympanic membrane of both ears H65.93 and Cough R05 [facility] [address] [address] 12 Mar, 2016 Bronchitis J40 and Allergic rhinitis, unspecified allergic rhinitis trigger, unspecified rhinitis seasonality J30.9 [place] [address] [address] 15 Jan, 2016 Essential hypertension I10 ; Type 2 diabetes mellitus without complication E11.9 and Mixed hyperlipidemia E78.[address] [address] Aug, [facility] [address] [place] [id number] [place] [id number] Jul, Dental examination Z01.20 [facility] [address] [place] [id number] [place] [id number] Jul, Encounter for dental examina tion Z01.20 [facility] [address] [address] 08 Jul, 2015 Essential hypertension I10 ; Mixed hyperlipidemia E78.2 and Type 2 diabetes mellitus without complication E11.9 [facility] [address] [facility] [id number] [address] [place] [address] Jun, Sinusitis J32.9 and Cough R0 5 [facility] [address] [facility] [id number] [address] [place] [address] Mar, Physical examination of empl oyee V70.5 ; Tuberculosis screening V74.1 and Screening for substance abuse V82.9 [facility] [address] [facility] [id number] [place] [address] Mar, Diabetes mellitus without me ntion of complication, type II or unspecified type, not stated as uncontrolled 250.00 ; Hypertension 401.9 and Hyperlipidemia 272.4 [facility] [address] [facility] [id number] [address] [place] [address] Feb, [facility] [address] [place] [id number] [place] [address] Jan, [facility] [address] [place] [id number] [place] [id number] December, Dental examination V72.2 [facility] [address] [address] Nov, [facility] [address] [place] [id number] [place] [address] Nov, [facility] [address] [place] [id number] [address] [place] [address] Aug, [facility] [address] [place] [id number] [place] [address] Aug, [facility] [address] [place] [id number] [place] [address] Jun, [facility] [address] [place] [id number] [address] [place] [address] Jun, [facility] [address] [place] [id number] [address] [place] [address] May, [facility] [address] [id number] [address] [place] [address], [place] [address] May, [facility] [address] [id number] [address] [place] [address], [place] [address] May, [facility] [address] [id number] [address] [place] [address], [place] [address] May, [facility] [address] [id number] [address] [place] [address], [place] [address] Mar, [facility] [address] [id number] [address] [place] [address], [place] [address] Mar, [facility] [address] [id number] [address] [place] [address], [place] [address] Jan, [facility] [address] [id number] [address] [place] [address], [place] [address] Jan, [facility] [address] [id number] [address] [place] [address], [place] [address] December, [facility] [address] [id number] [address] [place] [address], [place] [address] December, [facility] [address] [id number] [address] [place] [address], [place] [address] Oct, [facility] [address] [id number] [address] [place] [address], [place] [address] Oct, [facility] [address] [id number] [address] [place] [address], [place] [address] 17 Oct, 2013 [facility] [address] [id number] [address] [place] [address], [place] [address] 17 Oct, 2013 [facility] [address] [id number] [address] [place] [address], [place] [address] Oct, [facility] [address] [id number] [address] [place] [address], [place] [address] Oct, [facility] [address] [id number] [address] [place] [address], [place] [address] Oct, [facility] [address] [id number] [address] [place] [address], [place] [address] Oct, [facility] [address] [id number] [address] [place] [address], [place] [address] Aug, [facility] [address] [id number] [address] [place] [address], [place] [address] Aug, [facility] [address] [id number] [address] [place] [address], [place] [address] Jun, [facility] [address] [id number] [address] [place] [address], [place] [address] Jun, [facility] [address] [id number] [address] [place] [address], [place] [address] Mar, [facility] [address] [id number] [address] [place] [address], [place] [address] Mar, [facility] [address] [id number] [address] [place] [address], [place] [address] Feb, [facility] [address] [id number] [address] [place] [address], [place] [address] Nov, [facility] [address] [id number] [address] [place] [address], [place] [address] Nov, [facility] [address] [id number] [address] [place] [address], [place] [address] Nov, [facility] [address] [id number] [address] [place] [address], [place] [address] Oct, [facility] [address] [id number] [address] [place] [address], [place] [address] Oct, [facility] [address] [id number] [address] [place] [address], [place] [address] Sep, [facility] [address] [id number] [address] [place] [address], [place] [address] Feb, [facility] [address] [id number] [address] [place] [address] Feb, [facility] [address] [id number] [address] [place] [address] Feb, [facility] [address] [id number] [address] [place] [address] Jan, [facility] [address] [id number] [address] [place] [address] Nov, [facility] [address] [id number] [address] [place] [address] Sep, [facility] [address] [id number] [address] [place] [address] Jul, [facility] [address] [id number] [address] [place] [address] Jul, [facility] [address] [id number] [address] [place] [address] Aug, [facility] [address] [id number] [address] [place] [address] Jul, [facility] [address] [id number] [address] [place] [address] December, IMMUNIZATIONS No Known Immunizations SOCIAL HISTORY Never Assessed REASON FOR VISIT Requests return call PLAN OF CARE VITAL SIGNS MEDICATIONS No Known Medications RESULTS No Results PROCEDURES No Known [...]
--- OUTSIDE RECORDS SUMMARY | 2020-01-25 08:50 | XMS REPORT ---
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 Phone YEHUDA DANG Unavailable PROBLEMS Type Condition ICD9-CM Code [id number] Code Onset Dates Condition S tatus SNOMED Code Problem EVANGELINA (obstructive sleep apnea) G47.33 Active 86191923 Problem Smoking F17.200 Active 25309704 Problem senior care 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.4 Active 448968055 Problem Mixed hyperlipidemia E78.2 Active 068280900 Problem Essential hypertension I10 Active 07989575 Problem Type 2 diabetes mellitus with hyperglycemia E11.65 Active 37107019 Problem Seasonal allergic rhinitis due to pollen J30.1 Active 15942499 ALLERGIES No Information ENCOUNTERS Encounter Location Date Diagnosis [facility] [address] [address] Nov, Sunburn of second degree L55 .1 and BMI 50.0-59.9, adult Z68.43 [facility] [address] [address] Nov, Sunburn of second degree L55 .1 and BMI 50.0-59.9, adult Z68.43 [facility] [address] [address] Nov, [facility] [address] [address] Oct, Smoking F17.200 ; Type 2 nellie betes mellitus with hyperglycemia E11.65 ; 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 ; Motion sickness, initial encounter T75.3XXA ; Encounter for immunization Z23 and BMI 50.0-59.9, adult Z68.43 [facility] [address] [address] 26 Sep, 2017 [place] [address] [address] 15 Sep, 2017 Type 2 diabetes mellitus wit h hyperglycemia E11.65 [place] [address] [address] 07 Sep, 2017 History of pneumonia Z87.01 ; Hypoxia R09.02 and BMI 50.0-59.9, adult Z68.43 [place] [address] [address] Aug, History of pneumonia Z87.01 ; Hypoxia R09.02 ; Daytime hypersomnia G47.19 ; BMI 50.0-59.9, adult Z68.43 ; Type 2 diabetes mellitus with hyperglycemia E11.65 ; 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 and Nose irritation J34.89 [place] [address] [address] Aug, Right otitis media with effu cande H65.91 [place] [address] [address] Aug, History of pneumonia Z87.01 ; Nose irritation J34.89 ; Right otitis media with effusion H65.91 ; Hypoxia R09.02 ; Type 2 diabetes mellitus without complication, without long-term current use of insulin E11.9 and BMI 50.0-59.9, adult Z68.43 [facility] [address] [address] Aug, Cough R05 ; Bronchitis J40 a nd BMI 50.0-59.9, adult Z68.43 [place] [address] [address] Jul, Impingement syndrome, should er, left M75.42 and Bankart lesion of left shoulder, subsequent encounter S43.492D [facility] [address] [address] Jul, Conjunctivitis, bacterial H1 0.9 [facility] [address] [address] Jul, [facility] [address] [address] Jul, Acute non-recurrent maxillar y sinusitis J01.00 and BMI 45.0-49.9, adult Z68.42 [place] [address] [address] Jun, [place] [address] [address] May, Impingement syndrome, should er, left M75.42 and Degenerative tear of glenoid labrum of left shoulder M24.[address] [address] Apr, Type 2 diabetes mellitus wit hout complication, without long-term current use of insulin E11.9 ; Essential hypertension I10 ; Mixed hyperlipidemia E78.2 ; Seasonal allergic rhinitis due to pollen J30.1 ; Pain in left shoulder M25.512 and Overweight E66.3 [place] [address] [address] Mar, Essential hypertension I10 a nd Mixed hyperlipidemia E78.2 [place] [address] [address] Feb, Screening for tuberculosis Z 11.1 and General medical examination Z00.00 [place] [address] [address] Nov, Type 2 diabetes mellitus wit hout complication, without long-term current use of insulin E11.9 [place] [address] [address] Oct, Essential hypertension I10 ; Mixed hyperlipidemia E78.2 ; Type 2 diabetes mellitus without complication, without long-term current use of insulin E11.9 and Seasonal allergic rhinitis due to pollen J30.1 [facility] [address] [address] 17 Sep, 2016 Other viral agents as the ca use of diseases classified elsewhere B97.89 and Acute upper respiratory infection, unspecified J06.9 [place] [address] [address] 08 Jun, 2016 [place] [address] [address] Jun, Essential hypertension I10 ; Type 2 diabetes mellitus without complication E11.9 and Mixed hyperlipidemia E78.[address] [address] 14 May, 2016 [facility] [address] [address] Mar, Fluid level behind tympanic membrane of both ears H65.93 and Cough R05 [facility] [address] [address] 12 Mar, 2016 Bronchitis J40 and Allergic rhinitis, unspecified allergic rhinitis trigger, unspecified rhinitis seasonality J30.9 [place] [address] [address] 15 Jan, 2016 Essential hypertension I10 ; Type 2 diabetes mellitus without complication E11.9 and Mixed hyperlipidemia E78.[address] [address] Aug, [facility] [address] [place] [id number] [place] [id number] Jul, Dental examination Z01.20 [facility] [address] [place] [id number] [place] [id number] Jul, Encounter for dental examina tion Z01.20 [facility] [address] [address] 08 Jul, 2015 Essential hypertension I10 ; Mixed hyperlipidemia E78.2 and Type 2 diabetes mellitus without complication E11.9 [facility] [address] [facility] [id number] [address] [place] [address] Jun, Sinusitis J32.9 and Cough R0 5 [facility] [address] [facility] [id number] [address] [place] [address] Mar, Physical examination of empl oyee V70.5 ; Tuberculosis screening V74.1 and Screening for substance abuse V82.9 [facility] [address] [facility] [id number] [place] [address] Mar, Diabetes mellitus without me ntion of complication, type II or unspecified type, not stated as uncontrolled 250.00 ; Hypertension 401.9 and Hyperlipidemia 272.4 [facility] [address] [facility] [id number] [address] [place] [address] Feb, [facility] [address] [place] [id number] [place] [address] Jan, [facility] [address] [place] [id number] [place] [id number] December, Dental examination V72.2 [facility] [address] [address] Nov, [facility] [address] [place] [id number] [place] [address] Nov, [facility] [address] [place] [id number] [address] [place] [phone] Aug, [facility] [address] [place] [id number] [address] [place] [phone] Aug, [facility] [address] [place] [id number] [place] [address] Jun, [facility] [address] [place] [id number] [address] [place] [phone] Jun, [facility] [address] [place] [id number] [address] [place] [phone] May, [facility] [address] [id number] [address] [place] [address], [place] [address] May, [facility] [address] [id number] [address] [place] [address], [place] [address] May, [facility] [address] [id number] [address] [place] [address], [place] [address] May, [facility] [address] [id number] [address] [place] [address], [place] [address] Mar, [facility] [address] [id number] [address] [place] [address], [place] [address] Mar, [facility] [address] [id number] [address] [place] [address], [place] [address] Jan, [facility] [address] [id number] [address] [place] [address], [place] [address] Jan, [facility] [address] [id number] [address] [place] [address], [place] [address] December, [facility] [address] [id number] [address] [place] [address], [place] [address] December, [facility] [address] [id number] [address] [place] [address], [place] [address] Oct, [facility] [address] [id number] [address] [place] [address], [place] [address] Oct, [facility] [address] [id number] [address] [place] [address], [place] [address] 17 Oct, 2013 [facility] [address] [id number] [address] [place] [address], [place] [address] 17 Oct, 2013 [facility] [address] [id number] [address] [place] [address], [place] [address] Oct, [facility] [address] [id number] [address] [place] [address], [place] [address] Oct, [facility] [address] [id number] [address] [place] [address], [place] [address] Oct, [facility] [address] [id number] [address] [place] [address], [place] [address] Oct, [facility] [address] [id number] [address] [place] [address], [place] [address] Aug, [facility] [address] [id number] [address] [place] [address], [place] [address] Aug, [facility] [address] [id number] [address] [place] [address], [place] [address] Jun, [facility] [address] [id number] [address] [place] [address], [place] [address] Jun, [facility] [address] [id number] [address] [place] [address], [place] [address] Mar, [facility] [address] [id number] [address] [place] [address], [place] [address] Mar, [facility] [address] [id number] [address] [place] [address], [place] [address] Feb, [facility] [address] [id number] [address] [place] [address], [place] [address] Nov, [facility] [address] [id number] [address] [place] [address], [place] [address] Nov, [facility] [address] [id number] [address] [place] [address], [place] [address] Nov, [facility] [address] [id number] [address] [place] [address], [place] [address] Oct, [facility] [address] [id number] [address] [place] [address], [place] [address] Oct, [facility] [address] [id number] [address] [place] [address], [place] [address] Sep, [facility] [address] [id number] [address] [place] [address], [place] [address] Feb, [facility] [address] [id number] [address] [place] [id number] 11 Feb, 2012 [facility] [address] [id number] [address] [place] [id number] Feb, [facility] [address] [id number] [address] [place] [id number] Jan, [facility] [address] [id number] [address] [place] [phone] Nov, [facility] [address] [id number] [address] [place] [id number] Sep, [facility] [address] [id number] [address] [place] [id number] Jul, [facility] [address] [id number] [address] [place] [id number] Jul, [facility] [address] [id number] [address] [place] [id number] Aug, [facility] [address] [id number] [address] [place] [id number] Jul, [facility] [address] [id number] [address] [place] [id number] December, IMMUNIZATIONS No Known Immunizations SOCIAL HISTORY Never Assessed REASON FOR VISIT Lab results PLAN OF CARE VITAL SIGNS MEDICATIONS No [...]
--- OUTSIDE RECORDS SUMMARY | 2020-01-25 08:50 | XMS REPORT ---
Author Author Ree BLACKMAN Organization [facility] [place] Address [address] [place] [address] Care Team Providers Care Management Analyst Name Role Phone YEHUDA DANG Unavailable PROBLEMS Type Condition ICD9-CM Code CDC42-JW Code Onset Dates Condition S tatus SNOMED Code Problem EVANGELINA (obstructive sleep apnea) G47.33 Active 58317439 Problem Smoking F17.200 Active 38788049 Problem [facility] 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.4 Active 134200390 Problem Mixed hyperlipidemia E78.2 Active 869860145 Problem Essential hypertension I10 Active 58202837 Problem Type 2 diabetes mellitus with hyperglycemia E11.65 Active 23750874 Problem Seasonal allergic rhinitis due to pollen J30.1 Active 55270096 ALLERGIES No Known Allergies ENCOUNTERS Encounter Location Date Diagnosis [facility] [place] [address] [address] Nov, Sunburn of second degree L55 .1 and BMI 50.0-59.9, adult Z68.43 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 ; Motion sickness, initial encounter T75.3XXA ; Encounter for immunization Z23 and BMI 50.0-59.9, adult Z68.43 [facility] [place] [address] [address] 26 Sep, 2017 [place] [address] [address] 15 Sep, 2017 Type 2 diabetes mellitus wit h hyperglycemia E11.65 [place] [address] [address] 07 Sep, 2017 History of pneumonia Z87.01 ; Hypoxia R09.02 and BMI 50.0-59.9, adult Z68.43 [place] [address] [address] 31 Aug, 2017 History of pneumonia Z87.01 ; Hypoxia R09.02 ; Daytime hypersomnia G47.19 ; BMI 50.0-59.9, adult Z68.43 ; Type 2 diabetes mellitus with hyperglycemia E11.65 ; [facility] 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.4 and Nose irritation J34.89 [place] [address] [address] Aug, Right otitis media with effu cande H65.91 [place] [address] [address] Aug, History of pneumonia Z87.01 ; Nose irritation J34.89 ; Right otitis media with effusion H65.91 ; Hypoxia R09.02 ; Type 2 diabetes mellitus without complication, without long-term current use of insulin E11.9 and BMI 50.0-59.9, adult Z68.43 [facility] [address] [address] Aug, Cough R05 ; Bronchitis J40 a nd BMI 50.0-59.9, adult Z68.43 [place] [address] [address] Jul, Impingement syndrome, should er, left M75.42 and Bankart lesion of left shoulder, subsequent encounter S43.492D [facility] [address] [address] Jul, Conjunctivitis, bacterial H1 0.9 [facility] [place] [address] [address] Jul, [facility] [address] [address] Jul, Acute non-recurrent maxillar y sinusitis J01.00 and BMI 45.0-49.9, adult Z68.42 [place] [address] [address] Jun, [place] [address] [address] May, Impingement syndrome, should er, left M75.42 and Degenerative tear of glenoid labrum of left shoulder M24.112 [place] [address] [address] Apr, Type 2 diabetes mellitus wit hout complication, without long-term current use of insulin E11.9 ; Essential hypertension I10 ; Mixed hyperlipidemia E78.2 ; Seasonal allergic rhinitis due to pollen J30.1 ; Pain in left shoulder M25.512 and Overweight E66.3 [place] [address] [address] Mar, Essential hypertension I10 a nd Mixed hyperlipidemia E78.2 [place] [address] [address] Feb, General medical examination Z00.00 and Screening for tuberculosis Z11.1 [place] [address] [address] Nov, Type 2 diabetes mellitus wit hout complication, without long-term current use of insulin E11.9 [place] [address] [address] Oct, Essential hypertension I10 ; Mixed hyperlipidemia E78.2 ; Type 2 diabetes mellitus without complication, without long-term current use of insulin E11.9 and Seasonal allergic rhinitis due to pollen J30.1 [facility] [address] [address] 17 Sep, 2016 Other viral agents as the ca use of diseases classified elsewhere B97.89 and Acute upper respiratory infection, unspecified J06.9 [place] [address] [address] 08 Jun, 2016 [place] [address] [address] Jun, Essential hypertension I10 ; Type 2 diabetes mellitus without complication E11.9 and Mixed hyperlipidemia E78.[address] [address] 14 May, 2016 [facility] [address] [address] Mar, Fluid level behind tympanic membrane of both ears H65.93 and Cough R05 [facility] [address] [address] 12 Mar, 2016 Bronchitis J40 and Allergic rhinitis, unspecified allergic rhinitis trigger, unspecified rhinitis seasonality J30.9 [place] [address] [address] 15 Jan, 2016 Essential hypertension I10 ; Type 2 diabetes mellitus without complication E11.9 and Mixed hyperlipidemia E78.[address] [address] Aug, [facility] [address] [facility] [id number] [address] [place] [id number] Jul, Dental examination Z01.20 [facility] [id number] [place] [id number] Jul, Encounter for dental examina tion Z01.20 [facility] [place] [address] [place] [id number] [place] [address] 08 Jul, 2015 Essential hypertension I10 ; Mixed hyperlipidemia E78.2 and Type 2 diabetes mellitus without complication E11.9 [facility] [address] [facility] [id number] [address] [place] [address] Jun, Sinusitis J32.9 and Cough R0 5 [facility] [place] [address] [facility] [id number] [address] [place] [address] Mar, Physical examination of empl oyee V70.5 ; Tuberculosis screening V74.1 and Screening for substance abuse V82.9 [facility] [place] [address] [facility] [id number] [place] [address] Mar, Diabetes mellitus without me ntion of complication, type II or unspecified type, not stated as uncontrolled 250.00 ; Hypertension 401.9 and Hyperlipidemia 272.4 [facility] [place] [address] [facility] [id number] [address] [place] [address] Feb, [facility] [place] [address] [place] [id number] [place] [address] Jan, [facility] [id number] [place] [id number] December, Dental examination V72.2 [facility] [place] [address] [address] Nov, [facility] [place] [address] [place] [id number] [place] [phone] Nov, [facility] [place] [address] [place] [id number] [address] [place] [phone] Aug, [facility] [place] [address] [place] [id number] [address] [place] [phone] Aug, [facility] [place] [address] [address] Jun, [facility] [place] [address] [place] [id number] [address] [place] [phone] Jun, [facility] [place] [address] [place] [id number] [address] [place] [phone] May, [facility] [address] [id number] [address] [place] [address], [place] [address] May, [facility] [address] [id number] [address] [place] [address], [place] [address] May, [facility] [address] [id number] [address] [place] [address], [place] [address] May, [facility] [address] [id number] [address] [place] [address], [place] [address] Mar, [facility] [address] [id number] [address] [place] [address], [place] [address] Mar, [facility] [address] [id number] [address] [place] [address], [place] [address] Jan, [facility] [address] [id number] [address] [place] [address], [place] [address] Jan, [facility] [address] [id number] [address] [place] [address], [place] [address] December, [facility] [address] [id number] [address] [place] [address], [place] [address] December, [facility] [address] [id number] [address] [place] [address], [place] [address] Oct, [facility] [address] [id number] [address] [place] [address], [place] [address] Oct, [facility] [address] [id number] [address] [place] [address], [place] [address] Oct, [facility] [address] [id number] [address] [place] [address], [place] [address] 17 Oct, 2013 [facility] [address] [id number] [address] [place] [address], [place] [address] Oct, [facility] [address] [id number] [address] [place] [address], [place] [address] Oct, [facility] [address] [id number] [address] [place] [address], [place] [address] Oct, [facility] [address] [id number] [address] [place] [address], [place] [address] Oct, [facility] [address] [id number] [address] [place] [address], [place] [address] Aug, [facility] [address] [id number] [address] [place] [address], [place] [address] Aug, [facility] [address] [id number] [address] [place] [address], [place] [address] Jun, [facility] [address] [id number] [address] [place] [address], [place] [address] Jun, [facility] [address] [id number] [address] [place] [address], [place] [address] Mar, [facility] [address] [id number] [address] [place] [address], [place] [address] Mar, [facility] [address] [id number] [address] [place] [address], [place] [address] Feb, [facility] [address] [id number] [address] [place] [address], [place] [address] Nov, [facility] [address] [id number] [address] [place] [address], [place] [address] Nov, [facility] [address] [id number] [address] [place] [address], [place] [address] Nov, [facility] [address] [id number] [address] [place] [address], [place] [address] Oct, [facility] [address] [id number] [address] [place] [address], [place] [address] Oct, [facility] [address] [id number] [address] [place] [address], [place] [address] Sep, [facility] [address] [id number] [address] [place] [address], [place] [address] Feb, [facility] [address] [id number] [address] [place] [address] Feb, [facility] [place] [address] [id number] [address] [place] [address] Feb, [facility] [place] [address] [id number] [address] [place] [address] Jan, [facility] [place] [address] [id number] [address] [place] [address] Nov, [facility] [place] [address] [id number] [address] [place] [address] Sep, [facility] [place] [address] [id number] [address] [place] [address] Jul, [facility] [place] [address] [id number] [address] [place] [address] Jul, [facility] [place] [address] [id number] [address] [place] [address] Aug, [facility] [place] [address] [id number] [address] [place] [phone] Jul, [facility] [place] [address] [id number] [address] [place] [address] December, IMMUNIZATIONS No Known Immunizations SOCIAL HISTORY Never Assessed REASON FOR VISIT blisters on both lower extremities, sunburn while on vacation, states she did no t use sunscreen on legs, went to walk in last night and was given silvadene and told to keep todays follow up-[facility] PLAN OF CARE Activity Details Follow Up if not improving with PCP or reg follow up Reason: VITAL SIGNS Height 63 in 2017-12-07 Weight 296.6 lbs 2017-12-07 Temperature 97.2 degrees Fahrenheit 2017-12-07 Heart Rate 84 bpm 2017-12-07 Respiratory Rate 20 2017-12-07 BMI 52.53 kg/m2 2017-12-07 Blood pressure systolic 124 mmHg 2017-12-07 Blood pressure diastolic 78 mmHg 2017-12-07 MEDICATIONS Medication Instructions Dosage Frequency Start Date End Date Duration S tatus Actos 30 MG TAKE ONE TABLET BY MOUTH ONCE DAILY Active Chantix 1 MG Orally Twice a day start 1/2 tablet po daily for 3 days then 1/2 tablet bid for 3 daysa nd then 1 bid 12h Oct, December, 28 d ays Active Levemir 100 UNIT/ML Subcutaneous Once a day Inject 10 units 24h Active GlyBURIDE 5 MG TAKE ONE TABLET BY MOUTH ONCE DAILY 30 Active Keflex 500 mg Orally 3 times a day 1 capsule 8h Nov, Nov, 05 days Active Toprol XL 25 MG Orally Once a day 1 tablet 24h 30 da y(s) Active One Touch/One Touch II Starter Active Test strips Test Strips subcutaneously Once a day Use one to uch verio test strips 24h Sep, Active Lisinopril-Hydrochlorothiazide 20-25 MG Orally Once a day 1 tablet 24 h 30 day(s) Active Silvadene 1 % Externally Once a day 1 application to affected area 24h 7 days Active MetFORMIN HCl ER 500 MG TAKE ONE TABLET BY MOUTH IN THE MORNING AND TWO TABLETS IN THE EVENING. 30 Acti ve RESULTS No Results PROCEDURES No Known procedures [...]
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
[2020-01-25] MEDS ORDERED: HEParin (CATH LAB) 2,000 ML IV ONE (08:51)
--- OUTSIDE RECORDS SUMMARY | 2020-01-25 08:51 | XMS REPORT ---
Author Author Ree BLACKMAN Organization [facility] Address [address] [place] [address] Care Team Providers Care Cement Loader Name Role Phone MARKJuana DANG Unavailable PROBLEMS Type Condition ICD9-CM Code YDL71-EZ Code Onset Dates Condition S tatus SNOMED Code Problem EVANGELINA (obstructive sleep apnea) G47.33 Active 59284074 Problem Smoking F17.200 Active 88130996 Problem USP 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.4 Active 302837677 Problem Mixed hyperlipidemia E78.2 Active 297692324 Problem Essential hypertension I10 Active 02556956 Problem Type 2 diabetes mellitus with hyperglycemia E11.65 Active 59283779 Problem Seasonal allergic rhinitis due to pollen J30.1 Active 73045137 ALLERGIES No Known Allergies ENCOUNTERS Encounter Location Date Diagnosis [facility] [address] [id number] [address] [place] [address] Feb, [facility] [address] [id number] [address] [place] [address] Nov, Sunburn of second degree L55 .1 and BMI 50.0-59.9, adult Z68.43 [facility] [id number] [address] [place] [address] Nov, Sunburn of second degree L55 .1 and BMI 50.0-59.9, adult Z68.43 [facility] [address] [facility] [id number] [address] [place] [address] Nov, 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 [address] [address] 15 Sep, 2017 Type 2 diabetes mellitus wit h hyperglycemia E11.65 [place] [address] [address] 07 Sep, 2017 History of pneumonia Z87.01 ; Hypoxia R09.02 and BMI 50.0-59.9, adult Z68.43 [place] [address] [address] 31 Aug, 2017 History of pneumonia Z87.01 ; Hypoxia R09.02 ; Daytime hypersomnia G47.19 ; BMI 50.0-59.9, adult Z68.43 ; Type 2 diabetes mellitus with hyperglycemia E11.65 ; USP 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.4 and Nose irritation J34.89 [place] [address] [address] Aug, Right otitis media with effu cande H65.91 [place] [address] [address] 24 Aug, 2017 History of pneumonia Z87.01 ; Nose irritation J34.89 ; Right otitis media with effusion H65.91 ; Hypoxia R09.02 ; Type 2 diabetes mellitus without complication, without long-term current use of insulin E11.9 and BMI 50.0-59.9, adult Z68.43 [facility] [address] [address] Aug, Cough R05 ; Bronchitis J40 a nd BMI 50.0-59.9, adult Z68.43 [place] [address] [address] Jul, Impingement syndrome, should er, left M75.42 and Bankart lesion of left shoulder, subsequent encounter S43.492D [facility] [address] [id number] [address] [place] [address] Jul, Conjunctivitis, bacterial H1 0.9 [place] [address] [id number] [place] [address] Jul, [facility] [address] [address] Jul, Acute non-recurrent maxillar y sinusitis J01.00 and BMI 45.0-49.9, adult Z68.42 [place] [address] [address] Jun, [place] [address] [address] May, Impingement syndrome, should er, left M75.42 and Degenerative tear of glenoid labrum of left shoulder M24.112 [place] [address] [address] Apr, Type 2 diabetes mellitus wit hout complication, without long-term current use of insulin E11.9 ; Essential hypertension I10 ; Mixed hyperlipidemia E78.2 ; Seasonal allergic rhinitis due to pollen J30.1 ; Pain in left shoulder M25.512 and Overweight E66.3 [place] [address] [address] Mar, Essential hypertension I10 a nd Mixed hyperlipidemia E78.2 [place] [address] [address] Feb, General medical examination Z00.00 and Screening for tuberculosis Z11.1 [place] [address] [address] Nov, Type 2 diabetes mellitus wit hout complication, without long-term current use of insulin E11.9 [place] [address] [address] Oct, Essential hypertension I10 ; Mixed hyperlipidemia E78.2 ; Type 2 diabetes mellitus without complication, without long-term current use of insulin E11.9 and Seasonal allergic rhinitis due to pollen J30.1 [facility] [address] [address] 17 Sep, 2016 Other viral agents as the ca use of diseases classified elsewhere B97.89 and Acute upper respiratory infection, unspecified J06.9 [place] [address] [address] 08 Jun, 2016 [place] [address] [address] Jun, Essential hypertension I10 ; Type 2 diabetes mellitus without complication E11.9 and Mixed hyperlipidemia E78.2 [place] [address] [address] 14 May, 2016 [facility] [address] [address] Mar, Fluid level behind tympanic membrane of both ears H65.93 and Cough R05 [facility] [address] [address] Mar, Bronchitis J40 and Allergic rhinitis, unspecified allergic rhinitis trigger, unspecified rhinitis seasonality J30.9 [place] [address] [address] 15 Jan, 2016 Essential hypertension I10 ; Type 2 diabetes mellitus without complication E11.9 and Mixed hyperlipidemia E78.2 [facility] [address] [id number] [address] [place] [address] Aug, [facility] [address] [id number] Jul, Dental examination Z01.20 [facility] [address] [place] [id number] [place] [id number] Jul, Encounter for dental examina tion Z01.20 [place] [address] [place] [address] Jul, Essential hypertension I10 ; Mixed hyperlipidemia E78.2 and Type 2 diabetes mellitus without complication E11.9 [facility] [id number] [place] [address] Jun, Sinusitis J32.9 [address]0 [address] [facility] [address] [address] Mar, Physical examination of empl oyee V70.5 ; Tuberculosis screening V74.1 and Screening for substance abuse V82.9 [facility] [address] [address] Mar, Diabetes mellitus without me ntion of complication, type II or unspecified type, not stated as uncontrolled 250.00 ; Hypertension 401.[address] [facility] [address] [address] Feb, [facility] [address] [address] Jan, [facility] [id number] [place] [id number] December, Dental examination V72.2 [facility] [address] [address] 14 Nov, 2014 [facility] [address] [address] Nov, [facility] [address] [address] Aug, [facility] [address] [address] Aug, [facility] [address] [address] Jun, [facility] [address] [address] Jun, [facility] [address] [id number] [address] [place] [address], [place] [address] May, [facility] [address] [id number] [address] [place] [address], [place] [address] May, [facility] [address] [id number] [address] [place] [address], [place] [address] May, [facility] [address] [id number] [address] [place] [address], [place] [address] May, [facility] [address] [id number] [address] [place] [address], [place] [address] Mar, [facility] [address] [id number] [address] [place] [address], [place] [address] Mar, [facility] [address] [id number] [address] [place] [address], [place] [address] Jan, [facility] [address] [id number] [address] [place] [address], [place] [address] Jan, [facility] [address] [id number] [address] [place] [address], [place] [address] December, [facility] [address] [id number] [address] [place] [address], [place] [address] December, [facility] [address] [id number] [address] [place] [address], [place] [address] Oct, [facility] [address] [id number] [address] [place] [address], [place] [address] Oct, [facility] [address] [id number] [address] [place] [address], [place] [address] Oct, [facility] [address] [id number] [address] [place] [address], [place] [address] Oct, [facility] [address] [id number] [address] [place] [address], [place] [address] Oct, [facility] [address] [id number] [address] [place] [address], [place] [address] 13 Oct, 2013 [facility] [address] [id number] [address] [place] [address], [place] [address] Oct, [facility] [address] [id number] [address] [place] [address], [place] [address] Oct, [facility] [address] [id number] [address] [place] [address], [place] [address] Aug, [facility] [address] [id number] [address] [place] [address], [place] [address] Aug, [facility] [address] [id number] [address] [place] [address], [place] [address] Jun, [facility] [address] [id number] [address] [place] [address], [place] [address] Jun, [facility] [address] [id number] [address] [place] [address], [place] [address] Mar, [facility] [address] [id number] [address] [place] [address], [place] [address] Mar, [facility] [address] [id number] [address] [place] [address], [place] [address] Feb, [facility] [address] [id number] [address] [place] [address], [place] [address] Nov, [facility] [address] [id number] [address] [place] [address], [place] [address] Nov, [facility] [address] [id number] [address] [place] [address], [place] [address] Nov, [facility] [address] [id number] [address] [place] [address], [place] [address] Oct, [facility] [address] [id number] [address] [place] [address], [place] [address] Oct, [facility] [address] [id number] [address] [place] [address], [place] [address] Sep, [facility] [address] [id number] [address] [place] [phone] Feb, [facility] [address] [id number] [address] [place] [phone] Feb, [facility] [address] [id number] [address] [place] [phone] Feb, [facility] [address] [id number] [address] [place] [phone] Jan, [facility] [address] [id number] [address] [place] [phone] Nov, [facility] [address] [id number] [address] [place] [id number] Sep, [facility] [address] [id number] [address] [place] [id number] Jul, [facility] [address] [id number] [address] [place] [address] Jul, [facility] [address] [id number] [address] [place] [phone] Aug, [facility] [address] [id number] [address] [place] [id number] Jul, [facility] [address] [id number] [address] [place] [id number] December, IMMUNIZATIONS No Known Immunizations SOCIAL HISTORY Never Assessed REASON FOR VISIT Oxygen f/u-AshleyrrMaryN PLAN OF CARE Activity Details Follow Up 4 -6 weeks Reason:DM VITAL SIGNS Height 63 in 2017-09-21 Weight 298.5 lbs 2017-09-21 Temperature 98.3 degrees Fahrenheit 2017-09-21 Heart Rate 98 bpm 2017-09-21 Respiratory Rate 20 2017-09-21 Oximetry ambulating w/o oxygen:94 % 2017-09-21 BMI 52.87 kg/m2 2017-09-21 Blood pressure systolic 108 mmHg 2017-09-21 Blood pressure diastolic 68 mmHg 2017-09-21 MEDICATIONS Medication Instructions Dosage Frequency Start Date End Date Duration S tatus GlyBURIDE 5 MG TAKE ONE TABLET BY MOUTH ONCE DAILY Active Actos 30 MG TAKE ONE TABLET BY MOUTH ONCE DAILY Active MetFORMIN HCl ER 500 mg Orally 2 times a day 1 tablet am 2 pm 12h Active Levemir 100 UNIT/ML Subcutaneous Once a day while taking pre dnisone Inject 10 units Active Lisinopril-Hydrochlorothiazide 20-25 MG Orally Once a day 1 tablet 24 h 30 day(s) Active Toprol XL 25 MG Orally Once a day 1 tablet 24h 30 da y(s) Active DuoNeb 0.5-2.5 (3) MG/3ML Inhalation every 6 hrs 3 ml 6h Active RESULTS No Results PROCEDURES Procedure Date Ordered Result Body Site MEASURE BLOOD OXYGEN LEVEL Sep 21, 2017 INSTRUCTIONS MEDICATIONS ADMINISTERED No Known Medications [...] shoulder Surgical History hymenectomy 1991- Hospitalization History [facility]-Pneumonia 08/2017
--- OUTSIDE RECORDS SUMMARY | 2020-01-25 08:51 | XMS REPORT ---
Author Author Ree BLACKMAN Organization [facility] Address [address] [place] [address] Care Team Providers Care Reconciliation Coordinator Name Role Phone YEHUDA DANG Unavailable PROBLEMS Type Condition ICD9-CM Code ZJI90-UT Code Onset Dates Condition S tatus SNOMED Code Problem EVANGELINA (obstructive sleep apnea) G47.33 Active 82431038 Problem Smoking F17.200 Active 23990870 Problem senior care 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.4 Active 285151339 Problem Mixed hyperlipidemia E78.2 Active 633583932 Problem Essential hypertension I10 Active 10773767 Problem Type 2 diabetes mellitus with hyperglycemia E11.65 Active 75937276 Problem Seasonal allergic rhinitis due to pollen J30.1 Active 60114956 ALLERGIES No Information ENCOUNTERS Encounter Location Date Diagnosis [facility] [address] [address] Nov, Sunburn of second degree L55 .1 and BMI 50.0-59.9, adult Z68.43 [facility] [address] [address] Nov, Sunburn of second degree L55 .1 and BMI 50.0-59.9, adult Z68.43 [facility] [address] [address] Nov, [facility] [address] [address] Oct, Smoking F17.200 ; Type 2 nellie betes mellitus with hyperglycemia E11.65 ; 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 ; Motion sickness, initial encounter T75.3XXA ; Encounter for immunization Z23 and BMI 50.0-59.9, adult Z68.43 [facility] [address] [address] 26 Sep, 2017 [place] [address] [address] 15 Sep, 2017 Type 2 diabetes mellitus wit h hyperglycemia E11.65 [place] [address] [address] 07 Sep, 2017 History of pneumonia Z87.01 ; Hypoxia R09.02 and BMI 50.0-59.9, adult Z68.43 [place] [address] [address] Aug, History of pneumonia Z87.01 ; Hypoxia R09.02 ; Daytime hypersomnia G47.19 ; BMI 50.0-59.9, adult Z68.43 ; Type 2 diabetes mellitus with hyperglycemia E11.65 ; 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 and Nose irritation J34.89 [place] [address] [address] Aug, Right otitis media with effu cande H65.91 [place] [address] [address] Aug, History of pneumonia Z87.01 ; Nose irritation J34.89 ; Right otitis media with effusion H65.91 ; Hypoxia R09.02 ; Type 2 diabetes mellitus without complication, without long-term current use of insulin E11.9 and BMI 50.0-59.9, adult Z68.43 [facility] [address] [address] Aug, Cough R05 ; Bronchitis J40 a nd BMI 50.0-59.9, adult Z68.43 [place] [address] [address] Jul, Impingement syndrome, should er, left M75.42 and Bankart lesion of left shoulder, subsequent encounter S43.492D [facility] [address] [address] Jul, Conjunctivitis, bacterial H1 0.9 [facility] [address] [address] Jul, [facility] [address] [address] Jul, Acute non-recurrent maxillar y sinusitis J01.00 and BMI 45.0-49.9, adult Z68.42 [place] [address] [address] Jun, [place] [address] [address] May, Impingement syndrome, should er, left M75.42 and Degenerative tear of glenoid labrum of left shoulder M24.[address] [address] Apr, Type 2 diabetes mellitus wit hout complication, without long-term current use of insulin E11.9 ; Essential hypertension I10 ; Mixed hyperlipidemia E78.2 ; Seasonal allergic rhinitis due to pollen J30.1 ; Pain in left shoulder M25.512 and Overweight E66.3 [place] [address] [address] Mar, Essential hypertension I10 a nd Mixed hyperlipidemia E78.2 [place] [address] [address] Feb, General medical examination Z00.00 and Screening for tuberculosis Z11.1 [place] [address] [address] Nov, Type 2 diabetes mellitus wit hout complication, without long-term current use of insulin E11.9 [place] [address] [address] Oct, Essential hypertension I10 ; Mixed hyperlipidemia E78.2 ; Type 2 diabetes mellitus without complication, without long-term current use of insulin E11.9 and Seasonal allergic rhinitis due to pollen J30.1 [facility] [address] [address] 17 Sep, 2016 Other viral agents as the ca use of diseases classified elsewhere B97.89 and Acute upper respiratory infection, unspecified J06.9 [place] [address] [address] 08 Jun, 2016 [place] [address] [address] Jun, Essential hypertension I10 ; Type 2 diabetes mellitus without complication E11.9 and Mixed hyperlipidemia E78.[address] [address] 14 May, 2016 [facility] [address] [address] Mar, Fluid level behind tympanic membrane of both ears H65.93 and Cough R05 [facility] [address] [address] 12 Mar, 2016 Bronchitis J40 and Allergic rhinitis, unspecified allergic rhinitis trigger, unspecified rhinitis seasonality J30.9 [place] [address] [address] 15 Jan, 2016 Essential hypertension I10 ; Type 2 diabetes mellitus without complication E11.9 and Mixed hyperlipidemia E78.[address] [address] Aug, [facility] [address] [place] [id number] [place] [id number] Jul, Dental examination Z01.20 [facility] [address] [place] [id number] [place] [id number] Jul, Encounter for dental examina tion Z01.20 [facility] [address] [address] 08 Jul, 2015 Essential hypertension I10 ; Mixed hyperlipidemia E78.2 and Type 2 diabetes mellitus without complication E11.9 [facility] [address] [facility] [id number] [address] [place] [phone] Jun, Sinusitis J32.9 and Cough R0 5 [facility] [address] [facility] [id number] [address] [place] [id number] Mar, Physical examination of empl oyee V70.5 ; Tuberculosis screening V74.1 and Screening for substance abuse V82.9 [facility] [address] [facility] [id number] [place] [address] Mar, Diabetes mellitus without me ntion of complication, type II or unspecified type, not stated as uncontrolled 250.00 ; Hypertension 401.9 and Hyperlipidemia 272.4 [facility] [address] [facility] [facility] [id number] [address] [place] [id number] Feb, [facility] [address] [place] [id number] [place] [phone] Jan, [facility] [address] [place] [id number] [place] [id number] December, Dental examination V72.2 [facility] [address] [address] Nov, [facility] [address] [place] [id number] [place] [phone] Nov, [facility] [address] [place] [id number] [place] [phone] Aug, [facility] [address] [place] [id number] [place] [phone] Aug, [facility] [address] [place] [id number] [place] [phone] Jun, [facility] [address] [place] [id number] [place] [phone] Jun, [facility] [address] [place] [id number] [place] [phone] May, [facility] [address] [id number] [address] [place] [address], [place] [address] May, [facility] [address] [id number] [address] [place] [address], [place] [address] May, [facility] [address] [id number] [address] [place] [address], [place] [address] May, [facility] [address] [id number] [address] [place] [address], [place] [address] Mar, [facility] [address] [id number] [address] [place] [address], [place] [address] Mar, [facility] [address] [id number] [address] [place] [address], [place] [address] Jan, [facility] [address] [id number] [address] [place] [address], [place] [address] Jan, [facility] [address] [id number] [address] [place] [address], [place] [address] December, [facility] [address] [id number] [address] [place] [address], [place] [address] December, [facility] [address] [id number] [address] [place] [address], [place] [address] Oct, [facility] [address] [id number] [address] [place] [address], [place] [address] Oct, [facility] [address] [id number] [address] [place] [address], [place] [address] 17 Oct, 2013 [facility] [address] [id number] [address] [place] [address], [place] [address] 17 Oct, 2013 [facility] [address] [id number] [address] [place] [address], [place] [address] Oct, [facility] [address] [id number] [address] [place] [address], [place] [address] Oct, [facility] [address] [id number] [address] [place] [address], [place] [address] Oct, [facility] [address] [id number] [address] [place] [address], [place] [address] Oct, [facility] [address] [id number] [address] [place] [address], [place] [address] Aug, [facility] [address] [id number] [address] [place] [address], [place] [address] Aug, [facility] [address] [id number] [address] [place] [address], [place] [address] Jun, [facility] [address] [id number] [address] [place] [address], [place] [address] Jun, [facility] [address] [id number] [address] [place] [address], [place] [address] Mar, [facility] [address] [id number] [address] [place] [address], [place] [address] Mar, [facility] [address] [id number] [address] [place] [address], [place] [address] Feb, [facility] [address] [id number] [address] [place] [address], [place] [address] Nov, [facility] [address] [id number] [address] [place] [address], [place] [address] Nov, [facility] [address] [id number] [address] [place] [address], [place] [address] Nov, [facility] [address] [id number] [address] [place] [address], [place] [address] Oct, [facility] [address] [id number] [address] [place] [address], [place] [address] Oct, [facility] [address] [id number] [address] [place] [address], [place] [address] Sep, [facility] [address] [id number] [address] [place] [address], [place] [address] Feb, [facility] [address] [id number] [address] [place] [phone] Feb, [facility] [address] [id number] [address] [place] [phone] Feb, [facility] [address] [id number] [address] [place] [phone] Jan, [facility] [address] [id number] [address] [place] [phone] Nov, [facility] [address] [id number] [address] [place] [phone] Sep, [facility] [address] [id number] [address] [place] [phone] Jul, [facility] [address] [id number] [address] [place] [phone] Jul, [facility] [address] [id number] [address] [place] [phone] Aug, [facility] [address] [id number] [address] [place] [phone] Jul, [facility] [address] [id number] [address] [place] [phone] December, IMMUNIZATIONS No Known Immunizations SOCIAL HISTORY Never Assessed REASON FOR VISIT Medication Question PLAN OF CARE VITAL SIGNS MEDICATIONS Medication Instructions Dosage Frequency Start Date End Date Duration S tatus Levemir 100 UNIT/ML Subcutaneous Once a day Inject 10 units 24h Active Test strips Test Strips subcutaneously Once a day Use one to uch verio test strips 24h Sep, Active Toprol XL 25 MG Orally Once a day 1 tablet 24h 30 da y(s) Active DuoNeb 0.5-2.5 (3) MG/3ML Inhalation every 6 hrs 3 ml 6h Active Lisinopril-Hydrochlorothiazide 20-25 MG Orally Once a day 1 tablet 24 h 30 day(s) Active GlyBURIDE 5 MG TAKE ONE TABLET BY MOUTH ONCE DAILY Active MetFORMIN HCl ER 500 mg Orally 2 times a day 1 tablet am 2 pm 12h Active Actos 30 MG TAKE ONE TABLET BY MOUTH ONCE DAILY Active One Touch/One Touch II Starter Active RESULTS No Results PROCEDURES No Known [...]
--- OUTSIDE RECORDS SUMMARY | 2020-01-25 08:51 | XMS REPORT ---
Author Author Ree BARRERA [facility] Address [address] [place] [address] Care Team Providers Care Flake Miller Helper Name Role Phone HOLLYRUPERTORAMIREZ Unavailable PROBLEMS Type Condition ICD9-CM Code SYM17-HQ Code Onset Dates Condition S tatus SNOMED Code Problem EVANGELINA (obstructive sleep apnea) G47.33 Active 69091384 Problem Smoking F17.200 Active 58007207 Problem correction 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.4 Active 982640431 Problem Mixed hyperlipidemia E78.2 Active 243041521 Problem Essential hypertension I10 Active 82949451 Problem Type 2 diabetes mellitus with hyperglycemia E11.65 Active 41388912 Problem Seasonal allergic rhinitis due to pollen J30.1 Active 33421865 ALLERGIES No Known Allergies ENCOUNTERS Encounter Location Date Diagnosis [facility] [id number] [place] [address] Jan, [facility] [address] [place] [id number] [address] [place] [address] Nov, Sunburn of second degree L55 .1 and BMI 50.0-59.9, adult Z68.43 [facility] [address] [place] [id number] [address] [place] [address] Nov, Sunburn of second degree L55 .1 and BMI 50.0-59.9, adult Z68.43 [facility] [address] [place] [id number] [address] [place] [address] Nov, [facility] [address] [place] [id number] [place] [address] Oct, Smoking F17.200 ; Type 2 nellie betes mellitus with hyperglycemia E11.65 ; emt intermediate 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.4 ; Motion sickness, initial encounter T75.3XXA ; Encounter for immunization Z23 and BMI 50.0-59.9, adult Z68.43 [place] [address] [address] 26 Sep, 2017 [facility] [address] [address] 15 Sep, 2017 Type 2 diabetes mellitus wit h hyperglycemia E11.65 [place] [address] [address] 07 Sep, 2017 History of pneumonia Z87.01 ; Hypoxia R09.02 and BMI 50.0-59.9, adult Z68.43 [place] [address] [address] 31 Aug, 2017 History of pneumonia Z87.01 ; Hypoxia R09.02 ; Daytime hypersomnia G47.19 ; BMI 50.0-59.9, adult Z68.43 ; Type 2 diabetes mellitus with hyperglycemia E11.65 ; emt intermediate 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.4 and Nose irritation J34.89 [place] [address] [address] Aug, Right otitis media with effu cande H65.91 [place] [address] [address] 24 Aug, 2017 History of pneumonia Z87.01 ; Nose irritation J34.89 ; Right otitis media with effusion H65.91 ; Hypoxia R09.02 ; Type 2 diabetes mellitus without complication, without long-term current use of insulin E11.9 and BMI 50.0-59.9, adult Z68.43 [facility] [address] [address] 12 Aug, 2017 Cough R05 ; Bronchitis J40 a nd BMI 50.0-59.9, adult Z68.43 [place] [address] [address] Jul, Impingement syndrome, should er, left M75.42 and Bankart lesion of left shoulder, subsequent encounter S43.492D [facility] [address] [place] [id number] [place] [address] Jul, Conjunctivitis, bacterial H1 0.9 [place] [address] [address] Jul, [facility] [address] [address] Jul, Acute non-recurrent maxillar y sinusitis J01.00 and BMI 45.0-49.9, adult Z68.42 [place] [address] [address] Jun, [place] [address] [address] May, Impingement syndrome, should er, left M75.42 and Degenerative tear of glenoid labrum of left shoulder M24.112 [place] [address] [address] Apr, Type 2 diabetes mellitus wit hout complication, without long-term current use of insulin E11.9 ; Essential hypertension I10 ; Mixed hyperlipidemia E78.2 ; Seasonal allergic rhinitis due to pollen J30.1 ; Pain in left shoulder M25.512 and Overweight E66.[address] [address] Mar, Essential hypertension I10 a nd Mixed hyperlipidemia E78.2 [place] [address] [address] Feb, Screening for tuberculosis Z 11.1 and General medical examination Z00.[address] [address] Nov, Type 2 diabetes mellitus wit hout complication, without long-term current use of insulin E11.9 [place] [address] [address] Oct, Essential hypertension I10 ; Mixed hyperlipidemia E78.2 ; Type 2 diabetes mellitus without complication, without long-term current use of insulin E11.9 and Seasonal allergic rhinitis due to pollen J30.1 [facility] [address] [address] 17 Sep, 2016 Other viral agents as the ca use of diseases classified elsewhere B97.89 and Acute upper respiratory infection, unspecified J06.9 [place] [address] [address] 08 Jun, 2016 [place] [address] [address] 08 Jun, 2016 Essential hypertension I10 ; Type 2 diabetes mellitus without complication E11.9 and Mixed hyperlipidemia E78.2 [place] [address] [address] 14 May, 2016 [facility] [place] [address] [address] Mar, Fluid level behind tympanic membrane of both ears H65.93 and Cough R05 [facility] [address] [address] Mar, Bronchitis J40 and Allergic rhinitis, unspecified allergic rhinitis trigger, unspecified rhinitis seasonality J30.9 [place] [address] [address] 15 Jan, 2016 Essential hypertension I10 ; Type 2 diabetes mellitus without complication E11.9 and Mixed hyperlipidemia E78.2 [place] [address] [address] Aug, [facility] [address] [id number] Jul, Dental examination Z01.20 [facility] [address] [id number] 17 Jul, 2015 Encounter for dental examina tion Z01.20 [place] [address] [address] Jul, Essential hypertension I10 ; Mixed hyperlipidemia E78.2 and Type 2 diabetes mellitus without complication E11.9 [facility] [address] [place] [id number] [place] [address] Jun, Sinusitis J32.9 and Cough R0 5 [facility] [address] [place] [id number] [place] [address] Mar, Physical examination of empl oyee V70.5 ; Tuberculosis screening V74.1 and Screening for substance abuse V82.9 [facility] [address] [address] Mar, Diabetes mellitus without me ntion of complication, type II or unspecified type, not stated as uncontrolled 250.00 ; Hypertension 401.9 and Hyperlipidemia 272.4 [facility] [address] [place] [id number] [place] [address] Feb, [facility] [address] [address] Jan, [facility] [id number] [place] [id number] December, Dental examination V72.2 [facility] [address] [place] [id number] [place] [address] Nov, [facility] [address] [place] [id number] [place] [address] Nov, [facility] [address] [place] [id number] [place] [address] Aug, [facility] [address] [address] Aug, [facility] [address] [place] [id number] [place] [address] Jun, [facility] [address] [place] [id number] [place] [address] Jun, [facility] [address] [id number] [facility] [place] [address] May, [facility] [address] [id number] [address] [place] [address], [place] [address] May, [facility] [address] [id number] [address] [place] [address], [place] [address] May, [facility] [address] [id number] [address] [place] [address], [place] [address] May, [facility] [address] [id number] [address] [place] [address], [place] [address] Mar, [facility] [address] [id number] [address] [place] [address], [place] [address] Mar, [facility] [address] [id number] [address] [place] [address], [place] [address] Jan, [facility] [address] [id number] [address] [place] [address], [place] [address] Jan, [facility] [address] [id number] [address] [place] [address], [place] [address] December, [facility] [address] [id number] [address] [place] [address], [place] [address] December, [facility] [address] [id number] [address] [place] [address], [place] [address] Oct, [facility] [address] [id number] [address] [place] [address], [place] [address] 17 Oct, 2013 [facility] [address] [id number] [address] [place] [address], [place] [address] 17 Oct, 2013 [facility] [address] [id number] [address] [place] [address], [place] [address] 17 Oct, 2013 [facility] [address] [id number] [address] [place] [address], [place] [address] 13 Oct, 2013 [facility] [address] [id number] [address] [place] [address], [place] [address] Oct, [facility] [address] [id number] [address] [place] [address], [place] [address] Oct, [facility] [address] [id number] [address] [place] [address], [place] [address] Oct, [facility] [address] [id number] [address] [place] [address], [place] [address] Aug, [facility] [address] [id number] [address] [place] [address], [place] [address] Aug, [facility] [address] [id number] [address] [place] [address], [place] [address] Jun, [facility] [address] [id number] [address] [place] [address], [place] [address] Jun, [facility] [address] [id number] [address] [place] [address], [place] [address] Mar, [facility] [address] [id number] [address] [place] [address], [place] [address] Mar, [facility] [address] [id number] [address] [place] [address], [place] [address] Feb, [facility] [address] [id number] [address] [place] [address], [place] [address] Nov, [facility] [address] [id number] [address] [place] [address], [place] [address] Nov, [facility] [address] [id number] [address] [place] [address], [place] [address] Nov, [facility] [address] [id number] [address] [place] [address], [place] [address] Oct, [facility] [address] [id number] [address] [place] [address], [place] [address] Oct, [facility] [address] [id number] [address] [place] [address], [place] [address] Sep, [facility] [address] [id number] [address] [place] [address] Feb, [facility] [address] [id number] [address] [place] [address] Feb, [facility] [address] [id number] [address] [place] [address] Feb, [facility] [address] [id number] [address] [place] [address] Jan, [facility] [address] [id number] [address] [place] [address] Nov, [facility] [address] [id number] [address] [place] [address] Sep, [facility] [address] [id number] [address] [place] [address] Jul, [facility] [address] [id number] [address] [place] [address] Jul, [facility] [address] [id number] [address] [place] [address] Aug, [facility] [address] [id number] [address] [place] [address] Jul, [facility] [address] [id number] [address] [place] [address] December, IMMUNIZATIONS Vaccine Route Administration Date Status DEXAMETHASONE 4MG/ML (PER 1 MG) IM Intramuscular Jul 19, 2017 Administered DEPO MEDROL 40 MG/ML IM Intramuscular Jul 19, 2017 Administer ed SOCIAL HISTORY Never Assessed REASON FOR VISIT Congestion/ sinus pressure/ fatigue x 3 days LGorhamMA PLAN OF CARE Activity Details Follow Up prn Reason: VITAL SIGNS Height 63 in 2017-07-19 Weight 275 lbs 2017-07-19 Temperature 99.4 degrees Fahrenheit 2017-07-19 Heart Rate 92 bpm 2017-07-19 Respiratory Rate 22 2017-07-19 BMI 48.71 kg/m2 2017-07-19 Blood pressure systolic 110 mmHg 2017-07-19 Blood pressure diastolic 68 mmHg 2017-07-19 MEDICATIONS Medication Instructions Dosage Frequency Start Date End Date Duration S tatus Toprol XL 25 MG Orally Once a day 1 tablet 24h 30 da y(s) Active Lisinopril-Hydrochlorothiazide 20-25 MG Orally Once a day 1 tablet 24 h 30 day(s) Active Cetirizine HCl 10 mg Orally Once a day 1 tablet 24h 30 days Active Augmentin 875-125 MG Orally every 12 hrs 1 tablet 12h 05 Jul, 017 15 Jul, 2017 10 day(s) Active MetFORMIN HCl ER 500 mg Orally 2 times a day 1 tablet am 2 pm 12h 30 Active Actos 30 MG Orally Once a day take 1 tablet by oral route once daily 24h 30 Active GlyBURIDE 5 mg Orally Once a day 1 tablet 24h 30 day s Active RESULTS No Results PROCEDURES Procedure Date Ordered Result Body Site DEPO MEDROL 40 MG/ML Jul 19, 2017 THER/PROPH/DIAG INJ, SC/IM Jul 19, 2017 DEXAMETHASONE 4MG/ML (PER 1 MG) Jul 19, 2017 INSTRUCTIONS MEDICATIONS ADMINISTERED No Known Medications [...]
--- OUTSIDE RECORDS SUMMARY | 2020-01-25 08:51 | XMS REPORT ---
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 Name Role Phone YEHUDA DANG Unavailable PROBLEMS Type Condition ICD9-CM Code TVW52-TQ Code Onset Dates Condition S tatus SNOMED Code Problem EVANGELINA (obstructive sleep apnea) G47.33 Active 82981079 Problem Smoking F17.200 Active 95673114 Problem longterm 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.4 Active 757869774 Problem Mixed hyperlipidemia E78.2 Active 978553502 Problem Essential hypertension I10 Active 90961952 Problem Type 2 diabetes mellitus with hyperglycemia E11.65 Active 41336653 Problem Seasonal allergic rhinitis due to pollen J30.1 Active 32214014 ALLERGIES No Information ENCOUNTERS Encounter Location Date Diagnosis [facility] [address] [place] [address] Jan, [facility] [address] [place] [id number] [address] [place] [phone] Nov, Sunburn of second degree L55 .1 and BMI 50.0-59.9, adult Z68.43 [facility] [address] [place] [id number] [place] [id number] Nov, Sunburn of second degree L55 .1 and BMI 50.0-59.9, adult Z68.43 [facility] [address] [place] [id number] [place] [phone] Nov, [facility] [address] [place] [id number] [address] [place] [address] Oct, Smoking F17.200 ; Type 2 nellie betes mellitus with hyperglycemia E11.65 ; longterm 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.4 ; Motion sickness, initial encounter T75.3XXA ; Encounter for immunization Z23 and BMI 50.0-59.9, adult Z68.43 [place] [address] [address] 26 Sep, 2017 [facility] [address] [address] 15 Sep, 2017 Type 2 diabetes mellitus wit h hyperglycemia E11.65 [place] [address] [address] 07 Sep, 2017 History of pneumonia Z87.01 ; Hypoxia R09.02 and BMI 50.0-59.9, adult Z68.43 [place] [address] [address] 31 Aug, 2017 History of pneumonia Z87.01 ; Hypoxia R09.02 ; Daytime hypersomnia G47.19 ; BMI 50.0-59.9, adult Z68.43 ; Type 2 diabetes mellitus with hyperglycemia E11.65 ; longterm 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.4 and Nose irritation J34.89 [place] [address] [address] Aug, Right otitis media with effu cande H65.91 [place] [address] [address] 24 Aug, 2017 History of pneumonia Z87.01 ; Nose irritation J34.89 ; Right otitis media with effusion H65.91 ; Hypoxia R09.02 ; Type 2 diabetes mellitus without complication, without long-term current use of insulin E11.9 and BMI 50.0-59.9, adult Z68.43 [facility] [address] [address] Aug, Cough R05 ; Bronchitis J40 a nd BMI 50.0-59.9, adult Z68.43 [place] [address] [address] Jul, Impingement syndrome, should er, left M75.42 and Bankart lesion of left shoulder, subsequent encounter S43.492D [facility] [address] [place] [id number] [address] [place] [address] Jul, Conjunctivitis, bacterial H1 0.9 [place] [address] [place] [id number] [place] [address] Jul, [facility] [address] [address] Jul, Acute non-recurrent maxillar y sinusitis J01.00 and BMI 45.0-49.9, adult Z68.42 [place] [address] [address] Jun, [place] [address] [address] May, Impingement syndrome, should er, left M75.42 and Degenerative tear of glenoid labrum of left shoulder M24.112 [place] [address] [address] Apr, Type 2 diabetes mellitus wit hout complication, without long-term current use of insulin E11.9 ; Essential hypertension I10 ; Mixed hyperlipidemia E78.2 ; Seasonal allergic rhinitis due to pollen J30.1 ; Pain in left shoulder M25.512 and Overweight E66.3 [place] [address] [address] 17 Mar, 2017 Essential hypertension I10 a nd Mixed hyperlipidemia E78.2 [place] [address] [address] Feb, General medical examination Z00.00 and Screening for tuberculosis Z11.1 [place] [address] [address] Nov, Type 2 diabetes mellitus wit hout complication, without long-term current use of insulin E11.9 [place] [address] [address] 30 Mar, 2017 Essential hypertension I10 ; Mixed hyperlipidemia E78.2 ; Type 2 diabetes mellitus without complication, without long-term current use of insulin E11.9 and Seasonal allergic rhinitis due to pollen J30.1 [facility] [address] [address] 17 Sep, 2016 Other viral agents as the ca use of diseases classified elsewhere B97.89 and Acute upper respiratory infection, unspecified J06.9 [place] [address] [address] 08 Jun, 2016 [place] [address] [address] Jun, Essential hypertension I10 ; Type 2 diabetes mellitus without complication E11.9 and Mixed hyperlipidemia E78.2 [place] [address] [address] 14 May, 2016 [facility] [address] [address] Mar, Fluid level behind tympanic membrane of both ears H65.93 and Cough R05 [facility] [address] [address] Mar, Bronchitis J40 and Allergic rhinitis, unspecified allergic rhinitis trigger, unspecified rhinitis seasonality J30.9 [place] [address] [address] 15 Jan, 2016 Essential hypertension I10 ; Type 2 diabetes mellitus without complication E11.9 and Mixed hyperlipidemia E78.2 [facility] [address] [place] [id number] [place] [address] Aug, [facility] [address] [id number] Jul, Dental examination Z01.20 [facility] [address] [place] [id number] [place] [id number] 17 Jul, 2015 Encounter for dental examina tion Z01.20 [place] [address] [address] Jul, Essential hypertension I10 ; Mixed hyperlipidemia E78.2 and Type 2 diabetes mellitus without complication E11.9 [facility] [address] [place] [id number] [place] [address] Jun, Sinusitis J32.9 and Cough R0 5 [facility] [address] [address] Mar, Physical examination of empl oyee V70.5 ; Tuberculosis screening V74.1 and Screening for substance abuse V82.9 [facility] [address] [address] Mar, Diabetes mellitus without me ntion of complication, type II or unspecified type, not stated as uncontrolled 250.00 ; Hypertension 401.9 and Hyperlipidemia 272.4 [facility] [address] [address] Feb, [facility] [address] [address] Jan, [facility] [id number] [place] [id number] December, Dental examination V72.2 [facility] [address] [address] 14 Nov, 2014 [facility] [address] [address] Nov, [facility] [address] [place] [id number] [place] [address] Aug, [facility] [address] [address] Aug, [facility] [address] [place] [id number] [place] [address] Jun, [facility] [address] [address] Jun, [facility] [address] [id number] [address] [place] [address], [place] [address] May, [facility] [address] [id number] [address] [place] [address], [place] [address] May, [facility] [address] [id number] [address] [place] [address], [place] [address] May, [facility] [address] [id number] [address] [place] [address], [place] [address] May, [facility] [address] [id number] [address] [place] [address], [place] [address] Mar, [facility] [address] [id number] [address] [place] [address], [place] [address] Mar, [facility] [address] [id number] [address] [place] [address], [place] [address] Jan, [facility] [address] [id number] [address] [place] [address], [place] [address] Jan, [facility] [address] [id number] [address] [place] [address], [place] [address] December, [facility] [address] [id number] [address] [place] [address], [place] [address] December, [facility] [address] [id number] [address] [place] [address], [place] [address] Oct, [facility] [address] [id number] [address] [place] [address], [place] [address] 17 Oct, 2013 [facility] [address] [id number] [address] [place] [address], [place] [address] Oct, [facility] [address] [id number] [address] [place] [address], [place] [address] 17 Oct, 2013 [facility] [address] [id number] [address] [place] [address], [place] [address] 13 Oct, 2013 [facility] [address] [id number] [address] [place] [address], [place] [address] Oct, [facility] [address] [id number] [address] [place] [address], [place] [address] Oct, [facility] [address] [id number] [address] [place] [address], [place] [address] Oct, [facility] [address] [id number] [address] [place] [address], [place] [address] Aug, [facility] [address] [id number] [address] [place] [address], [place] [address] Aug, [facility] [address] [id number] [address] [place] [address], [place] [address] Jun, [facility] [address] [id number] [address] [place] [address], [place] [address] Jun, [facility] [address] [id number] [address] [place] [address], [place] [address] Mar, [facility] [address] [id number] [address] [place] [address], [place] [address] Mar, [facility] [address] [id number] [address] [place] [address], [place] [address] Feb, [facility] [address] [id number] [address] [place] [address], [place] [address] Nov, [facility] [address] [id number] [address] [place] [address], [place] [address] Nov, [facility] [address] [id number] [address] [place] [address], [place] [address] Nov, [facility] [address] [id number] [address] [place] [address], [place] [address] Oct, [facility] [address] [id number] [address] [place] [address], [place] [address] Oct, [facility] [address] [id number] [address] [place] [address], [place] [address] Sep, [facility] [address] [id number] [address] [place] [phone] Feb, [facility] [address] [id number] [address] [place] [id number] Feb, [facility] [address] [id number] [address] [place] [phone] Feb, [facility] [address] [id number] [address] [place] [id number] Jan, [facility] [address] [id number] [address] [place] [id number] Nov, [facility] [address] [id number] [address] [place] [phone] Sep, [facility] [address] [id number] [address] [place] [id number] Jul, [facility] [address] [id number] [address] [place] [id number] Jul, [facility] [address] [id number] [address] [place] [id number] Aug, [facility] [address] [id number] [address] [place] [phone] Jul, [facility] [address] [id number] [address] [place] [id number] December, IMMUNIZATIONS No Known Immunizations SOCIAL HISTORY Never Assessed REASON FOR VISIT Other PLAN OF CARE VITAL SIGNS MEDICATIONS Unknown [...]
--- OUTSIDE RECORDS SUMMARY | 2020-01-25 08:51 | XMS REPORT ---
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 085704096 Problem Mixed hyperlipidemia E78.2 Active 507384753 Problem Essential hypertension I10 Active 33726621 Problem Type 2 diabetes mellitus with hyperglycemia E11.65 Active 59413724 Problem Seasonal allergic rhinitis due to pollen J30.1 Active 64127261 ALLERGIES No Information ENCOUNTERS Encounter Location Date Diagnosis [facility] [id number] [place] [address] Jan, [facility] [address] [address] Nov, Sunburn of second degree L55 .1 and BMI 50.0-59.9, adult Z68.43 [facility] [id number] [address] [place] [id number] Nov, Sunburn of second degree L55 .1 and BMI 50.0-59.9, adult Z68.43 [facility] [id number] [address] [place] [address] Nov, [facility] [address] [address] Oct, Smoking F17.200 ; Type 2 nellie betes mellitus with hyperglycemia E11.65 ; 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 ; Motion sickness, initial encounter T75.3XXA ; Encounter for immunization Z23 and BMI 50.0-59.9, adult Z68.43 [place] [address] [address] 26 Sep, 2017 [facility] [address] [address] 15 Sep, 2017 Type 2 diabetes mellitus wit h hyperglycemia E11.65 [place] [address] [address] 07 Sep, 2017 History of pneumonia Z87.01 ; Hypoxia R09.02 and BMI 50.0-59.9, adult Z68.43 [place] [address] [address] 31 Aug, 2017 History of pneumonia Z87.01 ; Hypoxia R09.02 ; Daytime hypersomnia G47.19 ; BMI 50.0-59.9, adult Z68.43 ; Type 2 diabetes mellitus with hyperglycemia E11.65 ; shelter 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.4 and Nose irritation J34.89 [place] [address] [address] Aug, Right otitis media with effu cande H65.91 [place] [address] [address] 24 Aug, 2017 History of pneumonia Z87.01 ; Nose irritation J34.89 ; Right otitis media with effusion H65.91 ; Hypoxia R09.02 ; Type 2 diabetes mellitus without complication, without long-term current use of insulin E11.9 and BMI 50.0-59.9, adult Z68.43 [facility] [address] [address] Aug, Cough R05 ; Bronchitis J40 a nd BMI 50.0-59.9, adult Z68.43 [place] [address] [address] Jul, Impingement syndrome, should er, left M75.42 and Bankart lesion of left shoulder, subsequent encounter S43.492D [facility] [address] [address] Jul, Conjunctivitis, bacterial H1 0.9 [place] [address] [address] Jul, [facility] [address] [address] Jul, Acute non-recurrent maxillar y sinusitis J01.00 and BMI 45.0-49.9, adult Z68.42 [place] [address] [address] Jun, [place] [address] [address] May, Impingement syndrome, should er, left M75.42 and Degenerative tear of glenoid labrum of left shoulder M24.112 [place] [address] [address] Apr, Type 2 diabetes mellitus wit hout complication, without long-term current use of insulin E11.9 ; Essential hypertension I10 ; Mixed hyperlipidemia E78.2 ; Seasonal allergic rhinitis due to pollen J30.1 ; Pain in left shoulder M25.512 and Overweight E66.[address] [address] Mar, Essential hypertension I10 a nd Mixed hyperlipidemia E78.2 [place] [address] [address] Feb, General medical examination Z00.00 and Screening for tuberculosis Z11.[address] [address] Nov, Type 2 diabetes mellitus wit hout complication, without long-term current use of insulin E11.9 [place] [address] [address] Oct, Essential hypertension I10 ; Mixed hyperlipidemia E78.2 ; Type 2 diabetes mellitus without complication, without long-term current use of insulin E11.9 and Seasonal allergic rhinitis due to pollen J30.1 [facility] [address] [address] 17 Sep, 2016 Other viral agents as the ca use of diseases classified elsewhere B97.89 and Acute upper respiratory infection, unspecified J06.[address] [address] 08 Jun, 2016 [place] [address] [address] 08 Jun, 2016 Essential hypertension I10 ; Type 2 diabetes mellitus without complication E11.9 and Mixed hyperlipidemia E78.2 [place] [address] [address] 14 May, 2016 [facility] [place] [address] [address] Mar, Fluid level behind tympanic membrane of both ears H65.93 and Cough R05 [facility] [place] [address] [address] 12 Mar, 2016 Bronchitis J40 and Allergic rhinitis, unspecified allergic rhinitis trigger, unspecified rhinitis seasonality J30.9 [place] [address] [address] 15 Jan, 2016 Essential hypertension I10 ; Type 2 diabetes mellitus without complication E11.9 and Mixed hyperlipidemia E78.2 [facility] [address] [address] Aug, [facility] [id number] [place] [id number] Jul, Dental examination Z01.20 [facility] [address] [id number] 17 Jul, 2015 Encounter for dental examina tion Z01.20 [place] [address] [address] Jul, Essential hypertension I10 ; Mixed hyperlipidemia E78.2 and Type 2 diabetes mellitus without complication E11.9 [facility] [id number] [place] [address] Jun, Sinusitis J32.9 and Cough R0 5 [facility] [id number] [address] [place] [address] Mar, Physical examination of empl oyee V70.5 ; Tuberculosis screening V74.1 and Screening for substance abuse V82.9 [facility] [id number] [place] [address] Mar, Diabetes mellitus without me ntion of complication, type II or unspecified type, not stated as uncontrolled 250.00 ; Hypertension 401.9 and Hyperlipidemia 272.4 [facility] [id number] [place] [address] Feb, [facility] [id number] [place] [address] Jan, [facility] [id number] [place] [id number] December, Dental examination V72.2 [facility] [id number] [place] [phone] Nov, [facility] [id number] [place] [id number] Nov, [facility] [id number] [place] [phone] Aug, [facility] [address] [facility] [id number] [address] [place] [phone] Aug, [facility] [id number] [place] [address] Jun, [facility] [id number] [place] [id number] Jun, [facility] [address] [id number] [address] [place] [address], [place] [address] May, [facility] [address] [id number] [address] [place] [address], [place] [address] May, [facility] [address] [id number] [address] [place] [address], [place] [address] May, [facility] [address] [id number] [address] [place] [address], [place] [address] May, [facility] [address] [id number] [address] [place] [address], [place] [address] Mar, [facility] [address] [id number] [address] [place] [address], [place] [address] Mar, [facility] [address] [id number] [address] [place] [address], [place] [address] Jan, [facility] [address] [id number] [address] [place] [address], [place] [address] Jan, [facility] [address] [id number] [address] [place] [address], [place] [address] December, [facility] [address] [id number] [address] [place] [address], [place] [address] December, [facility] [address] [id number] [address] [place] [address], [place] [address] Oct, [facility] [address] [id number] [address] [place] [address], [place] [address] Oct, [facility] [address] [id number] [address] [place] [address], [place] [address] Oct, [facility] [address] [id number] [address] [place] [address], [place] [address] Oct, [facility] [address] [id number] [address] [place] [address], [place] [address] Oct, [facility] [address] [id number] [address] [place] [address], [place] [address] Oct, [facility] [address] [id number] [address] [place] [address], [place] [address] Oct, [facility] [address] [id number] [address] [place] [address], [place] [address] Oct, [facility] [address] [id number] [address] [place] [address], [place] [address] Aug, [facility] [address] [id number] [address] [place] [address], [place] [address] Aug, [facility] [address] [id number] [address] [place] [address], [place] [address] Jun, [facility] [address] [id number] [address] [place] [address], [place] [address] Jun, [facility] [address] [id number] [address] [place] [address], [place] [address] Mar, [facility] [address] [id number] [address] [place] [address], [place] [address] Mar, [facility] [address] [id number] [address] [place] [address], [place] [address] Feb, [facility] [address] [id number] [address] [place] [address], [place] [address] Nov, [facility] [address] [id number] [address] [place] [address], [place] [address] Nov, [facility] [address] [id number] [address] [place] [address], [place] [address] Nov, [facility] [address] [id number] [address] [place] [address], [place] [address] Oct, [facility] [address] [id number] [address] [place] [address], [place] [address] Oct, [facility] [address] [id number] [address] [place] [address], [place] [address] Sep, [facility] [address] [id number] [address] [place] [address] Feb, [facility] [address] [id number] [address] [place] [address] Feb, [facility] [address] [id number] [address] [place] [address] Feb, [facility] [address] [id number] [address] [place] [address] Jan, [facility] [address] [id number] [address] [place] [address] Nov, [facility] [address] [id number] [address] [place] [address] Sep, [facility] [address] [id number] [address] [place] [address] Jul, [facility] [address] [id number] [address] [place] [address] Jul, [facility] [address] [id number] [address] [place] [address] Aug, [facility] [address] [id number] [address] [place] [address] Jul, [facility] [address] [id number] [address] [place] [address] December, IMMUNIZATIONS No Known Immunizations SOCIAL HISTORY Never Assessed REASON FOR VISIT 8 wk f/uNai Green RN PLAN OF CARE Activity Details Follow Up prn Reason: VITAL SIGNS Height 63 in 2017-08-04 Blood pressure systolic 112 mmHg 2017-08-04 Blood pressure diastolic 72 mmHg 2017-08-04 MEDICATIONS Unknown Medications RESULTS No Results PROCEDURES [...]
--- OUTSIDE RECORDS SUMMARY | 2020-01-25 08:51 | XMS REPORT ---
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 Active 660434808 Problem Mixed hyperlipidemia E78.2 Active 824846533 Problem Essential hypertension I10 Active 87838969 Problem Type 2 diabetes mellitus with hyperglycemia E11.65 Active 54463540 Problem Seasonal allergic rhinitis due to pollen J30.1 Active 36221382 ALLERGIES No Known Allergies ENCOUNTERS Encounter Location Date Diagnosis [facility] [address] [id number] [address] [place] [address] Jan, [facility] [place] [address] [address] Nov, Sunburn of second degree L55 .1 and BMI 50.0-59.9, adult Z68.43 [facility] [address] [id number] [address] [place] [address] Nov, Sunburn of second degree L55 .1 and BMI 50.0-59.9, adult Z68.43 [facility] [address] [facility] [id number] [address] [place] [address] Nov, [facility] [place] [address] [id number] [address] [place] [address] Oct, Smoking F17.200 ; Type 2 nellie betes mellitus with hyperglycemia E11.65 ; senior care 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.4 ; Motion sickness, initial encounter T75.3XXA ; Encounter for immunization Z23 and BMI 50.0-59.9, adult Z68.43 [place] [address] [address] 26 Sep, 2017 [place] [address] [address] 15 Sep, 2017 Type 2 diabetes mellitus wit h hyperglycemia E11.65 [place] [address] [address] 07 Sep, 2017 History of pneumonia Z87.01 ; Hypoxia R09.02 and BMI 50.0-59.9, adult Z68.43 [place] [address] [address] 31 Aug, 2017 History of pneumonia Z87.01 ; Hypoxia R09.02 ; Daytime hypersomnia G47.19 ; BMI 50.0-59.9, adult Z68.43 ; Type 2 diabetes mellitus with hyperglycemia E11.65 ; senior care 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.4 and Nose irritation J34.89 [place] [address] [address] Aug, Right otitis media with effu cande H65.91 [place] [address] [address] 24 Aug, 2017 History of pneumonia Z87.01 ; Nose irritation J34.89 ; Right otitis media with effusion H65.91 ; Hypoxia R09.02 ; Type 2 diabetes mellitus without complication, without long-term current use of insulin E11.9 and BMI 50.0-59.9, adult Z68.43 [facility] [address] [address] Aug, Cough R05 ; Bronchitis J40 a nd BMI 50.0-59.9, adult Z68.43 [facility] [address] [address] Jul, Impingement syndrome, should er, left M75.42 and Bankart lesion of left shoulder, subsequent encounter S43.492D [facility] [address] [id number] [address] [place] [address] Jul, Conjunctivitis, bacterial H1 0.9 [place] [address] [address] Jul, [facility] [address] [address] Jul, Acute non-recurrent maxillar y sinusitis J01.00 and BMI 45.0-49.9, adult Z68.42 [place] [address] [address] Jun, [place] [address] [address] May, Impingement syndrome, should er, left M75.42 and Degenerative tear of glenoid labrum of left shoulder M24.[address] [address] Apr, Type 2 diabetes mellitus wit hout complication, without long-term current use of insulin E11.9 ; Essential hypertension I10 ; Mixed hyperlipidemia E78.2 ; Seasonal allergic rhinitis due to pollen J30.1 ; Pain in left shoulder M25.512 and Overweight E66.3 [place] [address] [address] Mar, Essential hypertension I10 a nd Mixed hyperlipidemia E78.2 [place] [address] [address] Feb, Screening for tuberculosis Z 11.1 and General medical examination Z00.00 [place] [address] [address] Nov, Type 2 diabetes mellitus wit hout complication, without long-term current use of insulin E11.9 [place] [address] [address] Oct, Essential hypertension I10 ; Mixed hyperlipidemia E78.2 ; Type 2 diabetes mellitus without complication, without long-term current use of insulin E11.9 and Seasonal allergic rhinitis due to pollen J30.1 [facility] [address] [address] 17 Sep, 2016 Other viral agents as the ca use of diseases classified elsewhere B97.89 and Acute upper respiratory infection, unspecified J06.9 [place] [address] [address] 08 Jun, 2016 [place] [address] [address] 08 Jun, 2016 Essential hypertension I10 ; Type 2 diabetes mellitus without complication E11.9 and Mixed hyperlipidemia E78.2 [place] [address] [address] 14 May, 2016 [facility] [address] [address] Mar, Fluid level behind tympanic membrane of both ears H65.93 and Cough R05 [facility] [address] [address] Mar, Bronchitis J40 and Allergic rhinitis, unspecified allergic rhinitis trigger, unspecified rhinitis seasonality J30.9 [place] [address] [address] 15 Jan, 2016 Essential hypertension I10 ; Type 2 diabetes mellitus without complication E11.9 and Mixed hyperlipidemia E78.2 [place] [address] [address] Aug, [facility] [id number] [place] [id number] Jul, Dental examination Z01.20 [facility] [id number] [place] [id number] 17 Jul, 2015 Encounter for dental examina tion Z01.20 [place] [address] [id number] [place] [address] Jul, Essential hypertension I10 ; Mixed hyperlipidemia E78.2 and Type 2 diabetes mellitus without complication E11.9 [facility] [address] [facility] [id number] [address] [place] [address] Jun, Sinusitis J32.9 and Cough R0 5 [facility] [address] [id number] [address] [place] [address] Mar, Physical examination of empl oyee V70.5 ; Tuberculosis screening V74.1 and Screening for substance abuse V82.9 [facility] [id number] [place] [address] Mar, Diabetes mellitus without me ntion of complication, type II or unspecified type, not stated as uncontrolled 250.00 ; Hypertension 401.9 and Hyperlipidemia 272.4 [facility] [address] [id number] [address] [place] [address] Feb, [facility] [address] [id number] [address] [place] [address] Jan, [facility] [id number] [place] [id number] December, Dental examination V72.2 [facility] [address] [id number] [address] [place] [address] Nov, [facility] [id number] [place] [address] Nov, [facility] [place] [id number] [address] [place] [address] Aug, [facility] [address] [facility] [id number] [address] [place] [address] Aug, [facility] [id number] [place] [address] Jun, [facility] [id number] [place] [address] Jun, [facility] [address] [id number] [address] [place] [address], [place] [address] May, [facility] [address] [id number] [address] [place] [address], [place] [address] May, [facility] [address] [id number] [address] [place] [address], [place] [address] May, [facility] [address] [id number] [address] [place] [address], [place] [address] May, [facility] [address] [id number] [address] [place] [address], [place] [address] Mar, [facility] [address] [id number] [address] [place] [address], [place] [address] Mar, [facility] [address] [id number] [address] [place] [address], [place] [address] Jan, [facility] [address] [id number] [address] [place] [address], [place] [address] Jan, [facility] [address] [id number] [address] [place] [address], [place] [address] December, [facility] [address] [id number] [address] [place] [address], [place] [address] December, [facility] [address] [id number] [address] [place] [address], [place] [address] Oct, [facility] [address] [id number] [address] [place] [address], [place] [address] Oct, [facility] [address] [id number] [address] [place] [address], [place] [address] Oct, [facility] [address] [id number] [address] [place] [address], [place] [address] Oct, [facility] [address] [id number] [address] [place] [address], [place] [address] Oct, [facility] [address] [id number] [address] [place] [address], [place] [address] Oct, [facility] [address] [id number] [address] [place] [address], [place] [address] 07 Oct, 2013 [facility] [address] [id number] [address] [place] [address], [place] [address] 07 Oct, 2013 [facility] [address] [id number] [address] [place] [address], [place] [address] Aug, [facility] [address] [id number] [address] [place] [address], [place] [address] Aug, [facility] [address] [id number] [address] [place] [address], [place] [address] Jun, [facility] [address] [id number] [address] [place] [address], [place] [address] Jun, [facility] [address] [id number] [address] [place] [address], [place] [address] Mar, [facility] [address] [id number] [address] [place] [address], [place] [address] Mar, [facility] [address] [id number] [address] [place] [address], [place] [address] Feb, [facility] [address] [id number] [address] [place] [address], [place] [address] Nov, [facility] [address] [id number] [address] [place] [address], [place] [address] Nov, [facility] [address] [id number] [address] [place] [address], [place] [address] Nov, [facility] [address] [id number] [address] [place] [address], [place] [address] Oct, [facility] [address] [id number] [address] [place] [address], [place] [address] Oct, [facility] [address] [id number] [address] [place] [address], [place] [address] Sep, [facility] [address] [id number] [address] [place] [id number] Feb, [facility] [address] [id number] [address] [place] [address] Feb, [facility] [address] [id number] [address] [place] [id number] Feb, [facility] [address] [id number] [address] [place] [id number] Jan, [facility] [address] [id number] [address] [place] [id number] Nov, [facility] [address] [id number] [address] [place] [id number] Sep, [facility] [address] [id number] [address] [place] [address] Jul, [facility] [address] [id number] [address] [place] [address] Jul, [facility] [address] [id number] [address] [place] [address] Aug, [facility] [address] [id number] [address] [place] [address] Jul, [facility] [address] [id number] [address] [place] [address] December, IMMUNIZATIONS No Known Immunizations SOCIAL HISTORY Never Assessed REASON FOR VISIT pink eye symptoms started yesterday afternoon [facility] OF CARE VITAL SIGNS Height 63 in 2017-07-20 Weight 276.4 lbs 2017-07-20 Temperature 97.2 degrees Fahrenheit 2017-07-20 Heart Rate 86 bpm 2017-07-20 Respiratory Rate 22 2017-07-20 BMI 48.96 kg/m2 2017-07-20 Blood pressure systolic 110 mmHg 2017-07-20 Blood pressure diastolic 70 mmHg 2017-07-20 MEDICATIONS Medication Instructions Dosage Frequency Start Date End Date Duration S tatus GlyBURIDE 5 mg Orally Once a day 1 tablet 24h 30 day s Active Cetirizine HCl 10 mg Orally Once a day 1 tablet 24h 30 days Active Augmentin 875-125 MG Orally every 12 hrs 1 tablet 12h 05 Jul, 2 017 15 Jul, 2017 10 day(s) Active MetFORMIN HCl ER 500 mg Orally 2 times a day 1 tablet am 2 pm 12h 30 Active Toprol XL 25 MG Orally Once a day 1 tablet 24h 30 da y(s) Active Actos 30 MG Orally Once a day take 1 tablet by oral route once daily 24h 30 Active Lisinopril-Hydrochlorothiazide 20-25 MG Orally Once a day 1 tablet 24 h 30 day(s) Active RESULTS No Results PROCEDURES No Known [...]
--- OUTSIDE RECORDS SUMMARY | 2020-01-25 08:52 | XMS REPORT ---
Author Author Ree BLACKMAN Organization [facility] Address [address] [place] [address] Care Team Providers Care Director Sales And Marketing Name Role Phone YEHUDA DANG Unavailable PROBLEMS Type Condition ICD9-CM Code RTF72-ER Code Onset Dates Condition S tatus SNOMED Code Problem EVANGELINA (obstructive sleep apnea) G47.33 Active 30230603 Problem Smoking F17.200 Active 05783706 Problem custodial 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.4 Active 899812287 Problem Mixed hyperlipidemia E78.2 Active 631822981 Problem Essential hypertension I10 Active 80803162 Problem Type 2 diabetes mellitus with hyperglycemia E11.65 Active 30804374 Problem Seasonal allergic rhinitis due to pollen J30.1 Active 59515050 ALLERGIES No Information ENCOUNTERS Encounter Location Date Diagnosis [facility] [id number] [place] [id number] Feb, [facility] [address] [id number] [address] [place] [address] Nov, Sunburn of second degree L55 .1 and BMI 50.0-59.9, adult Z68.43 [facility] [id number] [place] [address] Nov, Sunburn of second degree L55 .1 and BMI 50.0-59.9, adult Z68.43 [facility] [address] [facility] [place] [id number] [address] [place] [phone] Nov, [facility] [id number] [place] [address] Oct, Smoking F17.200 ; Type 2 nellie betes mellitus with hyperglycemia E11.65 ; custodial 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.4 ; Motion sickness, initial encounter T75.3XXA ; Encounter for immunization Z23 and BMI 50.0-59.9, adult Z68.43 [place] [address] [address] 26 Sep, 2017 [facility] [address] [address] 15 Sep, 2017 Type 2 diabetes mellitus wit h hyperglycemia E11.65 [place] [address] [address] 07 Sep, 2017 History of pneumonia Z87.01 ; Hypoxia R09.02 and BMI 50.0-59.9, adult Z68.43 [place] [address] [address] 31 Aug, 2017 History of pneumonia Z87.01 ; Hypoxia R09.02 ; Daytime hypersomnia G47.19 ; BMI 50.0-59.9, adult Z68.43 ; Type 2 diabetes mellitus with hyperglycemia E11.65 ; custodial 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.4 and Nose irritation J34.89 [place] [address] [address] Aug, Right otitis media with effu cande H65.91 [place] [address] [address] 24 Aug, 2017 History of pneumonia Z87.01 ; Nose irritation J34.89 ; Right otitis media with effusion H65.91 ; Hypoxia R09.02 ; Type 2 diabetes mellitus without complication, without long-term current use of insulin E11.9 and BMI 50.0-59.9, adult Z68.43 [facility] [address] [address] Aug, Cough R05 ; Bronchitis J40 a nd BMI 50.0-59.9, adult Z68.43 [place] [address] [address] Jul, Impingement syndrome, should er, left M75.42 and Bankart lesion of left shoulder, subsequent encounter S43.492D [facility] [address] [id number] [address] [place] [address] Jul, Conjunctivitis, bacterial H1 0.9 [place] [id number] [place] [address] Jul, [facility] [address] [address] Jul, Acute non-recurrent maxillar y sinusitis J01.00 and BMI 45.0-49.9, adult Z68.42 [place] [address] [address] Jun, [place] [address] [address] May, Impingement syndrome, should er, left M75.42 and Degenerative tear of glenoid labrum of left shoulder M24.112 [place] [address] [address] Apr, Type 2 diabetes mellitus wit hout complication, without long-term current use of insulin E11.9 ; Essential hypertension I10 ; Mixed hyperlipidemia E78.2 ; Seasonal allergic rhinitis due to pollen J30.1 ; Pain in left shoulder M25.512 and Overweight E66.3 [place] [address] [address] 17 Mar, 2017 Essential hypertension I10 a nd Mixed hyperlipidemia E78.2 [place] [address] [address] Feb, General medical examination Z00.00 and Screening for tuberculosis Z11.1 [place] [address] [address] Nov, Type 2 diabetes mellitus wit hout complication, without long-term current use of insulin E11.9 [place] [address] [address] 30 Mar, 2017 Essential hypertension I10 ; Mixed hyperlipidemia E78.2 ; Type 2 diabetes mellitus without complication, without long-term current use of insulin E11.9 and Seasonal allergic rhinitis due to pollen J30.1 [facility] [address] [address] 17 Sep, 2016 Other viral agents as the ca use of diseases classified elsewhere B97.89 and Acute upper respiratory infection, unspecified J06.9 [place] [address] [address] 08 Jun, 2016 [place] [address] [address] Jun, Essential hypertension I10 ; Type 2 diabetes mellitus without complication E11.9 and Mixed hyperlipidemia E78.2 [place] [address] [address] 14 May, 2016 [facility] [address] [address] Mar, Fluid level behind tympanic membrane of both ears H65.93 and Cough R05 [facility] [address] [address] Mar, Bronchitis J40 and Allergic rhinitis, unspecified allergic rhinitis trigger, unspecified rhinitis seasonality J30.9 [place] [address] [address] 15 Jan, 2016 Essential hypertension I10 ; Type 2 diabetes mellitus without complication E11.9 and Mixed hyperlipidemia E78.2 [facility] [id number] [place] [address] Aug, [facility] [address] [id number] Jul, Dental examination Z01.20 [facility] [id number] [place] [id number] 17 Jul, 2015 Encounter for dental examina tion Z01.20 [place] [address] [address] Jul, Essential hypertension I10 ; Mixed hyperlipidemia E78.2 and Type 2 diabetes mellitus without complication E11.9 [facility] [id number] [place] [address] Jun, Sinusitis J32.9 and Cough R0 5 [facility] [address] [address] Mar, Physical examination of empl oyee V70.5 ; Tuberculosis screening V74.1 and Screening for substance abuse V82.9 [facility] [address] [address] Mar, Diabetes mellitus without me ntion of complication, type II or unspecified type, not stated as uncontrolled 250.00 ; Hypertension 401.9 and Hyperlipidemia 272.4 [facility] [address] [address] Feb, [facility] [address] [address] Jan, [facility] [id number] [place] [id number] December, Dental examination V72.2 [facility] [address] [address] 14 Nov, 2014 [facility] [address] [address] Nov, [facility] [id number] [place] [address] Aug, [facility] [address] [address] Aug, [facility] [id number] [place] [address] Jun, [facility] [address] [address] Jun, [facility] [address] [id number] [address] [place] [address], [place] [address] May, [facility] [address] [id number] [address] [place] [address], [place] [address] May, [facility] [address] [id number] [address] [place] [address], [place] [address] May, [facility] [address] [id number] [address] [place] [address], [place] [address] May, [facility] [address] [id number] [address] [place] [address], [place] [address] Mar, [facility] [address] [id number] [address] [place] [address], [place] [address] Mar, [facility] [address] [id number] [address] [place] [address], [place] [address] Jan, [facility] [address] [id number] [address] [place] [address], [place] [address] Jan, [facility] [address] [id number] [address] [place] [address], [place] [address] December, [facility] [address] [id number] [address] [place] [address], [place] [address] December, [facility] [address] [id number] [address] [place] [address], [place] [address] Oct, [facility] [address] [id number] [address] [place] [address], [place] [address] 17 Oct, 2013 [facility] [address] [id number] [address] [place] [address], [place] [address] Oct, [facility] [address] [id number] [address] [place] [address], [place] [address] 17 Oct, 2013 [facility] [address] [id number] [address] [place] [address], [place] [address] 13 Oct, 2013 [facility] [address] [id number] [address] [place] [address], [place] [address] Oct, [facility] [address] [id number] [address] [place] [address], [place] [address] Oct, [facility] [address] [id number] [address] [place] [address], [place] [address] Oct, [facility] [address] [id number] [address] [place] [address], [place] [address] Aug, [facility] [address] [id number] [address] [place] [address], [place] [address] Aug, [facility] [address] [id number] [address] [place] [address], [place] [address] Jun, [facility] [address] [id number] [address] [place] [address], [place] [address] Jun, [facility] [address] [id number] [address] [place] [address], [place] [address] Mar, [facility] [address] [id number] [address] [place] [address], [place] [address] Mar, [facility] [address] [id number] [address] [place] [address], [place] [address] Feb, [facility] [address] [id number] [address] [place] [address], [place] [address] Nov, [facility] [address] [id number] [address] [place] [address], [place] [address] Nov, [facility] [address] [id number] [address] [place] [address], [place] [address] Nov, [facility] [address] [id number] [address] [place] [address], [place] [address] Oct, [facility] [address] [id number] [address] [place] [address], [place] [address] Oct, [facility] [address] [id number] [address] [place] [address], [place] [address] Sep, [facility] [address] [id number] [address] [place] [address] Feb, [facility] [address] [id number] [address] [place] [address] Feb, [facility] [address] [id number] [address] [place] [address] Feb, [facility] [address] [id number] [address] [place] [id number] Jan, [facility] [address] [id number] [address] [place] [address] Nov, [facility] [address] [id number] [address] [place] [address] Sep, [facility] [address] [id number] [address] [place] [address] Jul, [facility] [address] [id number] [address] [place] [id number] Jul, [facility] [address] [id number] [address] [place] [address] Aug, [facility] [address] [id number] [address] [place] [address] Jul, [facility] [address] [id number] [address] [place] [address] December, IMMUNIZATIONS Vaccine Route Administration Date Status ROCEPHIN 1 GM (IM) IM Intramuscular Sep 08, 2017 Administered SOCIAL HISTORY Never Assessed REASON FOR VISIT Injection-1 gram rocephin per yesterdays ov note-AHarrymanRN PLAN OF CARE VITAL SIGNS MEDICATIONS Unknown Medications RESULTS No Results PROCEDURES Procedure Date Ordered Result Body Site ROCEPHIN 1 GM (IM) Sep 08, 2017 THER/PROPH/DIAG INJ, SC/IM Sep 08, 2017 INSTRUCTIONS MEDICATIONS ADMINISTERED No Known Medications [...] shoulder Surgical History hymenectomy 1991- Hospitalization History [facility]-Pneumonia 08/2017
--- OUTSIDE RECORDS SUMMARY | 2020-01-25 08:52 | XMS REPORT ---
Author Author Ree BLACKMAN Organization [facility] Address [address] [place] [address] Care Team Providers Care It Technical Specialist Name Role Phone YEHUDA DANG Unavailable PROBLEMS Type Condition ICD9-CM Code PPM87-QZ Code Onset Dates Condition S tatus SNOMED Code Problem EVANGELINA (obstructive sleep apnea) G47.33 Active 45961517 Problem Smoking F17.200 Active 27707629 Problem nursing home 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.4 Active 262777441 Problem Mixed hyperlipidemia E78.2 Active 607201466 Problem Essential hypertension I10 Active 74134196 Problem Type 2 diabetes mellitus with hyperglycemia E11.65 Active 43752000 Problem Seasonal allergic rhinitis due to pollen J30.1 Active 29673585 ALLERGIES No Known Allergies ENCOUNTERS Encounter Location Date Diagnosis [facility] [address] [id number] [address] [place] [address] Feb, [facility] [address] [place] [address] [id number] [address] [place] [address] Nov, Sunburn of second degree L55 .1 and BMI 50.0-59.9, adult Z68.43 [facility] [id number] [address] [place] [id number] Nov, Sunburn of second degree L55 .1 and BMI 50.0-59.9, adult Z68.43 [facility] [address] [facility] [id number] [address] [place] [address] Nov, 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 [address] [address] 15 Sep, 2017 Type 2 diabetes mellitus wit h hyperglycemia E11.65 [place] [address] [address] 07 Sep, 2017 History of pneumonia Z87.01 ; Hypoxia R09.02 and BMI 50.0-59.9, adult Z68.43 [place] [address] [address] 31 Aug, 2017 History of pneumonia Z87.01 ; Hypoxia R09.02 ; Daytime hypersomnia G47.19 ; BMI 50.0-59.9, adult Z68.43 ; Type 2 diabetes mellitus with hyperglycemia E11.65 ; nursing home 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.4 and Nose irritation J34.89 [place] [address] [address] Aug, Right otitis media with effu cande H65.91 [place] [address] [address] 24 Aug, 2017 History of pneumonia Z87.01 ; Nose irritation J34.89 ; Right otitis media with effusion H65.91 ; Hypoxia R09.02 ; Type 2 diabetes mellitus without complication, without long-term current use of insulin E11.9 and BMI 50.0-59.9, adult Z68.43 [facility] [address] [address] Aug, Cough R05 ; Bronchitis J40 a nd BMI 50.0-59.9, adult Z68.43 [place] [address] [address] Jul, Impingement syndrome, should er, left M75.42 and Bankart lesion of left shoulder, subsequent encounter S43.492D [facility] [address] [id number] [address] [place] [address] Jul, Conjunctivitis, bacterial H1 0.9 [place] [address] [place] [id number] [place] [address] Jul, [facility] [address] [address] Jul, Acute non-recurrent maxillar y sinusitis J01.00 and BMI 45.0-49.9, adult Z68.42 [place] [address] [address] Jun, [place] [address] [address] May, Impingement syndrome, should er, left M75.42 and Degenerative tear of glenoid labrum of left shoulder M24.112 [place] [address] [address] Apr, Type 2 diabetes mellitus wit hout complication, without long-term current use of insulin E11.9 ; Essential hypertension I10 ; Mixed hyperlipidemia E78.2 ; Seasonal allergic rhinitis due to pollen J30.1 ; Pain in left shoulder M25.512 and Overweight E66.3 [place] [address] [address] Mar, Essential hypertension I10 a nd Mixed hyperlipidemia E78.2 [place] [address] [address] Feb, General medical examination Z00.00 and Screening for tuberculosis Z11.1 [place] [address] [address] Nov, Type 2 diabetes mellitus wit hout complication, without long-term current use of insulin E11.9 [place] [address] [address] Oct, Essential hypertension I10 ; Mixed hyperlipidemia E78.2 ; Type 2 diabetes mellitus without complication, without long-term current use of insulin E11.9 and Seasonal allergic rhinitis due to pollen J30.1 [facility] [address] [address] 17 Sep, 2016 Other viral agents as the ca use of diseases classified elsewhere B97.89 and Acute upper respiratory infection, unspecified J06.9 [place] [address] [address] 08 Jun, 2016 [place] [address] [address] Jun, Essential hypertension I10 ; Type 2 diabetes mellitus without complication E11.9 and Mixed hyperlipidemia E78.2 [place] [address] [address] 14 May, 2016 [facility] [address] [address] Mar, Fluid level behind tympanic membrane of both ears H65.93 and Cough R05 [facility] [place] [address] [address] Mar, Bronchitis J40 and Allergic rhinitis, unspecified allergic rhinitis trigger, unspecified rhinitis seasonality J30.9 [place] [address] [address] 15 Jan, 2016 Essential hypertension I10 ; Type 2 diabetes mellitus without complication E11.9 and Mixed hyperlipidemia E78.2 [facility] [address] [place] [id number] [place] [address] Aug, [facility] [address] [id number] Jul, Dental examination Z01.20 [facility] [address] [id number] [place] [id number] Jul, Encounter for dental examina tion Z01.20 [place] [address] [place] [address] Jul, Essential hypertension I10 ; Mixed hyperlipidemia E78.2 and Type 2 diabetes mellitus without complication E11.9 [facility] [id number] [place] [address] Jun, Sinusitis J32.9 [address] R0 [address] [facility] [address] [address] Mar, Physical examination of empl oyee V70.5 ; Tuberculosis screening V74.1 and Screening for substance abuse V82.9 [facility] [address] [address] Mar, Diabetes mellitus without me ntion of complication, type II or unspecified type, not stated as uncontrolled 250.00 ; Hypertension 401.[address] [facility] [address] [address] Feb, [facility] [address] [address] Jan, [facility] [id number] [place] [id number] December, Dental examination V72.2 [facility] [address] [address] 14 Nov, 2014 [facility] [address] [address] Nov, [facility] [address] [address] Aug, [facility] [address] [address] Aug, [facility] [address] [address] Jun, [facility] [address] [address] Jun, [facility] [address] [id number] [address] [place] [address], [place] [address] May, [facility] [address] [id number] [address] [place] [address], [place] [address] May, [facility] [address] [id number] [address] [place] [address], [place] [address] May, [facility] [address] [id number] [address] [place] [address], [place] [address] May, [facility] [address] [id number] [address] [place] [address], [place] [address] Mar, [facility] [address] [id number] [address] [place] [address], [place] [address] Mar, [facility] [address] [id number] [address] [place] [address], [place] [address] Jan, [facility] [address] [id number] [address] [place] [address], [place] [address] Jan, [facility] [address] [id number] [address] [place] [address], [place] [address] December, [facility] [address] [id number] [address] [place] [address], [place] [address] December, [facility] [address] [id number] [address] [place] [address], [place] [address] Oct, [facility] [address] [id number] [address] [place] [address], [place] [address] Oct, [facility] [address] [id number] [address] [place] [address], [place] [address] Oct, [facility] [address] [id number] [address] [place] [address], [place] [address] Oct, [facility] [address] [id number] [address] [place] [address], [place] [address] Oct, [facility] [address] [id number] [address] [place] [address], [place] [address] 13 Oct, 2013 [facility] [address] [id number] [address] [place] [address], [place] [address] Oct, [facility] [address] [id number] [address] [place] [address], [place] [address] Oct, [facility] [address] [id number] [address] [place] [address], [place] [address] Aug, [facility] [address] [id number] [address] [place] [address], [place] [address] Aug, [facility] [address] [id number] [address] [place] [address], [place] [address] Jun, [facility] [address] [id number] [address] [place] [address], [place] [address] Jun, [facility] [address] [id number] [address] [place] [address], [place] [address] Mar, [facility] [address] [id number] [address] [place] [address], [place] [address] Mar, [facility] [address] [id number] [address] [place] [address], [place] [address] Feb, [facility] [address] [id number] [address] [place] [address], [place] [address] Nov, [facility] [address] [id number] [address] [place] [address], [place] [address] Nov, [facility] [address] [id number] [address] [place] [address], [place] [address] Nov, [facility] [address] [id number] [address] [place] [address], [place] [address] Oct, [facility] [address] [id number] [address] [place] [address], [place] [address] Oct, [facility] [address] [id number] [address] [place] [address], [place] [address] Sep, [facility] [address] [id number] [address] [place] [phone] Feb, [facility] [address] [id number] [address] [place] [address] Feb, [facility] [address] [id number] [address] [place] [phone] Feb, [facility] [address] [id number] [address] [place] [address] Jan, [facility] [address] [id number] [address] [place] [address] Nov, [facility] [address] [id number] [address] [place] [phone] Sep, [facility] [address] [id number] [address] [place] [phone] Jul, [facility] [address] [id number] [address] [place] [address] Jul, [facility] [address] [id number] [address] [place] [address] Aug, [facility] [address] [id number] [address] [place] [address] Jul, [facility] [address] [id number] [address] [place] [address] December, IMMUNIZATIONS Vaccine Route Administration Date Status ROCEPHIN 1 GM (IM) IM Intramuscular Sep 07, 2017 Administered SOCIAL HISTORY Never Assessed REASON FOR VISIT [facility] follow up, pt diagnosed with pneumonia, states she feels improvement, ju st slow and trying to catch her breath, would like to dc the oxygen today if abl e, pt feels okay with out it-Andreas, Right ear began to bother her this silvina samson PLAN OF CARE Activity Details Follow Up 1 week Reason:hypoxia VITAL SIGNS Height 63 in 2017-09-07 Weight 288.0 lbs 2017-09-07 Temperature 97.5 degrees Fahrenheit 2017-09-07 Heart Rate 108 bpm 2017-09-07 Respiratory Rate 22 2017-09-07 Oximetry w/ oxygen @ 2L:95 % 2017-09-07 BMI 51.01 kg/m2 2017-09-07 Blood pressure systolic 124 mmHg 2017-09-07 Blood pressure diastolic 74 mmHg 2017-09-07 MEDICATIONS Medication Instructions Dosage Frequency Start Date End Date Duration S tatus DuoNeb 0.5-2.5 (3) MG/3ML Inhalation every 6 hrs 3 ml 6h Active PredniSONE 20 MG Orally Once a day 1 tablet 24h Active GlyBURIDE 5 MG TAKE ONE TABLET BY MOUTH ONCE DAILY Active ProAir HFA 108 (90 Base) MCG/ACT Inhalation every 6 hrs 2 puffs as needed 6h 12 Aug, 2017 7 days Not-Taking Levemir 100 UNIT/ML Subcutaneous Once a day while taking pre dnisone Inject 15 units Active Bactroban Nasal 2 % Nasally Twice a day 1 application 12h 24 J an, 2017Sep, 10 days Active Lisinopril-Hydrochlorothiazide 20-25 MG Orally Once a day 1 tablet 24 h 30 day(s) Active Actos 30 MG TAKE ONE TABLET BY MOUTH ONCE DAILY Active MetFORMIN HCl ER 500 mg Orally 2 times a day 1 tablet am 2 pm 12h Active Toprol XL 25 MG Orally Once a day 1 tablet 24h 30 da y(s) Active RESULTS No Results PROCEDURES Procedure Date Ordered Result Body Site MEASURE BLOOD OXYGEN LEVEL Sep 07, 2017 THER/PROPH/DIAG INJ, SC/IM Sep 07, 2017 ROCEPHIN 1 GM (IM) Sep 07, 2017 INSTRUCTIONS MEDICATIONS ADMINISTERED No Known Medications MEDICAL (GENERAL) HISTORY Type Description Date Medical History type II diabetes 2013 Medical History hypertension Medical History hyperlipidemia Medical History seasonal allergies Medical History syncopal events as a child (resolved) Medical History Tobacco Abuse went to non smoking class Medical History Severe Sleep Apnea [facility] 18cm H20 with heated humidity Medical History Sleep Apnea Medical History Hypoxia Medical History History of pneumonia Medical History Degenerative tear of glenoid labrum of l eft shoulder Surgical History hymenectomy 1991- Hospitalization History [facility]-Pneumonia 08/2017
--- OUTSIDE RECORDS SUMMARY | 2020-01-25 08:52 | XMS REPORT | Continuity of Care Document ---
Demographics Preferred Language Unknown Marital Status Unknown Pent[employer] Affiliation Unknown Race Unknown Ethnic Group Unknown Author Organization Unknown Address Unknown Phone Unavailable Allergies Active Description Code Type Severity Reaction Onset Reported/Identified Relationship to Patient Clinical Status Yes metformin 1,000 mg tablet,ER ina.retent ion 24 hr Drug Allergy N/A N/A 01/2013 Yes No Known Drug Allergies [id number] Drug Allergy Unknown N/A 08/28/2017 Medications There is no data. Problems Date Dx Coded Attending Type Code Diagnosis Diagnosed By 12/30/2009 305.1 YAMILETH ERIC DEPENDENCE 12/30/2009 626.2 EXCE SSIVE OR FREQUENT MENSTRUATION 12/30/2009 796.2 Elev ated Blood Pressure Reading Without Diagnosis Of Hypertension 12/30/2009 KESHIA GONZALES DO K 305.1 NICOTINE DEPENDENCE 12/30/2009 KESHIA GONZALES DO K 626.2 EXCESSIVE OR FREQUENT MENSTRUATION 12/30/2009 RACHID GONZALES DOA K 796.2 Elevated Blood Pressure Reading Without Diagnosis Of Hypertension 12/30/2009 KESHIA GONZALES DO K 305.1 NICOTINE DEPENDENCE 12/30/2009 RACHID GONZALES DOA K 626.2 EXCESSIVE OR FREQUENT MENSTRUATION 12/30/2009 RACHID GONZALES DOA K 796.2 Elevated Blood Pressure Reading Without Diagnosis Of Hypertension 12/30/2009 RACHID GONZALES DOA K 305.1 NICOTINE DEPENDENCE 12/30/2009 KESHIA GONZALES [...] Reading Without Diagnosis Of Hypertension 12/30/2009 MADL DESIGN MAKERMAYIA L 305 .1 NICOTINE DEPENDENCE 12/30/2009 MADL DESIGN MAKER, DANG L 626 .2 EXCESSIVE OR FREQUENT MENSTRUATION 12/30/2009 MADL DESIGN MAKER, DANG L 796 .2 Elevated Blood Pressure Reading Without Diagnosis Of Hypertension 12/30/2009 GONZALES DO, KESHIA K 305.1 NICOTINE DEPENDENCE 12/30/2009 GONZALES DO, KESHIA K 626.2 EXCESSIVE OR FREQUENT MENSTRUATION 12/30/2009 GONZALES DO, KESHIA K 796.2 Elevated Blood Pressure Reading Without Diagnosis Of Hypertension 01/09/2010 382.9 Otit is Media 01/09/2010 GONZALES DO, KESHIA K 382.9 Otitis Media 01/09/2010 GONZALES DO, KESHIA K 382.9 Otitis Media 01/09/2010 GONZALES DO, KESHIA K 382.9 Otitis Media 01/09/2010 GONZALES DO, KESHIA K 382.9 Otitis Media 01/09/2010 GONZALES DO, KESHIA K 382.9 Otitis Media 01/09/2010 GONZALES DO, KESHIA K 382.9 Otitis Media 01/09/2010 MARKL MAYI PRESSLEYA L 382 .9 Otitis Media 01/09/2010 GONZALES DO, KESHIA K 382.9 Otitis Media 01/20/2010 278.00 OBESITY 01/20/2010 401.1 ESSE NTIAL HYPERTENSION BENIGN 01/20/2010 626.4 IRRE GULAR MENSTRUAL CYCLE 01/20/2010 GONZALES DO, KESHIA K [...] K 626.4 IRREGULAR MENSTRUAL CYCLE 01/20/2010 MADL DESIGN MAKER, DANG L 278 .00 OBESITY 01/20/2010 MADL DESIGN MAKER, DANG L 401 .1 ESSENTIAL HYPERTENSION BENIGN 01/20/2010 MADL DESIGN MAKER, DANG L 626 .4 IRREGULAR MENSTRUAL CYCLE 01/20/2010 GONZALES DO, KESHIA K 278.00 OBESITY 01/20/2010 GONZALES DO, KESHIA K 401.1 ESSENTIAL HYPERTENSION BENIGN 01/20/2010 GONZALES DO, KESHIA K 626.4 IRREGULAR MENSTRUAL CYCLE 08/10/2010 466.0 BRON CHITIS, ACUTE 08/10/2010 GONZLAES DO, KESHIA K 466.0 Bronchitis, Acute 08/10/2010 GONZALES DO, KESHIA K 466.0 Bronchitis, Acute 08/10/2010 GONZALES DO, KESHIA K 466.0 Bronchitis, Acute 08/10/2010 GONZALES DO, KESHIA K 466.0 Bronchitis, Acute 08/10/2010 GONZALES DO, KESHIA K 466.0 Bronchitis, Acute 08/10/2010 GONZALES DO, KESHIA K 466.0 Bronchitis, Acute 08/10/2010 MADL DESIGN MAKER, DANG L 466 .0 Bronchitis, Acute 08/10/2010 GONZALES DO, KESHIA K 466.0 Bronchitis, Acute 08/25/2010 381.81 EUS TACHIAN TUBE DYSFUNCTION 08/25/2010 786.2 COUGH 08/25/2010 GONZALES [...] DO, KESHIA K 786.2 Cough 08/25/2010 MADL DESIGN MAKER, DANG L 381 .81 Eustachian Tube Dysfunction 08/25/2010 MADL DESIGN MAKER, DANG L 786 .2 Cough 08/25/2010 GONZALES DO, KESHIA K 381.81 Eustachian Tube Dysfunction 08/25/2010 GONZALES DO, KESHIA K 786.2 Cough 01/20/2011 380.10 BRIGETTE TIS EXTERNA 01/20/2011 388.70 OTALGIA 01/20/2011 GONZALES DO, KESHIA K 380.10 Otitis Externa 01/20/2011 GONZALES DO, KESHIA K 388.70 Otalgia 01/20/2011 GONZALES DO, KESHIA K 380.10 Otitis Externa 01/20/2011 GONZALES DO, KESHIA K 388.70 Otalgia 01/20/2011 GONZALES DO, KEHSIA K 380.10 Otitis Externa 01/20/2011 GONZALES DO, KESHIA K 388.70 Otalgia 01/20/2011 GONZALES DO, KESHIA K 380.10 Otitis Externa 01/20/2011 GONZALES DO, KESHIA K 388.70 Otalgia 01/20/2011 GONZALES DO, KESHIA K 380.10 Otitis Externa 01/20/2011 GONZALES DO, KESHIA K 388.70 Otalgia 01/20/2011 GONZALES DO, KESHIA K 380.10 Otitis Externa 01/20/2011 GONZALES DO, KESHIA K 388.70 Otalgia 01/20/2011 MADL DESIGN MAKER, DANG L 380 .10 Otitis Externa 01/20/2011 MADL DESIGN MAKER, DANG L 388 .70 Otalgia 01/20/2011 GONZALES DORACHIDA K 380.10 Otitis Externa 01/20/2011 GONZALES DORACHIDA K 388.70 Otalgia 08/09/2011 719.46 MAKSIM N IN JOINT INVOLVING LOWER LEG 08/09/2011 GONZALES DO KESHIA K 719.46 Pain [...] Pain In Joint Involving Lower Leg 08/09/2011 MADL DESIGN MAKERDANG Traore L 719 .46 Pain In Joint Involving Lower Leg 08/09/2011 GONZALES DO KESHIA K 719.46 Pain In Joint Involving Lower Leg 02/10/2012 V65.42 COU NSELING - SMOKING CESSATION 02/10/2012 V70.0 ROUT INE GENERAL MEDICAL EXAMINATION AT A HEALTH CARE FACILITY 02/10/2012 CHRISTIAN DORACHIDA K V65.42 Patient Education - Alcohol 02/10/2012 RACHID GONZALES DOA K V70.0 Routine General Medical Examination At A Health Care Facility 02/10/2012 RACHID GONZALES DOA K V65.42 Patient Education - Alcohol 02/10/2012 RACHID GONZALES DOA K V70.0 Routine General Medical Examination At A Health Care Facility 02/10/2012 RACHID GONZALES DOA K V65.42 Patient Education - Alcohol 02/10/2012 RACHID GONZALES DOA K V70.0 Routine General Medical Examination At A Health Care Facility 02/10/2012 GONZALES DORACHIDA K V65.42 Patient Education - Alcohol 02/10/2012 GONZALES DO KESHIA K V70.0 Routine General Medical Examination At A Health Care Facility 02/10/2012 CHRISTIAN DORACHIDA K V65.42 Patient Education - Alcohol 02/10/2012 GONZALES DO KESHIA K V70.0 Routine General Medical Examination At A Health Care Facility 02/10/2012 RACHID GONZALES DOA K V65.42 Patient Education - Alcohol 02/10/2012 GONZALES DO, KESHIA K V70.0 Routine General Medical Examination At A Health Care Facility 02/10/2012 MADL DESIGN MAKER, DANG L V65 .42 Patient Education - Alcohol 02/10/2012 MADL DESIGN MAKER, DANG L V70 .0 Routine General Medical Examination At A Health Care Facility 02/10/2012 GONZALES DO, KESHIA K V65.42 Patient Education - Alcohol 02/10/2012 GONZALES DO, KESHIA K V70.0 Routine General Medical Examination At A Health Care Facility 02/22/2012 250.02 SANGEETHA BETES II UNCONTROLLED (UNCOMPLICATED) 02/22/2012 GONZALES DO, KESHIA [...] MELLITUS TYPE 2 - UNCOMPLICATED, UNCONTROLLED 02/22/2012 MARKL DESIGN MAKER, DANG L 250 .02 DIABETES MELLITUS TYPE 2 - UNCOMPLICATED, UNCONTROLLED [...] DO, KESHIA K 272.1 HYPERTRIGLYCERIDEMIA 02/23/2012 MADL DESIGN MAKER, DANG L 272 .1 HYPERTRIGLYCERIDEMIA 02/23/2012 GONZALES DO, KESHIA K 272.1 HYPERTRIGLYCERIDEMIA 09/25/2012 465.9 UPPE R RESPIRATORY INFECTION 09/25/2012 GONZALES DO, KESHIA K 465.9 Upper Respiratory Infection 09/25/2012 GONZALES DO, KESHIA K 465.9 Upper Respiratory Infection 09/25/2012 GONZALES DO, KESHIA K 465.9 Upper Respiratory Infection 09/25/2012 GONZALES DO, KESHIA K 465.9 Upper Respiratory Infection 09/25/2012 GONZALES DO, KESHIA K 465.9 Upper Respiratory Infection 09/25/2012 GONZALES DO, KESHIA K 465.9 Upper Respiratory Infection 09/25/2012 MADL DESIGN MAKER, DANG L 465 .9 Upper Respiratory Infection 09/25/2012 GONZALES DO, KESHIA K 465.9 Upper Respiratory Infection 11/02/2012 GONZALES DO, KESHIA K 791.0 MICROALBUMINURIA 11/02/2012 GONZALES DO, KESHIA K 791.0 MICROALBUMINURIA 11/02/2012 GONZALES DO, KESHIA K 791.0 MICROALBUMINURIA 11/02/2012 GONZALES DO, KESHIA K 791.0 MICROALBUMINURIA 11/02/2012 GONZALES DO, KESHIA K 791.0 MICROALBUMINURIA 11/02/2012 GONZALES DO, KESHIA K 791.0 MICROALBUMINURIA 11/02/2012 MADL DESIGN MAKER, DANG L 791 .0 MICROALBUMINURIA 11/02/2012 GONZALES DO, KESHIA K 791.0 [...] 250.00 DIABETES MELLITUS TYPE 2 11/22/2012 MADL DESIGN MAKER, DANG L 250 .00 DIABETES MELLITUS TYPE 2 11/22/2012 GONZALES DO, KESHIA K 250.00 DIABETES MELLITUS TYPE 2 08/31/2013 GONZALES DO, KESHIA K 110.1 DERMATOPHYTOSIS OF NAIL 08/31/2013 GONZALES DO, KESHIA K 110.1 DERMATOPHYTOSIS OF NAIL 08/31/2013 GONZALES DO, KESHIA K 110.1 DERMATOPHYTOSIS OF NAIL 08/31/2013 GONZALES DO, KESHIA K 110.1 DERMATOPHYTOSIS OF NAIL 08/31/2013 MADL DESIGN MAKER, DANG L 110 .1 DERMATOPHYTOSIS OF NAIL 08/31/2013 GONZALES DO, KESHIA K 110.1 DERMATOPHYTOSIS OF NAIL 10/19/2013 GONZALES DO, KESHIA K 782.1 RASH 10/19/2013 GONZALES DO, KESHIA K V41.0 PROBLEMS WITH SIGHT 10/19/2013 GONZALES DO, KESHIA K 782.1 RASH 10/19/2013 GONZALES DO, KESHIA K V41.0 PROBLEMS WITH SIGHT 10/19/2013 GONZALES DO, KESHIA K 782.1 RASH 10/19/2013 GONZALES DO, KESHIA K V41.0 PROBLEMS WITH SIGHT 10/19/2013 MADL DESIGN MAKER, DANG L 782 .1 RASH 10/19/2013 MADL DESIGN MAKER, DANG L V41 .0 PROBLEMS WITH SIGHT 10/19/2013 GONZALES DO, KESHIA K 782.1 RASH 10/19/2013 GONZALES DO, KESHIA K V41.0 PROBLEMS WITH SIGHT 03/21/2014 MADL DESIGN MAKER, DANG L 461 .9 SINUSITIS ACUTE 03/21/2014 MADL DESIGN MAKER, DANG L 477 .9 ALLERGIC RHINITIS CAUSE UNSPECIFIED 03/21/2014 GONZALES DO, KESHIA K 461.9 SINUSITIS ACUTE 03/21/2014 GONZALES DO, KESHIA K 477.9 ALLERGIC RHINITIS CAUSE UNSPECIFIED 08/31/2017 EDWARD JACOB MD, Ot A41.9 SEPSIS, UNSPECIFIED ORGANISM 08/31/2017 EDWARD JACOB MD Ot E11.6 5 TYPE 2 DIABETES MELLITUS WITH HYPERGLYCE 08/31/2017 EDWARD JACOB MD Ot E66.9 OBESITY, UNSPECIFIED 08/31/2017 EDWARD JACOB MD, Ot F17.2 10 NICOTINE DEPENDENCE, CIGARETTES, UNCOMPL 08/31/2017 EDWARD JACOB MD Ot I10 ESSENTIAL (PRIMARY) HYPERTENSION 08/31/2017 EDWARD JACOB MD, Ot J18.9 PNEUMONIA, UNSPECIFIED ORGANISM 08/31/2017 EDWARD JACOB MD Ot R09.0 2 HYPOXEMIA 08/31/2017 EDWARD JACOB MD, Ot Z68.4 2 BODY MASS INDEX (BMI) 45.0-49.9, ADULT 09/01/2017 EDWARD JACOB MD, Ot A41.9 SEPSIS, UNSPECIFIED ORGANISM 09/01/2017 EDWARD JACOB MD Ot E11.6 5 TYPE 2 DIABETES MELLITUS WITH HYPERGLYCE 09/01/2017 EDWARD JACOB MD Ot E66.9 OBESITY, UNSPECIFIED 09/01/2017 EDWARD JACOB MD Ot F17.2 10 NICOTINE DEPENDENCE, CIGARETTES, UNCOMPL 09/01/2017 EDWARD JACOB MD Ot I10 ESSENTIAL (PRIMARY) HYPERTENSION 09/01/2017 EDWARD JCAOB MD Ot J18.9 PNEUMONIA, UNSPECIFIED ORGANISM 09/01/2017 EDWARD JACOB MD Ot R09.0 2 HYPOXEMIA 09/01/2017 EDWARD JACOB MD Ot Z68.4 2 BODY MASS INDEX (BMI) 45.0-49.9, ADULT 09/01/2017 EDWARD JACOB MD Ot 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 11/23/2017 MADL, DANG L CORPORATE COUNSELOR Ot G47.10 HYPERSOMNIA, UNSPECIFIED 11/23/2017 MADL, DANG L CORPORATE COUNSELOR Ot R06.83 SNORING 11/23/2017 MADL, DANG L CORPORATE COUNSELOR Ot G47.10 HYPERSOMNIA, UNSPECIFIED 11/23/2017 MADL, DANG L CORPORATE COUNSELOR Ot R06.83 SNORING 11/23/2017 MADL, DANG L CORPORATE COUNSELOR Ot G47.10 HYPERSOMNIA, UNSPECIFIED 11/23/2017 MADL, DANG L CORPORATE COUNSELOR Ot R06.83 SNORING 11/28/2017 MADL, DANG L CORPORATE COUNSELOR Ot G47.10 HYPERSOMNIA, UNSPECIFIED 11/28/2017 MADL, DANG L CORPORATE COUNSELOR Ot R06.83 SNORING Procedures Code Description [place] [address] ROUT INE VENIPUNCTURE 11/02/2012 45974 MICR OALBUMIN 11/02/2012 35220 A1C (IN-HOUSE) 11/02/2012 74595 MICR O ALBUMIN-IN HOUSE 11/02/2012 45626 CMP 11/02/2012 58271 LIPI D PANEL 11/02/20121570918 GF R CALC (RESULT ONLY) 11/02/2012 FOOT EXAM PERFORMED 08/31/2013 14258 A1C (IN-HOUSE) 08/31/2013 LYNDSAY SINGH 10/19/2013 89207 ROUT INE VENIPUNCTURE 10/29/2013 30122 MICR O ALBUMIN-IN HOUSE 10/29/20137840391 GF R CALC (RESULT ONLY) 10/29/2013 66321 [facility] 10/29/2013 19206 LIPI D PANEL 10/29/2013 60738 EYE EXAM PERFORMED 01/11/2014 71295 A1C (IN-HOUSE) 01/11/2014 FOOT EXAM PERFORMED 01/11/2014 27178 ROUT INE VENIPUNCTURE 06/04/2014 51766 A1C (IN-HOUSE) 06/04/2014 FOOT EXAM PERFORMED 06/04/[id number] GF R CALC (RESULT ONLY) 06/04/2014 66249 [facility] 06/04/2014 Results Test Result Range Comp. Metabolic Panel (14) - 06/22/16 18 :41 Glucose, Serum 112 mg/dL 65-99 BUN 19 mg/dL 6-20 Creatinine, Serum 0.77 mg/dL 0.57-1.00 eGFR If NonAfricn Am 98 mL/min/1.73 >59 eGFR If Africn Am 113 mL/min/1.73 >5 9 BUN/Creatinine Ratio 25 8-20 Sodium, Serum 138 mmol/L 136-144 Potassium, Serum 4.2 mmol/L 3.5-5.2 Chloride, Serum 95 mmol/L 97-106 Carbon Dioxide, Total 27 mmol/L 18-29 Calcium, Serum 9.2 mg/dL 8.7-10.2 Protein, Total, Serum 7.1 g/dL 6.0-8.5 Albumin, Serum 4.2 g/dL 3.5-5.5 Globulin, Total 2.9 g/dL 1.5-4.5 A/G Ratio 1.4 1.1-2.5 Bilirubin, Total <0.2 mg/dL 0.0-1.2 Alkaline Phosphatase, S 119 IU/L 39-117 AST (SGOT) 14 IU/L 0-40 ALT (SGPT) 20 IU/L 0-32 Comp. Metabolic Panel (14) - 03/31/17 08 :59 Glucose, Serum 183 mg/dL 65-99 BUN 15 mg/dL 6-20 Creatinine, Serum 0.65 mg/dL 0.57-1.00 eGFR If NonAfricn Am 113 mL/min/1.73 >59 eGFR If Africn Am 130 mL/min/1.73 >5 9 BUN/Creatinine Ratio 23 9-23 Sodium, Serum 139 mmol/L 134-144 Potassium, Serum 4.6 mmol/L 3.5-5.2 Chloride, Serum 97 mmol/L 96-106 Carbon Dioxide, Total 22 mmol/L 18-29 Calcium, Serum 9.3 mg/dL 8.7-10.2 Protein, Total, Serum 6.4 g/dL 6.0-8.5 Albumin, Serum 3.8 g/dL 3.5-5.5 Globulin, Total 2.6 g/dL 1.5-4.5 A/G Ratio 1.5 1.2-2.2 Bilirubin, Total <0.2 mg/dL 0.0-1.2 Alkaline Phosphatase, S 128 IU/L 39-117 AST (SGOT) 8 IU/L 0-40 ALT (SGPT) 14 IU/L 0-32 Lipid Panel - 03/31/17 08:59 Cholesterol, Total 155 mg/dL 100-199 Triglycerides 161 mg/dL 0-149 HDL Cholesterol 32 mg/dL >39 VLDL Cholesterol Inocencio 32 mg/dL 5-40 LDL Cholesterol Calc 91 mg/dL 0-99 TSH - 03/31/17 08:59 TSH 2.760 uIU/mL 0.450-4.500 Influenza virus A and B antigen detectio n - 08/28/17 21:19 FLU RESULT NEGATIVE FOR INFLUENZA A AND B ANTIGENS BY IA NRG Complete urinalysis with reflex to cultu re - 08/28/17 22:06 Urine color determination YELLOW NRG Urine clarity determination SLIGHTLY CLOUDY NRG Urine pH measurement by test strip 6 5-9 Specific gravity of urine by test strip 1.015 1.016-1.022 Urine protein assay by test strip, semi-quantitative 2+ NEGATIVE Urine glucose detection by automated test strip 1+ NEGATIVE Erythrocytes detection in urine sediment by light micr oscopy NEGATIVE NEGATIVE Urine ketones detection by automated test strip NE GATIVE NEGATIVE Urine nitrite detection by test strip NEGATIVE NEGATIVE Urine total bilirubin detection by test strip NEGA TIVE NEGATIVE Urine urobilinogen measurement by automated test strip (mass/volume) NORMAL NORMAL Urine leukocyte esterase detection by dipstick 3+ NEGATIVE Automated urine sediment erythrocyte cou nt by microscopy (number/high power field) RARE NRG Automated urine sediment leukocyte count by microscopy (number/high power field) [HPF] NRG Bacteria detection in urine sediment by light microsco py TRACE NRG Squamous epithelial cells detection in u rine sediment by light microscopy >50 NRG Crystals detection in urine sediment by light microsco py NONE NRG Casts detection in urine sediment by light microscopy PRESENT NRG Mucus detection in urine sediment by light microscopy SMALL NRG Complete urinalysis with reflex to culture YES NRG Hyaline casts detection in urine sediment by light jamal roscopy 10-25 NRG Renal epithelial cells detection in urin e sediment by light microscopy NONE NRG Urine Trichomonas species detection by light microscop y FEW NRG Bacterial urine culture - 08/28/17 22:06 Bacterial urine culture [id number] NRG COLONY COUNT <10,000 NRG FTX;REPORTABLE SENSITIVITY REPORTED 08/31/17 7:35 NRG FREE TEXT ENTRY 2 PLUS, NRG FREE TEXT ENTRY 3 MIXED GRAM POSITIVES <10,000/ML NRG Bacterial susceptibility panel - 8 22:06 Gentamicin susceptibility test by minimum inhibitory c oncentration S NRG Erythromycin susceptibility test by minimum inhibitory concentration >= NRG Vancomycin susceptibility test by minimum inhibitory c oncentration 1 NRG Levofloxacin susceptibility test by minimum inhibitory concentration 0.5 NRG Tetracycline susceptibility test by minimum inhibitory concentration >= NRG Ampicillin susceptibility test by minimum inhibitory c oncentration <= NRG Nitrofurantoin susceptibility test by mi nimum inhibitory concentration <= NRG Linezolid susceptibility test by minimum inhibitory co ncentration 2 NRG Complete blood count (CBC) with automate d white blood cell (WBC) differential - 08/28/17 22:48 Blood leukocytes automated count (number/volume) 12.0 10*3/uL 4.3-11.0 Blood erythrocytes automated count (number/volume) 4.64 10*6/uL 4.35-5.85 Venous blood hemoglobin measurement (mass/volume) 12.5 g/dL 11.5-16.0 Blood hematocrit (volume fraction) 39 % 35-52 Automated erythrocyte mean corpuscular volume 83 [ foz_us] 80-99 Automated erythrocyte mean corpuscular h emoglobin (mass per erythrocyte) 27 pg 25-34 Automated erythrocyte mean corpuscular h emoglobin concentration measurement (mass/volume) 32 g/dL 32-36 Automated erythrocyte distribution width ratio 15. 9 % 10.0- 14.5 Automated blood platelet count (count/volume) 331 10*3/uL 130-400 Automated blood platelet mean volume measurement 10.3 [foz_us] 7.4-10.4 Automated blood neutrophils/100 leukocytes 76 % 42-75 Automated blood lymphocytes/100 leukocytes 16 % 12-44 Blood monocytes/100 leukocytes 8 % 0-12 Automated blood eosinophils/100 leukocytes 1 % 0-10 Automated blood basophils/100 leukocytes 0 % 0-10 Blood neutrophils automated count (number/volume) 9.1 10*3 1.8-7.8 Blood lymphocytes automated count (number/volume) 1.9 10*3 1.0-4.0 Blood monocytes automated count (number/volume) 0. 9 10*3 0.0-1.0 Automated eosinophil count 0.1 10*3/uL 0 .0-0.3 Automated blood basophil count (count/volume) 0.0 10*3/uL 0.0-0.1 Blood lactic acid measurement (moles/vol ume) - 08/28/17 22:48 Blood lactic acid measurement (moles/volume) 2.55 mmol/L 0.50-2.00 PT panel in platelet poor plasma by coag ulation assay - 08/28/17 22:48 Prothrombin time (PT) in platelet poor plasma by coagu lation assay 13.8 s 12.2-14.7 INR in platelet poor plasma or blood by coagulation as say 1.1 0.8-1.4 Activated partial thromboplastin time (a PTT) in platelet poor plasma bycoagulation assay - 08/28/17 22:48 Activated partial thromboplastin time (a PTT) in platelet poor plasma bycoagulation assay 30 s 24-35 Comprehensive metabolic panel - 08/28/17 22:48 Serum or plasma sodium measurement (moles/volume) 133 mmol/L 135-145 Serum or plasma potassium measurement (moles/volume) 3.9 mmol/L 3.6-5.0 Serum or plasma chloride measurement (moles/volume) 92 mmol/L 98-107 Carbon dioxide 27 mmol/L 21-32 Serum or plasma anion gap determination (moles/volume) 14 mmol/L 5-14 Serum or plasma urea nitrogen measurement (mass/volume ) 19 mg/dL 7-18 Serum or plasma creatinine measurement (mass/volume) 1.14 mg/dL 0.60-1.30 Serum or plasma urea nitrogen/creatinine mass ratio 17 NRG Serum or plasma creatinine measurement w ith calculation of estimated glomerular filtration rate 53 NRG Serum or plasma glucose measurement (mass/volume) 176 mg/dL 70-105 Serum or plasma calcium measurement (mass/volume) 9.0 mg/dL 8.5-10.1 Serum or plasma total bilirubin measurement (mass/volu me) 0.4 mg/dL 0.1-1.0 Serum or plasma alkaline phosphatase jules surement (enzymatic activity/volume) 115 U/L 40-136 Serum or plasma aspartate aminotransfera se measurement (enzymatic activity/volume) 17 U/L 5-34 Serum or plasma alanine aminotransferase measurement (enzymatic activity/volume) 23 U/L 0-55 Serum or plasma protein measurement (mass/volume) 7.3 g/dL 6.4-8.2 Serum or plasma albumin measurement (mass/volume) 3.7 g/dL 3.2-4.5 Bacterial blood culture - 08/28/17 22:48 Bacterial blood culture NG NRG Bacterial blood culture - 08/28/17 23:15 Bacterial blood culture NG NRG Serum or plasma lactate measurement (mol es/volume) - 08/29/17 00:50 Serum or plasma lactate measurement (moles/volume) 2.74 mmol/L 0.50-2.00 Complete blood count (CBC) with automate d white blood cell (WBC) differential - 08/29/17 05:35 Blood leukocytes automated count (number/volume) 12.3 10*3/uL 4.3-11.0 Blood erythrocytes automated count (number/volume) 4.18 10*6/uL 4.35-5.85 Venous blood hemoglobin measurement (mass/volume) 11.3 g/dL 11.5-16.0 Blood hematocrit (volume fraction) 35 % 35-52 Automated erythrocyte mean corpuscular volume 83 [ foz_us] 80-99 Automated erythrocyte mean corpuscular h emoglobin (mass per erythrocyte) 27 pg 25-34 Automated erythrocyte mean corpuscular h emoglobin concentration measurement (mass/volume) 33 g/dL 32-36 Automated erythrocyte distribution width ratio 16. 0 % 10.0- 14.5 Automated blood platelet count (count/volume) 287 10*3/uL 130-400 Automated blood platelet mean volume measurement 10.2 [foz_us] 7.4-10.4 Automated blood neutrophils/100 leukocytes 88 % 42-75 Automated blood lymphocytes/100 leukocytes 8 % 12-44 Blood monocytes/100 leukocytes 4 % 0-12 Automated blood eosinophils/100 leukocytes 0 % 0-10 Automated blood basophils/100 leukocytes 0 % 0-10 Blood neutrophils automated count (number/volume) 10.8 10*3 1.8-7.8 Blood lymphocytes automated count (number/volume) 1.0 10*3 1.0-4.0 Blood monocytes automated count (number/volume) 0. 4 10*3 0.0-1.0 Automated eosinophil count 0.0 10*3/uL 0 .0-0.3 Automated blood basophil count (count/volume) 0.0 10*3/uL 0.0-0.1 Comprehensive metabolic panel - 08/29/17 05:35 Serum or plasma sodium measurement (moles/volume) 132 mmol/L 135-145 Serum or plasma potassium measurement (moles/volume) 4.7 mmol/L 3.6-5.0 Serum or plasma chloride measurement (moles/volume) 97 mmol/L 98-107 Carbon dioxide 22 mmol/L 21-32 Serum or plasma anion gap determination (moles/volume) 13 mmol/L 5-14 Serum or plasma urea nitrogen measurement (mass/volume ) 20 mg/dL 7-18 Serum or plasma creatinine measurement (mass/volume) 1.07 mg/dL 0.60-1.30 Serum or plasma urea nitrogen/creatinine mass ratio 19 NRG Serum or plasma creatinine measurement w ith calculation of estimated glomerular filtration rate 57 NRG Serum or plasma glucose measurement (mass/volume) 341 mg/dL 70-105 Serum or plasma calcium measurement (mass/volume) 8.0 mg/dL 8.5-10.1 Serum or plasma total bilirubin measurement (mass/volu me) 0.4 mg/dL 0.1-1.0 Serum or plasma alkaline phosphatase jules surement (enzymatic activity/volume) 103 U/L 40-136 Serum or plasma aspartate aminotransfera se measurement (enzymatic activity/volume) 18 U/L 5-34 Serum or plasma alanine aminotransferase measurement (enzymatic activity/volume) 22 U/L 0-55 Serum or plasma protein measurement (mass/volume) 6.6 g/dL 6.4-8.2 Serum or plasma albumin measurement (mass/volume) 3.3 g/dL 3.2-4.5 Blood lactic acid measurement (moles/vol ume) - 08/29/17 09:53 Blood lactic acid measurement (moles/volume) 2.85 mmol/L 0.50-2.00 Hemoglobin A1c - 08/29/17 09:53 Hemoglobin A1c 9.3 % 4.5-6.2 Capillary blood glucose measurement by g lucometer (mass/volume) - 08/29/17 10:36 Capillary blood glucose measurement by glucometer (mas s/volume) 472 mg/dL 70-110 Serum or plasma lactate measurement (mol es/volume) - 08/29/17 12:02 Serum or plasma lactate measurement (moles/volume) 3.14 mmol/L 0.50-2.00 Capillary blood glucose measurement by g lucometer (mass/volume) - 08/29/17 13:44 Capillary blood glucose measurement by glucometer (mas s/volume) 448 mg/dL 70-110 Blood lactic acid measurement (moles/vol ume) - 08/29/17 16:10 Blood lactic acid measurement (moles/volume) 3.57 mmol/L 0.50-2.00 Serum or plasma lactate measurement (mol es/volume) - 08/29/17 18:10 Serum or plasma lactate measurement (moles/volume) 2.48 mmol/L 0.50-2.00 Blood lactic acid measurement (moles/vol ume) - 08/29/17 20:30 Blood lactic acid measurement (moles/volume) 2.11 mmol/L 0.50-2.00 Capillary blood glucose measurement by g lucometer (mass/volume) - 08/29/17 21:06 Capillary blood glucose measurement by glucometer (mas s/volume) 347 mg/dL 70-110 Serum or plasma lactate measurement (mol es/volume) - 08/29/17 22:50 Serum or plasma lactate measurement (moles/volume) 1.87 mmol/L 0.50-2.00 Capillary blood glucose measurement by g lucometer (mass/volume) - 08/30/17 05:21 Capillary blood glucose measurement by glucometer (mas s/volume) 226 mg/dL 70-110 Complete blood count (CBC) with automate d white blood cell (WBC) differential - 08/30/17 05:55 Blood leukocytes automated count (number/volume) 14.2 10*3/uL 4.3-11.0 Blood erythrocytes automated count (number/volume) 4.19 10*6/uL 4.35-5.85 Venous blood hemoglobin measurement (mass/volume) 11.3 g/dL 11.5-16.0 Blood hematocrit (volume fraction) 36 % 35-52 Automated erythrocyte mean corpuscular volume 86 [ foz_us] 80-99 Automated erythrocyte mean corpuscular h emoglobin (mass per erythrocyte) 27 pg 25-34 Automated erythrocyte mean corpuscular h emoglobin concentration measurement (mass/volume) 32 g/dL 32-36 Automated erythrocyte distribution width ratio 16. 4 % 10.0- 14.5 Automated blood platelet count (count/volume) 328 10*3/uL 130-400 Automated blood platelet mean volume measurement 10.1 [foz_us] 7.4-10.4 Automated blood neutrophils/100 leukocytes 73 % 42-75 Automated blood lymphocytes/100 leukocytes 20 % 12-44 Blood monocytes/100 leukocytes 7 % 0-12 Automated blood eosinophils/100 leukocytes 0 % 0-10 Automated blood basophils/100 leukocytes 0 % 0-10 Blood neutrophils automated count (number/volume) 10.4 10*3 1.8-7.8 Blood lymphocytes automated count (number/volume) 2.8 10*3 1.0-4.0 Blood monocytes automated count (number/volume) 0. 9 10*3 0.0-1.0 Automated eosinophil count 0.0 10*3/uL 0 .0-0.3 Automated blood basophil count (count/volume) 0.0 10*3/uL 0.0-0.1 Comprehensive metabolic panel - 08/30/17 05:55 Serum or plasma sodium measurement (moles/volume) 141 mmol/L 135-145 Serum or plasma potassium measurement (moles/volume) 4.2 mmol/L 3.6-5.0 Serum or plasma chloride measurement (moles/volume) 105 mmol/L 98-107 Carbon dioxide 25 mmol/L 21-32 Serum or plasma anion gap determination (moles/volume) 11 mmol/L 5-14 Serum or plasma urea nitrogen measurement (mass/volume ) 16 mg/dL 7-18 Serum or plasma creatinine measurement (mass/volume) 0.71 mg/dL 0.60-1.30 Serum or plasma urea nitrogen/creatinine mass ratio 23 NRG Serum or plasma creatinine measurement w ith calculation of estimated glomerular filtration rate > NRG Serum or plasma glucose measurement (mass/volume) 216 mg/dL 70-105 Serum or plasma calcium measurement (mass/volume) 8.0 mg/dL 8.5-10.1 Serum or plasma total bilirubin measurement (mass/volu me) 0.2 mg/dL 0.1-1.0 Serum or plasma alkaline phosphatase jules surement (enzymatic activity/volume) 87 U/L 40-136 Serum or plasma aspartate aminotransfera se measurement (enzymatic activity/volume) 22 U/L 5-34 Serum or plasma alanine aminotransferase measurement (enzymatic activity/volume) 26 U/L 0-55 Serum or plasma protein measurement (mass/volume) 6.4 g/dL 6.4-8.2 Serum or plasma albumin measurement (mass/volume) 3.2 g/dL 3.2-4.5 Capillary blood glucose measurement by g lucometer (mass/volume) - 08/30/17 10:08 Capillary blood glucose measurement by glucometer (mas s/volume) 283 mg/dL 70-110 Capillary blood glucose measurement by g lucometer (mass/volume) - 08/30/17 14:11 Capillary blood glucose measurement by glucometer (mas s/volume) 375 mg/dL 70-110 Capillary blood glucose measurement by g lucometer (mass/volume) - 08/30/17 19:35 Capillary blood glucose measurement by glucometer (mas s/volume) 380 mg/dL 70-110 Capillary blood glucose measurement by g lucometer (mass/volume) - 08/31/17 05:23 Capillary blood glucose measurement by glucometer (mas s/volume) 174 mg/dL 70-110 Complete blood count (CBC) with automate d white blood cell (WBC) differential - 08/31/17 06:25 Blood leukocytes automated count (number/volume) 14.1 10*3/uL 4.3-11.0 Blood erythrocytes automated count (number/volume) 3.97 10*6/uL 4.35-5.85 Venous blood hemoglobin measurement (mass/volume) 10.8 g/dL 11.5-16.0 Blood hematocrit (volume fraction) 34 % 35-52 Automated erythrocyte mean corpuscular volume 86 [ foz_us] 80-99 Automated erythrocyte mean corpuscular h emoglobin (mass per erythrocyte) 27 pg 25-34 Automated erythrocyte mean corpuscular h emoglobin concentration measurement (mass/volume) 32 g/dL 32-36 Automated erythrocyte distribution width ratio 16. 3 % 10.0- 14.5 Automated blood platelet count (count/volume) 308 10*3/uL 130-400 Automated blood platelet mean volume measurement 10.1 [foz_us] 7.4-10.4 Automated blood neutrophils/100 leukocytes 66 % 42-75 Automated blood lymphocytes/100 leukocytes 26 % 12-44 Blood monocytes/100 leukocytes 7 % 0-12 Automated blood eosinophils/100 leukocytes 1 % 0-10 Automated blood basophils/100 leukocytes 0 % 0-10 Blood neutrophils automated count (number/volume) 9.4 10*3 1.8-7.8 Blood lymphocytes automated count (number/volume) 3.6 10*3 1.0-4.0 Blood monocytes automated count (number/volume) 1. 0 10*3 0.0-1.0 Automated eosinophil count 0.1 10*3/uL 0 .0-0.3 Automated blood basophil count (count/volume) 0.0 10*3/uL 0.0-0.1 Whole blood basic metabolic panel - 08/15 03/01 06:25 Serum or plasma sodium measurement (moles/volume) 142 mmol/L 135-145 Serum or plasma potassium measurement (moles/volume) 3.9 mmol/L 3.6-5.0 Serum or plasma chloride measurement (moles/volume) 102 mmol/L 98-107 Carbon dioxide 29 mmol/L 21-32 Serum or plasma anion gap determination (moles/volume) 11 mmol/L 5-14 Serum or plasma urea nitrogen measurement (mass/volume ) 14 mg/dL 7-18 Serum or plasma creatinine measurement (mass/volume) 0.67 mg/dL 0.60-1.30 Serum or plasma urea nitrogen/creatinine mass ratio 21 NRG Serum or plasma creatinine measurement w ith calculation of estimated glomerular filtration rate > NRG Serum or plasma glucose measurement (mass/volume) 161 mg/dL 70-105 Serum or plasma calcium measurement (mass/volume) 8.5 mg/dL 8.5-10.1 Capillary blood glucose measurement by g lucometer (mass/volume) - 08/31/17 09:34 Capillary blood glucose measurement by glucometer (mas s/volume) 348 mg/dL 70-110 Capillary blood glucose measurement by g lucometer (mass/volume) - 08/31/17 14:22 Capillary blood glucose measurement by glucometer (mas s/volume) 404 mg/dL 70-110 Capillary blood glucose measurement by g lucometer (mass/volume) - 08/31/17 21:20 Capillary blood glucose measurement by glucometer (mas s/volume) 282 mg/dL 70-110 Capillary blood glucose measurement by g lucometer (mass/volume) - 09/01/17 06:33 Capillary blood glucose measurement by glucometer (mas s/volume) 194 mg/dL 70-110 Capillary blood glucose measurement by g lucometer (mass/volume) - 09/01/17 12:00 Capillary blood glucose measurement by glucometer (mas s/volume) 308 mg/dL 70-110 Capillary blood glucose measurement by g lucometer (mass/volume) - 09/01/17 14:34 Capillary blood glucose measurement by glucometer (mas s/volume) 348 mg/dL 70-110 CMP - 05/11/18 09:58 GLUCOSE 297 mg/dL 65-99 UREA NITROGEN (BUN) 14 mg/dL 7-25 CREATININE 0.64 mg/dL 0.50-1.10 eGFR NON-AFR. MALAWIAN 112 mL/min/1.73m2 > OR = 60 eGFR 129 mL/min/1.73m2 > OR = 60 BUN/CREATININE RATIO NOT APPLICABLE (calc) 6-22 SODIUM 134 mmol/L 135-146 POTASSIUM 4.7 mmol/L 3.5-5.3 CHLORIDE 97 mmol/L 98-110 CARBON DIOXIDE 30 mmol/L 20-32 CALCIUM 9.4 mg/dL 8.6-10.2 PROTEIN, TOTAL 6.8 g/dL 6.1-8.1 ALBUMIN 4.0 g/dL 3.6-5.1 GLOBULIN 2.8 g/dL (calc) 1.9-3.7 ALBUMIN/GLOBULIN RATIO 1.4 (calc) 1.0-2. 5 BILIRUBIN, TOTAL 0.4 mg/dL 0.2-1.2 ALKALINE PHOSPHATASE 126 U/L 33-115 AST 17 U/L 10-30 ALT 30 U/L 6-29 Encounters ACCT No. Visit Date/Time Discharge Status Pt. Type Provider Facility Loc./Unit Complaint [id number] 04/01/2017 15:08:00 Document Registration [id number] 06/24/2016 08:07:00 Document Registration [id number] 11/22/2017 19:00:00 018 06:30:00 DIS Outpatient DANG BLACKMANP Via [facility] SLEEP HYPERSOMNIA G47.10 [id number] 08/29/2017 02:55:00 018 18:00:00 DIS Inpatient EDWARD JACOB MD Via [facility] 4TH BILATERAL PNA,HYPOXIA, COPD [id number] 06/04/2014 13:57:00 06/04/2014 23:59: 59 CLS Outpatient KESHIA GONZALES DO [id number] 03/21/2014 09:36:00 03/21/2014 23:59: 59 CLS Outpatient DANG BLACKMAN APRN [id number] 01/11/2014 09:34:00 01/11/2014 23:59: 59 CLS Outpatient KESHIA GONZALES DO [id number] 10/29/2013 08:57:00 10/29/2013 23:59: 59 CLS Outpatient KESHIA GONZALES DO [id number] 10/19/2013 16:30:00 10/19/2013 23:59: 59 CLS Outpatient KESHIA GONZALES DO [id number] 08/31/2013 15:10:00 08/31/2013 23:59: 59 CLS Outpatient KESHIA GONZALES DO [id number] 06/20/2013 14:24:00 06/20/2013 23:59: 59 CLS Outpatient KESHIA GONZALES DO [id number] 11/02/2012 08:55:00 11/02/2012 23:59: 59 CLS Outpatient KESHIA GONZALES DO [id number] 09/25/2012 14:51:00 09/25/2012 23:59: 59 CLS Outpatient [id number] 03/15/2019 11:20:00 03/15/2019 23:59: 59 C[facility] [id number] 05/11/2018 08:40:00 Document Registration
--- NOTE | 2020-01-25 08:53 | NUR ---
COVID SWAB COMPLETED
[2020-01-25] MEDS ORDERED: TICAGRELOR 90 MG TABLET (BRILINTA) PO STA (08:54)
[2020-01-25] MEDS ORDERED: LACTATED RINGERS 1,000 ML IV ONE (08:57)
--- NOTE | 2020-01-25 08:59 | NUR ---
BP 93/54 2ND NITRO HELD.
[2020-01-25] MEDS ORDERED: ASPIRIN 81 MG CHEW (CHILDREN'S ASA) PO ONE (09:00)
[2020-01-25] MEDS ORDERED: morphine INJ 10 MG/ML 1ML (SYR OR VIAL) ONE (09:02)
[2020-01-25 09:03] LABS: BASOPHILS # (AUTO) 0.1 10^3/uL (0.0-0.1); BASOPHILS % (AUTO) 0 % (0-10); EOSINOPHILS # (AUTO) 0.3 10^3/uL (0.0-0.3); EOSINOPHILS % (AUTO) 1 % (0-10); HEMATOCRIT 40 % (35-52); HEMOGLOBIN 12.9 G/DL (11.5-16.0); LYMPHOCYTES # (AUTO) 5.3 X 10^3 (1.0-4.0); LYMPHOCYTES % (AUTO) 25 % (12-44); MEAN CORPUSCULAR HEMOGLOBIN 27 PG (25-34); MEAN CORPUSCULAR HGB CONC 32 G/DL (32-36); MEAN CORPUSCULAR VOLUME 82 FL (80-99); MEAN PLATELET VOLUME 10.3 FL (7.4-10.4); MONOCYTES # (AUTO) 1.1 X 10^3 (0.0-1.0); MONOCYTES % (AUTO) 5 % (0-12); NEUTROPHILS # (AUTO) 14.7 X 10^3 (1.8-7.8); NEUTROPHILS % (AUTO) 69 % (42-75); PLATELET COUNT 468 10^3/uL (130-400); RED CELL DISTRIBUTION WIDTH 15.6 % (10.0-14.5); WHITE BLOOD COUNT 21.5 10^3/uL (4.3-11.0)
[2020-01-25] MEDS ORDERED: LACTATED RINGERS 1,000 ML IV STA (09:05)
[2020-01-25] MEDS ORDERED: ONDANSETRON 4 MG/2 ML (SDV) Z0FRAN ONE (09:05)
--- NOTE | 2020-01-25 09:05 | NUR ---
PT VOMITING. DR NOTIFIED. COOL RAG PLACED ON BACK PT PT'S NECK.
[2020-01-25] MEDS ORDERED: NITRO DRIP 25000 MCG/D5W 250 ML IV ONE (09:08)
[2020-01-25 09:09] LABS: INR 0.9 (0.8-1.4); PROTHROMBIN TIME PATIENT 12.5 SEC (12.2-14.7)
--- NOTE | 2020-01-25 09:12 | NUR ---
DR PRYOR ON PHONE WITH PT'S S/O SCOTT.
[2020-01-25] MEDS ORDERED: ONDANSETRON 4 MG/2 ML (SDV) Z0FRAN IVP ONE (09:15)
[2020-01-25] MEDS ORDERED: morphine INJ 10 MG/ML 1ML (SYR OR VIAL) IVP ONE (09:15)
--- OUTSIDE RECORDS SUMMARY | 2020-01-25 09:16 | XMS REPORT | Continuity of Care Document ---
Demographics Preferred Language Unknown Marital Status Unknown Confucianist Affiliation Unknown Race Unknown Ethnic Group Unknown Author Organization Unknown Address Unknown Phone Unavailable Allergies Active Description Code Type Severity Reaction Onset Reported/Identified Relationship to Patient Clinical Status Yes metformin 1,000 mg tablet,ER ina.retent ion 24 hr Drug Allergy N/A N/A 01/2013 Yes No Known Drug Allergies [id number] Drug Allergy Unknown N/A 08/28/2017 Medications There [...] Reading Without Diagnosis Of Hypertension 12/30/2009 MADL IT SYSTEMS ADMINISTRATORMAYIA L 305 .1 NICOTINE DEPENDENCE 12/30/2009 MADL IT SYSTEMS ADMINISTRATOR, DANG L 626 .2 EXCESSIVE OR FREQUENT MENSTRUATION 12/30/2009 MADL IT SYSTEMS ADMINISTRATOR, DANG L 796 .2 Elevated Blood Pressure [...] K 626.4 IRREGULAR MENSTRUAL CYCLE 01/20/2010 MADL IT SYSTEMS ADMINISTRATOR, DANG L 278 .00 OBESITY 01/20/2010 MADL IT SYSTEMS ADMINISTRATOR, DANG L 401 .1 ESSENTIAL HYPERTENSION BENIGN 01/20/2010 MADL IT SYSTEMS ADMINISTRATOR, DANG L 626 .4 IRREGULAR MENSTRUAL CYCLE 01/20/2010 GONZALES DO, KESHIA K 278.00 OBESITY 01/20/2010 GONZALES DO, KESHIA K 401.1 ESSENTIAL HYPERTENSION BENIGN 01/20/2010 GONZALES DO, KESHIA K 626.4 IRREGULAR MENSTRUAL CYCLE 08/10/2010 466.0 BRON CHITIS, ACUTE 08/10/2010 GONZALES DO, KESHIA K 466.0 Bronchitis, Acute 08/10/2010 GONZALES DO, KESHIA K 466.0 Bronchitis, Acute 08/10/2010 GONZALES DO, KESHIA K 466.0 Bronchitis, Acute 08/10/2010 GONZALES DO, KESHIA K 466.0 Bronchitis, Acute 08/10/2010 GONZALES DO, KESHIA K 466.0 Bronchitis, Acute 08/10/2010 GONZALES DO, KESHIA K 466.0 Bronchitis, Acute 08/10/2010 MADL IT SYSTEMS ADMINISTRATOR, DANG L 466 .0 Bronchitis, Acute 08/10/2010 [...] DO, KESHIA K 786.2 Cough 08/25/2010 MADL IT SYSTEMS ADMINISTRATOR, DANG L 381 .81 Eustachian Tube Dysfunction 08/25/2010 MADL IT SYSTEMS ADMINISTRATOR, DANG L 786 .2 Cough 08/25/2010 GONZALES [...] DO, KESHIA K 388.70 Otalgia 01/20/2011 MADL IT SYSTEMS ADMINISTRATOR, DANG L 380 .10 Otitis Externa 01/20/2011 MADL IT SYSTEMS ADMINISTRATOR, DANG L 388 .70 Otalgia 01/20/2011 GONZALES [...] In Joint Involving Lower Leg 08/09/2011 MADL IT SYSTEMS ADMINISTRATORDANG Traore L 719 .46 Pain In Joint [...] At A Health Care Facility 02/10/2012 MADL IT SYSTEMS ADMINISTRATOR, DANG L V65 .42 Patient Education - Alcohol 02/10/2012 MADL IT SYSTEMS ADMINISTRATOR, DANG L V70 .0 Routine General Medical [...] TYPE 2 - UNCOMPLICATED, UNCONTROLLED 02/22/2012 MARKL IT SYSTEMS ADMINISTRATOR, DANG L 250 .02 DIABETES MELLITUS TYPE [...] DO, KESHIA K 272.1 HYPERTRIGLYCERIDEMIA 02/23/2012 MADL IT SYSTEMS ADMINISTRATOR, DANG L 272 .1 HYPERTRIGLYCERIDEMIA 02/23/2012 GONZALES [...] K 465.9 Upper Respiratory Infection 09/25/2012 MADL IT SYSTEMS ADMINISTRATOR, DANG L 465 .9 Upper Respiratory Infection 09/25/2012 GONZALES DO, KESHIA K 465.9 Upper Respiratory Infection 11/02/2012 GONZALES DO, KESHIA K 791.0 MICROALBUMINURIA 11/02/2012 GONZALES DO, KESHIA K 791.0 MICROALBUMINURIA 11/02/2012 GONZALES DO, KESHIA K 791.0 MICROALBUMINURIA 11/02/2012 GONZALES DO, KESHIA K 791.0 MICROALBUMINURIA 11/02/2012 GONZALES DO, KESHIA K 791.0 MICROALBUMINURIA 11/02/2012 GONZALES DO, KESHIA K 791.0 MICROALBUMINURIA 11/02/2012 MADL IT SYSTEMS ADMINISTRATOR, DANG L 791 .0 MICROALBUMINURIA 11/02/2012 GONZALES [...] 250.00 DIABETES MELLITUS TYPE 2 11/22/2012 MADL IT SYSTEMS ADMINISTRATOR, DANG L 250 .00 DIABETES MELLITUS TYPE 2 11/22/2012 GONZALES DO, KESHIA K 250.00 DIABETES MELLITUS TYPE 2 08/31/2013 GONZALES DO, KESHIA K 110.1 DERMATOPHYTOSIS OF NAIL 08/31/2013 GONZALES DO, KESHIA K 110.1 DERMATOPHYTOSIS OF NAIL 08/31/2013 GONZALES DO, KESHIA K 110.1 DERMATOPHYTOSIS OF NAIL 08/31/2013 GONZALES DO, KESHIA K 110.1 DERMATOPHYTOSIS OF NAIL 08/31/2013 MADL IT SYSTEMS ADMINISTRATOR, DANG L 110 .1 DERMATOPHYTOSIS OF NAIL [...] K V41.0 PROBLEMS WITH SIGHT 10/19/2013 MADL IT SYSTEMS ADMINISTRATOR, DANG L 782 .1 RASH 10/19/2013 MADL IT SYSTEMS ADMINISTRATOR, DANG L V41 .0 PROBLEMS WITH SIGHT 10/19/2013 GONZALES DO, KESHIA K 782.1 RASH 10/19/2013 GONZALES DO, KESHIA K V41.0 PROBLEMS WITH SIGHT 03/21/2014 MADL IT SYSTEMS ADMINISTRATOR, DANG L 461 .9 SINUSITIS ACUTE 03/21/2014 MADL IT SYSTEMS ADMINISTRATOR, DANG L 477 .9 ALLERGIC RHINITIS CAUSE [...] 2 DIABETES MELLITUS WITH HYPERGLYCE 09/01/2017 EDWARD AJCOB MD Ot E66.9 OBESITY, UNSPECIFIED 09/01/2017 EDWARD JACOB MD Ot F17.2 10 NICOTINE DEPENDENCE, CIGARETTES, UNCOMPL 09/01/2017 EDWARD JACOB MD Ot I10 ESSENTIAL (PRIMARY) HYPERTENSION 09/01/2017 EDWARD JACOB MD Ot J18.9 PNEUMONIA, UNSPECIFIED ORGANISM 09/01/2017 EDWARD JACOB MD Ot R09.0 2 HYPOXEMIA 09/01/2017 EDWARD JACOB MD Ot Z68.4 2 BODY MASS INDEX (BMI) 45.0-49.9, ADULT 09/01/2017 EDWARD JACOB MD Ot Z79.8 4 GROUNDMAN (CURRENT) USE OF ORAL HYPOGLYC 11/23/2017 MADL, DANG L MIXER DRIVER Ot G47.10 HYPERSOMNIA, UNSPECIFIED 11/23/2017 MADL, DANG L MIXER DRIVER Ot R06.83 SNORING 11/23/2017 MADL, DANG L MIXER DRIVER Ot G47.10 HYPERSOMNIA, UNSPECIFIED 11/23/2017 MADL, DANG L MIXER DRIVER Ot R06.83 SNORING 11/23/2017 MADL, DANG L MIXER DRIVER Ot G47.10 HYPERSOMNIA, UNSPECIFIED 11/23/2017 MADL, DANG L MIXER DRIVER Ot R06.83 SNORING 11/28/2017 MADL, DANG L MIXER DRIVER Ot G47.10 HYPERSOMNIA, UNSPECIFIED 11/28/2017 MADL, DANG L MIXER DRIVER Ot R06.83 SNORING Procedures Code Description [place] [address] ROUT INE VENIPUNCTURE 11/02/2012 34947 MICR OALBUMIN 11/02/2012 94705 A1C (IN-HOUSE) 11/02/2012 71304 MICR O ALBUMIN-IN HOUSE 11/02/2012 37110 CMP 11/02/2012 78677 LIPI D PANEL 11/02/20128270879 GF R CALC (RESULT ONLY) 11/02/2012 FOOT EXAM PERFORMED 08/31/2013 02977 A1C (IN-HOUSE) 08/31/2013 LYNDSAY SINGH 10/19/2013 44759 ROUT INE VENIPUNCTURE 10/29/2013 70049 MICR O ALBUMIN-IN HOUSE 10/29/[id number] GF R CALC (RESULT ONLY) 10/29/2013 54395 [facility] 10/29/2013 09876 LIPI D PANEL 10/29/2013 66681 EYE EXAM PERFORMED 01/11/2014 30139 A1C (IN-HOUSE) 01/11/2014 FOOT EXAM PERFORMED 01/11/2014 44113 ROUT INE VENIPUNCTURE 06/04/2014 09226 A1C (IN-HOUSE) 06/04/2014 FOOT EXAM PERFORMED 06/04/20142831872 GF R CALC (RESULT ONLY) 06/04/2014 15713 [facility] 06/04/2014 Results Test Result Range Comp. Metabolic [...] culture - 08/28/17 22:06 Bacterial urine culture [id number] NRG COLONY COUNT <10,000 NRG FTX;REPORTABLE SENSITIVITY [...] 7-25 CREATININE 0.64 mg/dL 0.50-1.10 eGFR NON-AFR. ITALIAN 112 mL/min/1.73m2 > OR = 60 eGFR [...] 17 U/L 10-30 ALT 30 U/L 6-29 Complete blood count (CBC) with automate d white blood cell (WBC) differential - 01/25/20 08:44 Blood leukocytes automated count (number/volume) 21.5 10*3/uL 4.3-11.0 Blood erythrocytes automated count (number/volume) 4.86 10*6/uL 4.35-5.85 Venous blood hemoglobin measurement (mass/volume) 12.9 g/dL 11.5-16.0 Blood hematocrit (volume fraction) 40 % 35-52 Automated erythrocyte mean corpuscular volume 82 [ foz_us] 80-99 Automated erythrocyte mean corpuscular h emoglobin (mass per erythrocyte) 27 pg 25-34 Automated erythrocyte mean corpuscular h emoglobin concentration measurement (mass/volume) 32 g/dL 32-36 Automated erythrocyte distribution width ratio 15. 6 % 10.0- 14.5 Automated blood platelet count (count/volume) 468 10*3/uL 130-400 Automated blood platelet mean volume measurement 10.3 [foz_us] 7.4-10.4 Automated blood neutrophils/100 leukocytes 69 % 42-75 Automated blood lymphocytes/100 leukocytes 25 % 12-44 Blood monocytes/100 leukocytes 5 % 0-12 Automated blood eosinophils/100 leukocytes 1 % 0-10 Automated blood basophils/100 leukocytes 0 % 0-10 Blood neutrophils automated count (number/volume) 14.7 10*3 1.8-7.8 Blood lymphocytes automated count (number/volume) 5.3 10*3 1.0-4.0 Blood monocytes automated count (number/volume) 1. 1 10*3 0.0-1.0 Automated eosinophil count 0.3 10*3/uL 0 .0-0.3 Automated blood basophil count (count/volume) 0.1 10*3/uL 0.0-0.1 PT panel in platelet poor plasma by coag ulation assay - 01/25/20 08:44 Prothrombin time (PT) in platelet poor plasma by coagu lation assay 12.5 s 12.2-14.7 INR in platelet poor plasma or blood by coagulation as say 0.9 0.8-1.4 Activated partial thromboplastin time (a PTT) in platelet poor plasma bycoagulation assay - 01/25/20 08:44 Activated partial thromboplastin time (a PTT) in platelet poor plasma bycoagulation assay 28 s 24-35 Encounters ACCT No. Visit Date/Time Discharge Status Pt. Type Provider Facility Loc./Unit Complaint [id number] 04/01/2017 15:08:00 Document Registration [id number] 06/24/2016 08:07:00 Document Registration [id number] 11/22/2017 19:00:00 018 06:30:00 DIS Outpatient DANG BLACKMAN [place] MIXER DRIVER [facility] SLEEP HYPERSOMNIA G47.10 [id number] 08/29/2017 02:55:00 018 18:00:00 DIS Inpatient EDWARD JACOB MD [facility] 4TH BILATERAL PNA,HYPOXIA, COPD [id number] 01/25/2020 09:05:00 Document Registration [id number] 06/04/2014 13:57:00 06/04/2014 23:59: 59 CLS Outpatient KESHIA GONZALES DO [id number] 03/21/2014 09:36:00 03/21/2014 23:59: 59 CLS Outpatient DANG BLACKMAN APRN [id number] 01/11/2014 09:34:00 01/11/2014 23:59: 59 CLS Outpatient KESHIA GONZALES DO [id number] 10/29/2013 08:57:00 10/29/2013 23:59: 59 CLS Outpatient KESHIA GONZALES DO [id number] 10/19/2013 16:30:00 10/19/2013 23:59: 59 CLS Outpatient KESHIA GONZALES DO [id number] 08/31/2013 15:10:00 08/31/2013 23:59: 59 CLS Outpatient KESHIA GONZALES DO [id number] 06/20/2013 14:24:00 06/20/2013 23:59: 59 CLS Outpatient GONZALES DOKESHIA [id number] 11/02/2012 08:55:00 11/02/2012 23:59: 59 CLS Outpatient KESHIA GONZALES DO [id number] 09/25/2012 14:51:00 09/25/2012 23:59: 59 CLS Outpatient [id number] 03/15/2019 11:20:00 03/15/2019 23:59: 59 CLS Outpatient ISRRAEL ALDANA [facility] [id number] 05/11/2018 08:40:00 Document Registration
[2020-01-25 09:17] LABS: ALANINE AMINOTRANSFERASE 20 U/L (0-55); ALBUMIN 3.8 GM/DL (3.2-4.5); ALKALINE PHOSPHATASE 125 U/L (40-136); BILIRUBIN,TOTAL 0.5 MG/DL (0.1-1.0); BUN/CREATININE RATIO 16; CALCIUM 9.3 MG/DL (8.5-10.1); CARBON DIOXIDE 17 MMOL/L (21-32); CHLORIDE 102 MMOL/L (98-107); CREATININE SERUM 0.87 MG/DL (0.60-1.30); GFR ESTIMATED > 60; GLUCOSE 229 MG/DL (70-105); MAGNESIUM 1.5 MG/DL (1.6-2.4); POTASSIUM 4.1 MMOL/L (3.6-5.0); SODIUM 137 MMOL/L (135-145); TOTAL PROTEIN 7.4 GM/DL (6.4-8.2)
--- NOTE | 2020-01-25 09:23 | ED Chest Pain ---
General Chief Complaint: Chest Pain Stated Complaint: CHEST PAIN Source: patient Exam Limitations: no limitations History of Present Illness Date Seen by Provider: Jan 25, 2020 Time Seen by Provider: 08:33 Initial Comments Here with acute onset of chest pain after she woke up this morning. Denies fevers or chills but has had sweating since the chest pain started. Denies nausea or vomiting. Does feel a bit weak. She works at the [employer]. She does not know of any contacts with COVID-19 positive patients. Has not had travel outside the area. Chest pain is central and sharp, nonradiating and is moderate in intensity. No exacerbating or relieving factors. No family history of heart disease. Patient is a smoker and does have diabetes and mild hypertension as well as obesity. Timing/Duration: 1 hour Severity/Quality: moderate, aching, sharp Location: central Radiation: no radiation Prior CP/Workup: no prior chest pain ASA po MOLD DUMPER: No NTG SL MOLD DUMPER: No Associated Symptoms: No abdominal pain; diaphoresis; No dizziness, No edema; fatigue; No fever/chills, No nausea/vomiting, No shortness of breath, No weakness Allergies and Home Medications Allergies Coded Allergies: No Known Drug Allergies (Unverified , 08/28/17) Home Medications Azithromycin 250 Mg Tablet, 250 MG PO DAILY Prescribed by: EDWARD JACOB on 09/01/17 1441 Glyburide 5 Mg Tablet, 5 MG PO DAILY, (Reported) Insulin Determir 1,000 Units/10 Ml Soln, 15 UNIT SQ HS Prescribed by: EDWARD JACOB on 09/01/17 1441 Ipratropium/Albuterol Sulfate 3 Ml Ampul.neb, 3 ML IH Q4H Prescribed by: ARJUN BENAVIDES on 09/01/17 1633 Lisinopril/Hydrochlorothiazide 1 Each Tablet, 1 TAB PO DAILY, (Reported) Metformin HCl 500 Mg Tab.er.24h, 500 MG PO DAILY, (Reported) LAST FILLED 30 DAY SUPPLY 07-12-17 Metformin HCl 500 Mg Tab.er.24, 1,000 MG PO HS, (Reported) FILLED 30 DAY SUPPLY 07-12-17 TAKES 2 (500MG) TABLETS Metoprolol Succinate 25 Mg Tab.er.24h, 25 MG PO DAILY, (Reported) Pioglitazone HCl 30 Mg Tablet, 30 MG PO DAILY, (Reported) Prednisone 20 Mg Tab, 40 MG PO DAILY@0700 2 tabs x 3 days 1 tab x 3 days 1/2 tab x 4 days then Stop Prescribed by: EDWARD JACOB on 09/01/17 1441 Patient Home Medication List Home Medication List Reviewed: Yes Review of Systems Review of Systems Constitutional: see HPI; No chills; diaphoresis; No fever EENTM: No Symptoms Reported Respiratory: No Symptoms Reported Cardiovascular: See HPI Gastrointestinal: See HPI Genitourinary: No Symptoms Reported Musculoskeletal: no symptoms reported Skin: no symptoms reported Psychiatric/Neurological: Anxiety Endocrine: No Symptoms Reported All Other Systems Reviewed Negative Unless Noted: Yes Past Fidrpft-Ggpemj-Jczboq Hx Past Med/Social Hx: Reviewed Nursing Past Med/Soc Hx Patient Social History Alcohol Use: Denies Use Recreational Drug Use: No (associated smoker) Smoking Status: Current Everyday Smoker Type Used: Cigarettes Recent Foreign Travel: No Contact w/Someone Who Travel: No Recent Hopitalizations: No Past Medical History Surgeries: No Respiratory: Yes Chronic Bronchitis Currently Using CPAP: No Currently Using BIPAP: No Cardiac: Yes Hypertension Neurological: No Sexually Transmitted Disease: No HIV/AIDS: No Genitourinary: No Gastrointestinal: No Musculoskeletal: No Endocrine: Yes Diabetes, Non-Insulin dep HEENT: No Cancer: No Psychosocial: No Integumentary: No Blood Disorders: No Adverse Reaction/Blood Tranf: No Family Medical History Reviewed Nursing Family Hx No Pertinent Family Hx Physical Exam Vital Signs Vital Signs - First Documented 01/25/20 01/25/20 08:31 08:39 Temp 36.2 Pulse 97 Resp 16 B/P (MAP) 126/81 (96) Pulse Ox 95 O2 Delivery Room Air O2 Flow Rate 2.00 Capillary Refill : Height, Weight, BMI Height: 5'3.00" Weight: 270lbs. 0.0oz. 122.953594ci; 47.8 BMI Method:Estimated General Appearance: WD/WN, Mild Distress, Obese HEENT: PERRL/EOMI, Pharynx Normal Neck: Non Tender, Supple Respiratory: Lungs Clear, Normal Breath Sounds Cardiovascular: Regular Rate, Rhythm, No Murmur Gastrointestinal: Non Tender, Soft Extremity: Normal Range of Motion, Non Tender Neurologic/Psychiatric: Alert, Oriented x3 Skin: Normal Color, Warm/Dry Progress/Results/Core Measures Results/Orders Lab Results Laboratory Tests Test 01/25/20 08:44 Range/Units White Blood Count 21.5 H 4.3-11.0 10^3/uL Red Blood Count 4.86 4.35-5.85 10^6/uL Hemoglobin 12.9 11.5-16.0 G/DL Hematocrit 40 35-52 % Mean Corpuscular Volume 82 80-99 FL Mean Corpuscular Hemoglobin 27 25-34 PG Mean Corpuscular Hemoglobin Concent 32 32-36 G/DL Red Cell Distribution Width 15.6 H 10.0-14.5 % Platelet Count 468 H 130-400 10^3/uL Mean Platelet Volume 10.3 7.4-10.4 FL Neutrophils (%) (Auto) 69 42-75 % Lymphocytes (%) (Auto) 25 12-44 % Monocytes (%) (Auto) 5 0-12 % Eosinophils (%) (Auto) 1 0-10 % Basophils (%) (Auto) 0 0-10 % Neutrophils # (Auto) 14.7 H 1.8-7.8 X 10^3 Lymphocytes # (Auto) 5.3 H 1.0-4.0 X 10^3 Monocytes # (Auto) 1.1 H 0.0-1.0 X 10^3 Eosinophils # (Auto) 0.3 0.0-0.3 10^3/uL Basophils # (Auto) 0.1 0.0-0.1 10^3/uL Erythrocyte Sedimentation Rate 8 0-20 MM/HR Prothrombin Time 12.5 12.2-14.7 SEC INR Comment 0.9 0.8-1.4 Activated Partial Thromboplast Time 28 24-35 SEC Sodium Level 137 135-145 MMOL/L Potassium Level 4.1 3.6-5.0 MMOL/L Chloride Level 102 98-107 MMOL/L Carbon Dioxide Level 17 L 21-32 MMOL/L Anion Gap 18 H 5-14 MMOL/L Blood Urea Nitrogen 14 7-18 MG/DL Creatinine 0.87 0.60-1.30 MG/DL Estimat Glomerular Filtration Rate > 60 BUN/Creatinine Ratio 16 Glucose Level 229 H 70-105 MG/DL Calcium Level 9.3 8.5-10.1 MG/DL Corrected Calcium 9.5 8.5-10.1 MG/DL Magnesium Level 1.5 L 1.6-2.4 MG/DL Total Bilirubin 0.5 0.1-1.0 MG/DL Aspartate Amino Transf (AST/SGOT) 17 5-34 U/L Alanine Aminotransferase (ALT/SGPT) 20 0-55 U/L Alkaline Phosphatase 125 40-136 U/L Myoglobin 21.7 10.0-92.0 NG/ML Troponin I < 0.028 <0.028 NG/ML Total Protein 7.4 6.4-8.2 GM/DL Albumin 3.8 3.2-4.5 GM/DL My Orders Orders - LAILA PRYOR MD Aspirin Chewable Tablet (Baby Aspirin Ch (01/25/20 08:40) Nitroglycerin 0.4 Mg Btl 25's (Nitrostat (01/25/20 08:40) Heparin (Bolus Per Protocol) (Heparin (B (01/25/20 08:45) Ticagrelor Tablet (Brilinta Tablet) (01/25/20 08:45) Lidocaine 1% Inj 20 Ml (Xylocaine 1% Inj (01/25/20 08:50) Midazolam Injection (Versed Injection) (01/25/20 08:50) Fentanyl Injection (Sublimaze Injection (01/25/20 08:50) Ns Iv 1000 Ml (Sodium Chloride 0.9%) (01/25/20 08:50) Heparin (Flame Hardening Machine Operator) (Heparin (Flame Hardening Machine Operator)) (01/25/20 08:51) Vital Signs/I&O 01/25/20 01/25/20 08:31 08:39 Temp 36.2 Pulse 97 Resp 16 B/P (MAP) 126/81 (96) Pulse Ox 95 O2 Delivery Room Air Nasal Cannula O2 Flow Rate 2.00 Progress Progress Note : Progress Note In evaluated. IV, labs, EKG, chest x-ray and COVID-19 screening initiated. I discussed the case with at 0843. Patient will go to [facility] and Flame Hardening Machine Operator team is activated. Patient will remain under COVID-19 precautions. EKG is suspicious for acute anterior infarct LAD distribution. 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 Patient does also have risk factors for heart disease as discussed in history of present illness. Patient was given aspirin 324 mg by mouth, Brilinta 180 mg by mouth, heparin 5000 units IV and did get nitroglycerin sublingual 1. This did cause drop in blood pressure so it was held. LR 1 L bolus given. Morphine 2 mg IV given for pain. Patient was given Zofran 4 mg IV for nausea after the morphine. Patient went to [facility] at approximately 0911. I discussed the case with the patient's boyfriend, Willie at [phone] per patient's wishes. He is disabled and at home and unable to come here but patient's parents are in route from [place], [place]. Patient agrees to plan. Initial ECG Impression Date: Jan 25, 2020 Initial ECG Impression Time: 08:33 Initial ECG Rate: 89 Initial ECG Rhythm: Normal Sinus Comment Sinus rhythm with features concerning for ST elevation DC in leads V2 through V5. T-wave inversions noted in lead 3. Case discussed with Dr. Silver patient will go to [facility]. Normal axis. Interpreted by me. Diagnostic Imaging Diagonstic Imaging: Xray Plain Films/CT/US/NM/MRI: chest Comments [facility], [place] NAME: JANICE FORMAN [facility] REC#: [id number] [place]US[place] [facility] [place] 1980 PHYSICIAN: LAILA PRYOR MD ADMIT DATE: 01/25/20/CATH Signed Date of Exam:01/25/20 CHEST 1 VIEW, AP/PA ONLY INDICATION: Chest pain COMPARISON: 08/28/2017. FINDINGS: Frontal view of the chest demonstrates clear lungs bilaterally. The heart size is normal. There is no pneumothorax. Osseous structures are normal. IMPRESSION: No acute findings. Normal chest. Dictated by: Dictated on workstation # [id number] Dict: 01/25/20920 Trans: 01/25/20920 [facility] [phone] Interpreted by: JOSE CRAVEN Electronically signed by: JOSE CRAVEN 01/25/20920 Departure Communication (Admissions) Time/Spoke to Admitting Phy: 08:43 Impression Primary Impression: ST elevation (STEMI) myocardial infarction Qualified Codes: I21.02 - ST elevation (STEMI) myocardial infarction involving left anterior descending coronary artery Disposition: ADMITTED INPATIENT Condition: Critical Admissions Decision to Admit Reason: Admit from ER (General) Decision to Admit/Date: Jan 25, 2020 Time/Decision to Admit Time: 08:43 Departure-Patient Inst. Referrals: DANG BLACKMAN (PCP) Primary Care Physician LAILA PRYOR MD Jan 25, 2020 09:23
[2020-01-25 09:39] LABS: BAND NEUTROPHILS 2 %; BASOPHILS % (MANUAL) 0 %; EOSINOPHILS % (MANUAL) 1 %; LYMPHOCYTES % (MANUAL) 28 %; MONOCYTES % (MANUAL) 8 %; NEUTROPHILS % (MANUAL) 61 %
[2020-01-25 09:40] LABS: RBC MORPH NORMAL
[2020-01-25] MEDS ORDERED: NITROGLYCERIN 0.4 MG SL TABS BTL 25'S SL PRN (09:45)
--- NOTE | 2020-01-25 10:45 | NUR ---
PT ARRIVED FROM CORPORATE MANAGER WITH CORPORATE MANAGER STAFF X 3. PT DENIES COMPLAINTS, FEELS A LITTLE TIRED. IS A/04. RIGHT GROIN SIGHT BENIGN WITH NO COMPLICATIONS. UNABLE TO PALPATE DISTAL PULSE BUT EASILY FOUND WITH DOPPLER. PT HAS SENSATION TO DISTAL LEG WITH NO PAIN REPORTED. PT DENIES CHEST PAIN AT THIS TIME. MONITORING CLOSELY.
--- NOTE | 2020-01-25 10:50 | History & Physicial-Cardiolgy ---
HPI-Cardiology Cardiology Consultation: Date of Consultation 01/25/20 Date of Admission Attending Physician Yandel Silver MD Admitting Physician Tracey Silver Consulting Physician Yandel SILVER MD HPI: Time Seen by a Provider: 09:25 Chief Complaint: Chest pain This is a 39-year-old lady with history of morbid obesity, diabetes, hypertension, active smoker. Family history is positive for CAD in paternal grandfather. She presented with acute onset chest pain in the morning. Associated with sweating. No fever, chills, nausea or vomiting. Chest pain is substernal and moderate to severe intensity. Not radiating. No exacerbating or relieving factors. Review of Systems-Cardiology Review of Systems Constitutional: As described under HPI; No As described under HPI, No no symptoms reported, No chills, No fever, No lightheadedness Eyes: No As described under HPI, No no symptoms reported, No blindness, No blurred vision, No contact lenses, No drainage, No decreased acuity, No foreign body sensation, No pain, No vision change Ears/Nose/Throat: No As described under HPI, No no symptoms reported, No chronic hearing loss, No ear discharge, No ear pain, No nasal drainage, No ulcerations Respiratory: No no symptoms reported; As described under HPI; No As described under HPI, No cough, No orthopnea, No shortness of breath, No SOB with excertion Cardiovascular: No no symptoms reported; As described under HPI; No As described under HPI; chest pain; No edema, No irregular heart rate, No lightheadedness, No palpitations Gastrointestinal: No no symptoms reported, No As described under HPI, No abdomen distended, No abdominal pain, No blood streaked bowels, No constipation, No diarrhea, No nausea, No vomiting, No stool coloration changes Genitourinary: No As described under HPI, No burning, No dysuria, No discharge, No frequency, No flank pain, No hematuria, No urgency : Yes : No Skin: No rash, No skin related problems, No ulcerations Psychiatric/Neurological: No anxiety, No depression, No seizure, No focal weakness, No syncope Hematologic: No bleeding abnormalities All Other Systems Reviewed Negative Unless Noted: Yes CUI-Glypgw-Zxggug Hx Patient Social History Alcohol Use: Denies Use Recreational Drug Use: No Smoking Status: Current Everyday Smoker Type Used: Cigarettes Recent Foreign Travel: No Recent Infectious Disease Expo: No Past Medical History PMH As described under Assessment. Allergies and Home Medications Allergies Coded Allergies: No Known Drug Allergies (Unverified , 08/28/17) Home Medications Azithromycin 250 Mg Tablet, 250 MG PO DAILY Prescribed by: EDWARD JACOB on 09/01/17 1441 Glyburide 5 Mg Tablet, 5 MG PO DAILY, (Reported) Insulin Determir 1,000 Units/10 Ml Soln, 15 UNIT SQ HS Prescribed by: EDWARD JACOB on 09/01/17 1441 Ipratropium/Albuterol Sulfate 3 Ml Ampul.neb, 3 ML IH Q4H Prescribed by: ARJUN BENAVIDES on 09/01/17 1633 Lisinopril/Hydrochlorothiazide 1 Each Tablet, 1 TAB PO DAILY, (Reported) Metformin HCl 500 Mg Tab.er.24h, 500 MG PO DAILY, (Reported) LAST FILLED 30 DAY SUPPLY 07-12-17 Metformin HCl 500 Mg Tab.er.24, 1,000 MG PO HS, (Reported) FILLED 30 DAY SUPPLY 07-12-17 TAKES 2 (500MG) TABLETS Metoprolol Succinate 25 Mg Tab.er.24h, 25 MG PO DAILY, (Reported) Pioglitazone HCl 30 Mg Tablet, 30 MG PO DAILY, (Reported) Prednisone 20 Mg Tab, 40 MG PO DAILY@0700 2 tabs x 3 days 1 tab x 3 days 1/2 tab x 4 days then Stop Prescribed by: EDWARD JACOB on 09/01/17 1441 Patient Home Medication List Home Medication List Reviewed: Yes Physical Exam-Cardiology Physical Exam Vital Signs/I&O 01/25/20 01/25/20 01/25/20 08:31 08:39 09:12 Temp 36.2 Pulse 97 92 Resp 16 16 B/P (MAP) 126/81 (96) 83/66 Pulse Ox 95 98 O2 Delivery Room Air Nasal Cannula Nasal Cannula O2 Flow Rate 2.00 2.00 Capillary Refill : Less Than 3 Seconds Constitutional: appears stated age, AAO x 3; No apparent distress; well- developed, well-nourished HEENT: PERRL; No discharge; hearing is well preserved, oral hygience is good; No ulceration, No xanthelasmas are seen Neck: No carotid bruit; carotid pulses are 2 + bilaterally Respiratory: chest is bilaterally symmetric, lungs clear to auscultation Cardiovascular: irregularly irregular, tachycardia, S1 and S2 Gastrointestinal: soft, audible bowel sounds; No spleenomegaly Rectal: deferred Extremities: normal range of motion, non-tender, normal inspection; No clubbing , No cyanosis; no lower extremity edema bilateral; No significant edema Neurologic/Psychiatric: no motor/sensory deficits, alert, normal mood/affect, oriented x 3, power is 5/5 both on sides Skin: normal color, cool; No rash, No ulcerations Data Review Labs Laboratory Tests 01/25/20 08:44: White Blood Count 21.5H, Red Blood Count 4.86, Hemoglobin 12.9, Hematocrit 40, Mean Corpuscular Volume 82, Mean Corpuscular Hemoglobin 27, Mean Corpuscular Hemoglobin Concent 32, Red Cell Distribution Width 15.6H, Platelet Count 468H, Mean Platelet Volume 10.3, Neutrophils (%) (Auto) 69, Lymphocytes (%) (Auto) 25, Monocytes (%) (Auto) 5, Eosinophils (%) (Auto) 1, Basophils (%) (Auto) 0, Neutrophils # (Auto) 14.7H, Lymphocytes # (Auto) 5.3H, Monocytes # (Auto) 1.1H, Eosinophils # (Auto) 0.3, Basophils # (Auto) 0.1, Neutrophils % (Manual) 61, Lymphocytes % (Manual) 28, Monocytes % (Manual) 8, Eosinophils % (Manual) 1, Basophils % (Manual) 0, Band Neutrophils 2, Blood Morphology Comment NORMAL, Erythrocyte Sedimentation Rate 8, Prothrombin Time 12.5, INR Comment 0.9, Activated Partial Thromboplast Time 28, D-Dimer < 0.27, Sodium Level 137, Potassium Level 4.1, Chloride Level 102, Carbon Dioxide Level 17L, Anion Gap 18H , Blood Urea Nitrogen 14, Creatinine 0.87, Estimat Glomerular Filtration Rate > 60, BUN/Creatinine Ratio 16, Glucose Level 229H, Calcium Level 9.3, Corrected Calcium 9.5, Magnesium Level 1.5L, Total Bilirubin 0.5, Aspartate Amino Transf (AST/SGOT) 17, Alanine Aminotransferase (ALT/SGPT) 20, Alkaline Phosphatase 125, Lactate Dehydrogenase 169, Myoglobin 21.7, Troponin I < 0.028, C-Reactive Protein High Sensitivity 4.57H, Total Protein 7.4, Albumin 3.8, Procalcitonin 0.04, Serum Test, Qualitative NEGATIVE ECG Impression ECG Comment Sinus rhythm with ST deviation in the anterior precordial leads, suspicious for acute injury pattern. A/P-Cardiology Assessment/Admission Diagnosis Cardiogenic shock, Acute anterior STEMI, Diabetes, Hypertension, Active smoking, Morbid obesity, PUI COVID-19 Admission Status: Inpatient Order (span 2 midnights) Reason for Inpatient Admission: Acute STEMI, cardiogenic shock Plan This is a 39-year-old lady with significant risk factors for severe CAD who presented with typical chest pain with suspicious EKG for an acute inferior injury pattern. Therefore she was emergently taken to the Cool Roofing Installer. Subtotal occlusion of the mid LAD treated successfully with a drug-eluting stent 3.0 x 18 mm; postdilated with a 3.5 NC balloon to 18 jessie.. Door to balloon time of 80 minutes with delay since PUI COVID 19 and extra precautionary measures that the ER and the catheter lab staff had to take. Acute STEMI: Dual antiplatelet therapy for at least 1 year, beta blockers, SHANNEN inhibitor, high-dose statin therapy. Echocardiogram. Cardiogenic shock: Systolic blood pressure on arrival to the catheter lab was 80 mmHg. Once the blood vessel was revascularized, systolic blood pressure improved to 100 mmHg. The patient was very tachycardic, however LVEF was within normal limits. LVEDP was 15 mmHg. Diabetes: Primary team consultation. Active smoking: Smoking cessation was strongly recommended. Morbid obesity. Hypertension: Start low-dose SHANNEN inhibitor and beta dago. PUI COVID 19. Pending test results. Leukocytosis. Defer to the internal medicine team. Clinical Quality Measures AMI/AHF: ASA po Prior to arrival: Yandel Preciado MD Jan 25, 2020 10:50
[2020-01-25] MEDS ORDERED: PATIENT MAY USE OWN MEDS, ALL PO SCH (11:15)
--- NOTE | 2020-01-25 11:25 | Coronary Angiography & PCI ---
Coronary Angiography & PCI DATE OF PROCEDURE: 01/25/20 INDICATION: Acute anterior STEMI, possible cardiogenic shock. PREOPERATIVE DIAGNOSIS: Acute anterior STEMI, possible cardiac shock. POSTOPERATIVE DIAGNOSIS: Subtotal stenosis of the mid LAD requiring drug-eluting stent. HISTORY: This is a 39-year-old lady with morbid obesity, diabetes, hypertension, active smoking who presented with acute onset chest pain with EKG very suspicious for acute anterior injury pattern. Patient is a PUI COVID-19. Therefore, the patient was scheduled for emergent coronary angiography. PROCEDURES PERFORMED: 1.Coronary angiography. 2.Left heart catheterization. 3.PCI to the mid LAD with drug-eluting stent. 4. Abdominal aortogram with bilateral lower extremity runoff: Medical necessity: Difficulty gaining access in the right femoral artery in advancing the wire, need to rule out significant arterial peripheral disease. COMPLICATIONS: None. SPECIMENS: None. ESTIMATED BLOOD LOSS: 10 mL ANESTHESIA: Conscious sedation ANTICOAGULATION: IV heparin CONTRAST: 150 mL. FLUOROSCOPY: 8.3 minutes. FLOUROSCOPY DOSE: 1172 mgy. PROCEDURE DETAILS: The patient is a 39 female and was brought to the labor relations or personnel negotiator after emergency informed consent was taken. Dr. Velasquez in the ER discussed with the patient about an emergent consent for coronary angiography and possible PCI. The patient was draped and prepped in the usual sterile fashion for PUI COVID-19. We had initial difficulty in gaining access in the right femoral artery and advancing the wire; after a couple of tries we were able to get access. Coronary angiography and left heart catheterization was performed with a JR4, JL4 and pigtail catheter. FINDINGS: 1.Left main: Patent. 2.LAD: Subtotal occlusion in the mid LAD with ELIA 1-2 flow distally. 3.Left circumflex artery: Patent. 4.RCA: Patent. 5.Left heart catheterization: LV pressure 106/7 mmHg. LVEDP 15 mmHg. Aortic pressure 101/69 mmHg. Normal LV function with no wall motion abnormalities. No gradient across the aortic valve. 6. Abdominal aortogram and bilateral lower extremity runoff: The pigtail catheter was placed just below the renal arteries. No significant distal abdominal aortic disease. Patent bilateral common iliac, external iliac, common femoral arteries, SFA. RECOMMENDATIONS: PCI to the mid LAD is recommended. INTERVENTION DETAILS: JL4 guide catheter, whisper extra-support guidewire, IV heparin for anticoagulation. ACT was 203 seconds. Patient was given bolus aspirin and Brilinta in the ER. Total 9000 units of IV heparin was given. The lesion in the mid LAD was crossed with the whisper wire and the tip of the wire was placed in the distal LAD. Initial ballooning was done with an emerge 2.0 x 12 mm balloon at 14 jessie for 21 seconds. Door to balloon time was 80 minutes. There was significant delay due to the patient being PUI COVID-19 and requiring extra precautionary protective gear in the ER as well as in the catheter lab which took significantly extra time. Also we had some difficulty in gaining access in the very beginning which added few extra minutes as well. We then placed a xience Olivia 3 x 18 stent at 18 jessie for 30 seconds. Postdilated the mid stent area with an NC Quantum 3.5 x 12 mm balloon at 14 jessie for 19 seconds. The NC balloon was pulled back a little bit and the proximal section was postdilated at 18 jessie for 23 seconds. Excellent results with ELIA 3 flow and no residual stenosis. Right femoral artery was closed with a minx device. CONCLUSIONS: 1. Acute STEMI with primary PCI with drug-eluting stent to the mid LAD. 2. Dual antiplatelet therapy for at least 1 year, aggressive secondary prevention measures. 3. Smoking cessation was strongly recommended. 4. PUI COVID-19. Test result pending. Kevyn Silver MD, FACP, FACC, [facility] Interventional Cardiology Yandel SILVER MD Jan 25, 2020 11:25
[2020-01-25] MEDS: NS IV 1000 ML 1,000 ML IV SCH ×2 (11:27→21:08)
[2020-01-25] MEDS: meTOprolol TARTRATE 25 MG (LOPRESSOR) TABLET PO SCH ×2 (11:34→21:08)
[2020-01-25] MEDS ORDERED: LIRA0.6P SC ×2 (15:02)
--- NOTE | 2020-01-25 15:04 | NUR ---
SPOKE WITH PT (I CALLED HER CELL PHONE) WENT THRU THE EXT MED HISTORY AND CALLED [facility] TO COMPLETE THE MED REC 11-13-2019 LISINOPRIL/HCTZ 20/25MG #90/90DS- THIS DOES NOT SHOW ON THE EXT MED HISTORY- PT ALSO THOUGHT SHE WAS TAKING THESE MEDICATIONS SEPARATELY AND NOT THE COMBINED TAB BUT [facility] ONLY HAVE THE COMBO ON RECORD. PT DENIES TAKING ANY OTC MEDICATIONS
--- NOTE | 2020-01-25 18:34 | NUR ---
PT BEDREST ENDED AT 1445. PT UP TO BS AND AMBULATED AROUND THE ROOM TO RECLINER X 2. SHE HAS NO COMPLAINTS. HAS DENIED ANY CHEST PAIN SINCE ADMISSION TO ICU. STATES SHE FEELS MUCH BETTER. VITALS ARE STABLE. RIGHT GROIN SITE SOFT AND NONTENDER.
[2020-01-25] MEDS: TICAGRELOR 90 MG TABLET (BRILINTA) PO SCH (21:08)
[2020-01-25] MEDS: inSUlin ASPART (NovoLOG) 1 UNIT/0.01 ML (CHARGE PER UNIT) SC SCH (21:10)
[2020-01-26] VITALS (13 sets, daily range): BP systolic 107–137; BP diastolic 65–97
[2020-01-26 03:35] LABS: HEMOGLOBIN 11.9 G/DL (11.5-16.0); RED CELL DISTRIBUTION WIDTH 15.5 % (10.0-14.5); WHITE BLOOD COUNT 14.7 10^3/uL (4.3-11.0)
[2020-01-26 03:43] LABS: CHLORIDE 103 MMOL/L (98-107); SODIUM 138 MMOL/L (135-145)
[2020-01-26 03:45] LABS: CALCIUM 9.1 MG/DL (8.5-10.1); GLUCOSE 136 MG/DL (70-105); TRIGLYCERIDES 159 MG/DL (<150); VLDL CHOLESTEROL 32 MG/DL (5-40)
[2020-01-26 03:47] LABS: CARBON DIOXIDE 25 MMOL/L (21-32)
[2020-01-26 03:49] LABS: CREATININE SERUM 0.76 MG/DL (0.60-1.30); GFR ESTIMATED > 60
[2020-01-26 03:50] LABS: BUN/CREATININE RATIO 14; CHOLESTEROL 137 MG/DL (< 200)
[2020-01-26 03:51] LABS: HDL CHOLESTEROL 29 MG/DL (40-60)
[2020-01-26 04:40] LABS: PHOSPHORUS 3.6 MG/DL (2.3-4.7)
[2020-01-26 04:41] LABS: MAGNESIUM 1.4 MG/DL (1.6-2.4)
[2020-01-26] MEDS: inSUlin ASPART (NovoLOG) 1 UNIT/0.01 ML (CHARGE PER UNIT) SC SCH ×4 (05:12→20:29)
[2020-01-26] MEDS: KCL 20 MEQ TAB (K-DUR) PO SCH (05:12)
[2020-01-26] MEDS: MAGNESIUM 1 GM/100 ML IVPB 100 ML IV SCH ×3 (05:12→06:24)
[2020-01-26] MEDS: POTASSIUM CL 10MEQ/50ML IVPB 50 ML IV SCH (05:12)
[2020-01-26] MEDS: NS IV 1000 ML 1,000 ML IV SCH ×2 (06:24→17:07)
[2020-01-26] MEDS: meTOprolol TARTRATE 25 MG (LOPRESSOR) TABLET PO SCH ×2 (08:04→20:26)
[2020-01-26] MEDS: TICAGRELOR 90 MG TABLET (BRILINTA) PO SCH ×2 (08:04→20:26)
[2020-01-26] MEDS: ASPIRIN E.C. 81 MG (ECOTRIN) TAB PO SCH (08:04)
[2020-01-26] MEDS: lisINopril 5 MG (PRINIVIL) TABLET PO SCH (08:05)
--- NOTE | 2020-01-26 08:22 | Consultation - Hospitalist ---
HPI History of Present Illness: HPI/Chief Complaint CC: Medical management of DM following STEMI with stent placed in LAD HPI: This is a 39yoWF clinic patient of Tommy Cullen at [facility] w/h/o HTN and DM and obesity who presented to the ER with CP found to have elevated ST segment and elevated troponin so cath performed requiring stent placed in LAD and sw abbed for COVID-19 which returned a negative result. She works at [employer]. She does smoke and I counseled her to stop. SSI initiated and held her PO meds due to cath with contrast. Source: patient Exam Limitations: no limitations Date Seen 01/26/20 Attending Physician Yandel Silver MD PCP Tracey Silver Referring Physician Date of Admission Home Medications & Allergies Home Medications Reviewed patient Home Medication Reconciliation performed by pharmacy medication reconciliations electronic calibration technician and/or nursing. Patients Allergies have been reviewed. Allergies Allergies Coded Allergies No Known Drug Allergies (Unverified08/28/17) Past [id number]-Mxrnuz Hx Past Med/Social Hx: Reviewed Nursing Past Med/Soc Hx, Reviewed and Corrections made Patient Social History Marrital Status: single Employed/Student: employed Alcohol Use: Denies Use Recreational Drug Use: No Smoking Status: Current Everyday Smoker Type Used: Cigarettes Recent Foreign Travel: No Contact w/other who traveled: No Recent Hopitalizations: No Recent Infectious Disease Expo: No Past Medical History Currently Using CPAP: No Currently Using BIPAP: No Cardiac: Hypertension : No Sexually Transmitted Disease: No HIV/AIDS: No Endocrine: Diabetes, Non-Insulin dep History of Blood Disorders: No Adverse Reaction to Blood Mejia: No Family History Reviewed Nursing Family Hx No Pertinent Family Hx Review of Systems Constitutional: malaise Cardiovascular: chest pain Physical Exam Physical Exam Vital Signs Vital Signs - First Documented 01/25/20 01/25/20 08:31 08:39 Temp 36.2 Pulse 97 Resp 16 B/P (MAP) 126/81 (96) Pulse Ox 95 O2 Delivery Room Air O2 Flow Rate 2.00 Capillary Refill : Less Than 3 Seconds Height, Weight, BMI Height: 5'3.00" Weight: 270lbs. 0.0oz. 122.623610gb; 49.25 BMI Method:Estimated General Appearance: WD/WN, Mild Distress, Obese Eyes: Bilateral Eye Normal Inspection, Bilateral Eye PERRL HEENT: PERRL/EOMI, Pharynx Normal Neck: Non Tender, Supple Respiratory: Lungs Clear, Normal Breath Sounds Cardiovascular: Regular Rate, Rhythm, No Murmur Gastrointestinal: Non Tender, Soft Back: Normal Inspection, No CVA Tenderness, No Vertebral Tenderness Extremity: Normal Range of Motion, Non Tender Neurologic/Psychiatric: Alert, Oriented x3 Skin: Normal Color, Warm/Dry Lymphatic: No Adenopathy Results Results/Procedures Labs Laboratory Tests 01/25/20 08:44 01/26/20 03:26 Patient resulted labs reviewed. Assessment/Plan Assessment and Plan Assess & Plan/Chief Complaint Assessment: STEMI with stent placed in LAD DM Smoker HTN Plan: DC home Cardiac meds sent in Diagnosis/Problems Diagnosis/Problems (1) Acute ST elevation myocardial infarction (STEMI) of anterior wall (2) Diabetes (3) Smoker Clinical Quality Measures AMI/AHF: ASA po Prior to arrival: No DVT/VTE Risk/Contraindication: Risk Factor Score Per Nursin RFS Level Per Nursing on Admit: 4+=Very High DESI STEWART DO Jan 26, 2020 08:21
[2020-01-26] MEDS ORDERED: LISI-556 PO ×2 (11:35)
[2020-01-26] MEDS ORDERED: METO-333 PO ×2 (11:35)
[2020-01-26] MEDS ORDERED: ASPI-983 PO ×2 (11:35)
[2020-01-26] MEDS ORDERED: TICA90TA PO ×2 (11:35)
[2020-01-26] MEDS ORDERED: ATOR80TA76 PO ×2 (11:35)
--- NOTE | 2020-01-26 21:32 | Cardiology Progress Note ---
Cardiology SOAP Progress Note Subjective: No cardiac complaints. Objective: I&O/Vital Signs Weight (Pounds): 270 Weight (Ounces): 0.0 Weight (Calculated Kilograms): 122.615973 Constitutional: appears stated age, AAO x 3; No apparent distress; well- developed, well-nourished Respiratory: chest is bilaterally symmetric, lungs clear to auscultation Cardiovascular: irregularly irregular, tachycardia, S1 and S2 Gastrointestional: soft, audible bowel sounds; No spleenomegaly Extremities: normal range of motion, non-tender, normal inspection; No clubbing, No cyanosis; no lower extremity edema bilateral; No significant edema Neurologic/Psychiatric: no motor/sensory deficits, alert, normal mood/affect, oriented x 3, power is 5/5 both on sides Skin: normal color, cool; No rash, No ulcerations Results/Procedures: Labs Microbiology 01/25/20 MRSA Screen - Final, Complete No growth A/P: Assessment/Dx: Cardiogenic shock, Acute anterior STEMI, Diabetes, Hypertension, Active smoking, Morbid obesity, PUI COVID-19 Plan: This is a 39-year-old lady with significant risk factors for severe CAD who presented with typical chest pain with suspicious EKG for an acute inferior injury pattern. Therefore she was emergently taken to the [facility]. Subtotal occlusion of the mid LAD treated successfully with a drug-eluting stent 3.0 x 18 mm; postdilated with a 3.5 NC balloon to 18 jessie.. Door to balloon time of 80 minutes with delay since PUI COVID 19 and extra precautionary measures that the ER and the catheter lab staff had to take. Acute STEMI: Dual antiplatelet therapy for at least 1 year, beta blockers, SHANNEN inhibitor, high-dose statin therapy. Echocardiogram shows normal LV function. Dual antiplatelet therapy. No further chest pain. Cardiogenic shock: Resolved. Diabetes: Primary team consultation. Active smoking: Smoking cessation was strongly recommended. Morbid obesity. Hypertension: low-dose SHANNEN inhibitor and beta dago. COVID-19 negative.. Thank you for your consultation. Please call me if you have any questions. Kevyn Silver MD, FACP, FACC, FSCAI, FHRS, CCDS Interventional Cardiology Cardiac Electrophysiology Vascular Medicine and Endovascular Interventions Clinical Quality Measures AMI/AHF: ASA po Prior to arrival: Yandel Preciado MD Jan 26, 2020 21:32
[2020-01-27] MEDS: NS IV 1000 ML 1,000 ML IV SCH (01:16)
[2020-01-27 03:55] VITALS: BP 128/76
[2020-01-27] MEDS: POTASSIUM CL 10MEQ/50ML IVPB 50 ML IV SCH (04:11)
[2020-01-27] MEDS: MAGNESIUM 1 GM/100 ML IVPB 100 ML IV SCH (04:11)
[2020-01-27] MEDS: KCL 20 MEQ TAB (K-DUR) PO SCH (04:12)
[2020-01-27] MEDS: inSUlin ASPART (NovoLOG) 1 UNIT/0.01 ML (CHARGE PER UNIT) SC SCH ×2 (05:45→10:56)
--- NOTE | 2020-01-27 06:17 | Progress Note - Hospitalist ---
Subjective HPI/CC On Admission Date Seen by Provider: Jan 27, 2020 Time Seen by Provider: 09:00 CC: Medical management of DM following STEMI with stent placed in LAD HPI: This is a 39yoWF clinic patient of Tommy Cullen at [facility] w/h/o HTN and DM and obesity who presented to the ER with CP found to have elevated ST segment and elevated troponin so cath performed requiring stent placed in LAD and swabbed for COVID-19 which returned a negative result. She works at [employer]. She does smoke and I counseled her to stop. SSI initiated and held her PO meds due to cath with contrast. Subjective/Events-last exam Patient had a good night No chest pain Vitals stable Accuchecks are good Restarting all home meds at DC Review of Systems General: Fatigue Objective Exam Vital Signs Vital Signs Date Time Temp Pulse Resp B/P (MAP) Pulse Ox O2 Delivery O2 Flow Rate FiO2 01/27/20 13:26 36.6 83 20 93/64 96 Room Air 01/25/20 18:00 2.00 Capillary Refill : Less Than 3 Seconds General Appearance: No Apparent Distress, WD/WN, Chronically ill Respiratory: Chest Non Tender, Lungs Clear, Normal Breath Sounds, No Accessory Muscle Use, No Respiratory Distress Cardiovascular: Regular Rate, Rhythm, No Edema, No Gallop, No JVD, No Murmur, Normal Peripheral Pulses Neurologic/Psychiatric: Alert, Oriented x3, No Motor/Sensory Deficits, Normal Mood/Affect Results/Procedures Lab Laboratory Tests 01/27/20 06:22 Patient resulted labs reviewed. Assessment/Plan Assessment and Plan Assess & Plan/Chief Complaint Assessment: STEMI with stent placed in LAD DM Smoker HTN Plan: DC home Cardiac meds sent in Diagnosis/Problems Diagnosis/Problems (1) Acute ST elevation myocardial infarction (STEMI) of anterior wall (2) Diabetes (3) Smoker Clinical Quality Measures AMI/AHF: ASA po Prior to arrival: No DVT/VTE Risk/Contraindication: Risk Factor Score Per Nursin RFS Level Per Nursing on Admit: 4+=Very High DESI STEWART DO Jan 27, 2020 06:17
[2020-01-27 06:30] LABS: BASOPHILS % (AUTO) 0 % (0-10); EOSINOPHILS # (AUTO) 0.2 10^3/uL (0.0-0.3); EOSINOPHILS % (AUTO) 1 % (0-10); HEMATOCRIT 35 % (35-52); HEMOGLOBIN 11.3 G/DL (11.5-16.0); LYMPHOCYTES # (AUTO) 2.8 X 10^3 (1.0-4.0); LYMPHOCYTES % (AUTO) 21 % (12-44); MEAN CORPUSCULAR HEMOGLOBIN 27 PG (25-34); MEAN CORPUSCULAR HGB CONC 32 G/DL (32-36); MEAN CORPUSCULAR VOLUME 83 FL (80-99); MEAN PLATELET VOLUME 9.5 FL (7.4-10.4); MONOCYTES # (AUTO) 0.7 X 10^3 (0.0-1.0); MONOCYTES % (AUTO) 5 % (0-12); NEUTROPHILS % (AUTO) 73 % (42-75); PLATELET COUNT 302 10^3/uL (130-400); RED CELL DISTRIBUTION WIDTH 15.4 % (10.0-14.5); WHITE BLOOD COUNT 13.7 10^3/uL (4.3-11.0)
[2020-01-27 06:49] LABS: ALANINE AMINOTRANSFERASE 17 U/L (0-55); ALBUMIN 3.4 GM/DL (3.2-4.5); ALKALINE PHOSPHATASE 104 U/L (40-136); BILIRUBIN,TOTAL 0.4 MG/DL (0.1-1.0); BUN/CREATININE RATIO 15; CALCIUM 8.6 MG/DL (8.5-10.1); CARBON DIOXIDE 22 MMOL/L (21-32); CHLORIDE 103 MMOL/L (98-107); CREATININE SERUM 0.72 MG/DL (0.60-1.30); GFR ESTIMATED > 60; GLUCOSE 169 MG/DL (70-105); POTASSIUM 3.8 MMOL/L (3.6-5.0); SODIUM 137 MMOL/L (135-145); TOTAL PROTEIN 6.3 GM/DL (6.4-8.2)
[2020-01-27] MEDS: lisINopril 5 MG (PRINIVIL) TABLET PO SCH (08:07)
[2020-01-27] MEDS: meTOprolol TARTRATE 25 MG (LOPRESSOR) TABLET PO SCH (08:07)
[2020-01-27] MEDS: TICAGRELOR 90 MG TABLET (BRILINTA) PO SCH (08:07)
[2020-01-27] MEDS: ASPIRIN E.C. 81 MG (ECOTRIN) TAB PO SCH (08:07)
--- NOTE | 2020-01-27 09:30 | NUR ---
DR. STEWART HERE TO SEE PATIENT. DENIES PAIN OR SOB. DRESSING REMOVED FROM RIGHT GROIN AND BANDAID APPLIED. SITE UNREMARKABLE.
[2020-01-27 12:00] VITALS: BP 93/64
--- NOTE | 2020-01-27 13:04 | Cardiology Discharge Summary ---
Diagnosis/Chief Complaint Date of Admission 01/25/2020. Date of Discharge 01/27/2020. Admission Diagnosis Acute STEMI. Final/Discharge Diagnosis Acute STEMI, status post primary PCI of the mid LAD. Chief Complaint/HPI Chief Complaint/HPI This is a 39-year-old lady with history of morbid obesity, diabetes, hypertension, active smoker. Family history is positive for CAD in paternal grandfather. She presented with acute onset chest pain in the morning. Associated with sweating. No fever, chills, nausea or vomiting. Chest pain is substernal and moderate to severe intensity. Not radiating. No exacerbating or relieving factors. Discharge Summary Procedures Primary PCI to the mid LAD with a drug-eluting stent. Door to balloon time of 80 minutes. Delayed due to PUI COVID-19. Discharge Physical Examination Unremarkable. Hospital Course Was the Problem List Reviewed?: Yes Stable. Pending Labs Discussion & Recommendations Discussion Discharge took over 30 minutes to complete. I discussed at length about STEMI, CAD, or medical compliance with dual antiplatelet therapy, healthy living. Follow up appt.: Dr. Silver in 2-3 weeks. Dicharge Diet: Cardiac Diet Activity as Tolerated: Yes Home Medications Reviewed patient Home Medication Reconciliation performed by pharmacy medication reconciliations rehab technician and/or nursing. Patients Allergies have been reviewed. Discharge Home Medications: Reviewed and agree with Discharge Medication list on patient's Discharge Instruction sheet Condition at discharge Stable. Instructions to patient/family Discussed at length with the patient. Clinical Quality Measures AMI/AHF: ASA po Prior to arrival: No DVT/VTE Risk/Contraindication: Risk Factor Score Per Nursin RFS Level Per Nursing on Admit: 4+=Very High Yandel SILVER MD Jan 27, 2020 13:04
--- NOTE | 2020-01-27 13:05 | Discharge Inst-Post CATH ---
Discharge Inst-CATH/EP Problems Reviewed?: Yes Final Diagnosis Acute STEMI Post Cardiac Cath/EP D/C Inst Follow Up/Plan Follow up with Dr Silver in two weeks <b>CARDIAC CATH/EP PROCEDURE DISCHARGE INSTRUCTIONS</b> ACTIVITY * Go Home directly and rest. * Limit activity of the leg (or wrist if it was used) for 7 days including aerobics, swimming, jogging, bicycling, etc. * Restrict stair-climbing for 7 days if possible, if not, climb up with your non-cath leg, then bring together on the same step. * Avoid lifting, pushing, pulling or excessive movement of the affected extremity for 7 days. * Customary sexual activity may be resumed after 2 days-use caution not to use a position that strains or causes pain to the affected extremity. * No driving for 24 hours. * NO SMOKING. * Avoid straining for bowel movements for 7 days. * Gentle walking on level ground is allowed. * Returning to work will depend on the type of procedure and the results. Your doctor will discuss this with you. CALL YOUR DOCTOR FOR ANY OF THE FOLLOWING: *If bleeding from the puncture site occurs- Apply gentle pressure to site with clean cloth and call your doctor or EMS. * If a knot or lump forms under the skin, increases in size, or causes pain. * If bruising appears to be worsening or moving further down your leg instead of disappearing. * Temperature above 101 F. CARE OF YOUR GROIN INCISION; * Bruising or purple discoloration of the skin near the puncture site is common. * You may shower only, no bathtub bathing for 5 days. Be careful to avoid slipping as your leg may feel stiff. * If a closure device was used on your femoral artery, please see the attached guide regarding care of the device and your leg. * Leave dressing on FOR 24 hours. CARE OF YOUR WRIST INCISION; * Bruising or purple discoloration of the skin near the puncture site is common. * You may shower. * DO NOT submerge wrist. * Leave dressing on FOR 24 hours. Yandel SILVER MD Jan 27, 2020 13:05
--- NOTE | 2020-01-27 13:25 | NUR ---
PATIENT STATES DOES NOT HAVE A RIDE HOME, AND HAS OWN CAR IN [address] LOT. DR. LESTER STATES SINCE NO OTHER RIDE, SHE MAY DRIVE HERSELF CAREFULLY HOME. PATIENT VERBALIZES UNDERSTANDING. TELEMETRY WAS DC'D.
[2020-01-27 13:26] VITALS: BP 93/64
== END 2020-01-27 13:25 | disposition home or self-care (01) ==
LOC: EDUNIT# 08:29 → ER 08:31 → CATH 08:52 → ICU 10:39 → CSD 01-27 08:10 → CATH 01-27 13:25
PROVIDERS: ATTEND Internal Medicine Interventional Cardiology
DX: I21.09 ST elevation (STEMI) myocardial infarction involving other coronary artery of anterior wall (principal); R57.0 Cardiogenic shock; I10 Essential (primary) hypertension; E11.9 Type 2 diabetes mellitus without complications; E66.01 Morbid (severe) obesity due to excess calories; F17.210 Nicotine dependence, cigarettes, uncomplicated; Z68.42 Body mass index [BMI] 45.0-49.9, adult; Z20.828 Contact with and (suspected) exposure to other viral communicable diseases; Z79.4 Long term (current) use of insulin; Z79.899 Other long term (current) drug therapy; Z79.02 Long term (current) use of antithrombotics/antiplatelets
CPT/HCPCS: 71045; 75716; 80053 ×2; 82962 ×2; 83615; 83735; 83874; 84145; 84484; 84703; 85007; 85025; 85027; 85379; 85610; 85652; 85730; 86141; 87081; 93005 ×2; 93041; 93306; 93458; 99285; C1725 ×2; C1760; C1769; C1874; C1887; C1894; C9606; U0002; 36415; 87635

== ENCOUNTER → 2020-01-25 | Outpatient (CLI) | payer BC ==
[~2020-01-25] MED LIST changes: +ASPI-983 PO; +ATOR80TA76 PO; -IPRA3AMP IH; +IPRA3AMP31 IH; +LIRA0.6P SC; +LISI-556 PO; -LISI1TAB10 PO; +LISI1TAB26 PO; +METF-865 PO; -METF500T8 PO; +METO-333 PO; -METO-387 PO; +MTP25TSR PO; -PIOG30TA26 PO; +PIOG30TA71 PO; +TICA90TA PO
== END ==
LOC: LABNPT 09:05
PROVIDERS: ATTEND Emergency Medicine
DX: Z53.09 Procedure and treatment not carried out because of other contraindication (principal)